=== PATIENT | female | born 1940 | race Caucasian/White ===

== ENCOUNTER 2016-04-25 10:58 | Emergency (ER) | payer MEDICARE, OTHER ==
[~2016-04-25] VITALS: Ht 157.5 cm; Wt 102.3 kg
[~2016-04-25 10:58] MED LIST: ARIP5TAB7 PO; CALC600T11 PO; CHOL20002 PO; DEXT1CAP PO; DULR PR; ESCI5TAB PO; FLEETPED PR; MAGN400O4 PO; OXYB5TAB7 PO; OXYC-279 PO; PANT40TA4 PO; POTA8TAB2 PO; ZOLP5TAB PO
[2016-04-25 11:04] VITALS: Ht 157.5 cm; Wt 102.3 kg
[2016-04-25] MEDS ORDERED: morphine 4 MG/ML VIAL IV STA (11:28)
[2016-04-25] MEDS ORDERED: ONDANSETRON 4 MG INJ IV STA (11:28)
[2016-04-25] MEDS ORDERED: SOD CHLORIDE 0.9% 1,000 ML IV STA (11:28)
[2016-04-25 11:58] LABS: CHLORIDE 101 mmol/L (97-110)
[2016-04-25 11:59] LABS: POTASSIUM 3.8 mmol/L (3.5-5.1); SODIUM 141 mmol/L (135-144)
[2016-04-25 12:01] LABS: CREATININE 0.85 mg/dl (0.44-1.00)
[2016-04-25 12:02] LABS: ALANINE AMINOTRANSFERASE 31 IU/L (13-69); ALBUMIN/GLOBULIN RATIO 1.03; ALKALINE PHOSPHATASE 52 IU/L (42-121); ANION GAP 12 (8-16); ASPARTATE AMINO TRANSFERASE 23 IU/L (15-46); BILIRUBIN,INDIRECT 0.4 mg/dl (0-1.1); BILIRUBIN,TOTAL 0.4 mg/dl (0.2-1.3); BLOOD UREA NITROGEN 10 mg/dl (7-20); CARBON DIOXIDE 32 mmol/L (21-31); GLUCOSE 118 mg/dl (70-220); TOTAL PROTEIN 5.9 g/dl (6.1-8.1)
[2016-04-25 12:03] LABS: CALCIUM 8.5 mg/dl (8.4-10.2)
[2016-04-25 12:07] LABS: BASOPHILS % 0.4 % (0.0-2.0); EOSINOPHILS # 0.3 10^3/ul (0.0-0.5); EOSINOPHILS % 3.7 % (0.0-7.0); HEMATOCRIT 30.6 % (37.0-47.0); HEMOGLOBIN 10.3 g/dl (12.0-16.0); LYMPHOCYTES # 1.9 10^3/ul (0.8-2.9); LYMPHOCYTES % 20.2 % (15.0-51.0); MEAN CORPUSCULAR HGB CONC 33.7 g/dl (32.0-37.0); MEAN CORPUSCULAR VOLUME 86.1 fl (82.0-101.0); MEAN PLATELET VOLUME 9.7 fl (7.4-10.4); MONOCYTES % 10.5 % (0.0-11.0); NEUTROPHIL # 6.1 10^3/ul (1.6-7.5); NEUTROPHILS % 65.2 % (39.0-77.0); PLATELET COUNT 203 10^3/UL (140-440); RED BLOOD COUNT 3.56 10^6/ul (4.20-5.40); RED CELL DISTRIBUTION WIDTH 15.3 % (11.5-14.5); UNCORRECTED WBC 9.4 10^3/ul (4.8-10.8); WHITE BLOOD COUNT 9.4 10^3/ul (4.8-10.8)
[2016-04-25 12:10] LABS: CONDITION 1; LH ANALYZER COMMENTS 1
[2016-04-25 12:15] LABS: TROPONIN-I < 0.012 ng/ml (0.00-0.12)
--- NOTE | 2016-04-25 14:20 | RADRPT ---
PROCEDURE: CT scan of the abdomen and pelvis without IV contrast. CLINICAL INDICATION: The right lower quadrant pain radiating to the left flank. TECHNIQUE: Thin section axial, coronal and sagittal images were performed through the abdomen and pelvis without contrast. Radiation Dose: CTDI: 23.6 and DLP: 1320.84. One or more of the following dose reduction techniques were used: - Automated exposure control. - Adjustment of the mA and/or kV according to patient size. Use of iterative reconstruction technique. COMPARISON: Chest x-ray 04/15/2016 06:18 a.m. FINDINGS: Soft tissues: Normal. Lungs and pleural spaces: There is a focal area of atelectasis the medial aspect of the right lower lobe. No pulmonary nodule or pleural effusion is noted. There is thickening of the bronchial suspi cious for bronchitis. Heart: Heart is mildly enlarged. There is no pericardial effusion. The liver, common bile duct and gallbladder: The liver is unremarkable. The gallbladder is normal w ith no gallbladder wall thickening or evidence of cholelithiasis. No intrahepatic biliary ductal di latation is identified. Gastrointestinal: The stomach is incompletely distended this is thought to account for gastric wall thickening. The small bowel loops are unremarkable. There is diastasis rectus. There is a 1.3 x 1 .9 cm umbilical hernia. The neck of the hernia measures 1.1 cm. The vermiform appendix is normal. There is no evidence of diverticulosis or diverticulitis. Pancreas: Normal. The extrahepatic common bile duct is normal. Kidneys, bladder and adrenal glands : The adrenal glands are normal. There is a 1.1 by 1 cm nonobst ructive nephrolith in the upper pole of the left kidney. There is no evidence of a mass or hydronep hrosis involving either kidney. Spleen: The spleen is normal in size. There is a 5 mm low attenuation in the ventral third of the s pine. This lesion is likely benign and could represent a small granuloma or cyst. Lymph nodes: Normal. Reproductive system and pelvis : The seminal vesicles and prostate gland are unremarkable. There ar e metal clips at the level of the lower prostate gland and pubic symphysis related to prior surgery. Bony elements: There are degenerative osteophytes in the thoracic and lumbar spine. No acute fractu re or bone metastasis is identified. There is endplate softening between several of the thoracic an d lumbar vertebra. There is a 5 mm benign bone island in the left ilium adjacent to the superior ac etabulum. There is a benign 1.5 cm bone cyst in the right body of L4. Vasculature: There are Alexus filter is deployed in the inferior vena cava and proximal portions of the right left common femoral veins. There are atherosclerotic vascular calcifications in the lo wer abdominal aorta. IMPRESSION: 1. Normal vermiform appendix. No evidence of diverticulosis or diverticulitis. 2. 1 x 1.1 cm nonobstructive nephrolith superior pole left kidney. No evidence of an obstructing u reterolith or hydronephrosis. 3. Diastasis rectus with 1.9 x 1.3 cm umbilical hernia. 4. Focal atelectasis the medial aspect of the right lower lobe. 5. Osteoarthritis of the thoracic and lumbosacral spine with bilateral degenerative facet arthropat hy is at L3-4, L4-5 and L5-S1. 6. 1 cm benign bone cyst in the right body of L4. 7. Mild cardiomegaly. 8. No acute acute process is identified. RPTAT:AAJJ Physician Jenny Date Time Electronically viewed and signed by Physician Jenny on 04/25/2016 14:19 /
[2016-04-25] MEDS ORDERED: ALBUTEROL 0.5% (NEB) 2.5 MG/0.5 ML AMP HHN STA (14:28)
[2016-04-25] MEDS ORDERED: BENZ100C70 PO (14:28)
[2016-04-25] MEDS ORDERED: AZIT250T94 PO (14:28)
[2016-04-25] MEDS ORDERED: HYDR-902 PO (14:28)
[2016-04-25] MEDS ORDERED: ONDA4TAB14 PO (14:28)
[2016-04-25] MEDS ORDERED: IPRATROPIUM (NEB) 0.5 MG/2.5 ML AMP HHN ONE (14:30)
[2016-04-25] MEDS ORDERED: AZITHROMYCIN 250 MG TAB PO ONE (14:30)
--- NOTE | 2016-04-25 14:30 | ERD ---
ER Documentation Chief Complaint Date/Time DATE: 04/25/16 TIME: 14:30 Chief Complaint PRIVATE AMBULANCE, C/O RLQ PAIN FROM [facility] HPI Patient is a 75-year-old female with hypertension and diabetes who presents with abdominal pain. The patient has had abdominal pain for the last few days. She says "I do not know where they are" in reference to the pain. She cannot localize it. She said the pain is been worsening and has been a right sided pain mostly. She was brought in by ambulance. She tried [place] which helped with her pain. She is currently on antibiotics for a UTI. Her primary doctor is Dr. Lopez. ROS All systems reviewed and are negative except as per history of present illness. Medications Home Meds Active Scripts Azithromycin* (Zithromax*) 250 Mg Tablet, 250 MG PO DAILY for 4 Days, TAB Prov:JUICE RILEY MD 04/25/16 Ondansetron (Ondansetron Odt) 4 Mg Tab.rapdis, 4 MG PO Q6H Y for NAUSEA AND/OR VOMITING, #30 TAB Prov:JUICE RILEY MD 04/25/16 Hydrocodone/Acetaminophen ([place] 10-325 Tablet) 1 Each Tablet, 1 TAB PO Q6H Y for PAIN, #7 TAB Prov:JUICE RILEY MD 04/25/16 Benzonatate* (Tessalon Perle*) 100 Mg Capsule, 100 MG PO Q8H Y for COUGH, #30 CAP Prov:JUICE RILEY MD 04/25/16 Reported Medications Zolpidem Tartrate* (Ambien*) 5 Mg Tablet, 5 MG PO QHS Y for INSOMNIA, #30 TAB 02/28/16 Calcium Carbonate* (Calcium Carbonate*) 600 MG Ca Tab, 600 MG PO BID, TAB 02/28/16 Bisacodyl* (Bisacodyl*) 10 Mg Supp, 10 MG TN DAILY, SUPP 02/28/16 Sod Phosphate/Sod Biphosphate* (Fleet* Enema Pediatric) 66.6 Ml Soln, 66.6 ML TN DAILY Y for CONSTIPATION, ENEMA 02/28/16 Escitalopram Oxalate* (Lexapro*) 5 Mg Tablet, 5 MG PO DAILY, #30 TAB 02/28/16 Magnesium Hydroxide* (Milk Of Magnesia*) 400 Mg/5 Ml Oral.susp, 30 ML PO QHS, ML 12/18/16 Dextromethorphan Hbr/Quinidine (NUEDEXTA 20-10 MG CAPSULE) 1 Each Capsule, 1 EACH PO Q12, CAP 02/28/16 Oxybutynin Chloride* (Ditropan*) 5 Mg Tab, 5 MG PO TID, TAB 02/28/16 Pantoprazole* (Pantoprazole*) 40 Mg Tablet.dr, 40 MG PO AC BREAKFAST, TAB 02/28/16 Oxycodone HCl/Acetaminophen (Percocet 5-325 mg Tablet) 1 Each Tablet, 1 EACH PO Q6 Y for PAIN -12/20, TAB AND TAKE FOR CHRONIC LOW BACK PAIN 02/28/16 Cholecalciferol (Vitamin D3) (Vitamin D-3) 2,000 Unit Tablet, 2000 UNIT PO DAILY , TAB 02/28/16 Aripiprazole* (Abilify*) 5 Mg Tab, 5 MG PO DAILY, #30 TAB 02/28/16 Potassium Chloride* (Klor-Con*) 8 Meq Tablet.sa, 8 MEQ PO BID 04/09/11 Allergies Allergies: Coded Allergies: Penicillins (Verified Allergy, Mild, ALLERGY, 02/28/16) adhesive tape (Verified Allergy, Unknown, 03/01/16) Uncoded Allergies: PAPER TAPE (Allergy, Mild, 04/24/07) PMhx/Soc History of Surgery: Yes (left forearm surgery) Anesthesia Reaction: No Hx Neurological Disorder: No Hx Respiratory Disorders: Yes (COPD) Hx Cardiac Disorders: Yes (CHF,AR,HTN) Hx Psychiatric Problems: Yes (SCHIZOAFFECTIVE DISORDER) Hx Miscellaneous Medical Probl: Yes (CHF, OA, Gout, Asthma, COPD, schizoaffective disorder, DM, AR) Hx Alcohol Use: No Hx Substance Use: No Hx Tobacco Use: Yes Smoking Status: Current some day smoker FmHx Family History: diabetes Physical Exam Vitals Vital Signs Date Time Temp Pulse Resp B/P Pulse Ox O2 Delivery O2 Flow Rate FiO2 04/25/16 12:39 75 18 97/50 100 Room Air 04/25/16 11:04 99.0 81 19 109/54 97 Physical Exam Const: No acute distress Head: Atraumatic Eyes: Normal Conjunctiva ENT: Normal External Ears, Nose and Mouth. Neck: Full range of motion..~ No meningismus. Resp: Cough Cardio: Regular rate and rhythm, no murmurs Abd: Soft, diffuse abdominal pain without rebound or guarding Skin: No petechiae or rashes Back: No midline or flank tenderness Ext: No cyanosis, or edema Neur: Awake and alert Psych: Normal Mood and Affect Result Diagram: 04/25/16 1130 04/25/16 1130 Results 24 hrs Laboratory Tests Test 04/25/16 11:30 Alanine Aminotransferase (ALT/SGPT) 31IU/L Albumin 3.0g/dl Albumin/Globulin Ratio 1.03 Alkaline Phosphatase 52IU/L Anion Gap 12 Aspartate Amino Transf (AST/SGOT) 23IU/L Basophils # 0.010^3/ul Basophils % 0.4% Blood Morphology Comment Blood Urea Nitrogen 10mg/dl Calcium Level 8.5mg/dl Carbon Dioxide Level 32mmol/L Chloride Level 101mmol/L Creatinine 0.85mg/dl Direct Bilirubin 0.00mg/dl Eosinophils # 0.310^3/ul Eosinophils % 3.7% Globulin 2.90g/dl Glucose Level 118mg/dl Hematocrit 30.6% Hemoglobin 10.3g/dl Indirect Bilirubin 0.4mg/dl Lipase 22U/L Lymphocytes # 1.910^3/ul Lymphocytes % 20.2% Mean Corpuscular Hemoglobin 29.0pg Mean Corpuscular Hemoglobin Concent 33.7g/dl Mean Corpuscular Volume 86.1fl Mean Platelet Volume 9.7fl Monocytes # 1.010^3/ul Monocytes % 10.5% Neutrophils # 6.110^3/ul Neutrophils % 65.2% Nucleated Red Blood Cells # 0.010^3/ul Nucleated Red Blood Cells % 0.0/100WBC Platelet Count 96397^3/UL Potassium Level 3.8mmol/L Red Blood Count 3.5610^6/ul Red Cell Distribution Width 15.3% Sodium Level 141mmol/L Total Bilirubin 0.4mg/dl Total Protein 5.9g/dl Troponin I < 0.012ng/ml White Blood Count 9.410^3/ul Current Medications Medications (Trade) Dose Ordered Sig/Genet Route PRN Reason Start Time Stop Time Status Last Admin Dose Admin Sodium Chloride (NS) 1,000 ml @ 1,000 mls/hr Q1H STAT IV 04/25/16 11:28 04/25/16 12:27 DC 04/25/16 11:38 Morphine Sulfate (morphine) 4 mg ONCE STAT IV 04/25/16 11:28 04/25/16 11:29 DC 04/25/16 11:37 Ondansetron HCl (Zofran Inj) 4 mg ONCE STAT IV 04/25/16 11:28 04/25/16 11:29 DC 04/25/16 11:38 Albuterol (Proventil 0.5% (Neb)) 5 mg ONCE STAT HHN 04/25/16 14:28 04/25/16 14:29 DC Ipratropium Garrison (Atrovent 0.02% (Neb)) 0.5 mg ONCE ONCE HHN 04/25/16 14:30 04/25/16 14:31 Azithromycin (Zithromax) 500 mg ONCE ONCE PO 04/25/16 14:30 04/25/16 14:31 Procedures/MDM EKG read by me: Rate/Rhythm: Regular rate and rhythm at a rate of 79 Intervals: Normal Impression: No evidence of ischemia or arrhythmia CT scan shows no acute surgical process per radiology. Patient is a 75-year-old female presents with abdominal pain and cough. Her laboratory studies are basically normal and CT scan shows no sign of surgical process within the abdomen and pelvis. The patient has a strong cough and was given albuterol and Atrovent as well as a first dose of Zithromax. I will give 4 more days of Zithromax as well. At this point I believe outpatient management is appropriate. The patient will be discharged back to the nursing facility. She can return for any worsening symptoms. At this point I doubt appendicitis, cholecystitis, pancreatitis, or bowel obstruction. Departure Diagnosis: Primary Impression: Bronchitis Additional Impressions: Abdominal pain Abdominal location: generalized Qualified Code: R10.84 - Generalized abdominal pain Anemia Anemia type: unspecified type Qualified Code: D64.9 - Anemia, unspecified type Condition: Fair Patient Instructions: Abdominal Pain, Bronchitis, Antiobiotic Treatment (Adult) Additional Instructions: FOLLOW UP WITH YOUR PRIMARY CARE PHYSICIAN TOMORROW.Return to this facility if you are not improving as expected. JUICE RILEY MD Apr 25, 2016 14:30
[2016-04-25 15:29] VITALS: BP 111/61; PULSE 93; RESP 20; TEMP 97.8
== END 2016-04-25 16:59 | disposition home or self-care (01) ==
LOC: E/R 10:58
DX: J20.9 Acute bronchitis, unspecified (principal); R10.84 Generalized abdominal pain; D64.9 Anemia, unspecified; I10 Essential (primary) hypertension; J44.9 Chronic obstructive pulmonary disease, unspecified; J45.909 Unspecified asthma, uncomplicated; I50.9 Heart failure, unspecified; E11.9 Type 2 diabetes mellitus without complications; F17.210 Nicotine dependence, cigarettes, uncomplicated
CPT/HCPCS: 36415; 74176; 80053; 83690; 84484; 85025; 93005; 94664; 96374; 96375; 99285; J2270; J2405; J7030

== ENCOUNTER 2016-12-06 18:42 | Inpatient (IN) | payer MEDICARE, OTHER ==
[~2016-12-06] VITALS: Ht 160 cm; Wt 94.8 kg
[~2016-12-06 18:42] MED LIST changes: +AZIT250T94 PO; +BENZ100C70 PO; +BISA10SU75 PR; -CALC600T11 PO; +CALC600T24 PO; -DULR PR; +HYDR-902 PO; +ONDA4TAB14 PO
[2016-12-06 19:53] VITALS: Ht 160 cm; Wt 94.8 kg
[2016-12-06 20:06] VITALS: BP 92/53; RESP 20
[2016-12-06 20:08] VITALS: BP 107/61; PULSE 74; RESP 18
[2016-12-06] MEDS ORDERED: NACL 0.9% 3 ML SYG IV SCH (20:30)
[2016-12-06] MEDS ORDERED: ONDANSETRON 4 MG INJ IV PRN (20:30)
[2016-12-06] MEDS ORDERED: MAGNESIUM HYDROXIDE 30ML CUP PO PRN (20:30)
[2016-12-06] MEDS ORDERED: morphine 2 MG INJ IV PRN (20:30)
[2016-12-06] MEDS ORDERED: DOCUSATE SODIUM 100 MG CAP PO PRN (20:30)
[2016-12-06] MEDS ORDERED: LORAZEPAM 0.5 MG TAB PO PRN (21:00)
[2016-12-06] MEDS ORDERED: INFLUENZA VIRUS VACCINE 0.5 ML (DISPENSING) IM* ONE (21:00)
[2016-12-06] MEDS ORDERED: GLUCAGON 1 MG INJ IM PRN (21:00)
[2016-12-06] MEDS: INSULIN ASPART [NOVOLOG] 3 ML PEN SC SCH (21:00)
[2016-12-06] MEDS ORDERED: GLUCOSE GEL 15 GRAM TUBE BUCCAL PRN (21:00)
[2016-12-06] MEDS ORDERED: GLUCOSE GEL 15 GRAM TUBE PO PRN ×2 (21:00)
[2016-12-06] MEDS ORDERED: DEXTROSE 50% 50 ML SYRINGE IV PRN ×2 (21:00)
[2016-12-06] MEDS: TAMSULOSIN (SR) 0.4 MG CAP PO SCH (21:11)
[2016-12-06] MEDS: OXYBUTYNIN 5 MG TAB PO SCH (21:11)
[2016-12-06] MEDS: CEFEPIME 1GM/50 ML (PMX) 50 ML IV SCH (21:11)
[2016-12-06] MEDS: SOD CHLORIDE 0.9% 1,000 ML IV SCH (21:11)
[2016-12-06] MEDS: ACCU-CHEK XX SCH (21:13)
[2016-12-06] MEDS: ACETAMINOPHEN 325 MG TAB PO PRN (21:13)
--- NOTE | 2016-12-06 22:04 | HP ---
DATE OF ADMISSION: 12/06/2016 REASON FOR ADMISSION: Left obstructive ureteral stone, UTI. 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 This was done at [facility] in the past month. Patient resides at the assisted living facility at [facility]. Patient has been complaining today of left- sided abdominal pain, and she was transferred to [facility]. In the ER, patient was evaluated extensively and underwent extensive workup. Chest x-ray shows cardiomegaly, with mild central pulmonary vascular congestion, right costophrenic angle opacity, which could be related to atelectasis. Recommend attention and followup imaging. She also had a CT scan of the abdomen and pelvis performed, which showed mild left hydroureteronephrosis, with extensive perinephric periurethral fatty stranding related to 1.1-cm obstructive stone in the mid left ureter. There is hepatomegaly with fatty infiltration, sigmoid diverticula, without evidence of acute diverticulitis. There is scattered aortoiliac atherosclerosis, mild hiatal hernia, osteopenia, multiple [id number] compression fractures in the lower thoracic and lumbar spine, not significantly changed. Patient also had a fever of 100.4. It was decided to transfer to [facility] for further care and also for a urological evaluation and consultation. Upon evaluation, patient still complained of vague pain in the left mid abdomen. Otherwise, denies any chest pain or shortness of breath. She was noted to have upon presentation a temperature of 100.4 upon presentation today in the hospital. Patient is admitted for further care. PAST MEDICAL HISTORY: Includes CHF, diabetes mellitus, schizoaffective disorder, asthma, COPD, gout, obesity, history of uterine cancer in the past, spinal fracture. ALLERGIES: PENICILLIN. FAMILY HISTORY: Mother from bone cancer. SOCIAL HISTORY: Patient used to smoke heavily in the past but stopped many years ago, more than 27 years ago. IV drug abuse and alcohol denies. SURGICAL HISTORY: Includes status post hysterectomy secondary to uterine cancer, bladder lift surgery and rectocele surgery, also pacemaker placement a month ago. REVIEW OF SYSTEMS: Per HPI. CURRENT MEDICATIONS: Include: 1. Tylenol 650 p.r.n. 2. Abilify 5 mg daily. 3. Aspirin 81 mg daily. 4. Bisacodyl suppository 10 as directed. 5. Calcium plus D 1 tab by mouth daily. 6. Coreg 12.5 b.i.d. 7. Lexapro 10 mg daily. 8. Ferrous sulfate 325 mg daily. 9. Gabapentin 400 mg q.8 hours. 10. Breathing treatment as directed. 11. Loperamide as directed. 12. Lorazepam p.r.n. 13. Milk of magnesia p.r.n. 14. Multivitamin 1 tab daily. 15. Nitrostat p.r.n. 16. Zofran p.r.n. 17. Protonix 40 mg daily. 18. KCl 10 mEq a day. 19. Promethazine p.r.n. PHYSICAL EXAMINATION: VITAL SIGNS: Blood pressure is 92/53, pulse 68, respirations 20, temperature 100.4, saturation 98 percent. GENERAL APPEARANCE: Patient is no acute distress. Patient is obese. Patient is pale. CARDIAC: S1, S2. Regular rate. LUNGS: Clear. Slightly decreased at the bases. Slight rhonchi at the bases as well. ABDOMEN: Soft, tender to palpation, left mid abdomen. EXTREMITIES: There is no clubbing, cyanosis, or edema. Patient is overweight. LABORATORY: No labs here in this hospital. At [facility], patient labs showed the following: White count slightly high at 12.8, hemoglobin 12.2, hematocrit 37, platelet count of 123, neutrophils 73 percent, lymphocytes 13 percent, monocytes 7 percent. ABG was done as well; pH was 7.39, pCO2 of 39, pO2 of 76, bicarb of 23, saturation 95 percent. Sodium 141, potassium 4.6, chloride 105, bicarb 30, BUN 16, creatinine 1.3 and glucose of 148. Calcium 8.8. AST 30, ALT was 26. UA did show negative ketones but blood large, nitrates negative, leukocyte esterase is small, with WBCs of [address] scan of the abdomen and pelvis as above. ASSESSMENT/PLAN: This is a 76-year-old, obese female, with history of congestive heart failure, chronic obstructive pulmonary disease, borderline diabetes mellitus, psychiatric disorder, presented with 1 day of left abdominal pain and was found to have obstructive left mid ureteral stone. 1. Respiratory. Stable. O2 support will be provided. Breathing treatment as needed, as patient has history of chronic obstructive pulmonary disease. Monitor for fluid overload state. 2. Cardiovascular. Patient is stable. Patient placed on Lovenox for deep venous thrombosis prophylaxis. Patient is status post recent pacemaker placement. Blood pressure was slightly on the low side. Patient will be hydrated gently. 3. Obstructive uropathy, with possible underlying urinary tract infection. Patient will be started on cefepime and will strain her urine. We will start the patient on Flomax, and we will consult Urology. This patient may need urological intervention such as stent placement. 4. Diabetes mellitus. Borderline Accu-Chek q.a.c. and at bedtime will be obtained. Follow up hemoglobin A1c level. 5. Psychiatric. Resume all psych meds, including antidepressants. 6. Patient will be placed on Protonix for gastrointestinal prophylaxis. 7. We will obtain blood cultures as well, if patient has a fever. 8. We will follow patient closely. Dictated By: Fidel Lopez MD /nga/david /Document#: [id number]
[2016-12-06 22:19] LABS: ADD UMIC YES; UR ASCORBIC ACID NEGATIVE (NEGATIVE); UR BACTERIA MODERATE /HPF (NONE SEEN); UR BILIRUBIN (Dip) NEGATIVE (NEGATIVE); UR BLOOD (Dip) 3+ mg/dL (NEGATIVE); UR CLARITY CLOUDY (CLEAR); UR COLOR YELLOW (YELLOW); UR GLUCOSE (Dip) NEGATIVE (NEGATIVE); UR KETONES (Dip) NEGATIVE (NEGATIVE); UR LEUKOCYTE ESTERASE (Dip) 3+ Leu/ul (NEGATIVE); UR MUCUS FEW /HPF (NONE SEEN); UR NITRITE (Dip) NEGATIVE (NEGATIVE); UR RBC 77 /HPF (0-5); UR SQUAMOUS EPITHELIAL CELL MODERATE /HPF (FEW); UR TOTAL PROTEIN (Dip) 2+ mg/dl (NEGATIVE); UR UROBILINOGEN (Dip) 1+ mg/dL (NEGATIVE)
[2016-12-07] MEDS ORDERED: ACCU-CHEK XX SCH (02:00)
[2016-12-07 02:39] VITALS: BP 109/72; RESP 18
[2016-12-07] MEDS: HYDROCODONE/APAP (5/325) TAB PO PRN ×2 (02:57→21:52)
[2016-12-07 05:37] LABS: ABNORMAL IP MESSAGE 1; BASOPHILS % 0.1 % (0.0-2.0); EOSINOPHILS # 0.3 10^3/ul (0.0-0.5); EOSINOPHILS % 1.8 % (0.0-7.0); HEMATOCRIT 28.7 % (37.0-47.0); HEMOGLOBIN 9.5 g/dl (12.0-16.0); LYMPHOCYTES # 2.1 10^3/ul (0.8-2.9); MEAN CORPUSCULAR HEMOGLOBIN 29.3 pg (29.0-33.0); MEAN CORPUSCULAR HGB CONC 33.1 g/dl (32.0-37.0); MEAN CORPUSCULAR VOLUME 88.6 fl (82.0-101.0); MEAN PLATELET VOLUME 12.5 fl (7.4-10.4); MONOCYTE # 1.4 10^3/ul (0.3-0.9); MONOCYTES % 9.7 % (0.0-11.0); NEUTROPHIL # 10.2 10^3/ul (1.6-7.5); NEUTROPHILS % 72.7 % (39.0-77.0); PLATELET COUNT 98 10^3/UL (140-415); RED BLOOD COUNT 3.24 10^6/ul (4.20-5.40); RED CELL DISTRIBUTION WIDTH 13.9 % (11.5-14.5); WHITE BLOOD COUNT 14.1 10^3/ul (4.8-10.8)
[2016-12-07 05:42] LABS: POSITIVE DIFF @See below
[2016-12-07] MEDS: PANTOPRAZOLE (EC) 40 MG TAB PO SCH (05:45)
[2016-12-07] MEDS: ACETAMINOPHEN 325 MG TAB PO PRN ×3 (05:45→20:17)
[2016-12-07 06:00] LABS: ALBUMIN 2.5 g/dl (3.3-4.9); ALBUMIN/GLOBULIN RATIO 0.83; BILIRUBIN,INDIRECT 0.9 mg/dl (0-1.1); BILIRUBIN,TOTAL 0.9 mg/dl (0.2-1.3); CALCIUM 8.3 mg/dl (8.4-10.2); CREATININE 1.54 mg/dl (0.44-1.00); TOTAL PROTEIN 5.5 g/dl (6.1-8.1)
[2016-12-07 06:27] LABS: THYROID STIMULATING HORMONE 1.69 MIU/L (0.465-4.680)
[2016-12-07] MEDS: INSULIN ASPART [NOVOLOG] 3 ML PEN SC SCH ×5 (07:55→20:17)
[2016-12-07 08:10] VITALS: BP 92/46; RESP 20
--- NOTE | 2016-12-07 08:55 | CONS ---
DATE OF ADMISSION: 12/06/2016 DATE OF CONSULTATION: 12/07/2016 Dear Fidel: Thank you for asking me to see this nice lady in urological consultation. She is a 76-year-old female, who had left flank pain with nausea and fever. She presented to the emergency room at [facility] and a CT scan of the abdomen and pelvis was done and that showed a 1.1 cm stone in the left ureter. The patient was transferred to [facility] for further care. The patient states that many years back she may have had a kidney stone that she may have passed out. She denies any lower urinary tract symptoms. No dysuria, no hematuria, but she does have a problem with incontinence sometimes. PAST MEDICAL HISTORY: The patient has multiple medical problems that include a history of congestive heart failure, history of osteoarthritis, gout, asthma, COPD, has schizoaffective disorder, and borderline diabetes. She did have a recent pacemaker placed because of the tachybradycardia syndrome. The patient also has a history of spinal problem, fracture, and she suffers from obesity. Also, there is a history of uterine cancer in the past. SOCIAL HISTORY: The patient does not drink any alcohol. She used to smoke but she quit more than 27 years ago, and no drug abuse. No history of alcohol abuse. PAST SURGICAL HISTORY: Hysterectomy secondary to uterine cancer, a bladder lift surgery and rectocele surgery and recent pacemaker insertion. MEDICATION: That she is on presently include: 1. She is on Lovenox. 2. Abilify. 3. Dulcolax suppository. 4. Lexapro. 5. Protonix. 6. Cefepime. 7. Ditropan 5 mg 3 times a day. 8. Tamsulosin 0.4 mg a day. 9. She is on insulin coverage. 10. Ativan p.r.n. 11. Zofran p.r.n. 12. Tylenol p.r.n. 13. [place] p.r.n. 14. Ambien. 15. Milk of Magnesium p.r.n. 16. Colace p.r.n. PHYSICAL EXAMINATION: Reveals an elderly female. She weighs about 95 kg. She is awake, alert, and very pleasant. HEAD AND NECK: Unremarkable. CHEST: Clear. The patient does have a scar from her recent pacemaker placement in the left upper anterior chest. ABDOMEN: Very obese. There is no abdominal mass palpable. She is tender in the left upper quadrant and left side of the abdomen. PELVIC: Exam revealed no mass. No discharge. GENITOURINARY: She does have an indwelling Johnston catheter draining clear urine. EXTREMITIES: The lower extremities are normal. She is obese, however. The patient usually is wheelchair-bound and she moves from her bed to the wheelchair. LABORATORY: Her CBC shows a white count of 14.1, hemoglobin 9.5, hematocrit 28.7, the platelet count 98,000. BUN is 20, creatinine 1.54, sodium 137, potassium 4.0, chloride 106, CO2 28. The urinalysis showed 3+ leukocyte esterase and 77 RBCs per high- power field. IMPRESSION: A 1.1 cm left mid to upper ureteral stone with obstruction. PLAN: Do a KUB, continue her on antibiotic and this patient will need to have a cystoscopy and insertion of a JJ stent to drain her kidney and at the later date go and remove the stone. I will follow her urological problem with you. I do thank you for allowing me to help in her care. Dictated By: Bhavin Segovia MD /nga/lexii /Document#: [id number]
[2016-12-07] MEDS ORDERED: ENOXAPARIN 40 MG/0.4 ML SYG SC SCH (09:00)
[2016-12-07] MEDS: BISACODYL 10 MG SUPP PR SCH (09:00)
[2016-12-07] MEDS: CEFEPIME 1GM/50 ML (PMX) 50 ML IV SCH (09:32)
[2016-12-07] MEDS: ESCITALOPRAM 10 MG TAB PO SCH (09:33)
[2016-12-07] MEDS: ARIPIPRAZOLE 5 MG TAB PO SCH (09:33)
[2016-12-07] MEDS: OXYBUTYNIN 5 MG TAB PO SCH ×3 (09:33→20:17)
--- NOTE | 2016-12-07 10:07 | RADRPT ---
PROCEDURE: XR Chest. CLINICAL INDICATION: Shortness of breath. TECHNIQUE: Single frontal view. COMPARISON: 03/02/2016. FINDINGS: There is a new permanent pacemaker with leads in the right atrium and right ventricle. There is mild pulmonary edema, improved. The lungs are otherwise clear. The heart is mildly enlarged. There is no pleural effusion. There is no pneumothorax. IMPRESSION: 1. Permanent pacemaker. 2. Mild cardiomegaly. 3. Improved appearance of the lungs. RPTAT: QQ .Lokesh Barragan MD, MD Date Time Electronically viewed and signed by .Lokesh Barragan MD, MD on 12/07/2016 10:07 .R/
--- NOTE | 2016-12-07 10:30 | RADRPT ---
PROCEDURE: XR Abdomen. CLINICAL INDICATION: Abdominal pain. Left ureteral calculus. TECHNIQUE: AP supine abdomen x-ray. COMPARISON: CT scan of the abdomen and pelvis dated 04/25/2016. FINDINGS: There is a permanent pacemaker. The calcification is noted overlying the left kidney. There are no o ther abnormal calcifications overlying the urinary tracts. The bowel gas pattern is normal with no evidence of obstruction. There are 2 inferior vena cava filters present as seen on prior CT scan. There are degenerative changes of the spine. IMPRESSION: 1. Permanent pacemaker. 2. Calcification overlying the left kidney. 3. IVC filters present. 4. Degenerative changes of the spine. RPTAT: QQ .Lokesh Barragan MD, Date Time Electronically viewed and signed by .Lokesh Barragan MD, on 12/07/2016 10:30 .R/
[2016-12-07 10:36] VITALS: BP 117/54; PULSE 65; RESP 16
[2016-12-07] MEDS: SOD CHLORIDE 0.9% 1,000 ML IV SCH (10:37)
[2016-12-07 12:31] LABS: INR 1.53; PROTIME 18.5 Sec (12.2-14.2); PT RATIO 1.4
[2016-12-07 12:32] LABS: PARTIAL THROMBOPLASTIN TIME 40.2 Sec (25.0-35.0)
--- NOTE | 2016-12-07 13:17 | PN ---
DATE: 12/07/2016 SUBJECTIVE DATA: I appreciate Dr. Segovia's input. The patient's urine culture is positive for gram-negative rods. White count is elevated to 14. Patient is on cefepime. The patient likely to undergo a left ureteral stent placement, as patient, unfortunately, has an obstructive ureteral stone on the left. The patient complaining of pain in the left abdomen. Additionally, she is complaining of general arthralgia. OBJECTIVE DATA: VITAL SIGNS: The T-max is a 100.4 on presentation. Current vital signs temperature 98.9, pulse 65, respirations 16, blood pressure 117/54, saturation 95 percent on 2 L. GENERAL: The patient is in no acute distress. Patient is pale, obese. CARDIOVASCULAR: S1, S2. Regular rate. LUNGS: Clear. ABDOMEN: Soft, slight tenderness to palpation in the left mid abdomen. EXTREMITIES: No clubbing, cyanosis, or edema. The patient is obese. She has osteoarthritis of bilateral knees. No warmth or fluid collection is noted. LABS: White count is 14.1, hemoglobin 9.5, hematocrit 29, platelet count is low at 98, neutrophils 73 percent, lymphocytes 15 percent. Chemistry: Sodium 127, potassium 4.2, chloride 106, bicarb 28, BUN is 20, creatinine is 1.54, elevated glucose of 131, last glucose level 178 and 153. UA was positive. Urine culture shows gram-negative rods. MEDICATIONS: Include: 1. Lovenox 4 mg subcu daily. 2. Abilify 5 mg daily. 3. Dulcolax 10 mg daily. 4. Lexapro 5 mg daily. 5. Protonix mg daily. 6. Accu-Chek before meals and at bedtime. 7. Cefepime 1 g q.12. 8. Ditropan 5 mg t.i.d. 9. Flomax 0.4 at bedtime. 10. Ativan 0.5 q.6 p.r.n. 11. Hypoglycemia protocol. 12. Zofran p.r.n. 13. Tylenol p.r.n. 14. [place] p.r.n. 15. Morphine p.r.n. 16. Colace p.r.n. 17. Milk of Magnesium p.r.n. 18. Ambien p.r.n. 19. Normal saline at 70 mL/hour. ASSESSMENT AND PLAN: This is a 76-year-old obese female, with history of congestive heart failure, chronic obstructive pulmonary disease, borderline diabetes mellitus, psychiatric disorder, who presented with 1 day of left abdominal pain, was found to have obstructive uropathy with left mid ureteral stone. 1. Respiratory: Oxygen support as needed. Breathing treatment as needed. The patient appears to be hemodynamically stable. Chest x-ray shows mild cardiomegaly and improved appearance of the lungs. 2. Cardiovascular: Patient is status post pacemaker. Blood pressure is stable. 3. ID: Patient with urinary tract infection. Patient on cefepime. Follow up urine culture results. 4. Worsening kidney function. Monitor. Continue gentle hydration. 5. Obstructive left ureteral stone. Patient will undergo stent placement with Dr. Segovia pending INR results. We will obtain cardiology eval. This patient has cardiac history in the setting of the above surgical procedure. 6. Psychiatric disorder. Continue Lexapro and Abilify. 7. Continue deep venous thrombosis prophylaxis and gastrointestinal prophylaxis. Monitor platelet count. 8. Diet as tolerated. Antiemetics as needed. 9. Pain control will be provided for both for abdominal pain and also osteoarthritis. We will follow. Dictated By: Fidel Lopez MD /nga/lexii /Document#: [id number]
[2016-12-07 14:00] VITALS: BP 105/58; RESP 18
--- NOTE | 2016-12-07 14:15 | RADRPT ---
Vent Rate: 68 bpm RR Interval: 0 msec DC Interval: 184 msec QRS Duration: 84 msec QT Interval: 428 msec QTC Interval: 455 msec P-R-T [place]: 74 - 11 - 51 degrees Normal sinus rhythm Normal ECG Electronically Signed By: Daniel Heredia [id number]
[2016-12-07] MEDS: morphine 2 MG INJ IV PRN (17:26)
[2016-12-07 19:38] VITALS: BP 92/52; RESP 19
[2016-12-07] MEDS: TAMSULOSIN (SR) 0.4 MG CAP PO SCH (20:17)
[2016-12-07] MEDS: MEROPENEM 1 GM/50ML(PMX) 50 ML IVPB SCH (20:47)
[2016-12-08] VITALS (16 sets, daily range): BP systolic 100–132; BP diastolic 50–76; PULSE 65–87; RESP 16–20
[2016-12-08] MEDS: DEXTROSE 5%-0.45% NACL 1,000 ML IV SCH ×2 (00:05→17:57)
[2016-12-08] MEDS: ACCU-CHEK XX SCH (02:00)
[2016-12-08] MEDS: morphine 2 MG INJ IV PRN ×2 (04:00→08:17)
[2016-12-08] MEDS: PANTOPRAZOLE (EC) 40 MG TAB PO SCH (04:16)
[2016-12-08] MEDS: INSULIN ASPART [NOVOLOG] 3 ML PEN SC SCH ×4 (08:00→20:06)
[2016-12-08] MEDS ORDERED: morphine 4 MG/ML VIAL ONE (08:11)
[2016-12-08] MEDS: MEROPENEM 1 GM/50ML(PMX) 50 ML IVPB SCH ×2 (08:16→20:07)
[2016-12-08] MEDS: BISACODYL 10 MG SUPP PR SCH (08:22)
[2016-12-08] MEDS ORDERED: CEFEPIME 1GM/50 ML (PMX) 50 ML IV SCH (09:00)
[2016-12-08] MEDS ORDERED: ENOXAPARIN 30 MG/0.3 ML SYG SC SCH (09:00)
[2016-12-08] MEDS: OXYBUTYNIN 5 MG TAB PO SCH ×3 (09:00→20:07)
[2016-12-08] MEDS: ARIPIPRAZOLE 5 MG TAB PO SCH (09:00)
[2016-12-08] MEDS: ESCITALOPRAM 10 MG TAB PO SCH (09:00)
--- NOTE | 2016-12-08 09:44 | CONS ---
DATE OF ADMISSION: 12/06/2016 DATE OF CONSULTATION: 12/07/2016 REASON FOR CONSULTATION: History of sick sinus syndrome, status post permanent pacemaker, cardiovascular preop evaluation, history of congestive heart failure. CHIEF COMPLAINT: Left abdominal pain, flank pain. HISTORY OF PRESENT ILLNESS: Dear Dr. Lopez: Thank you for this referral. This is a pleasant 76-year-old female with reported history of congestive heart failure, as well as COPD, asthma, who was admitted to our facility for workup of her abdominal pain. Patient apparently was seen at [facility]. Workup has shown left-sided kidney stone. She has been transferred to our facility for urological workup and procedures. She denies any chest pain or pressure to any . She does have cough and shortness of breath and wheezing, which have been stable for her. Her exercise tolerance is limited due to her arthritis, as well as her shortness of breath. She also has had recent fever up to 100.4 as well. PAST MEDICAL HISTORY: History of reported CHF with normal ejection fraction, diastolic dysfunction, history of diabetes, schizoaffective disorder, asthma, COPD, gout, obesity, history of uterine cancer in the past and spinal fracture. ALLERGIES: PENICILLIN. FAMILY HISTORY: Patient's mother from some sort of bone cancer reportedly. SOCIAL HISTORY: Patient quit smoking when she was 51. Smoked for a long time prior to that. Denies any alcohol or drug abuse. MEDICATION: As per medical reconciliation, personally reviewed. PAST SURGICAL HISTORY: Had a pacemaker placement recently, had a hysterectomy done for history of uterine cancer, had bladder surgery and rectocele surgery done. REVIEW OF SYSTEMS: As above mentioned. She denies all except for abovementioned to me. She has abdominal pain though. PHYSICAL EXAMINATION: VITAL SIGNS: Temperature 98.7, heart rate 63, blood pressure 110/63, respiratory rate 18, satting 98 percent HEENT: Normocephalic, atraumatic. No acute distress. Pupils are equal and round. CARDIAC: Regular rate and rhythm. No gallops or murmurs. CHEST: . Left-sided permanent pacemaker in place. LUNGS: Anteriorly with mild wheezes. ABDOMEN: Soft, nontender. No rebound. EXTREMITIES: With trace lower extremity edema. NEUROLOGIC: Awake and alert. Responds appropriately. PSYCHIATRIC: Very calm and very pleasant. LABORATORY: WBC of 14.1, hemoglobin 9.5, platelets of 98. Sodium 137, potassium 4, BUN of 20, creatinine of 1.54, glucose of 131. Albumin is 2.5. TSH 1.69. Chest x-ray shows status post pacemaker with mild hepatomegaly, improved appearance of the lungs. There is mild pulmonary edema. EKG shows normal sinus rhythm, normal ECG. IMPRESSION AND PLAN: 1. Cardiovascular preoperative evaluation. 2. History of congestive heart failure, suggestive of diastolic dysfunction, appears to be chronic and stable at this point. 3. History of sick sinus syndrome, status post permanent pacemaker, currently with no issues. 4. Urinary tract infection and renal stone, awaiting surgery for the obstructive left ureteral stone. 5. History of chronic obstructive pulmonary disease, asthma. 6. History of psych disorder, currently stable. 7. Thrombocytopenia. 8. Acute renal failure, most likely related to above. 9. Diabetes, on insulin. RECOMMENDATIONS: Patient appears to be optimized from the cardiac standpoint for the above procedure and it appears that the benefits outweigh the risks. I will order electrocardiogram to reevaluate the LV function. No evidence of malfunction of the pacemaker and currently patient does not appear to be using the pacemaker much anyway. We will try to get the information on the pacemaker and have it interrogated later on. I will hold the Lovenox given thrombocytopenia for now. We will follow up on the labs and adjust it. Diabetic control will be continued. Thank you for this referral. We will continue to follow along with you. Dictated By: Lc Murillo MD /nga/lexii /Document#: [id number] CC: Fidel Lopez MD;*[facility]*
[2016-12-08] MEDS ORDERED: LIDOCAINE 2% (SDV) 5 ML INJ ONE (12:21)
[2016-12-08] MEDS ORDERED: ROCURONIUM 50 MG INJ ONE (12:21)
[2016-12-08] MEDS ORDERED: PROPOFOL 20 ML ONE (12:21)
[2016-12-08] MEDS ORDERED: SUCCINYLCHOLINE CHLORIDE 100 MG/5 ML SYG IV ONE (12:21)
[2016-12-08] MEDS ORDERED: GLYCOPYRROLATE 0.4 MG INJ ONE ×3 (12:21→12:56)
[2016-12-08] MEDS ORDERED: NEOSTIGMINE 3 MG/3 ML SYRINGE ONE ×2 (12:21→12:56)
--- NOTE | 2016-12-08 12:23 | HPN ---
Date/Time of Note Date/Time of Note DATE: 12/08/16 TIME: 12:23 Interval H&P Admission Note Pt. seen H&P reviewed: No system changes PAIGE SOTOMAYOR MD Dec 08, 2016 12:23
[2016-12-08] MEDS ORDERED: METOCLOPRAMIDE 10 MG INJ IV PRN (12:30)
[2016-12-08] MEDS ORDERED: LABETALOL HCL 20MG INJ IV PRN (12:30)
[2016-12-08] MEDS ORDERED: ONDANSETRON 4 MG INJ IV PRN (12:30)
[2016-12-08] MEDS ORDERED: hydrALAzine 20 MG INJ IV PRN (12:30)
[2016-12-08] MEDS ORDERED: MIDAZOLAM 1 MG/ML 2 ML INJ IV PRN (12:30)
[2016-12-08] MEDS ORDERED: MEPERIDINE 25 MG INJ IV PRN (12:30)
[2016-12-08] MEDS ORDERED: FENTAnyl 50 MCG/ML VIAL IV PRN ×3 (12:30)
[2016-12-08] MEDS ORDERED: DIPHENHYDRAMINE 50 MG INJ IV PRN (12:30)
[2016-12-08] MEDS ORDERED: EPHEDrine SULFATE 50 MG/5 ML SYG IV PRN (12:30)
[2016-12-08] MEDS ORDERED: METOCLOPRAMIDE 10 MG INJ ONE (12:57)
[2016-12-08] MEDS ORDERED: ONDANSETRON 4 MG INJ ONE (12:57)
--- NOTE | 2016-12-08 14:00 | OPR ---
Date/Time of Note Date/Time of Note DATE: 12/08/16 TIME: 13:51 Operative Report Procedure Date: Dec 08, 2016 Preoperative Diagnosis Left ureteral stone was hydronephrosis and urinary tract infection , possible pyelonephritis Postoperative Diagnosis Left ureteral stone over the sacroiliac joint area with obstruction and pyelonephritis Operation Performed Cystoscopy and insertion of left ureteral JJ stent Surgeon Bhavin Segovia Anesthesia Type: general Anesthesiologist: HETAL KELLY MD Estimated Blood Loss: none Specimens Urine culture from the bladder and urine culture from the left kidney Complications: no Pt Condition Post Procedure: stable Disposition: PACU Indications Left ureteral stone was obstruction Operative\Procedure Findings Left ureteral stone over the sacroiliac joint area and left pyelonephritis Procedure Description The patient was brought to the operating room and given general anesthesia. The patient was positioned in the lithotomy position. The genital area was prepped and draped in the usual sterile manner. No antibiotic was given since the patient received her antibiotic 2 hours earlier. The 22 Ecuadorean cystoscope sheath was introduced into the bladder urine was collected for culture and sensitivity. Spot films was fluoroscopy were done and the stone was over the sacroiliac joint area. Bladder appeared to be infected and one could see many areas of erythema and infection. The left ureteral orifice was identified and then cannulated was a 5 Ecuadorean open ended. 0.035 zip wire was passed through the open ended into the left ureter and as it was advanced under fluoroscopy one could see it hit the stone however with some manipulation we were able to have it bypassed the stone and go up to the kidney. Then I advanced the open ended on it all the way up to the kidney then removed the zip wire and I aspirated about 10 mL of sanguinopurulent material from the kidney for culture. The zip wire was then reintroduced into the open ended. The open-ended was then removed leaving the zip wire in place. A 6 Ecuadorean by 22 cm long JJ stent was then advanced on the zip wire and had its proximal curl curling into the kidney and the distal end curling into the bladder. We left the stone alone as the patient is too infected to manipulate anything. We just want to drain the kidney and then later on when she gets better and the infection controlled one could go back and do ureteroscopy and laser lithotripsy and remove the stone. The patient tolerated the procedure well and was transferred to the recovery room in stable and satisfactory condition. BHAVIN SEGOVIA MD Dec 08, 2016 14:00
--- NOTE | 2016-12-08 16:32 | PN ---
DATE: 12/08/2016 SUBJECTIVE DATA: The patient is in the holding room. I saw her there as the patient is awaiting a stent placement in the left ureter. Patient has obstructive uropathy. Patient continues to have fevers yesterday. I switched antibiotics from cefepime to imipenem. PHYSICAL EXAMINATION: VITAL SIGNS: Temperature 99.7, pulse 67, respirations 16, blood pressure 100/50, saturation 98 percent on 2 L. GENERAL: Patient is in no acute distress. Patient is obese. Patient is pale. HEART: S1, S2. Regular rate. LUNGS: Clear. ABDOMEN: Soft, nontender. EXTREMITIES: No clubbing, cyanosis, or edema. The patient is definitely overweight, legs all large. She has been complaining slightly of leg pain. LABORATORY: White count 14.1, hemoglobin 9.5, this was yesterday. Glucose level 108 and 115, and no new labs today. Urine culture showed E coli, sensitive to cefotaxime, gentamicin, nitrofurantoin, and tobramycin. MEDICATIONS: Include fentanyl as directed prior to surgery, the patient is on D5 half-normal saline at 60 cc an hour, morphine p.r.n., Abilify 5 mg daily, Dulcolax p.r.n., Lexapro 0.5 mg daily, Protonix 40 mg daily, Accu-Chek before meals and nightly, [____] 0.5 t.i.d., Flomax 0.4 nightly, Ativan p.r.n., hypoglycemia protocol as directed, [place], Colace, milk of magnesia, Ambien p.r.n. ASSESSMENT AND PLAN: This is a 76-year-old, obese, female, with history congestive heart failure, chronic obstructive pulmonary disease, borderline diabetes mellitus, psychiatric disorder, who presented with 1 day of abdominal pain and was found to have a left ureteral obstructive stone. 1. Respiratory stable. O2 support as needed. Monitor for fluid overload state. 2. Cardiovascular. Patient is status post pacemaker. Appreciate cardiology input. Blood thinners placed on hold as patient is anticipating surgery. 3. Infectious disease will continue imipenem likely once the stent is placed. Once the obstruction is dealt with, fever will come down. If fever continues, will consult infectious disease again. Monitor WBC. 4. Obstructive left ureteral stone. Patient to undergo a JJ stent placement. 5. Psychiatric disorder. Continue Lexapro and Abilify. 6. SCDs for deep venous thrombosis prophylaxis for now. 7. Monitor postoperatively. 8. Monitor hemoglobin and hematocrit. 9. Will follow closely. Dictated By: Fidel Lopez MD /nga/jacky /Document#: [id number]
--- NOTE | 2016-12-08 17:11 | RADRPT ---
PROCEDURE: Intraoperative imaging of the abdomen and pelvis with fluoroscopy. CLINICAL INDICATION: Abdominal pain. Intraoperative. TECHNIQUE: 7 images of the abdomen and pelvis were obtained in the operating room with an image in tensifier. No radiologist was in attendance. 48 seconds of fluoroscopy time was used. COMPARISON: Abdomen radiograph dated 12/07/2016. FINDINGS: Images demonstrate dislocation of the left ureter with placement of a double pigtail left ureteral s tent. There are 2 inferior vena cava filter is noted. IMPRESSION: 1. Satisfactory intraoperative imaging of the abdomen and pelvis. RPTAT: QQ .Lokesh Barragan MD, Date Time Electronically viewed and signed by .Lokesh Barragan MD, on 12/08/2016 17:10 .R/
[2016-12-08] MEDS: ACETAMINOPHEN 325 MG TAB PO PRN (17:58)
[2016-12-08] MEDS: TAMSULOSIN (SR) 0.4 MG CAP PO SCH (20:07)
[2016-12-08 21:45] LABS: ABNORMAL IP MESSAGE 1; BASOPHILS % 0.2 % (0.0-2.0); EOSINOPHILS # 0.5 10^3/ul (0.0-0.5); EOSINOPHILS % 4.4 % (0.0-7.0); HEMATOCRIT 28.2 % (37.0-47.0); HEMOGLOBIN 9.2 g/dl (12.0-16.0); LYMPHOCYTES % 19.3 % (15.0-51.0); MEAN CORPUSCULAR HEMOGLOBIN 29.3 pg (29.0-33.0); MEAN CORPUSCULAR HGB CONC 32.6 g/dl (32.0-37.0); MEAN CORPUSCULAR VOLUME 89.8 fl (82.0-101.0); MEAN PLATELET VOLUME 12.5 fl (7.4-10.4); MONOCYTES % 9.8 % (0.0-11.0); NEUTROPHIL # 6.7 10^3/ul (1.6-7.5); PLATELET COUNT 88 10^3/UL (140-415); RED BLOOD COUNT 3.14 10^6/ul (4.20-5.40); RED CELL DISTRIBUTION WIDTH 14.2 % (11.5-14.5); WHITE BLOOD COUNT 10.2 10^3/ul (4.8-10.8)
[2016-12-08 21:48] LABS: POSITIVE DIFF @See below
[2016-12-08 21:57] LABS: INR 1.33; PROTIME 16.6 Sec (12.2-14.2); PT RATIO 1.3
[2016-12-08 21:58] LABS: PARTIAL THROMBOPLASTIN TIME 36.8 Sec (25.0-35.0)
[2016-12-08 22:05] LABS: ALBUMIN 2.3 g/dl (3.3-4.9); ALBUMIN/GLOBULIN RATIO 0.82; BILIRUBIN,INDIRECT 0.5 mg/dl (0-1.1); BILIRUBIN,TOTAL 0.5 mg/dl (0.2-1.3); CALCIUM 8.3 mg/dl (8.4-10.2); CREATININE 1.36 mg/dl (0.44-1.00); POTASSIUM 3.9 mmol/L (3.5-5.1); TOTAL PROTEIN 5.1 g/dl (6.1-8.1)
[2016-12-08 22:06] LABS: MAGNESIUM 1.7 mg/dl (1.7-2.5); PHOSPHORUS 2.8 mg/dl (2.5-4.9)
[2016-12-09] MEDS: ZOLPIDEM 5 MG TAB PO PRN (01:24)
[2016-12-09 02:00] VITALS: BP 126/61; RESP 20
[2016-12-09] MEDS: ACCU-CHEK XX SCH (02:00)
[2016-12-09] MEDS: PANTOPRAZOLE (EC) 40 MG TAB PO SCH (05:17)
[2016-12-09] MEDS: morphine 2 MG INJ IV PRN ×4 (05:20→20:42)
[2016-12-09 05:29] LABS: ABNORMAL IP MESSAGE 1; BASOPHILS % 0.2 % (0.0-2.0); EOSINOPHILS # 0.5 10^3/ul (0.0-0.5); EOSINOPHILS % 5.8 % (0.0-7.0); HEMATOCRIT 29.3 % (37.0-47.0); HEMOGLOBIN 9.5 g/dl (12.0-16.0); LYMPHOCYTES # 1.7 10^3/ul (0.8-2.9); LYMPHOCYTES % 19.6 % (15.0-51.0); MEAN CORPUSCULAR HEMOGLOBIN 29.3 pg (29.0-33.0); MEAN CORPUSCULAR HGB CONC 32.4 g/dl (32.0-37.0); MEAN CORPUSCULAR VOLUME 90.4 fl (82.0-101.0); MEAN PLATELET VOLUME 12.7 fl (7.4-10.4); MONOCYTE # 0.9 10^3/ul (0.3-0.9); MONOCYTES % 10.9 % (0.0-11.0); NEUTROPHIL # 5.5 10^3/ul (1.6-7.5); NEUTROPHILS % 63.2 % (39.0-77.0); PLATELET COUNT 87 10^3/UL (140-415); RED BLOOD COUNT 3.24 10^6/ul (4.20-5.40); RED CELL DISTRIBUTION WIDTH 14.1 % (11.5-14.5); WHITE BLOOD COUNT 8.6 10^3/ul (4.8-10.8)
[2016-12-09 05:38] LABS: POSITIVE DIFF @See below
[2016-12-09 05:55] LABS: MAGNESIUM 1.8 mg/dl (1.7-2.5)
[2016-12-09 05:59] LABS: CALCIUM 8.3 mg/dl (8.4-10.2); CREATININE 1.25 mg/dl (0.44-1.00); POTASSIUM 4.1 mmol/L (3.5-5.1)
[2016-12-09] MEDS: INSULIN ASPART [NOVOLOG] 3 ML PEN SC SCH ×4 (08:00→20:48)
--- NOTE | 2016-12-09 08:13 | CONS ---
Date/Time of Note Date/Time of Note DATE: 12/09/16 TIME: 08:09 Consult Date/Type/Reason Admit Date/Time Dec 06, 2016 at 18:42 Initial Consult Date Type of Consultation: card Subjective d/w staff pt with mild left flank pain but improved. she denies any PND ORTHOPNEA OR CP to me,. O: General: no acute distress HEENT: NC/AT. pupils are equal. round. NECK: NO JVD. no stridor. CV: RRR. systolic murmur; no gallop or rubs. PULM: no wheezing or rhonchi. GI: SOFT, minimal tenderness. ND, no rebound or guarding Extremity: trace B/L LE edema. no clubbing. neuro: awake and alert, Psych: calm and pleasant rectal: deferred Objective Vital Signs Date Time Temp Pulse Resp B/P Pulse Ox O2 Delivery O2 Flow Rate FiO2 12/09/16 05:28 99.2 12/09/16 02:00 62 20 126/61 100 12/08/16 20:10 Nasal Cannula 2.0 Intake and Output 12/08/16 12/08/16 12/09/16 15:00 23:00 07:00 Intake Total 250 ml 1170 ml 1230 ml Output Total 5 ml 575 ml 1700 ml Balance 245 ml 595 ml -470 ml Results/Medications Result Diagram: 12/09/16 0430 12/09/16 0430 Results 24 hrs Laboratory Tests Test 12/08/16 08:15 12/08/16 11:25 12/08/16 17:53 12/08/16 20:05 Bedside Glucose 115 108 84 141 Test 12/08/16 21:18 12/09/16 04:30 12/09/16 07:55 White Blood Count 10.2 # 8.6 Red Blood Count 3.14 L 3.24 L Hemoglobin 9.2 L 9.5 L Hematocrit 28.2 L 29.3 L Mean Corpuscular Volume 89.8 90.4 Mean Corpuscular Hemoglobin 29.3 29.3 Mean Corpuscular Hemoglobin Concent 32.6 32.4 Red Cell Distribution Width 14.2 14.1 Platelet Count 88 L 87 L Mean Platelet Volume 12.5 H 12.7 H Neutrophils % 66.0 63.2 Lymphocytes % 19.3 19.6 Monocytes % 9.8 10.9 Eosinophils % 4.4 5.8 Basophils % 0.2 0.2 Nucleated Red Blood Cells % 0.0 0.0 Neutrophils # 6.7 5.5 Lymphocytes # 2.0 1.7 Monocytes # 1.0 H 0.9 Eosinophils # 0.5 0.5 Basophils # 0.0 0.0 Nucleated Red Blood Cells # 0.0 0.0 Prothrombin Time 16.6 H Prothrombin Time Ratio 1.3 INR International Normalized Ratio 1.33 Activated Partial Thromboplast Time 36.8 H Sodium Level 136 139 Potassium Level 3.9 4.1 Chloride Level 106 107 Carbon Dioxide Level 27 29 Anion Gap 7 L 7 L Blood Urea Nitrogen 16 16 Creatinine 1.36 H 1.25 H Glucose Level 111 94 Calcium Level 8.3 L 8.3 L Phosphorus Level 2.8 3.0 Magnesium Level 1.7 1.8 Total Bilirubin 0.5 Direct Bilirubin 0.00 Indirect Bilirubin 0.5 Aspartate Amino Transf (AST/SGOT) 18 Alanine Aminotransferase (ALT/SGPT) 33 Alkaline Phosphatase 73 Total Protein 5.1 L Albumin 2.3 L Globulin 2.80 Albumin/Globulin Ratio 0.82 Bedside Glucose 103 Medications Current Medications Ondansetron HCl (Zofran Inj) 4 mg Q6H PRN IV NAUSEA AND/OR VOMITING Last administered on 12/07/16 14:41; Admin Dose 4 MG; Start 12/06/16 at 20:30 Acetaminophen (Tylenol Tab) 650 mg Q6H PRN PO PAIN LEVEL 1-3 OR FEVER Last administered on 12/08/16 17:58; Admin Dose 650 MG; Start 12/06/16 at 20:30 Acetaminophen/ Hydrocodone Bitart ([place] (5/325)) 1 tab Q6H PRN PO MODERATE PAIN LEVEL 4-6 Last administered on 12/07/16 21:52; Admin Dose 1 TAB; Start at 20:30 Docusate Sodium (Colace) 100 mg Q12H PRN PO CONSTIPATION; Start 12/06/16 at 20: 30 Magnesium Hydroxide (Milk Of Mag) 30 ml DAILY PRN PO CONSTIPATION; Start at 20:30 Zolpidem Tartrate (Ambien) 5 mg QHS PRN PO SLEEP Last administered on 01:24; Admin Dose 5 MG; Start 12/06/16 at 20:30 Pantoprazole (Protonix Tab) 40 mg DAILY@06 PO Last administered on 12/09/16 05 :17; Admin Dose 40 MG; Start 12/07/16 at 06:00 Aripiprazole (Abilify) 5 mg DAILY PO Last administered on 12/07/16 09:33; Admin Dose 5 MG; Start 12/07/16 at 09:00 Bisacodyl (Dulcolax Supp) 10 mg DAILY VT ; Start 12/07/16 at 09:00 Escitalopram Oxalate (Lexapro) 5 mg DAILY PO Last administered on 12/07/16 09: 33; Admin Dose 5 MG; Start 12/07/16 at 09:00 Oxybutynin Chloride (Ditropan) 5 mg TID PO Last administered on 12/08/16 20:07 ; Admin Dose 5 MG; Start 12/06/16 at 21:00 Tamsulosin HCl (Flomax) 0.4 mg HS PO Last administered on 12/08/16 20:07; Admin Dose 0.4 MG; Start 12/06/16 at 21:00 Diagnostic Test (Pha) (Accu-Chek) 1 ea 02 XX ; Start 12/07/16 at 02:00 Lorazepam (Ativan) 0.5 mg Q6H PRN PO ANXIETY; Start 12/06/16 at 21:00 Miscellaneous Information 1 ea NOTE XX ; Start 12/06/16 at 21:00 Glucose (Glutose) 15 gm Q15M PRN PO DECREASED GLUCOSE; Start 12/06/16 at 21:00 Glucose (Glutose) 22.5 gm Q15M PRN PO DECREASED GLUCOSE; Start 12/06/16 at 21: 00 Dextrose (D50w Syringe) 25 ml Q15M PRN IV DECREASED GLUCOSE; Start 12/06/16 at 21:00 Dextrose (D50w Syringe) 50 ml Q15M PRN IV DECREASED GLUCOSE; Start 12/06/16 at 21:00 Glucagon (Glucagen) 1 mg Q15M PRN IM DECREASED GLUCOSE; Start 12/06/16 at 21:00 Glucose (Glutose) 15 gm Q15M PRN BUCCAL DECREASED GLUCOSE; Start 12/06/16 at 21 :00 Morphine Sulfate 4 mg 4 mg Q4H PRN IV SEVERE PAIN LEVEL 7-10 Last administered on 12/09/16 05:20; Admin Dose 4 MG; Start 12/07/16 at 12:30 Dextrose/Sodium Chloride 1,000 ml @ 60 mls/hr [id number] IV Last administered on 12/08/16 17:57; Admin Dose 60 MLS/HR; Start 12/08/16 at 00:00 Meropenem/Sodium Chloride (Merrem 1 Gm/50 ml (Pmx)) 50 ml @ 100 mls/hr Q12 IVPB Last administered on 12/08/16 20:07; Admin Dose 100 MLS/HR; Start at 21:00 Assessment/Plan Chief Complaint/Hosp Course 1. Cardiovascular preoperative evaluation. 2. History of congestive heart failure, suggestive of diastolic dysfunction, appears to be chronic and stable at this point. 3. History of sick sinus syndrome, status post permanent pacemaker, currently with no issues. 4. Urinary tract infection and renal stone, s/p procedure but stone was not removed due to infection. 5. History of chronic obstructive pulmonary disease, asthma: currently stable. 6. History of psych disorder, currently stable. 7. Thrombocytopenia: lovenox was discontinued. 8. Acute renal failure, most likely related to above: improving. 9. Diabetes, on insulin. cont abx as per IM F/U rec resume lovenox once platelet recovers. cont current cardiac care. no further cardiac rec at this time. will f/u prn over the weekend. please donot hesitate to call for any other issues. thank you AMADOU GOMEZ MD [facility] Problems: AMADOU GOMEZ MD Dec 09, 2016 08:13
[2016-12-09 08:31] VITALS: BP 107/54; RESP 20
--- NOTE | 2016-12-09 08:57 | RADRPT ---
PROCEDURE: XR Abdomen. CLINICAL INDICATION: Abdomen pain. TECHNIQUE: AP supine abdomen x-ray. COMPARISON: 12/07/2016. FINDINGS: The bowel gas pattern is normal with no evidence of obstruction. There are 2 inferior vena cava filters as seen previously. There is a new left ureteral double pig[place] il stent in satisfactory position. A 1.3 x 0.8 cm calcification is noted adjacent to the stent at th e mid left ureter at the L4-5 level. A Johnston catheter is present in the bladder. There is a permanen t pacemaker. There are no abnormal calcifications overlying the urinary tracts. There are degenerative changes of the spine. IMPRESSION: 1. Two inferior vena cava filters as seen previously. 2. Left ureteral stent in satisfactory position. 3. Calcification adjacent to the stent in the mid-left ureter at the L4-5 level. 4. Johnston catheter in the bladder. RPTAT: QQ .Lokesh Barragan MD, MD Date Time Electronically viewed and signed by .Lokesh Barragan MD, MD on 12/09/2016 08:57 .R/
--- NOTE | 2016-12-09 09:01 | RADRPT ---
Echocardiogram Report Patient Name: NATHANAEL ESPAÑA Gender: Female Date: 1940 Study Date: 08-Dec-2016 Borough Coordinator: Cruzito Gonzalez [facility] Location: 2237 Ref. Physician: AMADOU MURILLO Quality: Good Procedures: Transthoracic echocardiogram with complete 2D, M-Mode, and doppler examination. Indications: Pre-op. hx of CHF. 2D/M Mode Doppler Measurement Value Normal Ranges Measurement Value Normal Ranges LVIDd 2D 5.3 3.5 - 5.6 cm AV Peak Jean 1.6 m/sec LVIDs 2D 2.2 2.1 - 4.1 cm AV Peak PG 10.7 mmHg LVPWd 2D 1.0 0.6 - 1.1 cm LVOT Peak Jean 1.3 m/sec IVSd 2D 0.9 0.6 - 1.1 cm LVOT Peak PG 6.3 mmHg AoR Diam 2D 2.5 2.0 - 3.7 cm MV E Peak Jean 0.9 m/sec EDV 2D 134.5 cm3 MV A Peak Jean 0.6 m/sec ESV 2D 10.3 cm3 MV E/A 1.5 LA Dimen 2D 3.9 2.3 - 4.0 cm MV Decel Time 267 msec MV Decel [place] 4 MV E/A 1.5 TR Peak Jean 3.1 m/sec TR Peak PG 39.3 mmHg RVSP 49.0 mmHg Findings Left Ventricle: Normal left ventricular systolic function. Normal left ventricular cavity size. Normal left ventricular wall thickness. Ejection fraction is visually estimated at 60 %. Tissue Doppler/Mitral Doppler indices are within normal limits. Right Ventricle: Normal right ventricular size. Normal right ventricular systolic function. Pacemaker right heart. Left Atrium: The left atrium is normal in size. Right Atrium: The right atrium is normal in size. Mitral Valve: Mitral valve leaflets appear mildly thickened. Mild mitral annular calcification. Trace mitral regurgitation. Aortic Valve: Normal appearance of the aortic valve. No significant aortic stenosis or insufficiency. Tricuspid Valve: Normal appearance of the tricuspid valve. Estimated peak PA systolic pressure 49 mmHg. There is mild tricuspid regurgitation. Pulmonic Valve: Normal pulmonic valve appearance. Pericardium: Normal pericardium with no significant pericardial effusion. Aorta: Normal aortic root. IVC: Normal size and normal respiratory collapse consistent with normal right atrial pressure. Conclusions 1.Normal left ventricular systolic function. Normal left ventricular cavity size. Normal left ventricular wall thickness. Ejection fraction is visually estimated at 60 %. Tissue Doppler/Mitral Doppler indices are within normal limits. 2.Normal appearance of the tricuspid valve. Estimated peak PA systolic pressure 49 mmHg. There is mild tricuspid regurgitation. 3.Normal appearance of the aortic valve. No significant aortic stenosis or insufficiency. 4.Mitral valve leaflets appear mildly thickened. Mild mitral annular calcification. Trace mitral regurgitation. Electronically Signed By: Amadou Murillo 09-Dec-2016 09:00:14 0700 Patient Name: NATHANAEL ESPAÑA Study Date: 08-Dec-2016 [id number]
[2016-12-09] MEDS: ARIPIPRAZOLE 5 MG TAB PO SCH (09:10)
[2016-12-09] MEDS: ESCITALOPRAM 10 MG TAB PO SCH (09:10)
[2016-12-09] MEDS: BISACODYL 10 MG SUPP PR SCH (09:10)
[2016-12-09] MEDS: OXYBUTYNIN 5 MG TAB PO SCH ×3 (09:10→20:42)
[2016-12-09] MEDS: MEROPENEM 1 GM/50ML(PMX) 50 ML IVPB SCH ×2 (09:10→20:42)
[2016-12-09] MEDS: DEXTROSE 5%-0.45% NACL 1,000 ML IV SCH (09:12)
[2016-12-09] MEDS: MUPIROCIN 2% 22 GM OINT TOP SCH ×2 (13:35→20:48)
[2016-12-09 15:00] VITALS: BP 117/53; RESP 20
[2016-12-09] MEDS ORDERED: ALBUTEROL/IPRATROPIUM (NEB) 3 ML AMP HHN PRN (15:00)
[2016-12-09] MEDS ORDERED: FUROSEMIDE 20 MG INJ IV ONE (15:30)
[2016-12-09] MEDS: ALBUTEROL/IPRATROPIUM (NEB) 3 ML AMP HHN SCH ×2 (17:00→21:07)
[2016-12-09 20:00] VITALS: BP 110/69; RESP 20
[2016-12-09] MEDS: TAMSULOSIN (SR) 0.4 MG CAP PO SCH (20:42)
--- NOTE | 2016-12-09 20:42 | PN ---
DATE: 12/09/2016 SUBJECTIVE: Patient still has some pain in the left lower quadrant and flank area, but she is much alert and more comfortable. OBJECTIVE: Her temperature is 99.5, pulse is 71, respirations 20, blood pressure 117/53. ABDOMEN: Soft. She is a little tender in the left lower quadrant. The Johnston catheter that she has is draining clear urine. LABORATORY DATA: Her CBC shows a white count of 8.6. On admission, her CBC showed a white count of 14.1. Her hemoglobin is 9.5, hematocrit 29.3, platelet count 87,000. Her BUN is 16, creatinine 1.25. The creatinine on admission was 1.54. The urine culture from the bladder showed E. coli, and the urine culture from the bladder yesterday shows no growth after 24 hours, but the urine culture from the kidney is still pending. IMPRESSION: Pyelonephritis and left ureteral stone over the sacroiliac joint area area. Patient status post insertion of a JJ stent and draining of the kidney. PLAN: Continue her IV antibiotics and later on she will need to undergo cystoscopy and removal of the stone. Dictated By: Bhavin Segovia MD /nga/john /Document#: [id number]
[2016-12-10] MEDS: ALBUTEROL/IPRATROPIUM (NEB) 3 ML AMP HHN SCH ×6 (00:44→20:47)
[2016-12-10] MEDS: ZOLPIDEM 5 MG TAB PO PRN (01:52)
[2016-12-10 02:00] VITALS: BP 106/52; RESP 20
[2016-12-10] MEDS: ACCU-CHEK XX SCH (02:00)
[2016-12-10] MEDS: PANTOPRAZOLE (EC) 40 MG TAB PO SCH (05:52)
[2016-12-10] MEDS: INSULIN ASPART [NOVOLOG] 3 ML PEN SC SCH ×4 (08:00→20:38)
[2016-12-10 08:03] VITALS: BP 126/60; RESP 16
[2016-12-10] MEDS: MEROPENEM 1 GM/50ML(PMX) 50 ML IVPB SCH ×2 (09:05→21:06)
[2016-12-10] MEDS: OXYBUTYNIN 5 MG TAB PO SCH ×3 (09:05→20:39)
[2016-12-10] MEDS: ESCITALOPRAM 10 MG TAB PO SCH (09:06)
[2016-12-10] MEDS: ARIPIPRAZOLE 5 MG TAB PO SCH (09:06)
[2016-12-10] MEDS: BISACODYL 10 MG SUPP PR SCH (09:06)
[2016-12-10] MEDS: MUPIROCIN 2% 22 GM OINT TOP SCH ×2 (09:07→20:41)
--- NOTE | 2016-12-10 09:48 | PN ---
DATE: 12/09/2016 SUBJECTIVE DATA: Patient is status post cystoscopy and insertion of left ureteral JJ stent. Patient tolerated procedure well. Unfortunately, now patient is complaining of ongoing cough, while she is coughing there is slight stridor. Otherwise, there is no fever this morning since the surgery. T-max 99.2. PHYSICAL EXAM: Temperature 99.2, pulse 63, respirations 20, blood pressure 107/54, saturation 97 percent on 2 L. GENERAL: No acute distress. Morbidly obese. Patient is . HEART: S1, S2. Faint wheezing bilaterally. ABDOMEN: Soft and nontender. EXTREMITIES: Trace edema, lower extremity. Again, patient is morbidly obese. LABS: White count is 8.6, hemoglobin 9.5, hematocrit 29, platelet count of 87,000, neutrophils 63 percent, lymphocytes 20 percent. Chemistry: Sodium 129, potassium 4.1, chloride 107, bicarb 29, BUN 16, creatinine 1.25 and glucose of 94. Kidney function has improved. Last glucose level 115 and 103. Urine was markedly positive. Urine culture shows E. coli, sensitive to cefotaxime, gentamicin, nitrofurantoin and tobramycin. MEDICATIONS: Reviewed and include Bactroban ointment b.i.d. to the nares as patient MRSA turned out to be positive. Other medications include D5 half-normal saline 60 cc an hour, Merrem IV every 12, dosed per Pharmacy; morphine p.r.n., Abilify 5 mg daily, Ducolax daily [place], Lexapro 5 mg daily, Protonix 40 mg daily, Accu-Chek before meals and at bedtime, Ditropan 5 mg t.i.d., Flomax 0.4 q.h.s., Ativan 0.5 every 6 hours p.r.n., hypoglycemia protocol as directed. Other p.r.n. medications include Zofran, Tylenol, Colace, and Milk of Magnesia, and Ambien IV. ASSESSMENT AND PLAN: This is a 76-year-old obese female with history of congestive heart failure, chronic obstructive pulmonary disease, borderline diabetes mellitus, psychiatric disorder, presented with one day of abdominal pain, was found to have left ureteral obstructing stone. 1. Respiratory. Patient with slight wheezing. Will give her a dose of 20 IV of Lasix, breathing treatment to continue as needed to be provided. Will provide her with cough suppressant. We will follow. 2. Cardiovascular. Patient is stable status post pacemaker placement recently. Observe. Hemodynamically stable. Appreciate Cardiology follow up. 3. Infectious disease. Patient with urinary tract infection with left ureteral stone. Continue imipenem as fever is dissipating. 4. Left obstructive ureteral stone status post JJ placement. Patient will likely need to undergo further management to break the stone. Neurology is following. 5. Psychiatric. Will continue patient's psychiatric medications. 6. Continue sequential compression devices for deep venous thrombosis prophylaxis. 7. Monitor closely, monitor labs, clinically improving. We will follow. Dictated By: Fidel Lopez MD /nga/john /Document#: [id number]
[2016-12-10 11:46] LABS: ABNORMAL IP MESSAGE 1; BASOPHILS % 0.3 % (0.0-2.0); EOSINOPHILS # 0.4 10^3/ul (0.0-0.5); EOSINOPHILS % 6.9 % (0.0-7.0); HEMATOCRIT 28.2 % (37.0-47.0); LYMPHOCYTES # 1.5 10^3/ul (0.8-2.9); LYMPHOCYTES % 25.8 % (15.0-51.0); MEAN CORPUSCULAR HEMOGLOBIN 28.1 pg (29.0-33.0); MEAN CORPUSCULAR HGB CONC 31.9 g/dl (32.0-37.0); MEAN CORPUSCULAR VOLUME 88.1 fl (82.0-101.0); MEAN PLATELET VOLUME 12.2 fl (7.4-10.4); MONOCYTE # 0.7 10^3/ul (0.3-0.9); MONOCYTES % 12.2 % (0.0-11.0); NEUTROPHIL # 3.3 10^3/ul (1.6-7.5); NEUTROPHILS % 54.6 % (39.0-77.0); PLATELET COUNT 95 10^3/UL (140-415); RED CELL DISTRIBUTION WIDTH 14.1 % (11.5-14.5)
[2016-12-10 11:48] LABS: POSITIVE DIFF @See below
[2016-12-10 11:51] LABS: CALCIUM 8.2 mg/dl (8.4-10.2); CREATININE 0.99 mg/dl (0.44-1.00); POTASSIUM 3.8 mmol/L (3.5-5.1)
[2016-12-10 11:53] LABS: MAGNESIUM 1.6 mg/dl (1.7-2.5); PHOSPHORUS 3.3 mg/dl (2.5-4.9)
[2016-12-10 14:21] VITALS: BP 111/63; RESP 18
--- NOTE | 2016-12-10 15:10 | PN ---
DATE: 12/10/2016 SUBJECTIVE DATA: The patient is seen. The cough has improved. Appreciate Urology input and recommendations. This patient is currently being treated for pyelonephritis, status post JJ stent for left ureteral obstructing stone. OBJECTIVE DATA: VITAL SIGNS: Temperature 99.8 this morning. Pulse 71, respirations 16, blood pressure 126/62, saturation 99 percent on 2 L. GENERAL: No acute distress. Patient is pale, otherwise looks better. CARDIOVASCULAR: S1, S2. LUNGS: Clear. ABDOMEN: Soft, nontender. EXTREMITIES: No clubbing, cyanosis, or edema. Johnston to gravity. LABS: CBC is pending today. The glucose level 96, 126 and 144. Urine culture dated 12/08/2016, negative. MEDICATIONS: Reviewed include: 1. Duonebs every 4 hours. 2. Phenergan with codeine q.4h p.r.n. 3. Duonebs every 2 hours p.r.n. 4. Bactroban ointment to the nares b.i.d. 5. Merrem 1 gram IV q.12. 6. Morphine p.r.n. 7. Abilify 5 mg daily. 8. Bisacodyl daily. 9. Lexapro 5 mg daily. 10. Protonix 40 mg daily. 11. Accu-Chek every morning and at bedtime. 12. Ditropan 2.5 mg b.i.d. 13. Flomax 0.4 at bedtime. 14. Insulin as per sliding scale. 15. Ativan p.r.n. 16. Hypoglycemia protocol as directed. 17. Zofran p.r.n. 18. Tylenol p.r.n. 19. [place] p.r.n. 20. Colace . 21. Ambien p.r.n. ASSESSMENT: The patient is a 76-year-old, obese female, with history of congestive heart failure, chronic obstructive pulmonary disease, borderline diabetes mellitus, psychiatric disorder, presented with abdominal pain, was found to have left ureteral obstructing stone. 1. Respiratory. Stable. Status post a dose of Lasix and breathing treatments. Much better. Continue cough suppressant as needed. 2. Cardiovascular, status post pacemaker placement. Hemodynamically stable. 3. Infectious disease. Patient with possible pyelonephritis because of urinary tract infection and obstructed left ureteral stone status post jejunostomy stent placement. Continue antibiotics with imipenem, clinically better. 4. Left ureteral stone status post jejunostomy stent placement. Outpatient cystoscopy and removal of stone to be scheduled. 5. Psychiatric disorder. Continue psychiatric medications. Once afebrile, patient can be discharged. We will discuss with Urology the plan of care. 6. We will ask physical therapy to ambulate with the patient. The patient is clinically better. We will follow up with labs. Dictated By: Fidel Lopez MD /nga/alma /Document#: [id number]
[2016-12-10] MEDS: PROMETHAZINE/CODEINE 5ML CUP PO PRN (16:29)
[2016-12-10] MEDS: HYDROCODONE/APAP (5/325) TAB PO PRN (17:27)
[2016-12-10] MEDS: morphine 2 MG INJ IV PRN (20:38)
[2016-12-10] MEDS: TAMSULOSIN (SR) 0.4 MG CAP PO SCH (20:39)
[2016-12-10 20:46] VITALS: BP 101/51; RESP 18
[2016-12-11] MEDS: ZOLPIDEM 5 MG TAB PO PRN ×2 (00:17→22:27)
[2016-12-11] MEDS: ALBUTEROL/IPRATROPIUM (NEB) 3 ML AMP HHN SCH ×6 (01:03→20:43)
[2016-12-11] MEDS: ACCU-CHEK XX SCH (02:00)
[2016-12-11 02:46] VITALS: BP_SYST 122; BP_SYST 98; BP_DIAS 48; BP_DIAS 58; RESP 18
[2016-12-11] MEDS: PANTOPRAZOLE (EC) 40 MG TAB PO SCH ×2 (06:04→17:09)
[2016-12-11] MEDS: INSULIN ASPART [NOVOLOG] 3 ML PEN SC SCH ×4 (07:55→20:18)
[2016-12-11 08:17] VITALS: BP 99/49; RESP 18
[2016-12-11] MEDS: MEROPENEM 1 GM/50ML(PMX) 50 ML IVPB SCH (08:39)
[2016-12-11] MEDS: ESCITALOPRAM 10 MG TAB PO SCH (08:39)
[2016-12-11] MEDS: ARIPIPRAZOLE 5 MG TAB PO SCH (08:40)
[2016-12-11] MEDS: OXYBUTYNIN 5 MG TAB PO SCH ×3 (08:40→20:14)
[2016-12-11] MEDS: BISACODYL 10 MG SUPP PR SCH (08:40)
[2016-12-11] MEDS: MUPIROCIN 2% 22 GM OINT TOP SCH ×2 (08:46→20:14)
[2016-12-11 09:05] LABS: BASOPHILS % 0.5 % (0.0-2.0); EOSINOPHILS # 0.5 10^3/ul (0.0-0.5); HEMATOCRIT 27.1 % (37.0-47.0); HEMOGLOBIN 8.8 g/dl (12.0-16.0); LYMPHOCYTES # 2.1 10^3/ul (0.8-2.9); LYMPHOCYTES % 33.7 % (15.0-51.0); MEAN CORPUSCULAR HEMOGLOBIN 28.6 pg (29.0-33.0); MEAN CORPUSCULAR HGB CONC 32.5 g/dl (32.0-37.0); MEAN PLATELET VOLUME 12.2 fl (7.4-10.4); MONOCYTE # 0.7 10^3/ul (0.3-0.9); MONOCYTES % 11.8 % (0.0-11.0); NEUTROPHIL # 2.8 10^3/ul (1.6-7.5); NEUTROPHILS % 45.5 % (39.0-77.0); PLATELET COUNT 113 10^3/UL (140-415); RED BLOOD COUNT 3.08 10^6/ul (4.20-5.40); RED CELL DISTRIBUTION WIDTH 13.6 % (11.5-14.5); WHITE BLOOD COUNT 6.1 10^3/ul (4.8-10.8)
[2016-12-11 09:24] LABS: MAGNESIUM 1.6 mg/dl (1.7-2.5); PHOSPHORUS 3.5 mg/dl (2.5-4.9)
[2016-12-11 09:27] LABS: CALCIUM 8.5 mg/dl (8.4-10.2); CREATININE 0.84 mg/dl (0.44-1.00)
[2016-12-11 09:45] LABS: POTASSIUM 3.5 mmol/L (3.5-5.1)
[2016-12-11] MEDS: PROMETHAZINE/CODEINE 5ML CUP PO PRN (11:51)
[2016-12-11] MEDS ORDERED: MAGNESIUM SULFATE 2 GM/50 ML 50 ML IVPB ONE (12:00)
[2016-12-11 14:00] VITALS: BP 115/56; RESP 18
--- NOTE | 2016-12-11 14:08 | PN ---
DATE: 12/11/2016 SUBJECTIVE DATA: Patient seen.. Noted T-max is 99.6, temperature 97.6, pulse 71, respirations 20. Saturation is 97 percent on 2 L. In general, no acute distress. Patient is obese, pale. OBJECTIVE DATA: CARDIAC: Cardiovascular S1, S2. Regular rate. LUNGS: Clear. ABDOMEN: Soft, nontender. EXTREMITIES: No clubbing, cyanosis, or edema. Johnston to gravity. LABS: White count 6.1, hemoglobin 8.8, hematocrit 27, platelet count of 1302, platelet count above 100. Chemistry, sodium 138, potassium 3.5, chloride 103, bicarb 33, BUN is 11, creatinine 0.84, glucose 102, magnesium low at 1.6 by last glucose level is 122. MEDICATIONS: 1. Duoneb every 4 hours. 2. Phenergan with codeine p.r.n. 3. Duonebs every 2 p.r.n. 4. Bactroban ointment b.i.d. 5. IV dose per pharmacy. 6. Morphine p.r.n. 7. Abilify 5 mg daily. Dulcolax daily. 8. Lexapro 5 mg daily. 9. Protonix mg daily. 10. Accu-Chek q.a.c. and q.h.s. 11. 12. Flomax 0.4 q.h.s.. 13. Ativan p.r.n. 14. Hypoglycemia protocol as directed. 15. Zofran p.r.n. 16. Tylenol p.r.n. 17. [place] p.r.n. 18. Colace p.r.n. 19. Ambien p.r.n. Repeat urine culture on 12/08 is negative. ASSESSMENT AND PLAN: A 76-year-old, female, obese with history of congestive heart failure, chronic obstructive pulmonary disease, diabetes mellitus, borderline, psychiatric disorder, who presented with abdominal pain and was found to have left obstructive ureteral stone. 1. Respiratory. Stable. The patient is on breathing treatment as needed and cough suppressant. Improved. 2. Cardiovascular. The patient is status post pacemaker, hemodynamically stable. 3. Infectious disease. Still with low-grade fever. We will ask ID to decide on the type and duration of antibiotics management status post JJ stent placement. 4. Left obstructive ureteral stone. Status post stent placement. Outpatient cystoscopy and stone removal. Follow up with the final urology input. 5. Psychiatric disorder. Continue all psych meds. 6. Out of bed. Activity as tolerated. 7. Disposition soon. 8. Anemia, monitor H and H. currently no need for transfusion. We will follow. Dictated By: Fidel Lopez MD /nga/ /Document#: [id number]
[2016-12-11] MEDS: morphine 2 MG INJ IV PRN (14:18)
--- NOTE | 2016-12-11 15:36 | CONS ---
DATE OF ADMISSION: 12/06/2016 DATE OF CONSULTATION: 12/11/2016 INFECTIOUS DISEASE CONSULTATION: REASON FOR CONSULTATION: Antibiotic management. Renetta Dhillon is a 76-year-old female who was admitted on 12/06/2016 with left obstructive ureteral stone and is being seen for antibiotic management. PAST PROBLEMS: 1. Coronary artery disease with congestive heart failure. 2. COPD. 3. Schizoaffective disorder. 4. Borderline diabetes mellitus. 5. Osteoarthritis. 6. Gout. 7. Asthma. 8. History of [place]. 9. 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 The patient was complaining of left-sided abdominal pain and was transferred to [place] [facility], was evaluated and underwent extensive workup. Chest x-ray showed cardiomegaly, mild central pulmonary venous congestion. Right costophrenic angle opacity. She had a CT scan of the abdomen and pelvis, which showed mild left hydroureter, ureteral nephrosis, with extensive perinephric, periurethral and fatty stranding related to 1.1 cm destructive stone in the mid left ureter. There is hepatomegaly with fatty infiltration, sigmoid diverticula without evidence of acute diverticulitis. There is scattered aortic atherosclerosis, mild hiatal hernia, osteopenia, [id number] compression fracture in lower thoracic and spinal lumbar spine not significantly changed. Her temperature on admission was 100.4. ALLERGIES: SHE IS ALLERGIC TO PENICILLIN. LABORATORY DATA: On admission, her white count in [place] showed white count of 12.8, H and H of 12.2 and 37, platelet count 123,000 with 73 polys, 13 lymphs, 7 monos. Blood gas showed a PO2 of 76. BUN and creatinine 16/1.3. Glucose 148. Urinalysis did show negative ketones but blood was large, nitrites were negative, leukocyte esterase is small. A CT scan of the abdomen and pelvis was as outlined. HOSPITAL COURSE: The patient had E coli in her urine sensitive to cefotaxime and she was begun on meropenem, actually on 12/07. A chest x-ray on 12/07 showed permanent pacemaker, mild cardiomegaly, improved appearance of the lungs. Abdominal x-ray, permanent pacemaker, calcification overlying the left kidney, IVC filter present, degenerative changes of the spine. A cystogram satisfactory intraoperative images of the abdomen and pelvis. Abdominal x-ray, two inferior vena cava filters as seen previously, large ureteral stent in satisfactory position, calcifications adjacent to the stent in the mid left ureter at the L4-L5 level, a Johnston catheter in bladder. She was seen by Dr. Segovia. He did a cystoscopy, left ureteroscopy, insertion of left ureteral JJ stent. PAST MEDICAL HISTORY: Operations as outlined. FAMILY HISTORY: Noncontributory. SOCIAL HISTORY: She smoked heavily in the past. Stopped smoking many years ago, more than 27 years ago. Denies IV drug abuse or alcohol use. ALLERGIES: TO PENICILLIN. MEDICATION: Medications per chart. REVIEW OF SYSTEMS: Noncontributory. PHYSICAL EXAMINATION: GENERAL: Patient is a well-developed, well-nourished female, who is alert, responsive, in no acute distress. VITAL SIGNS: Stable. She is afebrile. SKIN: Without generalized rash. HEENT: Within normal limits. NECK: Supple. Lymph nodes nonpalpable. CHEST: Decreased breath sounds at the bases. HEART: Without murmur or gallop. ABDOMEN: Soft. Nontender, without organosplenomegaly or masses. EXTREMITIES: Without cyanosis, clubbing, or edema. RECTAL/PELVIC: Exam is deferred. NEUROLOGICAL: No focal neurological abnormality. IMPRESSION AND PLAN: The patient is currently on meropenem, although Gram stain is consistent with treatment was cefotaxime. I am going to switch her over to ceftriaxone. I will dictate my findings to Dr. Lopez. Dictated By: Yonathan Joya MD JD/nga/sandra /Document#: [id number]
[2016-12-11] MEDS: ERTAPENEM SODIUM 1 GM in SOD CHLORIDE 0.9% 100 ML IVPB SCH (17:08)
[2016-12-11] MEDS: TAMSULOSIN (SR) 0.4 MG CAP PO SCH (20:14)
[2016-12-11 20:44] VITALS: BP 123/55; RESP 18
[2016-12-12] MEDS: ALBUTEROL/IPRATROPIUM (NEB) 3 ML AMP HHN SCH ×5 (01:00→17:00)
[2016-12-12] MEDS: ACCU-CHEK XX SCH (02:00)
[2016-12-12 02:44] VITALS: BP 117/51; RESP 18
[2016-12-12] MEDS: PROMETHAZINE/CODEINE 5ML CUP PO PRN ×2 (05:13→08:37)
[2016-12-12] MEDS: PANTOPRAZOLE (EC) 40 MG TAB PO SCH ×2 (05:14→17:39)
[2016-12-12 06:23] LABS: BASOPHILS % 0.5 % (0.0-2.0); EOSINOPHILS # 0.6 10^3/ul (0.0-0.5); EOSINOPHILS % 9.2 % (0.0-7.0); HEMATOCRIT 28.8 % (37.0-47.0); HEMOGLOBIN 9.4 g/dl (12.0-16.0); LYMPHOCYTES # 2.6 10^3/ul (0.8-2.9); LYMPHOCYTES % 40.1 % (15.0-51.0); MEAN CORPUSCULAR HEMOGLOBIN 28.6 pg (29.0-33.0); MEAN CORPUSCULAR HGB CONC 32.6 g/dl (32.0-37.0); MEAN CORPUSCULAR VOLUME 87.5 fl (82.0-101.0); MONOCYTE # 0.7 10^3/ul (0.3-0.9); MONOCYTES % 11.4 % (0.0-11.0); NEUTROPHIL # 2.5 10^3/ul (1.6-7.5); NEUTROPHILS % 38.6 % (39.0-77.0); PLATELET COUNT 140 10^3/UL (140-415); RED BLOOD COUNT 3.29 10^6/ul (4.20-5.40); RED CELL DISTRIBUTION WIDTH 13.5 % (11.5-14.5); WHITE BLOOD COUNT 6.4 10^3/ul (4.8-10.8)
[2016-12-12 07:21] LABS: CALCIUM 8.4 mg/dl (8.4-10.2); CREATININE 0.83 mg/dl (0.44-1.00); POTASSIUM 3.7 mmol/L (3.5-5.1)
[2016-12-12 07:31] VITALS: BP 135/63; RESP 20
[2016-12-12 07:34] LABS: MAGNESIUM 1.9 mg/dl (1.7-2.5); PHOSPHORUS 3.8 mg/dl (2.5-4.9)
[2016-12-12] MEDS: INSULIN ASPART [NOVOLOG] 3 ML PEN SC SCH ×3 (08:00→18:05)
[2016-12-12] MEDS: HYDROCODONE/APAP (5/325) TAB PO PRN (08:35)
[2016-12-12] MEDS: ARIPIPRAZOLE 5 MG TAB PO SCH (08:35)
[2016-12-12] MEDS: ESCITALOPRAM 10 MG TAB PO SCH (08:36)
[2016-12-12] MEDS: OXYBUTYNIN 5 MG TAB PO SCH ×2 (08:36→12:49)
[2016-12-12] MEDS: MUPIROCIN 2% 22 GM OINT TOP SCH (08:39)
[2016-12-12] MEDS: BISACODYL 10 MG SUPP PR SCH (08:43)
[2016-12-12] MEDS: morphine 2 MG INJ IV PRN (12:02)
--- NOTE | 2016-12-12 12:22 | PDOCDIS ---
Discharge Instructions CONDITION Patient Condition: Stable HOME CARE INSTRUCTIONS: Special Diet: vegan, mechanical soft FOLLOW UP/APPOINTMENTS Follow-up Plan dc to [facility], follow up with Dr. Segovia within 1-2 weeks, see reconciliation JULIAN DOMÍNGUEZ MD Dec 12, 2016 12:22
[2016-12-12 14:45] VITALS: BP 130/60; RESP 20
--- NOTE | 2016-12-12 15:14 | CONS ---
Date/Time of Note Date/Time of Note DATE: 12/12/16 TIME: 15:13 Consult Date/Type/Reason Admit Date/Time Dec 06, 2016 at 18:42 Type of Consultation: card Subjective d/w staff pt with no abdominal pain now. she denies any PND ORTHOPNEA OR CP to me,. O: General: no acute distress HEENT: NC/AT. pupils are equal. round. NECK: NO JVD. no stridor. CV: RRR. systolic murmur; no gallop or rubs. PULM: no wheezing or rhonchi. GI: SOFT, no tenderness. ND, no rebound or guarding Extremity: trace B/L LE edema. no clubbing. neuro: awake and alert, Psych: calm and pleasant rectal: deferred Objective Vital Signs Date Time Temp Pulse Resp B/P Pulse Ox O2 Delivery O2 Flow Rate FiO2 12/12/16 14:45 99.6 70 20 130/60 98 12/12/16 13:37 Nasal Cannula 2.0 Intake and Output 12/11/16 12/11/16 12/12/16 15:00 23:00 07:00 Intake Total 100 ml 610 ml 450 ml Output Total 1000 ml 1000 ml Balance 100 ml -390 ml -550 ml Results/Medications Result Diagram: 12/12/1652012/12/16 05 Results 24 hrs Laboratory Tests Test 12/11/16 17:08 12/11/16 20:15 12/12/16 05:21 12/12/16 07:47 Bedside Glucose 116 153 102 White Blood Count 6.4 Red Blood Count 3.29 L Hemoglobin 9.4 L Hematocrit 28.8 L Mean Corpuscular Volume 87.5 Mean Corpuscular Hemoglobin 28.6 L Mean Corpuscular Hemoglobin Concent 32.6 Red Cell Distribution Width 13.5 Platelet Count 140 # Mean Platelet Volume 12.0 H Neutrophils % 38.6 L Lymphocytes % 40.1 Monocytes % 11.4 H Eosinophils % 9.2 H Basophils % 0.5 Nucleated Red Blood Cells % 0.0 Neutrophils # 2.5 Lymphocytes # 2.6 Monocytes # 0.7 Eosinophils # 0.6 H Basophils # 0.0 Nucleated Red Blood Cells # 0.0 Sodium Level 141 Potassium Level 3.7 Chloride Level 103 Carbon Dioxide Level 32 H Anion Gap 10 Blood Urea Nitrogen 9 Creatinine 0.83 Glucose Level 94 Calcium Level 8.4 Phosphorus Level 3.8 Magnesium Level 1.9 Test 12/12/16 11:27 Bedside Glucose 101 Medications Current Medications Ondansetron HCl (Zofran Inj) 4 mg Q6H PRN IV NAUSEA AND/OR VOMITING Last administered on 12/07/16 14:41; Admin Dose 4 MG; Start 12/06/16 at 20:30 Acetaminophen (Tylenol Tab) 650 mg Q6H PRN PO PAIN LEVEL 1-3 OR FEVER Last administered on 12/08/16 17:58; Admin Dose 650 MG; Start 12/06/16 at 20:30 Acetaminophen/ Hydrocodone Bitart ([place] (5/325)) 1 tab Q6H PRN PO MODERATE PAIN LEVEL 4-6 Last administered on 12/12/16 08:35; Admin Dose 1 TAB; Start at 20:30 Docusate Sodium (Colace) 100 mg Q12H PRN PO CONSTIPATION; Start 12/06/16 at 20: 30 Magnesium Hydroxide (Milk Of Mag) 30 ml DAILY PRN PO CONSTIPATION; Start at 20:30 Zolpidem Tartrate (Ambien) 5 mg QHS PRN PO SLEEP Last administered on 22:27; Admin Dose 5 MG; Start 12/06/16 at 20:30 Aripiprazole (Abilify) 5 mg DAILY PO Last administered on 12/12/16 08:35; Admin Dose 5 MG; Start 12/07/16 at 09:00 Bisacodyl (Dulcolax Supp) 10 mg DAILY GA Last administered on 12/10/16 09:06; Admin Dose 10 MG; Start 12/07/16 at 09:00 Escitalopram Oxalate (Lexapro) 5 mg DAILY PO Last administered on 12/12/16 08: 36; Admin Dose 5 MG; Start 12/07/16 at 09:00 Oxybutynin Chloride (Ditropan) 5 mg TID PO Last administered on 12/12/16 12:49 ; Admin Dose 5 MG; Start 12/06/16 at 21:00 Tamsulosin HCl (Flomax) 0.4 mg HS PO Last administered on 12/11/16 20:14; Admin Dose 0.4 MG; Start 12/06/16 at 21:00 Diagnostic Test (Pha) (Accu-Chek) 1 ea 02 XX ; Start 12/07/16 at 02:00 Lorazepam (Ativan) 0.5 mg Q6H PRN PO ANXIETY; Start 12/06/16 at 21:00 Miscellaneous Information 1 ea NOTE XX ; Start 12/06/16 at 21:00 Glucose (Glutose) 15 gm Q15M PRN PO DECREASED GLUCOSE; Start 12/06/16 at 21:00 Glucose (Glutose) 22.5 gm Q15M PRN PO DECREASED GLUCOSE; Start 12/06/16 at 21: 00 Dextrose (D50w Syringe) 25 ml Q15M PRN IV DECREASED GLUCOSE; Start 12/06/16 at 21:00 Dextrose (D50w Syringe) 50 ml Q15M PRN IV DECREASED GLUCOSE; Start 12/06/16 at 21:00 Glucagon (Glucagen) 1 mg Q15M PRN IM DECREASED GLUCOSE; Start 12/06/16 at 21:00 Glucose (Glutose) 15 gm Q15M PRN BUCCAL DECREASED GLUCOSE; Start 12/06/16 at 21 :00 Morphine Sulfate (morphine) 4 mg Q4H PRN IV SEVERE PAIN LEVEL 7-10 Last administered on 12/12/16 12:02; Admin Dose 4 MG; Start 12/07/16 at 12:30 Mupirocin (Bactroban) 1 applic BID TOP Last administered on 12/12/16 08:39; Admin Dose 1 APPLIC; Start 12/09/16 at 13:00 Promethazine HCl/ Codeine (Phenergan/ Codeine) 5 ml Q4H PRN PO COUGH Last administered on 12/12/16 08:37; Admin Dose 5 ML; Start 12/09/16 at 15:00 Pantoprazole 40 mg 40 mg 06,18 PO Last administered on 12/12/16 05:14; Admin Dose 40 MG; Start 12/11/16 at 18:00 Ertapenem/Sodium Chloride (Invanz/NS) 100 ml @ 200 mls/hr Q24H IVPB Last administered on 12/11/16 17:08; Admin Dose 200 MLS/HR; Start 12/11/16 at 15:00 Assessment/Plan Chief Complaint/Hosp Course 1. Cardiovascular preoperative evaluation. 2. History of congestive heart failure, suggestive of diastolic dysfunction, appears to be chronic and stable at this point. 3. History of sick sinus syndrome, status post permanent pacemaker, currently with no issues. 4. Urinary tract infection and renal stone, s/p procedure but stone was not removed due to infection. 5. History of chronic obstructive pulmonary disease, asthma: currently stable. 6. History of psych disorder, currently stable. 7. Thrombocytopenia: lovenox was discontinued. 8. Acute renal failure, most likely related to above: improving. 9. Diabetes, on insulin. cont abx as per IM F/U rec cont current cardiac care. will need outpt pacemaker check q 6 months thank you AMADOU GOMEZ MD [facility] Problems: AMADOU GOMEZ MD Dec 12, 2016 15:14
[2016-12-12] MEDS: ERTAPENEM SODIUM 1 GM in SOD CHLORIDE 0.9% 100 ML IVPB SCH (16:57)
--- NOTE | 2016-12-12 17:02 | PN ---
DATE: 12/12/2016 SUBJECTIVE DATA: The patient does have a left ureteral stent. She is status post-cystoscopy and insertion of left ureteral JJ stent. The patient did have a pus coming out of her kidney. OBJECTIVE DATA: GENERAL: She is afebrile. She is feeling better. She denies having any pain. VITAL SIGNS: Her temperature is 98.3, pulse is 68, respirations 20, blood pressure 135/63. ABDOMEN: Soft, and there is no tenderness. Her urine is clear. The Johnston catheter is in place. We shall discontinue the Johnston catheter. LABORATORY DATA: CBC shows a white count of 6.4, hemoglobin 9.4, hematocrit 28.8. BUN is 9, creatinine 0.83, sodium 141, potassium 3.7, chloride 103, CO2 32. Urine culture from her kidney did grow E. coli. The E. 80 coli is sensitive to ceftriaxone and Cefotaxime, and resistance to Cipro and Levaquin. Sensitive to nitrofurantoin and resistant to Bactrim. PLAN: To continue her on IV antibiotics and she is already on ertapenem, and had maybe in about 2 weeks we shall bring her back in and do the cystoscopy, left ureteroscopy, and laser lithotripsy, and remove the stone. Also removed the stent and put another temporary stent. I did explain that to the patient and she understood and I gave her my card with my name and my phone number so she could contact me. She is going to go to the shelter today, [facility]. Dictated By: Bhavin Segovia MD /nga/jason /Document#: [id number]
--- NOTE | 2016-12-13 06:26 | PN ---
DATE: 12/12/2016 SUBJECTIVE DATA: No acute events overnight. Patient is alert, feels better, looks comfortable. Denies pain, discomfort. No fevers. LABORATORY AND DIAGNOSTIC DATA: WBC 6.4, platelets 140; neutrophils 38.6. BUN 9, creatinine 0.83. Urine culture growing E coli. ALLERGIES: PENICILLIN. ANTIMICROBIALS: Patient is on Invanz. OBJECTIVE DATA: GENERAL: This is an obese, well-developed, elderly woman, who is alert, in no distress. HEENT: Head atraumatic, normocephalic. Sclerae anicteric. Buccal mucosa pink. NECK: Supple. CHEST: Rise symmetrical. Breath sounds clear. HEART: S1, S2. ABDOMEN: Soft, bowel sounds present. EXTREMITIES: Without cyanosis. ASSESSMENT: 1. Status post pyelonephritis with urine culture growing Escherichia coli. 2. Obstructive uropathy status post left ureteral JJ stent placement on December 08. 3. Methicillin-resistant Staphylococcus aureus nares colonization. 4. Anemia. 5. Psychiatric disorder. PLAN: Patient remains stable. Continue present care. Complete antibiotics for 7 more days pending discharge planning. Discussed with Dr. Lopez. Dictated By: Kana Baumann NP /nga/jayden /Document#: [id number]
--- NOTE | 2016-12-13 06:50 | DS ---
DATE OF ADMISSION: 12/06/2016 DATE OF DISCHARGE: 12/12/2016 REASON FOR ADMISSION: Obstructive left ureteral stone, UTI and possible pyelonephritis. HISTORY OF PRESENT ILLNESS: Patient is an unfortunate 76-year- old, obese female with a history of congestive heart failure, osteoarthritis, doubt asthma, COPD, schizoaffective disorder, borderline diabetes mellitus, history of [place], who recently had a pacemaker placed secondary to tachybrady syndrome at [facility]. The patient currently resides at [facility]. She was complaining of left- sided abdominal pain. She was transferred by paramedics to [facility] where CAT scan showed mild left hydronephrosis with extensive perinephric periurethral fatty stranding related to 1.1 cm obstructive stone in the mid left ureteral stone. There was also hepatomegaly with fatty infiltration. Dr. Segovia was consulted. The patient was transferred to [facility] for further care. The patient was started on antibiotics. This patient had UTI and fevers. I also consulted Dr. Joya, who switched antibiotics to meropenem. The patient underwent cystoscopy and insertion of left ureteral JJ stent. Post procedure, patient's temperature subsided and patient is doing well. Patient was discharged to halfway facility for IV antibiotics and then follow up with Dr. Segovia for another cystoscopy and removal of stone. DISCHARGE CONDITION: The patient was discharged with the following medications: 1. Tylenol 650 q.6h p.r.n. 2. Duonebs every 4 hours. We will make it every 8 hours x2 days, routine and acute to p.r.n. 3. Abilify 5 mg daily. 4. Dulcolax p.r.n. 10 mg as directed. 5. Colace 100 q.12h as needed. 6. 1 g IV q.day. We will do that for her eight days. 7. Lexapro 5 mg daily. Will increase it to 10 mg. 8. [place] 525, q.6h p.r.n. 9. Insulin as per sliding scale. 10. Ativan 0.5 q.6h p.r.n. for anxiety. 11. Milk of Magnesia 30 cc daily. Treatment of hypoglycemia. 12. Bactroban ointment as directed. 13. Zofran 4 mg p.o. q.4h p.r.n. nausea and vomiting. 14. Ditropan 5 mg t.i.d. 15. Protonix 40 mg daily. 16. Phenergan with codeine p.r.n. for cough. 17. Flomax 0.4 q.h.s. 18. Ambien 5 mg q.h.s. p.r.n. for insomnia. 19. Vitamin D3 2000 units daily. FINAL DIAGNOSES: 1. Abdominal pain. 2. Left obstructive ureteral stone. 3. Pyelonephritis. 4. Anemia. We put her also on ferrous sulfate 325 mg p.o. q.day. 5. Status post cystoscopy and JJ stent in the left. 6. Psychiatric disorder. 7. Hypertension. 8. Chronic obstructive pulmonary disease with cough requiring cough syrup and breathing treatments. 9. Overactive bladder. The patient discharged in fair condition [facility]. The patient to follow up with Dr. Segovia, urologist within 1-2 weeks. DIET: Two gram sodium, low fat, low carb diet. ACTIVITY: As tolerated with physical therapy. Johnston will be removed prior to discharge. Dictated By: Fidel Lopez MD /nga/ /Document#: [id number]
== END 2016-12-12 20:11 | DRG 694 ==
LOC: PP2 18:42
PROVIDERS: ADMIT Internal Medicine; ATTEND Internal Medicine
PROC: 0T778DZ Dilation of Left Ureter with Intraluminal Device, Via Natural or Artificial Opening Endoscopic (ICD-10-PCS; principal; 2016-12-08 12:30)
DX: N20.1 Calculus of ureter (principal); N17.9 Acute kidney failure, unspecified; I50.9 Heart failure, unspecified; D69.6 Thrombocytopenia, unspecified; E66.01 Morbid (severe) obesity due to excess calories; J44.9 Chronic obstructive pulmonary disease, unspecified; E11.9 Type 2 diabetes mellitus without complications; Z95.0 Presence of cardiac pacemaker; F25.9 Schizoaffective disorder, unspecified; I25.2 Old myocardial infarction; Z85.42 Personal history of malignant neoplasm of other parts of uterus; I51.7 Cardiomegaly; Z68.37 Body mass index [BMI] 37.0-37.9, adult; Z79.4 Long term (current) use of insulin; D64.9 Anemia, unspecified; Z95.828 Presence of other vascular implants and grafts; Z22.322 Carrier or suspected carrier of Methicillin resistant Staphylococcus aureus; B96.20 Unspecified Escherichia coli [E. coli] as the cause of diseases classified elsewhere; N13.6 Pyonephrosis; N32.81 Overactive bladder
CPT/HCPCS: 71010; 74000; 74430; 80048; 80053; 81001; 82962; 83735; 84100; 84443; 85025; 85610; 85730; 87040; 87081; 87086; 90686; 93005; 93306; 94640; 94664; J1940; C2617; J0692; J1335; J1650; J1815; J2185; J2270; J2405; J2710; J2765; J3475; J7030; J7042; J7999

== ENCOUNTER 2016-12-23 10:10 | Inpatient (IN) | payer MEDICARE, OTHER ==
--- NOTE | 2016-12-22 06:31 | PREOPHP ---
DATE OF ADMISSION: 12/23/2016 REASON FOR ADMISSION: Elective cystoscopy with left ureteroscopy, laser lithotripsy and removal and replacement of left ureteral JJ stent. 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 She was admitted to [facility] on 12/06/2016 with left obstructive ureteral stone. During her stay, she was found to have urinary tract infection and she was seen by Dr. Segovia, the urolog ist, where a JJ stent was placed. The patient was then transferred to the prison facility at [facility] for further medical management and IV antibiotics for her UTI. The patient was now seen today for preoperative evaluation. Upon questioning, the patient denies any chest pain or shor tness of breath, denies any fever or chills. The patient overall with no specific complaints. She has slight arthralgia of the shoulders bilaterally. The patient will undergo the above procedure on 12/23/[address] Segovia. PAST MEDICAL HISTORY: Includes CHF, diabetes mellitus, schizoaffective disorder, asthma, COPD, gout , obesity, history of uterine cancer in the past, spinal fracture. ALLERGIES: PENICILLIN. FAMILY HISTORY: Mother from bone cancer. SOCIAL HISTORY: The patient used to smoke heavily in the past, but stopped many years ago, more erick n 27 years ago. IV drug abuse: None. Alcohol: None. PAST SURGICAL HISTORY: Includes status post hysterectomy secondary to uterine cancer, bladder lift surgery and rectocele surgery, also pacemaker placement and left JJ stent placement recently. REVIEW OF SYSTEMS: Per HPI. CURRENT MEDICATIONS: Include the followin. Protonix 40 mg daily. 2. Tylenol p.r.n. 3. DuoNebs as directed. 4. Promethazine with codeine p.r.n. 5. Zolpidem 5 mg at bedtime p.r.n. insomnia. 6. Oxybutynin 5 mg t.i.d. 7. Colace 100 b.i.d. 8. Vitamin D 2000 units daily. 9. Magnesium hydroxide 400 mg daily. 10. Lexapro 10 mg daily. 11. Ativan p.r.n. 12. Abilify 5 mg daily. 13. daily. 14. Zofran p.r.n. 15. NovoLog insulin sliding scale. 16. Flomax 0.4 daily. 17. [place] 10/325 p.r.n. for pain. 18. Other meds include bisacodyl suppository daily p.r.n. REVIEW OF SYSTEMS: Per HPI. PHYSICAL EXAMINATION: VITAL SIGNS: Temperature is 98, pulse is 88, blood pressure 127/66, saturation is 96%. The patient weight is 205 pounds. Again, blood pressure 127/66. GENERAL: The patient is in no acute distress, obese. The patient is pale. HEENT: No JVD. CARDIOVASCULAR: S1 and S2 irregular. LUNGS: Clear. ABDOMEN: Soft, nontender. EXTREMITIES: There is no clubbing, cyanosis or edema. The patient moving all extremities. LABORATORY DATA: White count is 7.7, hemoglobin 10.4, hematocrit 32, platelet count 232 with normal differential. The patient's sodium is 142, potassium 4.2, chloride 102, bicarb 32, BUN 14, creatin ine 0.92, glucose of 132. LFTs are all within normal limits. INR is 1.26, slightly high, PT 14.2. IMAGING TESTS: Chest x-ray shows AICD pacemaker device is present with lead in T projection in sati sfactory position otherwise, also bilateral perihilar fullness, nonspecific and cardiomegaly. EKG: Shows actually it says atrial flutter but patient does have a pacemaker, left axis deviation, nonspecific intraventricular block, possible lateral infarct, age undetermined. ASSESSMENT AND PLAN: This is a 76-year-old female with a history of CHF, COPD, borderline diabetes mellitus, psychiatric disorder, who was recently found to have a left obstructive ureteral stone. 1. Respiratory. The patient appears to be stable, support as needed. The patient is not whe ezing. Denies any shortness of breath. 2. Cardiovascular. Status post implantable cardioverter-defibrillator placement. Vitals were all stable. Hold blood thinners secondary to the above procedure. 3. Left obstructive renal stone, status post JJ stent, now to undergo the above procedure status po st treatment for urinary tract infection with antibiotics. Followup UA was done. 4. Psychiatric disorder. Continue Lexapro and Abilify and all psychiatric medications. We will fo llow with you if the patient is admitted 5. No further cardiac workup is needed as patient recently had a pacemaker placed and she was seen by the utility lineman extensively. The patient had an echocardiogram done on 12/09/2016 which showed preserved ejection fraction of 60%. Overall, the patient is medically optimized for the above proce dure. We will follow with you. Dictated By: JULIAN SANCHEZ/CYNTHIA Conf#: [id number] DID#: [id number]
[2016-12-22 12:39] VITALS: BMI 25.6
[~2016-12-23] VITALS: Ht 160 cm; Wt 87.8 kg
[2016-12-23] VITALS (17 sets, daily range): BP systolic 98–144; BP diastolic 46–98; PULSE 75–106; RESP 14–40; Ht 160 cm; Wt 87.8 kg
--- NOTE | 2016-12-23 07:54 | HPN ---
Date/Time of Note Date/Time of Note DATE: 12/23/16 TIME: 07:54 Interval H&P Admission Note Pt. seen H&P reviewed: No system changes PAIGE SOTOMAYOR MD Dec 23, 2016 07:54
[~2016-12-23 10:10] MED LIST changes: +CIPRO 400 MG/200 ML D5W IVPB ONE; +ETOMIDATE 20 MG INJ ONE; +LIDOCAINE 2% (SDV) 5 ML INJ ONE; +PROPOFOL 200 MG INJ ONE; +ROCURONIUM 50 MG INJ ONE
[2016-12-23] MEDS ORDERED: ACET-2047 PO (10:58)
[2016-12-23] MEDS ORDERED: DOCU-159 PO (10:58)
[2016-12-23] MEDS ORDERED: IPRA3AMP INHALATION (11:00)
[2016-12-23] MEDS ORDERED: ESCI10TA48 PO (11:00)
[2016-12-23] MEDS ORDERED: IMO2 PO (11:01)
[2016-12-23] MEDS ORDERED: FER325 PO (11:01)
[2016-12-23] MEDS ORDERED: LORA0.5T PO (11:02)
[2016-12-23] MEDS ORDERED: NOVO3I SC (11:03)
[2016-12-23] MEDS ORDERED: ONDA4TAB95 PO (11:04)
[2016-12-23] MEDS ORDERED: OXYB5TAB7 PO (11:05)
[2016-12-23] MEDS ORDERED: PROM5SYR2 PO (11:06)
[2016-12-23] MEDS ORDERED: TAMS0.4C2 PO (11:06)
[2016-12-23] MEDS ORDERED: FENTAnyl 50 MCG/ML VIAL ONE (12:36)
[2016-12-23] MEDS ORDERED: SUGAMMADEX SODIUM 200 MG/2 ML VIAL IV ONE (15:36)
[2016-12-23] MEDS ORDERED: ALBUTEROL 0.5% (NEB) 2.5 MG/0.5 ML AMP ONE (15:55)
--- NOTE | 2016-12-23 15:55 | OPR ---
Date/Time of Note Date/Time of Note DATE: 12/23/16 TIME: 15:45 Operative Report Procedure Date: Dec 23, 2016 Preoperative Diagnosis Left mid ureteral stone Postoperative Diagnosis Left upper ureteral stone, the stone has moved from the area of the sacroiliac joint to the upper ureter after she had the stent placed 3 weeks ago Operation/Procedure Performed Left ureteroscopy laser lithotripsy removal and replacement of left ureteral JJ stent Surgeon see signature line Hvac Mechanical Engineer None Anesthesia Type: general Anesthesiologist: VIKA GAMBOA Estimated Blood Loss: minimal Transfusion none Specimen Stone fragments Grafts/Implants none Complications none Pt Condition Post Procedure: stable Disposition: PACU Indications Left ureteral stone was obstruction Procedure Description The patient was brought to the operating room general endotracheal anesthesia was induced. The patient was positioned in the lithotomy position. Patient was given 400 mg of Cipro IV at the start of the procedure. The genital area was then prepped and draped in the usual sterile manner. 21 Danish cystoscope sheath was introduced into the bladder. Urine was collected for culture and sensitivity. The distal end of the JJ stent was identified and then grasped was the grasper and pulled out to the urethral meatus. 0.035 zip wire was introduced into the lumen of the JJ stent and advanced all the way up to the kidney. The old JJ stent was then removed. A dual lumen catheter was advanced on the zip wire up to the level of the stone. The stone was noted to be in the upper ureter while when we did do the cystoscopy and put the JJ stent 3 weeks ago the stone was over the sacroiliac joint area. Once the dual-lumen reached the level of the stone is 0.035 sensor wire was passed in the second lumen all the way up to the kidney then the dual-lumen was removed the sensor wire was used as a safety wire and the zip wire was used to advance the access sheath on it. 11 x 13 mm diameter and 28 cm long access sheath was advanced on the zip wire to the level of the stone. The digital flexible ureteroscope was then introduced through the access sheath ,the stone was visualized and the stone was broken was a holmium laser. Every time we had a stone fragment that could be basketed was basketed and removed so we could expose the remaining of the stone then additional laser was done to break the stone further and we kept doing that for about 3 hours until we got all the stone fragments out of the ureter and the ureter free of stones. The ureteroscope was then advanced all the way up to the kidney and the ureter was all free of stone or stone fragments. The ureteroscope was then removed and the access sheath was also removed then the cystoscope was reintroduced on the safety wire into the bladder and a 6Fr x 24 cm long JJ stent was advanced and had its proximal and curling into the left kidney and the distal end curling into the bladder. The distal end has a string that was brought out the urethra and taped to the patient's right groin at the end of the procedure a 16 Danish Johnston catheter was inserted and connected to a drainage bag. The patient tolerated the procedure well and was transferred to recovery room in stable and satisfactory condition PAIGE SOTOMAYOR MD Dec 23, 2016 15:55
[2016-12-23] MEDS ORDERED: OXYCODONE/ACETAMINOPHEN (5/325) TAB PO PRN ×2 (16:00)
[2016-12-23] MEDS ORDERED: ONDANSETRON 4 MG INJ IV PRN ×2 (16:00)
[2016-12-23] MEDS ORDERED: FENTAnyl 50 MCG/ML VIAL IV PRN ×3 (16:00)
[2016-12-23] MEDS ORDERED: ALBUTEROL 0.083% (NEB) 2.5 MG/3 ML AMP HHN PRN (16:00)
[2016-12-23] MEDS ORDERED: METOCLOPRAMIDE 10 MG INJ IV PRN (16:00)
[2016-12-23] MEDS ORDERED: HYDROCODONE/APAP (5/325) TAB PO PRN ×2 (16:00)
[2016-12-23] MEDS ORDERED: MEPERIDINE 25 MG INJ IV PRN (16:00)
[2016-12-23] MEDS: ERTAPENEM SODIUM 1 GM in SOD CHLORIDE 0.9% 100 ML IVPB SCH (17:30)
[2016-12-23] MEDS ORDERED: ONDANSETRON 4 MG TAB PO PRN (19:00)
[2016-12-23] MEDS ORDERED: LOPERAMIDE 2 MG CAP PO PRN (19:00)
[2016-12-23] MEDS ORDERED: LORAZEPAM 0.5 MG TAB PO PRN (19:00)
[2016-12-23] MEDS ORDERED: ALBUTEROL/IPRATROPIUM (NEB) 3 ML AMP HHN PRN (19:00)
[2016-12-23] MEDS: MAGNESIUM HYDROXIDE 30ML CUP PO SCH ×2 (21:00→21:41)
[2016-12-23] MEDS: ACETAMINOPHEN 325 MG TAB PO PRN (21:40)
[2016-12-23] MEDS: DOCUSATE SODIUM 100 MG CAP PO SCH (21:40)
[2016-12-23] MEDS: OXYBUTYNIN 5 MG TAB PO SCH (22:57)
[2016-12-24 05:38] LABS: BASOPHILS % 0.5 % (0.0-2.0); EOSINOPHILS # 0.3 10^3/ul (0.0-0.5); EOSINOPHILS % 3.5 % (0.0-7.0); HEMOGLOBIN 9.2 g/dl (12.0-16.0); LYMPHOCYTES # 2.5 10^3/ul (0.8-2.9); LYMPHOCYTES % 31.5 % (15.0-51.0); MEAN CORPUSCULAR HEMOGLOBIN 28.3 pg (29.0-33.0); MEAN CORPUSCULAR HGB CONC 31.7 g/dl (32.0-37.0); MEAN CORPUSCULAR VOLUME 89.2 fl (82.0-101.0); MEAN PLATELET VOLUME 12.4 fl (7.4-10.4); MONOCYTE # 0.7 10^3/ul (0.3-0.9); MONOCYTES % 9.1 % (0.0-11.0); NEUTROPHIL # 4.4 10^3/ul (1.6-7.5); PLATELET COUNT 165 10^3/UL (140-415); RED BLOOD COUNT 3.25 10^6/ul (4.20-5.40); RED CELL DISTRIBUTION WIDTH 13.7 % (11.5-14.5)
[2016-12-24] MEDS: PANTOPRAZOLE (EC) 40 MG TAB PO SCH (05:40)
[2016-12-24] MEDS: ACETAMINOPHEN 325 MG TAB PO PRN (05:40)
[2016-12-24 05:58] LABS: CALCIUM 8.3 mg/dl (8.4-10.2); CREATININE 0.97 mg/dl (0.44-1.00)
--- NOTE | 2016-12-24 07:31 | PN ---
DATE: 12/23/2016 SUBJECTIVE: Patient seen status post left ureteroscopy, laser lithotripsy, removal and replacement of left ureteral JJ stent. The patient overall tolerated the procedure well. Case discussed with Sunny Segovia. The patient was admitted for further care for monitoring. The patient is complaining o f slight discomfort near the left flank area but otherwise feeling okay. PHYSICAL EXAMINATION: VITAL SIGNS: Temperature 97.7, pulse 78, respirations 18, blood pressure 120/62, saturation 96% on 2 liters. GENERAL: The patient is in no acute distress. The patient is pale. The patient is obese. CARDIOVASCULAR: S1 and S2, regular rate. LUNGS: Clear. ABDOMEN: Soft, nontender. EXTREMITIES: No clubbing, cyanosis, or edema. GENITOURINARY: Johnston to gravity. MUSCULOSKELETAL: SCDs are in place. LABORATORY DATA: Glucose level checked early this morning was 115. No other labs. CURRENT MEDICATIONS: Reviewed including 1. Ertapenem IV daily. 2. [place] p.r.n. 3. Zofran p.r.n. 4. Fentanyl p.r.n., but that was in surgery. 5. Percocet p.r.n. 6. Zofran p.r.n. 7. Reglan p.r.n. ASSESSMENT AND PLAN: This is a 76-year-old female, obese, with history of CHF, COPD, diab etes mellitus, borderline psychiatric disorder, presented for elective left ureteral stone removal. 1. Status post left stone lithotripsy and JJ stent placement. Empirically, on antibiotics with imi penem. Pain control will be provided as needed. Remove Johnston catheter hopefully tomorrow. 2. Cardiovascular. The patient is status post pacemaker placement. Vitals remained stable, observ e. 3. Respiratory. Patient with history of chronic obstructive pulmonary disease, compensated DuoNeb p.r.n. for shortness of breath. 4. Psychiatric disorder. Continue Lexapro. 5. Out of bed activity with assistance with physical therapy. 6. Disposition either back to [facility] or to assisted living facility with home health. 7. The patient will be placed on Protonix for GI prophylaxis and SCDs for deep venous thrombosis pr ophylaxis. We will monitor closely with you. We will follow. Dictated By: JULIAN SANCHEZ/CYNTHIA Conf#: [id number] [facility]#: [id number]
[2016-12-24 07:33] VITALS: BP 104/51; RESP 20
[2016-12-24] MEDS: ESCITALOPRAM 10 MG TAB PO SCH (09:28)
[2016-12-24] MEDS: ARIPIPRAZOLE 5 MG TAB PO SCH (09:28)
[2016-12-24] MEDS: DOCUSATE SODIUM 100 MG CAP PO SCH ×2 (09:28→20:15)
[2016-12-24] MEDS: FERROUS SULFATE (EC) 325 MG TAB PO SCH (09:28)
[2016-12-24] MEDS: OXYBUTYNIN 5 MG TAB PO SCH ×3 (10:26→20:15)
[2016-12-24 11:08] LABS: ADD UMIC YES; UR ASCORBIC ACID NEGATIVE (NEGATIVE); UR BACTERIA FEW /HPF (NONE SEEN); UR BILIRUBIN (Dip) NEGATIVE (NEGATIVE); UR BLOOD (Dip) 3+ mg/dL (NEGATIVE); UR CLARITY CLOUDY (CLEAR); UR COLOR YELLOW (YELLOW); UR GLUCOSE (Dip) NEGATIVE (NEGATIVE); UR KETONES (Dip) NEGATIVE (NEGATIVE); UR LEUKOCYTE ESTERASE (Dip) 3+ Leu/ul (NEGATIVE); UR MUCUS FEW /HPF (NONE SEEN); UR NITRITE (Dip) NEGATIVE (NEGATIVE); UR RBC > 182 /HPF (0-5); UR SPECIFIC GRAVITY (Dip) 1.012 (1.003-1.030); UR SQUAMOUS EPITHELIAL CELL FEW /HPF (FEW); UR TOTAL PROTEIN (Dip) 2+ mg/dl (NEGATIVE); UR UROBILINOGEN (Dip) NEGATIVE (NEGATIVE)
[2016-12-24] MEDS ORDERED: INFLUENZA VIRUS VACCINE 0.5 ML SYG IM* ONE (12:30)
[2016-12-24 14:00] VITALS: BP 99/48; RESP 18
[2016-12-24] MEDS: morphine 2 MG INJ IV PRN ×2 (14:47→20:13)
--- NOTE | 2016-12-24 17:51 | RADRPT ---
PROCEDURE: XR Abdomen. CLINICAL INDICATION: Flank pain. Left ureteral stone. TECHNIQUE: AP abdomen x-ray. COMPARISON: Intraoperative fluoroscopy December 23, 2016, December 09, 2016 FINDINGS: The bowel gas pattern is normal. There is a left double-J ureteral stent in good positioning. No stones are seen along the course of the stent. There is a stable IVC filter. The osseous structures are unremarkable. IMPRESSION: Left double-J ureteral stent in good positioning. No stones seen along the course of the stent. Stab le IVC filter. RPTAT: QQ .Ashwini Love MD, Date Time Electronically viewed and signed by .Ashwini Love MD, on 12/24/2016 17:50 .F/
[2016-12-24] MEDS: ERTAPENEM SODIUM 1 GM in SOD CHLORIDE 0.9% 100 ML IVPB SCH (18:04)
--- NOTE | 2016-12-24 19:22 | PN ---
Date/Time of Note Date/Time of Note DATE: 12/24/16 TIME: 19:12 Assessment/Plan VTE Prophylaxis VTE Prophylaxis Intervention: other (Patient has IVC filters) Lines/Catheters IV Catheter Type (from [facility]): Peripheral IV Urinary Cath still in place: Yes Reason Cath still needed: other (indicate) (urological surgery) Assessment/Plan Chief Complaint/Hosp Course status post left ureteroscopy and laser lithotripsy and insertion of JJ stent.She is doing well,she had a low temperature. Urine culture is pending,She had ESBL UTI before.She is on Ertapenem. Continue the same.keep delgado in today, July [place] it in AM Problems: Assessment/Plan status post left ureteroscopy and laser lithotripsy and insertion of JJ stent.She is doing well,she had a low temperature. Urine culture is pending,She had ESBL UTI before.She is on Ertapenem. Continue the same.keep delgado in today, July [place] it in AM Subjective 24 Hr Interval Summary Constitutional: no complaints Eyes: no complaints ENT: no complaints Respiratory: no complaints Cardiovascular: no complaints Gastrointestinal: no complaints Genitourinary: other (delgado catheter), No bleeding, No hematuria Musculoskeletal: other (left shoulder pain) Skin: bruising Neurologic: no complaints Endocrine: no complaints Lymphatic: no complaints Psychological: no complaints Exam/Review of Systems Vital Signs Vitals Vital Signs Date Time Temp Pulse Resp B/P Pulse Ox O2 Delivery O2 Flow Rate FiO2 12/24/16 14:00 99.8 71 18 99/48 96 12/23/16 16:56 Nasal Cannula 2.0 Intake and Output 12/23/16 12/23/16 12/24/16 15:00 23:00 07:00 Intake Total 1000 ml 600 ml Output Total 125 ml 650 ml Balance 875 ml -50 ml Exam Constitutional: alert Psych: no complaints Head: normocephalic Eyes: nl conjunctiva ENMT: nl external ears & nose Neck: supple Respiratory: normal air movement Cardiovascular: No edema Gastrointestinal: soft Genitourinary - Female: other (delgado draining well,urine is clear), No CVA tenderness Extremities: No calf tenderness, No edema Skin: nl turgor Results Result Diagram: 12/24/16 0448 12/24/16 0448 Results 24 hrs Laboratory Tests Test 12/24/16 04:48 12/24/16 10:20 White Blood Count 8.0 # Red Blood Count 3.25 L Hemoglobin 9.2 L Hematocrit 29.0 L Mean Corpuscular Volume 89.2 Mean Corpuscular Hemoglobin 28.3 L Mean Corpuscular Hemoglobin Concent 31.7 L Red Cell Distribution Width 13.7 Platelet Count 165 Mean Platelet Volume 12.4 H Neutrophils % 55.0 Lymphocytes % 31.5 Monocytes % 9.1 Eosinophils % 3.5 Basophils % 0.5 Nucleated Red Blood Cells % 0.0 Neutrophils # 4.4 Lymphocytes # 2.5 Monocytes # 0.7 Eosinophils # 0.3 Basophils # 0.0 Nucleated Red Blood Cells # 0.0 Sodium Level 143 Potassium Level 4.0 Chloride Level 107 Carbon Dioxide Level 31 Anion Gap 9 Blood Urea Nitrogen 13 Creatinine 0.97 Glucose Level 92 Calcium Level 8.3 L Urine Color YELLOW Urine Clarity CLOUDY A Urine pH 6.0 Urine Specific [place] 1.012 Urine Ketones NEGATIVE Urine Nitrite NEGATIVE Urine Bilirubin NEGATIVE Urine Urobilinogen NEGATIVE Urine Leukocyte Esterase 3+ H Urine Microscopic RBC > 182 H Urine Microscopic WBC > 182 H Urine Squamous Epithelial Cells FEW Urine Calcium Oxalate Crystals FEW A Urine Bacteria FEW A Urine Mucus FEW A Urine Hemoglobin 3+ H Urine Glucose NEGATIVE Urine Total Protein 2+ H Imaging Free Text/Dictation KUB: JJ stent in good position.no stones Medications Medications Current Medications Ertapenem/Sodium Chloride (Invanz/NS) 100 ml @ 200 mls/hr Q24H IVPB Last administered on 12/24/16 18:04; Admin Dose 200 MLS/HR; Start 12/23/16 at 17: 30 Acetaminophen (Tylenol Tab) 650 mg Q6H PRN PO PAIN AND OR ELEVATED TEMP Last administered on 12/24/16 05:40; Admin Dose 650 MG; Start 12/23/16 at 19:00 Aripiprazole (Abilify) 5 mg DAILY PO Last administered on 12/24/16 09:28; Admin Dose 5 MG; Start 12/24/16 at 09:00 Docusate Sodium (Colace) 100 mg BID PO Last administered on 12/24/16 09:28; Admin Dose 100 MG; Start 12/23/16 at 21:00 Escitalopram Oxalate (Lexapro) 10 mg DAILY PO Last administered on 12/24/16 09:28; Admin Dose 10 MG; Start 12/24/16 at 09:00 Ferrous Sulfate (Ferrous Sulfate (Ec)) 325 mg DAILY PO Last administered on 09:28; Admin Dose 325 MG; Start 12/24/16 at 09:00 Albuterol/ Ipratropium (Duoneb) 3 ml Q2HWA PRN HHN WHEEZING AND SOB; Start at 19:00 Loperamide HCl (Imodium Cap) 2 mg Q4 PRN PO DIARRHEA; Start 12/23/16 at 19:00 Lorazepam (Ativan) 0.5 mg Q6 PRN PO ANXIETY; Start 12/23/16 at 19:00 Magnesium Hydroxide (Milk Of Mag) 30 ml QHS PO ; Start 12/23/16 at 21:00 Ondansetron HCl (Zofran Tab) 4 mg Q4H PRN PO NAUSEA AND/OR VOMITING; Start at 19:00 Oxybutynin Chloride (Ditropan) 5 mg TID PO Last administered on 12/24/16 14: 47; Admin Dose 5 MG; Start 12/23/16 at 21:00 Pantoprazole (Protonix Tab) 40 mg DAILY@06 PO Last administered on 12/24/16 05:40; Admin Dose 40 MG; Start 12/24/16 at 06:00 Zolpidem Tartrate (Ambien) 5 mg QHS PRN PO INSOMNIA; Start 12/23/16 at 19:00 Morphine Sulfate (morphine) 2 mg Q4H PRN IV moderate pain Last administered on 12/24/16 14:47; Admin Dose 2 MG; Start 12/24/16 at 14:00 PAIGE SOTOMAYOR MD Dec 24, 2016 19:22
[2016-12-24 20:10] VITALS: BP 105/48; RESP 20
[2016-12-24] MEDS: MAGNESIUM HYDROXIDE 30ML CUP PO SCH (20:15)
[2016-12-25 02:17] VITALS: BP 106/49; RESP 16
[2016-12-25] MEDS: PANTOPRAZOLE (EC) 40 MG TAB PO SCH (05:38)
[2016-12-25] MEDS: morphine 2 MG INJ IV PRN ×3 (05:38→09:50)
--- NOTE | 2016-12-25 06:01 | PN ---
DATE: 12/24/2016 SUBJECTIVE: The patient complains that she does have left shoulder pain and left flank pain. She i s status post a left ureteroscopy, laser lithotripsy, removal and replacement of the left ureteral J J stent. In addition to that, she may well have a urinary tract infection. OBJECTIVE FINDINGS VITAL SIGNS: Her temperature is 100.3, and she had 100. 2 earlier. Pulse is 78, respirations 20, b lood pressure 104/51. ABDOMEN: Obese, and there is no abdominal mass palpable, but she is tender in the left side and she has pain over . LABORATORY DATA: The patient's CBC today shows a white count of 8.0, hemoglobin 9.2, hematocrit 29. 0. BUN is 13, creatinine 0.97. Electrolytes are normal. The urine culture that was sent yesterday during the cystoscopy showed no growth after 24 hours. IMPRESSION: Status post left ureteroscopy and laser lithotripsy, removal and replacement of the JJ stent. The patient's urine culture so far no growth, but she does have a fever of 100.3. The patie nt is on ertapenem because previously she did have ESBL in the urine. PLAN: So, the plan is to continue her ertapenem while waiting for the final report of the urine cul ture and control her pain medication and keep the Johnston catheter in, and the string from the left ur eteral JJ stent is taped to her right groin and make sure that nobody pulling on it. Dictated By: PAIGE WRIGHT/CYNTHIA Conf#: [id number] DID#: [id number]
[2016-12-25 06:04] LABS: BASOPHILS % 0.5 % (0.0-2.0); EOSINOPHILS # 0.4 10^3/ul (0.0-0.5); EOSINOPHILS % 6.2 % (0.0-7.0); HEMATOCRIT 29.5 % (37.0-47.0); HEMOGLOBIN 9.2 g/dl (12.0-16.0); LYMPHOCYTES # 2.4 10^3/ul (0.8-2.9); LYMPHOCYTES % 40.8 % (15.0-51.0); MEAN CORPUSCULAR HEMOGLOBIN 28.3 pg (29.0-33.0); MEAN CORPUSCULAR HGB CONC 31.2 g/dl (32.0-37.0); MEAN CORPUSCULAR VOLUME 90.8 fl (82.0-101.0); MEAN PLATELET VOLUME 12.5 fl (7.4-10.4); MONOCYTE # 0.6 10^3/ul (0.3-0.9); MONOCYTES % 9.9 % (0.0-11.0); NEUTROPHIL # 2.5 10^3/ul (1.6-7.5); NEUTROPHILS % 42.3 % (39.0-77.0); PLATELET COUNT 135 10^3/UL (140-415); RED BLOOD COUNT 3.25 10^6/ul (4.20-5.40); RED CELL DISTRIBUTION WIDTH 13.6 % (11.5-14.5)
[2016-12-25 06:43] LABS: ALBUMIN 2.9 g/dl (3.3-4.9); BILIRUBIN,INDIRECT 0.3 mg/dl (0-1.1); BILIRUBIN,TOTAL 0.3 mg/dl (0.2-1.3); CALCIUM 8.2 mg/dl (8.4-10.2); CREATININE 0.82 mg/dl (0.44-1.00); POTASSIUM 3.9 mmol/L (3.5-5.1); TOTAL PROTEIN 5.8 g/dl (6.1-8.1)
[2016-12-25 06:59] LABS: MAGNESIUM 1.5 mg/dl (1.7-2.5)
--- NOTE | 2016-12-25 07:39 | PN ---
DATE: 12/24/2016 SUBJECTIVE: The patient is seen. Unfortunately, the patient is complaining of abdominal pain, also in the left flank area, as the patient had yesterday surgery where she underwent a laser lithotrips y and removal and replacement of left ureteral JJ stent. The patient also is having low-grade tempe rature up to 100.3. The patient is on antibiotics, as urinalysis was positive for WBC greater than 182. PHYSICAL EXAMINATION VITAL SIGNS: Temperature is 100.3, pulse 78, respirations 20, blood pressure 104/51, saturation 98% on 2 liters. GENERAL: The patient is in no acute distress, frail, pale. CARDIOVASCULAR: S1 and S2. Regular rate. LUNGS: Clear. ABDOMEN: Soft. Tender to palpation in the left mid abdomen and discomfort throughout. EXTREMITIES: There is no clubbing, cyanosis, or edema. LABORATORY DATA: White count is 8, hemoglobin 9.2, hematocrit 29, platelet counts of 165 with silva l differential. Chemistry: Sodium is 143, potassium 4.0, chloride 107, bicarbonate 31, BUN is 13, creatinine 0.97, and glucose of 92. Urinalysis shows +2 leukocyte esterase, WBCs greater than 182. MEDICATIONS 1. Abilify 5 mg daily. 2. Lexapro 10 mg daily. 3. Ferrous sulfate 325 daily. 4. Protonix 40 mg daily. 5. Colace 100 b.i.d. 6. Milk of Magnesia at bedtime. 7. Ditropan 5 t.i.d. 8. Tylenol p.r.n. 9. DuoNebs p.r.n. 10. Imodium p.r.n. 11. Ativan p.r.n. 12. Zofran. 13. Ambien p.r.n. 14. 1 gram q. 24 hours. ASSESSMENT AND PLAN: This is a 76-year-old, female with history of congestive heart failu re (CHF), chronic obstructive pulmonary disease (COPD), diabetes mellitus, and psychiatric disorder who presented for elective left ureteral stone removal. 1. Status post left stone lithotripsy and JJ stent replacement. There is evidence of a urinary tra ct infection. Continue ertapenem. Follow up urine culture results. Pain control will be provided. Urology to follow. 2. Cardiovascular: Stable. The patient is status post pacemaker placement. 3. Respiratory: O2 support and breathing treatment to be provided as needed, as her abdominal pain is causing her slight shortness of breath. 4. Psychiatric disorder: Continue Lexapro. 5. Out of bed activity as tolerated. 6. Monitor further, as the patient has fever and the worsening pain. Again, pain medications will be provided. Continue antibiotics and monitor closely. 7. Anemia. Currently no need for transfusion. monitor closely. We will follow. Dictated By: JULIAN SANCHEZ/CYNTHIA Conf#: [id number] DID#: [id number]
[2016-12-25 07:42] VITALS: BP 97/49; RESP 20
[2016-12-25] MEDS: DOCUSATE SODIUM 100 MG CAP PO SCH ×3 (09:44→20:51)
[2016-12-25] MEDS: OXYBUTYNIN 5 MG TAB PO SCH ×3 (09:44→21:38)
[2016-12-25] MEDS: ARIPIPRAZOLE 5 MG TAB PO SCH (09:44)
[2016-12-25] MEDS: FERROUS SULFATE (EC) 325 MG TAB PO SCH (09:44)
[2016-12-25] MEDS: ESCITALOPRAM 10 MG TAB PO SCH (09:44)
[2016-12-25 10:30] VITALS: BP 102/52; PULSE 66
[2016-12-25 13:35] VITALS: BP 106/55; RESP 20
[2016-12-25] MEDS: ERTAPENEM SODIUM 1 GM in SOD CHLORIDE 0.9% 100 ML IVPB SCH ×2 (17:30→21:32)
[2016-12-25] MEDS: morphine LIQ (10 MG/5 ML) CUP PO PRN ×2 (18:14→20:49)
[2016-12-25 19:58] VITALS: BP 108/68; RESP 20
[2016-12-25] MEDS: MAGNESIUM HYDROXIDE 30ML CUP PO SCH ×2 (20:49→20:52)
[2016-12-25] MEDS: ACETAMINOPHEN 325 MG TAB PO PRN (21:38)
[2016-12-25] MEDS: ZOLPIDEM 5 MG TAB PO PRN (22:12)
--- NOTE | 2016-12-26 01:37 | PN ---
DATE: 12/25/2016 SUBJECTIVE: The patient continues to have low-grade fever, T-max 99.5. Yesterday at 2:05 it was 99 .8. In general, the patient is overall feeling better. The patient remains on IV antibiotics. Mag nesium today is low at 1.5. PHYSICAL EXAMINATION: VITAL SIGNS: Temperature is 98.4, pulse 70, respirations 20, blood pressure 106/55, saturation 98% on 2 liters. GENERAL: The patient is in no acute distress. HEENT: Normocephalic, atraumatic. . The patient is obese. CARDIOVASCULAR: S1, S2, regular rate. LUNGS: Clear. ABDOMEN: Soft, nontender. EXTREMITIES: No clubbing, cyanosis or edema. LABORATORY DATA: White count is 6, hemoglobin 9.2, hematocrit 30, platelet count is 135, neutrophil s 42%, lymphocytes 41%. Chemistry: Sodium 142, potassium 3.9, chloride 108, bicarbonate 28, BUN is 10, creatinine 0.82, glucose of 113. Magnesium is 1.5 albumin 2.9. Urinalysis was positive. Urine culture so far negative. The patient's KUB done yesterday shows left double-J ureteral sten t in good position, no stones seen along the course of the stent. Stable IVC filter. MEDICATIONS: 1. Morphine 2 mg IV q.4 p.r.n. 2. Abilify 5 mg daily. 3. Lexapro 10 mg daily. 4. Ferrous sulfate 325 daily. 5. Protonix 40 mg daily. 6. Colace 100 b.i.d. 7. Milk of magnesia as directed at bedtime. 8. Ditropan 5 mg t.i.d. 9. Tylenol p.r.n. 10. DuoNeb p.r.n. 11. Imodium p.r.n. 12. Ativan p.r.n. 13. Zofran p.r.n. 14. Ambien p.r.n. 15. Ertapenem 1 gram IV q.24 hours. ASSESSMENT AND PLAN: This is a 76-year-old female with history of chronic heart failure, chronic obstructive pulmonary disease, diabetes mellitus, psychiatric disorder, who presented for el ective left ureteral stone removal. 1. Status post left stone lithotripsy and JJ stent replacement with evidence of urinary tract infec tion. Continue ertapenem. Continue to monitor fever curve. Johnston to gravity, to be removed per ne urology. 2. Cardiovascular. Stable, status post pacemaker. 3. Respiratory. No evidence of fluid overload state. Continue O2 support. 4. Psychiatric disorder. Continue Lexapro. 5. Activity as tolerated. 6. Disposition soon. Patient wants to go to an assisted living facility. 7. Anemia. Hemoglobin and hematocrit stable. No need for transfusion. Upon discharge, we will di scharge her with iron supplement. 8. Disposition. Hopefully tomorrow if afebrile. Dictated By: JULIAN SANCHEZ/CYNTHIA Conf#: [id number] DID#: [id number]
[2016-12-26 02:00] VITALS: BP 105/47; RESP 20
[2016-12-26] MEDS: PANTOPRAZOLE (EC) 40 MG TAB PO SCH (05:42)
[2016-12-26 05:59] LABS: BASOPHILS % 0.3 % (0.0-2.0); EOSINOPHILS # 0.4 10^3/ul (0.0-0.5); EOSINOPHILS % 7.4 % (0.0-7.0); HEMATOCRIT 29.2 % (37.0-47.0); HEMOGLOBIN 9.2 g/dl (12.0-16.0); LYMPHOCYTES # 2.8 10^3/ul (0.8-2.9); LYMPHOCYTES % 47.2 % (15.0-51.0); MEAN CORPUSCULAR HGB CONC 31.5 g/dl (32.0-37.0); MEAN CORPUSCULAR VOLUME 88.8 fl (82.0-101.0); MEAN PLATELET VOLUME 12.2 fl (7.4-10.4); MONOCYTE # 0.6 10^3/ul (0.3-0.9); MONOCYTES % 9.3 % (0.0-11.0); NEUTROPHIL # 2.1 10^3/ul (1.6-7.5); NEUTROPHILS % 35.6 % (39.0-77.0); PLATELET COUNT 141 10^3/UL (140-415); RED BLOOD COUNT 3.29 10^6/ul (4.20-5.40); RED CELL DISTRIBUTION WIDTH 13.5 % (11.5-14.5); WHITE BLOOD COUNT 5.9 10^3/ul (4.8-10.8)
[2016-12-26 06:32] LABS: CALCIUM 8.8 mg/dl (8.4-10.2); CREATININE 0.87 mg/dl (0.44-1.00); POTASSIUM 4.2 mmol/L (3.5-5.1)
[2016-12-26 06:34] LABS: MAGNESIUM 1.6 mg/dl (1.7-2.5); PHOSPHORUS 4.6 mg/dl (2.5-4.9)
[2016-12-26 07:39] VITALS: BP 101/53; RESP 20
[2016-12-26] MEDS: FERROUS SULFATE (EC) 325 MG TAB PO SCH (08:59)
[2016-12-26] MEDS: ESCITALOPRAM 10 MG TAB PO SCH (09:00)
[2016-12-26] MEDS: ARIPIPRAZOLE 5 MG TAB PO SCH (09:00)
[2016-12-26] MEDS: OXYBUTYNIN 5 MG TAB PO SCH ×3 (09:00→20:44)
[2016-12-26] MEDS: DOCUSATE SODIUM 100 MG CAP PO SCH ×2 (09:05→20:45)
--- NOTE | 2016-12-26 11:10 | RADRPT ---
PROCEDURE: Intraoperative fluoroscopy CLINICAL INDICATION: pain TECHNIQUE: Fluoroscopic spot images from an intraoperative procedure submitted. Fluoro time: 100.8 sec Number of images/fluoroscopic sequences: 7 COMPARISON: none FINDINGS: Fluoroscopic images of the abdomen and pelvis demonstrates a double J stent within the left collecti ng system. RPTAT: AA IMPRESSION: Fluoroscopic images demonstrate a double J stent in the left collecting system. Please refer to the operative note for more information. .Enrico Coburn MD, Date Time Electronically viewed and signed by .Enrico Coburn MD, on 12/26/2016 11:10 .S/
[2016-12-26] MEDS ORDERED: PENDING SANTYL ORDER FOR WOUND CARE XX PRN (11:30)
[2016-12-26] MEDS ORDERED: FLUCONAZOLE 100 MG TAB PO SCH (13:30)
[2016-12-26] MEDS ORDERED: MAGNESIUM SULFATE 2 GM/50 ML 50 ML IVPB ONE (14:00)
[2016-12-26] MEDS: FLUCONAZOLE 100 MG TAB PO SCH (14:20)
[2016-12-26 14:24] VITALS: BP 114/84; RESP 20
--- NOTE | 2016-12-26 14:47 | PN ---
DATE: 12/26/2016 SUBJECTIVE: The patient stated that she is feeling comfortable and she denies having any severe miguel n. OBJECTIVE FINDINGS: VITAL SIGNS: Her temperature is 97.9, pulse is 60, respirations 20, blood pressure 101/53. ABDOMEN: Soft. There is no abdominal tenderness. GENITOURINARY: The Johnston catheter is draining clear yellow urine. LABORATORY DATA: Urine culture did show yeast in the urine. That is from 12/24/2016. However, the urine culture from the date of the surgery did not show any infection. Her CBC shows a white count of 5.9, hemoglobin 10.2, hematocrit 29.2, platelet count is 141,000. BUN is 9, creatinine 0.87. E lectrolytes are normal. IMPRESSION: Status post left ureteroscopy, laser lithotripsy and removal of left ureteral JJ stent and removal of left ureteral stone fragments and insertion of a new left ureteral JJ stent. PLAN: I went ahead and removed the Johnston catheter now and tomorrow we will remove the JJ stent and if she is stable, she could be discharged tomorrow afternoon. We also will start her on Diflucan to cover the yeast in her urine. Dictated By: PAIGE WRIGHT/CYNTHIA Conf#: [id number] DID#: [id number]
--- NOTE | 2016-12-26 15:03 | PN ---
DATE: 12/26/2016 SUBJECTIVE: Patient seen, complaining of a hacking cough that she has intermittently because of her COPD. Otherwise, tolerating diet well. Case discussed with Dr. Segovia. Her Johnston will be remove d today. Her urine culture shows ____, I started the patient on Diflucan. The patient is afebrile, overall feeling better. PHYSICAL EXAMINATION: VITAL SIGNS: Blood pressure is 101/53, pulse 60, respirations 20, temperature 97.9, saturation 99%. GENERAL: The patient is in no acute distress. HEENT: Normocephalic, atraumatic, obese, pale. CARDIOVASCULAR: S1, S2, regular rate. LUNGS: Clear. ABDOMEN: Soft, nontender. EXTREMITIES: No clubbing, cyanosis, or edema. GENITOURINARY: Johnston to gravity. LABORATORY DATA: White count is 5.9, hemoglobin 9.2, hematocrit 29, platelet count 141, ____ 36%, l ymphocytes 47%. Chemistry: Sodium 144, potassium 4.2, chloride 106, bicarbonate 32, BUN is 9, crea tinine 0.87, magnesium is low at 1.6. UA was positive and urine culture does show ____, that is the second one. MEDICATIONS: I started today: 1. Diflucan 100 mg daily. 2. Morphine p.r.n. 3. Abilify 5 mg daily. 4. Lexapro 10 mg daily. 5. Ferrous sulfate 325 daily. 6. Protonix 40 mg daily. 7. Colace 100 b.i.d. 8. Milk of magnesia as directed. 9. Ditropan 5 mg t.i.d. 10. DuoNeb as directed. 11. Imodium p.r.n. 12. Ativan p.r.n. 13. Zofran p.r.n. 14. Ambien p.r.n. 15. ____ 1 g q.24h. ASSESSMENT AND PLAN: This is a 76-year-old female with history of congestive heart failur e, chronic obstructive pulmonary disease, diabetes mellitus, psychiatric disorder who presented for elective left ureteral stone removal. 2. Status post left stone lithotripsy and JJ stent replacement with evidence of urinary tract infec tion. Plan to discontinue Johnston catheter discontinued JJ stent tomorrow. Add Diflucan to her treat ment for urinary tract infection. 3. Cardiovascular. Remains stable, status post pacemaker. 4. Chronic patient with a cough. O2 support, breathing treatments as needed, cough suppressant ольга l be provided. 5. Psychiatric disorder. Continue Lexapro. 6. Activity as tolerated. 7. Disposition. The patient wants to go to the assisted living facility. 8. Anemia. Hemoglobin and hematocrit stable. Continue iron supplement. 9. Stool softeners as needed will be given as well. 10. We will follow. Dictated By: JULIAN SANCHEZ/CYNTHIA Conf#: [id number] DID#: [id number]
[2016-12-26] MEDS: GUAIFENESIN/CODEINE 5ML CUP PO PRN (15:59)
[2016-12-26 20:00] VITALS: BP_SYST 105; BP_SYST 120; BP_DIAS 50; BP_DIAS 57; RESP 20
[2016-12-26] MEDS: ZOLPIDEM 5 MG TAB PO PRN (20:44)
[2016-12-26] MEDS: MAGNESIUM HYDROXIDE 30ML CUP PO SCH (20:45)
[2016-12-27 02:00] VITALS: BP 110/53; RESP 20
[2016-12-27] MEDS: PANTOPRAZOLE (EC) 40 MG TAB PO SCH (06:13)
[2016-12-27 07:47] VITALS: BP 128/60; RESP 20
[2016-12-27] MEDS: ARIPIPRAZOLE 5 MG TAB PO SCH (08:22)
[2016-12-27] MEDS: FERROUS SULFATE (EC) 325 MG TAB PO SCH (08:22)
[2016-12-27] MEDS: OXYBUTYNIN 5 MG TAB PO SCH ×2 (08:22→12:56)
[2016-12-27] MEDS: ESCITALOPRAM 10 MG TAB PO SCH (08:22)
[2016-12-27] MEDS: FLUCONAZOLE 100 MG TAB PO SCH (08:22)
[2016-12-27] MEDS: DOCUSATE SODIUM 100 MG CAP PO SCH (08:24)
--- NOTE | 2016-12-27 09:33 | PN ---
DATE: 12/27/2016 The patient is feeling comfortable and denies having any pain and no problem since the Johnston cathete r was removed. OBJECTIVE: VITAL SIGNS: Her temperature is 99.7, pulse 71, respirations 20, blood pressure 128/60. She has no abdominal pain and she is voiding and the urine is clear. ABDOMEN: Soft. There is no abdominal mass palpable or tenderness. LABORATORY DATA: Her CBC shows a white count of 5.9, hemoglobin 9.2, hematocrit 29.2. BUN is 9, cr eatinine 0.87, sodium 144, potassium 4.2, chloride 106, CO2 32. The urine culture did show yeast on it. The patient has been placed on fluconazole. ASSESSMENT: The patient is status post cystoscopy, left ureteroscopy, laser lithotripsy, removal of the stone from the left ureter and insertion of left ureteral JJ stent. PLAN: I did go ahead and remove the JJ stent and the patient if she is comfortable and no problem s he may be discharged this afternoon and would continue the Diflucan for about a week and if there is any problem I will be happy to see her again. Dictated By: PAIGE WRIGHT/CYNTHIA Conf#: [id number] DID#: [id number]
[2016-12-27] MEDS: morphine 2 MG INJ IV PRN (10:19)
[2016-12-27 14:04] VITALS: BP 100/71; RESP 20
--- NOTE | 2016-12-27 14:07 | PDOCDIS ---
Discharge Instructions CONDITION Patient Condition: Stable HOME CARE INSTRUCTIONS: Special Diet: Regular Diet ACTIVITY: Activity Restrictions: Slowly Increase Activity FOLLOW UP/APPOINTMENTS Follow-up Plan dc to [facility] (patients request) follow up with Dr. Segovia - urologist, see reconciliation JULIAN DOMÍNGUEZ MD Dec 27, 2016 14:07
[2016-12-27] MEDS ORDERED: CASPOFUNGIN 50 MG in SOD CHLORIDE 0.9% 250 ML IVPB SCH (16:00)
[2016-12-27] MEDS: GUAIFENESIN/CODEINE 5ML CUP PO PRN (16:29)
[2016-12-27] MEDS: ERTAPENEM SODIUM 1 GM in SOD CHLORIDE 0.9% 100 ML IVPB SCH (17:53)
--- NOTE | 2016-12-28 04:26 | DS ---
DATE OF ADMISSION: 12/25/2016 DATE OF DISCHARGE: 12/27/2016 REASON FOR ADMISSION: Elective cystoscopy with left ureteroscopy, laser lithotripsy and removal and replacement of left ureteral JJ stent. 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 The patient was adm itted under my care to [facility] on 12/06/2016 with left obstructive ureteral sto ne. She underwent JJ stent placement, and also was treated for UTI, then discharged. Now, presents again for followup procedure to breakdown the stone. The patient was admitted. The patient underw ent left ureteroscopy, laser lithotripsy, removal and replacement of left ureteral JJ stent. The pa tient tolerated the procedure well. Postop, she had fevers and urinalysis ultimately was positive a nd showed [place] glabrata. We will start the patient on voriconazole, as I started her on Diflucan yesterday as we just got yeast in the urine. The patient is doing better. Patient had a Johnston rem nara yesterday and today, the JJ stent was removed. Temperature was 99.7, pulse 71, respirations 20 , blood pressure 120/60, saturation 98% on 2 liters. The patient overall is feeling well. She will be discharged to [facility] to continue antibiotic management and antifungal therapy. DISCHARGE MEDICATIONS: The patient will be discharged with: 1. Tylenol 650 q.6 p.r.n. 2. Abilify 5 mg daily. 3. Colace 100 b.i.d. 4. Lexapro 10 mg daily. 5. Ferrous sulfate 325 daily. 6. Robitussin AC with codeine q.4 p.r.n. 7. Imodium p.r.n. 8. Ativan 0.5 q.6 p.r.n. 9. Magnesium hydroxide 30 mL at bedtime. 10. Santyl as directed. 11. Zofran p.r.n. 12. Oxybutynin 5 mg t.i.d. 13. Protonix 40 mg daily. 14. Zolpidem 5 mg at bedtime p.r.n. insomnia. 15. Vitamin D3 2000 daily. 16. Voriconazole 200 b.i.d. for 10 days. LABORATORY DATA: CBC and CMP on 12/30/2016. FINAL DIAGNOSES: 1. Left mid ureteral stone. 2. Status post removal by laser lithotripsy and replacement of JJ stent. Since then, the stent was removed. 3. Chronic obstructive pulmonary disease. 4. Urinary tract infection. 5. Psychiatric disorder. 6. Anemia. Iron supplements will be provided with ferrous sulfate. 7. Overactive bladder. 8. Tendency for congestive heart failure. 9. History of diabetes mellitus, controlled off medications. 10. Status post recent pacemaker placement. DISPOSITION: The patient to be discharged to [facility] in fair condition. Dictated By: JULIAN SANCHEZ/CYNTHIA Conf#: [id number] DID#: [id number] CC: PAIGE SOTOMAYOR MD;*EndCC*
== END 2016-12-27 18:30 | DRG 669 ==
LOC: SDS 10:10 → INTOOBSV 16:15 → REC 16:15 → OBSVTOIN 16:15 → MS2 17:15 → SDS 23:22 → MS2 12-24 01:25 → OBSVTOIN 12-25 16:01
PROVIDERS: ADMIT Urology; ATTEND Urology
PROC: 0TP98DZ Removal of Intraluminal Device from Ureter, Via Natural or Artificial Opening Endoscopic (ICD-10-PCS; 2016-12-23)
PROC: 0T778DZ Dilation of Left Ureter with Intraluminal Device, Via Natural or Artificial Opening Endoscopic (ICD-10-PCS; 2016-12-23)
PROC: 0TC78ZZ Extirpation of Matter from Left Ureter, Via Natural or Artificial Opening Endoscopic (ICD-10-PCS; principal; 2016-12-23 12:30)
PROC: 3E0234Z Introduction of Serum, Toxoid and Vaccine into Muscle, Percutaneous Approach (ICD-10-PCS; 2016-12-24)
DX: N20.1 Calculus of ureter (principal); B37.49 Other urogenital candidiasis; I50.9 Heart failure, unspecified; J44.9 Chronic obstructive pulmonary disease, unspecified; E11.9 Type 2 diabetes mellitus without complications; N32.81 Overactive bladder; D64.9 Anemia, unspecified; M10.9 Gout, unspecified; I25.2 Old myocardial infarction; E66.9 Obesity, unspecified; F25.9 Schizoaffective disorder, unspecified; M19.90 Unspecified osteoarthritis, unspecified site; Z23 Encounter for immunization; Z68.34 Body mass index [BMI] 34.0-34.9, adult; Z85.42 Personal history of malignant neoplasm of other parts of uterus; Z95.0 Presence of cardiac pacemaker; Z88.0 Allergy status to penicillin; Z87.891 Personal history of nicotine dependence; Z90.710 Acquired absence of both cervix and uterus
CPT/HCPCS: 74000; 74430; 80048; 80053; 81001; 82962; 83735; 84100; 85025; 87086; 88300; 90686; 94664; 99217; C2617; G0378; J0744; J1335; J2175; J2270; J2405; J3010; J3475; J7050

== ENCOUNTER 2017-02-04 17:20 | Emergency (ER) | payer MEDICARE, OTHER ==
[~2017-02-04] VITALS: Ht 160 cm; Wt 88.0 kg
[~2017-02-04 17:20] MED LIST changes: +ACET-2047 PO; -AZIT250T94 PO; -BENZ100C70 PO; -BISA10SU75 PR; -CALC600T24 PO; -CIPRO 400 MG/200 ML D5W IVPB ONE; -DEXT1CAP PO; +DOCU-159 PO; +ESCI10TA48 PO; -ESCI5TAB PO; -ETOMIDATE 20 MG INJ ONE; +FER325 PO; -FLEETPED PR; -HYDR-902 PO; +IMO2 PO; -LIDOCAINE 2% (SDV) 5 ML INJ ONE; +LORA0.5T PO; -ONDA4TAB14 PO; +ONDA4TAB95 PO; -OXYC-279 PO; -POTA8TAB2 PO; +PROM5SYR2 PO; -PROPOFOL 200 MG INJ ONE; -ROCURONIUM 50 MG INJ ONE
[2017-02-04 17:27] VITALS: Ht 160 cm; Wt 88.0 kg
[2017-02-04] MEDS ORDERED: KETOROLAC 15 MG INJ IV STA (17:47)
[2017-02-04 18:09] VITALS: TEMP 97.6
[2017-02-04 18:49] LABS: BASOPHILS % 0.4 % (0.0-2.0); EOSINOPHILS # 0.4 10^3/ul (0.0-0.5); EOSINOPHILS % 4.7 % (0.0-7.0); HEMATOCRIT 33.6 % (37.0-47.0); LYMPHOCYTES # 3.8 10^3/ul (0.8-2.9); LYMPHOCYTES % 46.2 % (15.0-51.0); MEAN CORPUSCULAR HEMOGLOBIN 29.3 pg (29.0-33.0); MEAN CORPUSCULAR HGB CONC 32.7 g/dl (32.0-37.0); MEAN CORPUSCULAR VOLUME 89.4 fl (82.0-101.0); MEAN PLATELET VOLUME 11.8 fl (7.4-10.4); MONOCYTE # 0.7 10^3/ul (0.3-0.9); MONOCYTES % 8.6 % (0.0-11.0); NEUTROPHIL # 3.3 10^3/ul (1.6-7.5); PLATELET COUNT 200 10^3/UL (140-415); RED BLOOD COUNT 3.76 10^6/ul (4.20-5.40); RED CELL DISTRIBUTION WIDTH 14.5 % (11.5-14.5); WHITE BLOOD COUNT 8.3 10^3/ul (4.8-10.8)
[2017-02-04 19:17] LABS: CALCIUM 8.9 mg/dl (8.4-10.2); CREATININE 1.04 mg/dl (0.44-1.00); POTASSIUM 3.8 mmol/L (3.5-5.1)
[2017-02-04 20:09] LABS: URINE BLOOD (Dip) POC 1+ (NEGATIVE)
--- NOTE | 2017-02-04 20:11 | RADRPT ---
PROCEDURE: XR Lumbar Spine. CLINICAL INDICATION: increased arthrits pain, no new trauma TECHNIQUE: AP, lateral and cone-down lateral view of the lumbar spine were obtained. COMPARISON: No prior studies are available for comparison. FINDINGS: There is normal vertebral mineralization and alignment. No acute fracture or subluxation is seen. There are mild to moderate chronic endplate compression fr actures in each of the table bodies. The disc spaces are normal in appearance. The posterior elements are unremarkable. The soft tissues appear normal. Noted are IVC filters in the right common iliac vein and the inferior vena cava. IMPRESSION: No acute abnormality. Chronic compression fractures of each of the vertebral bodies. .Vinny Cochran MD, MD Date Time Electronically viewed and signed by .Vinny Cochran MD, on 02/04/2017 20:11 .A/
[2017-02-04] MEDS ORDERED: morphine 4 MG/ML VIAL IV STA (20:29)
[2017-02-04 21:00] VITALS: BP 102/53; PULSE 69; RESP 16
[2017-02-04 21:30] LABS: ADD UMIC YES; UR ASCORBIC ACID NEGATIVE (NEGATIVE); UR BACTERIA MODERATE /HPF (NONE SEEN); UR BILIRUBIN (Dip) NEGATIVE (NEGATIVE); UR BLOOD (Dip) 1+ mg/dL (NEGATIVE); UR CLARITY CLOUDY (CLEAR); UR COLOR YELLOW (YELLOW); UR GLUCOSE (Dip) NEGATIVE (NEGATIVE); UR KETONES (Dip) NEGATIVE (NEGATIVE); UR LEUKOCYTE ESTERASE (Dip) 3+ Leu/ul (NEGATIVE); UR NITRITE (Dip) POSITIVE (NEGATIVE); UR RBC 2 /HPF (0-5); UR TOTAL PROTEIN (Dip) NEGATIVE (NEGATIVE); UR UROBILINOGEN (Dip) NEGATIVE (NEGATIVE)
[2017-02-04] MEDS ORDERED: OXYC-279 PO (21:46)
[2017-02-04] MEDS ORDERED: NITR-58 PO (21:46)
[2017-02-04] MEDS ORDERED: NAPR-685 PO (21:46)
[2017-02-04] MEDS ORDERED: CEPH-443 PO (21:46)
--- NOTE | 2017-02-04 22:24 | ERD ---
ER Documentation Chief Complaint Chief Complaint [facility]IB [facility] body ache x 2 weeks HPI This 76-year-old female comes in by ambulance for body aches all over her whole body for 2 weeks. Lizeth states that she has had chronic pain. All of her joints hurt. She is to have [facility] for pain but she ran out and did not think it was working as well anyway. She has good primary care follow-up states that her pain is in the same areas as usual. She has no cough fever shortness of breath chest pain or neurological deficits. She lives in assisted living wishes that she did not have to be in pain so much. She knows that she has arthritis all of her body because she has been told by other doctors. She also has a history of compression fractures. ROS All systems reviewed and are negative except as per history of present illness. Medications Home Meds Active Scripts Cephalexin* (Keflex*) 500 Mg Capsule, 500 MG PO TID for 7 Days, CAP Prov:BIA MEADOWS DO 02/04/17 Nitrofurantoin Monohyd Macrocr* (Macrobid*) 100 Mg Capsr, 100 MG PO HS for 7 Days, CAP Prov:BIA MEADOWS DO 02/04/17 Naproxen* (Naproxen*) 375 Mg Tablet, 375 MG PO BID, #20 TAB Prov:BIA MEADOWS DO 02/04/17 Oxycodone HCl/Acetaminophen (Percocet 5-325 mg Tablet) 1 Each Tablet, 1 EACH PO Q6, #20 TAB Prov:BIA MEADOWS DO 02/04/17 Reported Medications Promethazine HCl/Codeine (Prometh-Codein 6.25-10 mg/5 ml) 5 Ml Syrup, 5 ML PO Q4 Y for COUGH 12/23/16 Oxybutynin Chloride* (Ditropan*) 5 Mg Tab, 5 MG PO TID, TAB 12/23/16 Ondansetron Hcl* (Ondansetron Hcl*) 4 Mg Tablet, 4 MG PO Q4H Y for NAUSEA AND OR VOMITING, TAB 12/23/16 Lorazepam* (Lorazepam*) 0.5 Mg Tablet, 0.5 MG PO Q6 Y for ANXIETY, TAB 12/23/16 Loperamide Hcl* (Loperamide Hcl*) 2 Mg Cap, 2 MG PO Q4 Y for DIARRHEA, CAP 12/23/16 Ferrous Sulfate* (Ferrous Sulfate*) 325 Mg Tabec, 325 MG PO DAILY, TAB 12/23/16 Escitalopram Oxalate* (Escitalopram Oxalate*) 10 Mg Tablet, 10 MG PO DAILY, #30 TAB 12/23/16 Docusate Sodium* (Docusate Sodium*) 100 Mg Capsule, 100 MG PO BID, #60 CAP 12/23/16 Acetaminophen* (Acetaminophen*) 650 Mg Tablet, 650 MG PO Q6H Y for PAIN AND OR ELEVATED TEMP, #30 TAB 12/23/16 Zolpidem Tartrate* (Ambien*) 5 Mg Tablet, 5 MG PO QHS Y for INSOMNIA, #30 TAB 02/28/16 Magnesium Hydroxide* (Milk Of Magnesia*) 400 Mg/5 Ml Oral.susp, 30 ML PO QHS, ML 02/28/16 Pantoprazole* (Pantoprazole*) 40 Mg Tablet.dr, 40 MG PO AC BREAKFAST, TAB 02/28/16 Cholecalciferol (Vitamin D3) (Vitamin D-3) 2,000 Unit Tablet, 2000 UNIT PO DAILY , TAB 02/28/16 Aripiprazole* (Abilify*) 5 Mg Tab, 5 MG PO DAILY, #30 TAB 02/28/16 Allergies Allergies: Coded Allergies: Penicillins (Verified Allergy, Mild, ALLERGY, 12/22/16) adhesive tape (Verified Allergy, Unknown, 12/22/16) Uncoded Allergies: PAPER TAPE (Allergy, Mild, 04/24/07) PMhx/Soc History of Surgery: Yes (PACEMAKER PLACEMENT, HYSTERECTOMY, ) Anesthesia Reaction: No Hx Neurological Disorder: No Hx Respiratory Disorders: Yes (COPD) Hx Cardiac Disorders: Yes (HEART FAILURE, ATHEROSCLEROTIC HEART DISEASE) Hx Psychiatric Problems: Yes (DEPRESSION,SCHIZOAFFECTIVE DISORDER,ANXIETY) Hx Miscellaneous Medical Probl: No Hx Alcohol Use: No Hx Substance Use: No Hx Tobacco Use: Yes (20 YEARS AGO) Smoking Status: Former smoker Physical Exam Vitals Vital Signs Date Time Temp Pulse Resp B/P Pulse Ox O2 Delivery O2 Flow Rate FiO2 02/04/17 21:00 69 16 102/53 99 Nasal Cannula 2.0 02/04/17 20:00 67 14 134/62 99 Nasal Cannula 2.0 02/04/17 19:00 66 12 94/75 99 Nasal Cannula 2.0 02/04/17 18:09 97.6 73 16 129/54 99 Room Air 02/04/17 17:27 99.7 70 18 137/68 97 Physical Exam Const: [] No obvious distress, pleasant Head: Atraumatic Eyes: Normal Conjunctiva ENT: Normal External Ears, Nose and Mouth. Neck: Full range of motion.. No deformities. Resp: Clear to auscultation bilaterally Cardio: Regular rate and rhythm, no murmurs Abd: Soft, non tender, non distended. Normal bowel sounds Skin: No petechiae or rashes Back: No midline or flank tenderness, no deformities or discoloration Ext: No cyanosis, or edema Neur: Awake and alert and oriented 3, cranial 2 through 12 intact, no cerebellar deficits. 5 out of 5 strength bilateral lower extremities. Distal pulses intact all 4 extremities. Psych: Normal Mood and Affect Result Diagram: 02/04/17181902/04/171819 Results 24 hrs Laboratory Tests Test 02/04/17 18:20 02/04/17 20:00 02/04/17 20:07 White Blood Count 8.310^3/ul Red Blood Count 3.7610^6/ul Hemoglobin 11.0g/dl Hematocrit 33.6% Mean Corpuscular Volume 89.4fl Mean Corpuscular Hemoglobin 29.3pg Mean Corpuscular Hemoglobin Concent 32.7g/dl Red Cell Distribution Width 14.5% Platelet Count 41516^3/UL Mean Platelet Volume 11.8fl Neutrophils % 40.0% Lymphocytes % 46.2% Monocytes % 8.6% Eosinophils % 4.7% Basophils % 0.4% Nucleated Red Blood Cells % 0.0/100WBC Neutrophils # 3.310^3/ul Lymphocytes # 3.810^3/ul Monocytes # 0.710^3/ul Eosinophils # 0.410^3/ul Basophils # 0.010^3/ul Nucleated Red Blood Cells # 0.010^3/ul Sodium Level 143mmol/L Potassium Level 3.8mmol/L Chloride Level 110mmol/L Carbon Dioxide Level 21mmol/L Anion Gap 16 Blood Urea Nitrogen 12mg/dl Creatinine 1.04mg/dl Glucose Level 107mg/dl Calcium Level 8.9mg/dl Urine Color YELLOW Urine Clarity CLOUDY Urine pH 5.0 Urine Specific [place] 1.010 Urine Ketones NEGATIVEmg/dL Urine Nitrite POSITIVEmg/dL Urine Bilirubin NEGATIVEmg/dL Urine Urobilinogen NEGATIVEmg/dL Urine Leukocyte Esterase 3+Camacho/ul Urine Microscopic RBC 2/HPF Urine Microscopic WBC 98/HPF Urine Bacteria MODERATE/HPF Urine Hemoglobin 1+mg/dL Urine Glucose NEGATIVEmg/dL Urine Total Protein NEGATIVEmg/dl Bedside Urine pH (LAB) 5.5 Bedside Urine Protein (LAB) Trace Bedside Urine Glucose (UA) Negative Bedside Urine Ketones (LAB) Negative Bedside Urine Blood 1+ Bedside Urine Nitrite (LAB) Positive Bedside Urine Leukocyte Esterase (L 1+ Current Medications Medications (Trade) Dose Ordered Sig/Genet Route PRN Reason Start Time Stop Time Status Last Admin Dose Admin Ketorolac Tromethamine (Toradol) 15 mg ONCE STAT IV 02/04/17 17:47 02/04/17 17:50 DC 02/04/17 17:47 Morphine Sulfate (morphine) 4 mg ONCE STAT IV 02/04/17 20:29 02/04/17 20:31 DC 02/04/17 20:34 Procedures/MDM Chronic pain 76-year-old female requesting better pain medication. Full workup was performed to look for any other systemic causes of increasing pain. She did have a urinary tract infection which is complicated secondary to her age the fact that it may have increased her pain. She was given Toradol and morphine emergency room which helped her pain greatly. She is also given a Tylenol. She has no significant acute laboratory abnormalities chronic lumbar compression fractures. Going to discharge her with 5 mg Percocets for control of her acute pain as well as Macrobid and ciprofloxacin for complicated UTI. Also discharging with naproxen and primary care follow-up with Dr. Lopez in the next few days. Signs are stable. X-ray lumbar spine interpretation: Old compression fractures no new fracture, no subluxation or dislocation. Soft tissue appears within normal limits. Departure Diagnosis: Primary Impression: Bladder infection Additional Impressions: Chronic pain Normocytic anemia Condition: Stable Patient Instructions: Osteoarthritis: Managing Pain, Bladder Infection, Female (Adult) Additional Instructions: Call your primary care doctor TOMORROW for an appointment during the next 2-3 days.See the doctor sooner or return here if your condition worsens before your appointment time. BIA MEADOWS DO Feb 04, 2017 22:24
[2017-02-04] MEDS ORDERED: ACETAMINOPHEN 325 MG TAB PO ONE (22:30)
== END 2017-02-04 22:32 | disposition home or self-care (01) ==
LOC: E/R 17:20
DX: N30.90 Cystitis, unspecified without hematuria (principal); D64.9 Anemia, unspecified; J44.9 Chronic obstructive pulmonary disease, unspecified; I50.9 Heart failure, unspecified; I51.9 Heart disease, unspecified; Z95.0 Presence of cardiac pacemaker; Z87.891 Personal history of nicotine dependence
CPT/HCPCS: 36415; 72100; 80048; 81001; 81003; 85025; 96374; 96375; 99284; J1885; J2270; A4310

== ENCOUNTER 2017-06-15 20:01 | Inpatient (IN) | END 2017-06-19 22:30 | DRG 690 ==

== ENCOUNTER 2018-03-03 17:57 | Inpatient (IN) | payer MEDICARE, OTHER ==
[~2018-03-03] VITALS: Ht 160 cm; Wt 86.9 kg
[~2018-03-03 17:57] MED LIST changes: +ARIP5TAB14 PO; -ARIP5TAB7 PO; -CHOL20002 PO; +CHOL200056 PO; +GUAI473L22 PO; -IMO2 PO; +IPRA3AMP29 INHALATION; +LEVO500T48 PO; +LIDO5CRE6 TP; +LOPE-123 PO; +MAGN400O19 PO; -MAGN400O4 PO; +MULTI PO; +NAPR-685 PO; +NITR-58 PO; +NITR0.4T39 SL; +OXYC-209 PO; -PROM5SYR2 PO; +ZOLP10TA5 PO; -ZOLP5TAB PO
[2018-03-03] MEDS ORDERED: ACET325T45 PO (18:12)
[2018-03-03] MEDS ORDERED: ARIP5TAB14 PO (18:12)
[2018-03-03] MEDS ORDERED: DULO60CA59 PO (18:13)
[2018-03-03] MEDS ORDERED: DOCU-144 PO (18:13)
[2018-03-03] MEDS ORDERED: CLOT30CR24 TOP (18:13)
[2018-03-03] MEDS ORDERED: FLUT16SP17 NASAL (18:14)
[2018-03-03] MEDS ORDERED: FER325 PO (18:14)
[2018-03-03] MEDS ORDERED: HYDR-3980 PO (18:15)
[2018-03-03] MEDS ORDERED: CHOL200056 PO (18:15)
[2018-03-03] MEDS ORDERED: IPRA3AMP29 INHALATION (18:15)
[2018-03-03] MEDS ORDERED: LOPE-123 PO (18:16)
[2018-03-03] MEDS ORDERED: LORA10TA3 PO (18:16)
[2018-03-03] MEDS ORDERED: MULTI PO (18:17)
[2018-03-03] MEDS ORDERED: LORA0.5T PO (18:17)
[2018-03-03] MEDS ORDERED: NYST15CR36 TOP (18:18)
[2018-03-03] MEDS ORDERED: NITR0.4T32 SL (18:18)
[2018-03-03] MEDS ORDERED: ONDA4TAB13 PO (18:19)
[2018-03-03] MEDS ORDERED: PANT40TA4 PO (18:19)
[2018-03-03] MEDS ORDERED: TAMS0.4C2 PO (18:20)
[2018-03-03] MEDS ORDERED: FESO8TAB PO (18:20)
[2018-03-03] MEDS ORDERED: BALS60OI TOP (18:21)
[2018-03-03] MEDS ORDERED: ALBU18HF INHALATION (18:21)
[2018-03-03] MEDS ORDERED: ZOLP10TA5 PO (18:22)
[2018-03-03] MEDS ORDERED: ONDANSETRON 4 MG INJ IV STA (18:35)
[2018-03-03] MEDS ORDERED: ALBUTEROL 0.5% (NEB) 2.5 MG/0.5 ML AMP INH STA (18:35)
[2018-03-03] MEDS ORDERED: SOD CHLORIDE 0.9% 500 ML IV STA (18:35)
[2018-03-03] MEDS ORDERED: KETOROLAC 15 MG INJ IV STA (19:17)
--- NOTE | 2018-03-03 20:37 | ERD ---
ER Documentation Chief Complaint Chief Complaint n/v cough up blood today HPI 77-year-old woman brought in by EMS from [facility] facility for "coughing up blood" although patient states she had hematemesis and denies hemoptysis. She does have a history of COPD and has been coughing recently. She denies fevers or chills, no blood per rectum or melena, no complaints of chest pain. Patient transported here by EMS without further complications ROS All systems reviewed and are negative except as per history of present illness. Medications Home Meds Reported Medications Zolpidem Tartrate* (Zolpidem Tartrate*) 10 Mg Tablet, 10 MG PO QHS PRN for INSOMNIA, #30 TAB 03/03/18 Albuterol Sulfate* (Ventolin HFA*) 18 Gm Hfa.aer.ad, 2 PUFF INHALATION Q4H, #1 INHALER 03/03/18 [employer] Oil (Venelex Ointment) 60 Gm Oint..gm., 1 APPLIC TOP NEEDED, #1 TUB 03/03/18 Fesoterodine Fumarate (Toviaz) 8 Mg Tab.sr.24h, 8 MG PO DAILY, TAB 03/03/18 Tamsulosin Hcl* (Tamsulosin Hcl*) 0.4 Mg Cap.er.24h, 0.4 MG PO QAM, CAP 03/03/18 Pantoprazole* (Pantoprazole*) 40 Mg Tablet.dr, 40 MG PO AC BREAKFAST, TAB 03/03/18 Ondansetron Hcl* (Zofran*) 4 Mg Tab, 4 MG PO Q12H PRN for NAUSEA AND OR VOMITING, TAB 03/03/18 Nystatin-Triamcinolone* (Nystatin-Triamcinolone* Cream) 15 Gm Cream.gm., 1 APPLIC TOP BID, #1 TUB 03/03/18 Nitroglycerin* (Nitroglycerin* SL) 0.4 Mg Tab.subl, 0.4 MG SL Q5MIN PRN for CHEST PAIN, BOTTLE 03/03/18 Multivitamins* (Theragran*) 1 Tab Tab, 1 TAB PO DAILY, TAB 03/03/18 Lorazepam* (Lorazepam*) 0.5 Mg Tablet, 0.5 MG PO Q8 PRN for ANXIETY, TAB 03/03/18 Loratadine* (Loratadine*) 10 Mg Tablet, 10 MG PO DAILY, #30 TAB 03/03/18 Loperamide Hcl* (Loperamide Hcl*) 2 Mg Cap, 2 MG PO Q4H PRN for NEEDED, CAP 03/03/18 Ipratropium-Albuterol (Ipratropium-Albuterol) 0.5-3 Mg/3 Ml Ampul.neb, 3 ML INHALATION Q2H, #30 VIAL 03/03/18 Hydrocodone/Acetaminophen ([place] 10-325 Tablet) 1 Each Tablet, 1 EACH PO TID, TAB 03/03/18 Cholecalciferol (Vitamin D3) (Vitamin D-3) 2,000 Unit Tablet, 2000 UNIT PO DAILY, TAB 03/03/18 Fluticasone Propionate* (Fluticasone Propionate* Nasal) 50 Mcg/[place] - 16 Gm [place].susp, 1 SPRAY NASAL DAILY, #1 BOTTLE TO EACH NOSTRIL 03/03/18 Ferrous Sulfate* (Ferrous Sulfate*) 325 Mg Tabec, 325 MG PO DAILY, TAB 03/03/18 Duloxetine Hcl* (Duloxetine Hcl*) 60 Mg Capsule.dr, 60 MG PO DAILY, #30 CAP 03/03/18 Docusate Sodium* (Colace*) 100 Mg Capsule, 100 MG PO BID, #60 CAP 03/03/18 Clotrimazole* (Clotrimazole* AF) 1% - 30 Gm Cream.gm., 1 APPLIC TOP BID, TUB 03/03/18 Aripiprazole* (Abilify*) 5 Mg Tab, 5 MG PO DAILY, #30 TAB 03/03/18 Acetaminophen* (Acetaminophen*) 325 Mg Tablet, 650 MG PO Q6H PRN for MILD PAIN LEVEL 1-3, #30 TAB 03/03/18 Discontinued Reported Medications Zolpidem Tartrate* (Zolpidem Tartrate*) 10 Mg Tablet, 10 MG PO QHS PRN for INSOMNIA, #30 TAB 06/15/17 Oxycodone HCl/Acetaminophen (Percocet 10-325 mg Tablet) 1 Each Tablet, 1 EACH PO BID PRN for SEVERE PAIN LEVEL 7-10, TAB 06/15/17 Nitrofurantoin Monohyd Macrocr* (Macrobid*) 100 Mg Capsr, 100 MG PO BID, CAP 06/15/17 Nitroglycerin* (Nitrostat*) 0.4 Mg Tab.subl, 0.4 MG SL Q5MIN PRN for CHEST PAIN, BOTTLE 06/15/17 Naproxen* (Naproxen*) 375 Mg Tablet, 375 MG PO BID PRN for PAIN AND/OR INFLAMMATION, TAB 06/15/17 Multivitamins* (Theragran*) 1 Tab Tab, 1 TAB PO DAILY, TAB 06/15/17 Lidocaine (ANECREAM) 5 Gm Cream..g., 5 GM TP BID WITH MEALS 06/15/17 Levofloxacin* (Levaquin*) 500 Mg Tablet, 500 MG PO DAILY for 10 Days, TAB 06/15/17 Ipratropium-Albuterol (Ipratropium-Albuterol) 0.5-3 Mg/3 Ml Ampul.neb, 3 ML INHALATION Q2HWA, #30 VIAL 06/15/17 Guaifenesin-Codeine Phosphate* (Guaifenesin* AC Cough Syrup) 473 Ml Liquid, 5 ML PO Q8 PRN for COUGH, ML 06/15/17 Oxybutynin Chloride* (Ditropan*) 5 Mg Tab, 5 MG PO TID, TAB 12/23/16 Ondansetron Hcl* (Ondansetron Hcl*) 4 Mg Tablet, 4 MG PO Q4H PRN for NAUSEA AND OR VOMITING, TAB 12/23/16 Lorazepam* (Lorazepam*) 0.5 Mg Tablet, 0.5 MG PO Q6 PRN for ANXIETY, TAB 12/23/16 Loperamide Hcl* (Loperamide Hcl*) 2 Mg Cap, 2 MG PO Q4 PRN for DIARRHEA, CAP 12/23/16 Ferrous Sulfate* (Ferrous Sulfate*) 325 Mg Tabec, 325 MG PO DAILY, TAB 12/23/16 Escitalopram Oxalate* (Escitalopram Oxalate*) 10 Mg Tablet, 10 MG PO DAILY, #30 TAB 12/23/16 Docusate Sodium* (Docusate Sodium*) 100 Mg Capsule, 100 MG PO BID, #60 CAP 12/23/16 Acetaminophen* (Acetaminophen*) 650 Mg Tablet, 650 MG PO Q6H PRN for PAIN AND OR ELEVATED TEMP, #30 TAB 12/23/16 Magnesium Hydroxide* (Milk Of Magnesia*) 400 Mg/5 Ml Oral.susp, 30 ML PO QHS PRN for CONSTIPATION, ML 02/28/16 Pantoprazole* (Pantoprazole*) 40 Mg Tablet.dr, 40 MG PO AC BREAKFAST, TAB 02/28/16 Cholecalciferol (Vitamin D3) (Vitamin D-3) 2,000 Unit Tablet, 2000 UNIT PO KALIA LY, TAB 02/28/16 Aripiprazole* (Abilify*) 5 Mg Tab, 5 MG PO DAILY, #30 TAB 02/28/16 Allergies Allergies: Coded Allergies: Penicillins (Verified Allergy, Mild, ALLERGY, 03/03/18) adhesive tape (Verified Allergy, Unknown, 03/03/18) Uncoded Allergies: PAPER TAPE (Allergy, Mild, 04/24/07) PMhx/Soc COPD, congestive heart failure, psychiatric illness, anxiety, pacemaker, hysterectomy, anemia, chronic pain syndrome, opioid dependence, arthritis History of Surgery: Yes (PACEMAKER PLACEMENT, HYSTERECTOMY) Anesthesia Reaction: No Hx Neurological Disorder: No Hx Respiratory Disorders: Yes (COPD) Hx Cardiac Disorders: Yes (HEART FAILURE, ATHEROSCLEROTIC HEART DISEASE) Hx Psychiatric Problems: Yes (DEPRESSION, SCHIZOAFFECTIVE DISORDER, ANXIETY) Hx Miscellaneous Medical Probl: Yes (HTN, CHF, COPD, ARTHRITIS, GENERALIZED BODY PAIN , CHRONIC PAIN SYNDROME , ) Hx Alcohol Use: No Hx Substance Use: No Hx Tobacco Use: Yes (STOPPED 20YRS AGO) Smoking Status: Former smoker Physical Exam Vitals Vital Signs Date Temp Pulse Resp B/P (MAP) Pulse Ox O2 O2 Flow FiO2 Time Delivery Rate 03/03/18 98.2 86 19 132/76 98 Room Air 20:30 (94) 03/03/18 84 22 100 21 19:39 03/03/18 98.1 87 22 137/67 99 Room Air 18:30 (90) 03/03/18 98.1 84 18 128/60 99 18:01 (82) Physical Exam Const: No acute distress, afebrile Head: Atraumatic Eyes: Normal Conjunctiva ENT: Normal External Ears, Nose and Mouth. Neck: Full range of motion. No meningismus. Resp: Poor breath sounds bilaterally, scattered wheezes Cardio: Regular rate and rhythm, no murmurs Abd: Soft, non tender, non distended. Skin: No petechiae or rashes Back: No midline or flank tenderness Ext: No cyanosis, or edema Neur: Awake and alert Psych: Normal Mood and Affect Result Diagram: 03/03/18201003/03/182010 Results 24 hrs Laboratory Tests Test 03/03/18 20:11 White Blood Count 8.0 10^3/ul Red Blood Count 3.37 10^6/ul Hemoglobin 10.0 g/dl Hematocrit 30.5 % Mean Corpuscular Volume 90.5 fl Mean Corpuscular Hemoglobin 29.7 pg Mean Corpuscular Hemoglobin Concent 32.8 g/dl Red Cell Distribution Width 13.2 % Platelet Count 138 10^3/UL Mean Platelet Volume 11.7 fl Immature Granulocytes % 0.300 % Neutrophils % 45.1 % Lymphocytes % 42.1 % Monocytes % 9.2 % Eosinophils % 2.9 % Basophils % 0.4 % Nucleated Red Blood Cells % 0.0 /100WBC Immature Granulocytes # 0.020 10^3/ul Neutrophils # 3.6 10^3/ul Lymphocytes # 3.4 10^3/ul Monocytes # 0.7 10^3/ul Eosinophils # 0.2 10^3/ul Basophils # 0.0 10^3/ul Nucleated Red Blood Cells # 0.0 10^3/ul Prothrombin Time 13.6 Sec Prothrombin Time Ratio 1.1 INR International Normalized Ratio 1.03 Activated Partial Thromboplast Time 29.6 Sec Sodium Level 144 mmol/L Potassium Level 3.6 mmol/L Chloride Level 103 mmol/L Carbon Dioxide Level 32 mmol/L Anion Gap 9 Blood Urea Nitrogen 19 mg/dl Creatinine 1.13 mg/dl Est Glomerular Filtrat Rate mL/min mL/min Glucose Level 101 mg/dl Calcium Level 8.8 mg/dl Total Bilirubin 0.1 mg/dl Direct Bilirubin 0.00 mg/dl Indirect Bilirubin 0.1 mg/dl Aspartate Amino Transf (AST/SGOT) 19 IU/L Alanine Aminotransferase (ALT/SGPT) 25 IU/L Alkaline Phosphatase 68 IU/L Troponin I < 0.012 ng/ml Total Protein 5.8 g/dl Albumin 3.4 g/dl Globulin 2.40 g/dl Albumin/Globulin Ratio 1.41 Lipase 14 U/L Current Medications Medications Dose Sig/Genet Start Time Status Last (Trade) Ordered Route PRN Stop Time Admin Dose Reason Admin Sodium 500 ml @ Q1H STAT 03/03/18 DC 03/03/18 Chloride 500 mls/hr IV 18:35 20:28 03/03/18 19:34 Ondansetron 4 mg ONCE STAT 03/03/18 DC 03/03/18 HCl (Zofran IV 18:35 20:28 Inj) 03/03/18 18:55 Albuterol 10 mg ONCE STAT 03/03/18 DC 03/03/18 (Proventil INH 18:35 19:38 0.5% (Neb)) 03/03/18 18:55 Ketorolac 15 mg ONCE STAT 03/03/18 DC 03/03/18 Tromethamine IV 19:17 19:44 (Toradol) 03/03/18 19:18 125 mg ONCE ONCE 03/03/18 DC 03/03/18 Methylprednis IV 21:00 21:12 olone Sodium 03/03/18 Succinate 21:01 (Solu-Medrol) Procedures/MDM IV line was established patient was placed on electronic device monitor rhythm strip revealed a sinus rhythm at about 80 bpm with upright P and T waves. Patient was afebrile EKG performed, read by me revealed a normal sinus rhythm 87 bpm, left axis dev iation, first-degree AV block, poor R wave progression, narrow QRS complex, no concerning ST elevations or depressions noted 1 view chest x-ray performed, read by me revealed Pacemaker, no acute infiltrates atelectatic changes bilaterally, no pneumothorax CT scan of the abdomen and pelvis was performed,IMPRESSION: 1. Left renal atrophy and upper pole scarring has evolved since 12/06/2016, with mild left hydroureteronephrosis to the level of the iliac crossing without identifiable ureterolithiasis, possibly reflecting recent stone passage or ureteral obstruction due to scarring or urothelial mass lesion. Clinical correlation recommended with consideration for further evaluation with urologic imaging. 2. Punctate nonobstructive left nephrolithiasis. 3. Minimal left colonic diverticulosis without evidence of acute diverticulitis. The bowel is unobstructed without evidence of perforation or abscess. 4. Moderate stool burden in the right colon and dense stool in the left colon may reflect constipation. 5. Small sliding hiatal hernia with suggestion of mild wall thickening in the distal thoracic esophagus which may reflect esophagitis or neoplasm. 6. New borderline extrahepatic biliary ductal dilatation, with stable hydropic distension of the gallbladder, possibly reflecting choledocholithiasis or biliary stenosis. Clinical correlation recommended with consideration for further evaluation with nuclear medicine HIDA scan or MRCP/ERCP. 7. Stable mild hepatomegaly. 8. Stable borderline portacaval lymphadenopathy, most likely reactive. 9. Stable bilateral common iliac/IVC filters. 10. Mild cardiomegaly appears slightly improved since 12/06/2016. I administered albuterol 10 mg via nebulizer and methylprednisolone 125 mg IV x1, Toradol 15 mg IV, Zofran 4 mg IV CBC and electrolytes were normal, liver function tests normal, troponin negative Patient will be admitted to [facility] for continued medical management and reevaluation Departure Diagnosis: Primary Impression: Hemoptysis Additional Impressions: Hematemesis Nausea presence: with nausea Qualified Codes: K92.0 - Hematemesis COPD (chronic obstructive pulmonary disease) COPD type: COPD with acute exacerbation Qualified Codes: J44.1 - Chronic obstructive pulmonary disease with (acute) exacerbation Condition: DURAN Mena MD Mar 03, 2018 20:36
[2018-03-03] MEDS ORDERED: METHYLPREDNISOLONE 125 MG INJ IV ONE (21:00)
[2018-03-03 22:55] VITALS: BP 129/61; PULSE 82; RESP 18
--- NOTE | 2018-03-03 23:56 | NUR ---
patient was admitted from ER, alert and oriented, initial assessment done, patient oriented to room, Dr. Romero notified of admission, got admitting orders, DVT prophylaxis requested from MD; will continue to monitor patient
[2018-03-04] VITALS (12 sets, daily range): BP systolic 98–120; BP diastolic 53–60; PULSE 67–106; RESP 18; Ht 160 cm; Wt 86.9 kg
[2018-03-04] MEDS ORDERED: LEVOFLOXACIN 500MG/D5W (PMX) 100 ML IVPB SCH
[2018-03-04] MEDS ORDERED: ONDANSETRON 4 MG TAB PO PRN
[2018-03-04] MEDS ORDERED: ALBUTEROL/IPRATROPIUM (NEB) 3 ML AMP INH PRN
[2018-03-04] MEDS ORDERED: NITROGLYCERIN (SL) 0.4 MG TAB SL PRN
[2018-03-04] MEDS ORDERED: LORAZEPAM 0.5 MG TAB PO PRN
[2018-03-04] MEDS ORDERED: LOPERAMIDE 2 MG CAP PO PRN
[2018-03-04] MEDS ORDERED: ACETAMINOPHEN 325 MG TAB PO PRN
[2018-03-04] MEDS: ALBUTEROL HFA 8 GM INHALER INH SCH ×6 (00:36→20:33)
[2018-03-04] MEDS: HYDROCODONE/APAP (10/325) TAB PO SCH ×4 (00:42→20:37)
[2018-03-04] MEDS: ZOLPIDEM 5 MG TAB PO PRN ×2 (00:43→20:37)
[2018-03-04] MEDS: PANTOPRAZOLE (EC) 40 MG TAB PO SCH (06:16)
--- NOTE | 2018-03-04 06:21 | NUR ---
end of shift: patient is alert and oriented, V paced on monitor, nonambulatory but can reposition self, incontinent of bowel and urine, straight catheterization done for urinalysis; frequent chux pad change done due to urinary incontinence; needs attended, will endorse to dayshift nurse
[2018-03-04] MEDS: DOCUSATE SODIUM 100 MG CAP PO SCH ×3 (09:00→20:46)
[2018-03-04] MEDS ORDERED: FESOTERODINE FUMARATE 8 MG PO SCH (09:00)
[2018-03-04] MEDS ORDERED: NON-FORMULARY/PATIENT OWN MED (Cholecalciferol (Vitamin D3) (Vitamin D-3) 2,000 UNIT) PO SCH (09:00)
[2018-03-04] MEDS: BALSAM PERU/CASTOR OIL 60 GM TUBE TOP SCH (09:34)
[2018-03-04] MEDS: FLUTICASONE 0.05% 16 GM NAS SPRAY NASAL SCH (09:34)
[2018-03-04] MEDS: NYSTATIN/TRIAMCINOLONE 15 GM CR TOP SCH ×2 (09:34→20:39)
[2018-03-04] MEDS: DULOXETINE 30 MG CAP DR PO SCH (09:34)
[2018-03-04] MEDS: CLOTRIMAZOLE 1% 30 GM CR TOP SCH ×2 (09:34→20:38)
[2018-03-04] MEDS: LORATADINE 10 MG TAB PO SCH (09:35)
[2018-03-04] MEDS: MULTIVITAMINS THERAPEUTIC TAB PO SCH (09:35)
[2018-03-04] MEDS: ARIPIPRAZOLE 5 MG TAB PO SCH (09:35)
[2018-03-04] MEDS: FERROUS SULFATE (EC) 325 MG TAB PO SCH (09:35)
[2018-03-04] MEDS: CHOLECALCIFEROL 2,000 UNIT CAP PO SCH (09:35)
--- NOTE | 2018-03-04 13:43 | NUR ---
SS NOTE: INITIAL AND [facility] REFERRAL FOR AHCD. PT IS A 77 YO FEMALE WHO IS A&OX3, CALM AND COOPERATIVE. PT RESIDES AT [facility] [id number] [facility]. PT 6 YEARS AGO WITHOUT CHILDREN. DISCUSSED AHCD AND PROVIDED FORM. PT STATED SHE WOULD WANT HER BEST FRIEND, ORI CHRISTIANSEN [phone], HER SURROGATE DECISION MAKER. SPOKE WITH JENN AT [facility] [phone] WHO STATED PT CAN RETURN THERE WHEN DISCHARGED. Addendum: 03/04/18 at 1347 by PADMINI GONZALES Amended: Links added.
--- NOTE | 2018-03-04 14:40 | CONS ---
Date/Time of Note Date/Time of Note DATE: 03/04/18 TIME: 14:29 Assessment/Plan Assessment/Plan Chief Complaint/Hosp Course 77-year-old female admitted because of hematemesis and possible hemoptysis. She underwent a CT scan of the abdomen and pelvis and that showed mild left hydronephrosis without obstructing ureteral stone. Therefore a urological consultation was requested the patient is known to me from before and back about 10-year ago she had a 1.1 cm stone in the left ureter which was removed and she had a JJ stent inserted and then later on removed. Patient presently states that she has pain in the epigastric area and also in the left side of the abdomen. She denies any associated nausea or vomiting however she was brought because of the hematemesis. She denies any lower urinary tract symptoms. No dysuria and no gross hematuria. CT scan of the abdomen and pelvis: 1. Left renal atrophy and upper pole scarring has evolved since 12/06/2016, with mild left hydroureteronephrosis to the level of the iliac crossing without identifiable ureterolithiasis, possibly reflecting recent stone passage or ureteral obstruction due to scarring or urothelial mass lesion. Clinical correlation recommended with consideration for further evaluation with urologic imaging. 2. Punctate nonobstructive left nephrolithiasis. 3. Minimal left colonic diverticulosis without evidence of acute diverticulitis. The bowel is unobstructed without evidence of perforation or abscess. 4. Moderate stool burden in the right colon and dense stool in the left colon may reflect constipation. 5. Small sliding hiatal hernia with suggestion of mild wall thickening in the distal thoracic esophagus which may reflect esophagitis or neoplasm. 6. New borderline extrahepatic biliary ductal dilatation, with stable hydropic distension of the gallbladder, possibly reflecting choledocholithiasis or biliary stenosis. Clinical correlation recommended with consideration for further evaluation with nuclear medicine HIDA scan or MRCP/ERCP. 7. Stable mild hepatomegaly. 8. Stable borderline portacaval lymphadenopathy, most likely reactive. 9. Stable bilateral common iliac/IVC filters. 10. Mild cardiomegaly appears slightly improved since 12/06/2016 On the examination she has pain in the epigastric area and over the left chest area posteriorly. Her left hydronephrosis is probably chronic since she did have a large stone obstructing her left ureter. She may also have some scarring in the area where the stone was before. Urologically for now we shall observe her and await the GI workup. Consultation Date/Type/Reason Admit Date/Time Mar 03, 2018 at 21:07 Date of Consultation: Mar 04, 2018 Type of Consult Urology Reason for Consultation Left hydronephrosis Requesting Provider: JULIAN DOMÍNGUEZ MD Hx of Present Illness 77-year-old female admitted because of hematemesis and possible hemoptysis. She underwent a CT scan of the abdomen and pelvis and that showed mild left hydronephrosis without obstructing ureteral stone. Therefore a urological consultation was requested the patient is known to me from before and back about 10-year ago she had a 1.1 cm stone in the left ureter which was removed and she had a JJ stent inserted and then later on removed. Patient presently states that she has pain in the epigastric area and also in the left side of the abdomen. She denies any associated nausea or vomiting however she was brought because of the hematemesis. She denies any lower urinary tract symptoms. No dysuria and no gross hematuria. Constitutional: no complaints Eyes: no complaints ENT: no complaints Respiratory: No shortness of breath Cardiovascular: No chest pain Gastrointestinal: pain (Epigastric area) Genitourinary: No dysuria, No hematuria Musculoskeletal: back pain (Left upper chest) Skin: no complaints Neurologic: no complaints Endocrine: no complaints Psychological: other (Schizoaffective disorder) Immunologic: no complaints Past Medical History The patient has multiple medical problems that include a history of congestive heart failure, history of osteoarthritis, gout, asthma, COPD, has schizoaffective disorder, and borderline diabetes. 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 The patient also has a history of spinal problem, fracture, and she suffers from obesity. Also, there is a history of uterine cancer in the past. Medical History: cancer (Uterine), congestive heart failure, diabetes, hypertension, other (Osteoarthritis) Medications Current Medications Acetaminophen (Tylenol Tab) 650 mg Q6H PRN PO MILD PAIN LEVEL 1-3; Start 03/04/18 at 00:00 Albuterol (Ventolin Hfa) 2 puff Q4H RESP THERAPY INH Last administered on 03/04/18at 13:41; Admin Dose 2 PUFF; Start 03/04/18 at 01:00 Aripiprazole (Abilify) 5 mg DAILY PO Last administered on 03/04/18at 09:35; Admin Dose 5 MG; Start 03/04/18 at 09:00 Clotrimazole (Lotrimin Cr) 1 applic BID TOP Last administered on 03/04/18 09:34; Admin Dose 1 APPLIC; Start 03/04/18 at 09:00 Docusate Sodium (Colace) 100 mg BID PO ; Start 03/04/18 at 09:00 Duloxetine HCl (Cymbalta) 60 mg DAILY PO Last administered on 03/04/18 09:34; Admin Dose 60 MG; Start 03/04/18 at 09:00 Ferrous Sulfate (Ferrous Sulfate (Ec)) 325 mg DAILY PO Last administered on 03/04/18 09:35; Admin Dose 325 MG; Start 03/04/18 at 09:00 Fluticasone Propionate (Flonase 0.05% Nasal) 1 spray DAILY NASAL Last admini stered on 03/04/18 09:34; Admin Dose 1 SPRAY; Start 03/04/18 at 09:00 Acetaminophen/ Hydrocodone Bitart (Velva (10325)) 1 tab TID PO Last administered on 03/04/18 13:41; Admin Dose 1 TAB; Start 03/04/18 at 00:00 Albuterol/ Ipratropium (Duoneb) 3 ml Q2H RESP THERAPY PRN INH WHEEZING AND SOB; Start 03/04/18 at 00:00 Loperamide HCl (Imodium Cap) 2 mg Q4H PRN PO DIARRHEA; Start 03/04/18 at 00:00 Loratadine (Claritin) 10 mg DAILY PO Last administered on 03/04/18 09:35; Admin Dose 10 MG; Start 03/04/18 at 09:00 Lorazepam (Ativan) 0.5 mg Q8 PRN PO ANXIETY; Start 03/04/18 at 00:00 Multivitamins Therapeutic (Theragran) 1 tab DAILY PO Last administered on 03/04/18 09:35; Admin Dose 1 TAB; Start 03/04/18 at 09:00 Nitroglycerin (Nitroglycerin (Sl Tab) 0.4 Mg) 1 tab [id number] PRN SL CHEST PAIN; Start 03/04/18 at 00:00 Nystatin/ Triamcinolone Acetonide (Mycolog Cr) 1 applic BID TOP Last administered on 12/23/18at 09:34; Admin Dose 1 APPLIC; Start 03/04/18 at 09:00 Ondansetron HCl (Zofran Tab) 4 mg Q12H PRN PO NAUSEA AND/OR VOMITING; Start 03/04/18 at 00:00 Pantoprazole (Protonix Tab) 40 mg AC BREAKFAST PO Last administered on 03/04/18at 06:16; Admin Dose 40 MG; Start 03/04/18 at 07:00 Tamsulosin HCl (Flomax) 0.4 mg QPM PO ; Start 03/04/18 at 21:00 Zolpidem Tartrate (Ambien) 10 mg QHS PRN PO INSOMNIA Last administered on 03/04/18at 00:43; Admin Dose 10 MG; Start 03/04/18 at 00:00 Miscellaneous Information 8 mg DAILY PO ; Start 03/04/18 at 09:00; Status UNV Cholecalciferol (Vitamin D) 2,000 unit DAILY PO Last administered on 03/04/18at 09:35; Admin Dose 2,000 UNIT; Start 03/04/18 at 09:00 Cefepime HCl 50 ml @ 100 mls/hr Q12 IVPB ; Start 03/04/18 at 14:00; Status UNV Methylprednisolone Sodium Succinate (Solu-Medrol) 60 mg Q8 IV ; Start 03/04/18 at 14:00; Status UNV Hydromorphone HCl (Dilaudid) 0.5 mg Q4H PRN IV SEVERE PAIN LEVEL 7-10; Start 03/04/18 at 14:30; Status UNV Allergies: Coded Allergies: Penicillins (Verified Allergy, Mild, ALLERGY, 03/03/18) adhesive tape (Verified Allergy, Unknown, 03/03/18) Uncoded Allergies: PAPER TAPE (Allergy, Mild, 04/24/07) Past Surgical History Past Surgical Hx: other (Left ureteroscopy and laser lithotripsy, hysterectomy, pacemaker) Social History Alcohol Use: rarely Smoking Status: Former smoker Exam/Review of Systems Vital Signs Vitals Vital Signs Date Temp Pulse Resp B/P (MAP) Pulse Ox O2 O2 Flow FiO2 Time Delivery Rate 03/04/18 98.0 67 18 113/60 98 12:21 (77) 03/04/18 Nasal 2.0 10:06 Cannula 03/03/18 21 19:39 Intake and Output 03/03/18 03/03/18 03/04/18 1414:59 22:59 06:59 IntakeIntake Total 500 ml BalanceBalance 500 ml Exam Constitutional: alert Psych: no complaints Head: normocephalic Eyes: nl conjunctiva ENMT: nl external ears & nose Neck: supple Respiratory: normal air movement Cardiovascular: No jugular venous distention (JVD) Gastrointestinal: soft, other (Epigastric area pain and left upper chest pain on percussion. No pain over her kidneys) Genitourinary - Female: No CVA tenderness Musculoskeletal: nl extremities to inspection Extremities: No calf tenderness Neurological: nl mental status Skin: nl PAIGE Sumner MD Mar 04, 2018 14:40
--- NOTE | 2018-03-04 14:49 | CONS ---
Date/Time of Note Date/Time of Note DATE: 03/04/18 TIME: 14:30 Assessment/Plan Assessment/Plan Chief Complaint/Hosp Course 1. Sick sinus syndrome with permanent pacemaker 2. History of reported congestive heart failure: Appears to be at this point no evidence of congestive heart failure and patient mostly has COPD 3. COPD 4. Possible GI bleed versus hemoptysis 5. Hypertension: Good control 6. History of psych disorder and bipolar disorder Recommendation: Patient has been follow with me in the office and pacemaker has been regularly checked has been normal function. At this point does not appear to be fluid overloaded Continue with the PPI We will monitor on telemetry GI workup as per internal medicine Respiratory care as per internal medicine as well. Thank you for his referral. We will continue to follow along with you AMADOU GOMEZ MD [facility] Consultation Date/Type/Reason Admit Date/Time Mar 03, 2018 at 21:07 Date of Consultation: Mar 04, 2018 Type of Consult CV Reason for Consultation SICK SINUS syndrome. S/P PPM Requesting Provider: JULIAN DOMÍNGUEZ MD Hx of Present Illness Interventional cardiology consultation Chief complaint: POSSIBLE coughing up blood vs vomiting blood Reason for consult: History of sick sinus syndrome with a permanent pacemaker, , history of " congestive heart failure' History of present illness: Thank you for his referral. History was obtained from the patient but mostly from review of the old chart and discussion with the staff and physicians. This is a pleasant 77-year-old female with multiple complicated medical history who was admitted because of reportedly vomiting or coughing of blood. Patient is a poor historian and is unable to provide any history to me reliably. She she states that she has stuff coming out of her throat. She could not especially when she was vomiting while she was coughing them up. Per her jail staff it was consistent with blood and patient was brought in. Patient denies any chest pain or pressure to me. She has chronic cough and congestion He denies any recent syncope presyncope to me no palpitation now. Allergies to penicillin and adhesive tapes reportedly. Medication was reviewed as per medical reconciliation reviewed personally reviewed. Past medical history: History of reported congestive heart failure with diastolic heart failure, diabetes, schizoaffective disorder, COPD asthma, gout, obesity, history of uterine cancer status post surgery, history of spinal fracture, history of sick sinus syndrome s/p permanent pacemaker Family history patient mother of some sort of bone cancer reportedly. Social history patient quit smoking when she was 51. He smoked for a long time prior to that. No reported alcohol drug abuse. Currently is in a jail. Primary care physician Dr. Domínguez. Surgical history: History of permanent pacemaker. Patient had a hysterectomy done as well as bladder surgery and rectocele surgery. Review of system: As above only she denies all others. Past Medical History Medications Current Medications Acetaminophen (Tylenol Tab) 650 mg Q6H PRN PO MILD PAIN LEVEL 1-3; Start 03/04/18 at 00:00 Albuterol (Ventolin Hfa) 2 puff Q4H RESP THERAPY INH Last administered on 03/04/18 13:41; Admin Dose 2 PUFF; Start 03/04/18 at 01:00 Aripiprazole (Abilify) 5 mg DAILY PO Last administered on 03/04/18 09:35; Admin Dose 5 MG; Start 03/04/18 at 09:00 Clotrimazole (Lotrimin Cr) 1 applic BID TOP Last administered on 03/04/18 09:34; Admin Dose 1 APPLIC; Start 03/04/18 at 09:00 Docusate Sodium (Colace) 100 mg BID PO ; Start 03/04/18 at 09:00 Duloxetine HCl (Cymbalta) 60 mg DAILY PO Last administered on 03/04/18 09:34; Admin Dose 60 MG; Start 03/04/18 at 09:00 Ferrous Sulfate (Ferrous Sulfate (Ec)) 325 mg DAILY PO Last administered on 03/04/18 09:35; Admin Dose 325 MG; Start 03/04/18 at 09:00 Fluticasone Propionate (Flonase 0.05% Nasal) 1 spray DAILY NASAL Last a dministered on 03/04/18 09:34; Admin Dose 1 SPRAY; Start 03/04/18 at 09:00 Acetaminophen/ Hydrocodone Bitart ([place] (10325)) 1 tab TID PO Last administered on 03/04/18 13:41; Admin Dose 1 TAB; Start 03/04/18 at 00:00 Albuterol/ Ipratropium (Duoneb) 3 ml Q2H RESP THERAPY PRN INH WHEEZING AND SOB; Start 03/04/18 at 00:00 Loperamide HCl (Imodium Cap) 2 mg Q4H PRN PO DIARRHEA; Start 03/04/18 at 00:00 Loratadine (Claritin) 10 mg DAILY PO Last administered on 03/04/18at 09:35; Admin Dose 10 MG; Start 03/04/18 at 09:00 Lorazepam (Ativan) 0.5 mg Q8 PRN PO ANXIETY; Start 03/04/18 at 00:00 Multivitamins Therapeutic (Theragran) 1 tab DAILY PO Last administered on 03/04/18at 09:35; Admin Dose 1 TAB; Start 03/04/18 at 09:00 Nitroglycerin (Nitroglycerin (Sl Tab) 0.4 Mg) 1 tab [id number] PRN SL CHEST PAIN; Start 03/04/18 at 00:00 Nystatin/ Triamcinolone Acetonide (Mycolog Cr) 1 applic BID TOP Last administered on 03/04/18 09:34; Admin Dose 1 APPLIC; Start 03/04/18 at 09:00 Ondansetron HCl (Zofran Tab) 4 mg Q12H PRN PO NAUSEA AND/OR VOMITING; Start 03/04/18 at 00:00 Pantoprazole (Protonix Tab) 40 mg AC BREAKFAST PO Last administered on 03/04/18at 06:16; Admin Dose 40 MG; Start 03/04/18 at 07:00 Tamsulosin HCl (Flomax) 0.4 mg QPM PO ; Start 03/04/18 at 21:00 Zolpidem Tartrate (Ambien) 10 mg QHS PRN PO INSOMNIA Last administered on 03/04/18at 00:43; Admin Dose 10 MG; Start 03/04/18 at 00:00 Miscellaneous Information 8 mg DAILY PO ; Start 03/04/18 at 09:00; Status UNV Cholecalciferol (Vitamin D) 2,000 unit DAILY PO Last administered on 03/04/18 09:35; Admin Dose 2,000 UNIT; Start 03/04/18 at 09:00 Cefepime HCl 50 ml @ 100 mls/hr Q12 IVPB ; Start 03/04/18 at 14:00; Status UNV Methylprednisolone Sodium Succinate (Solu-Medrol) 60 mg Q8 IV ; Start 03/04/18 at 14:00; Status UNV Hydromorphone HCl (Dilaudid) 0.5 mg Q4H PRN IV SEVERE PAIN LEVEL 7-10; Start 03/04/18 at 14:30; Status UNV Allergies: Coded Allergies: Penicillins (Verified Allergy, Mild, ALLERGY, 03/03/18) adhesive tape (Verified Allergy, Unknown, 03/03/18) Uncoded Allergies: PAPER TAPE (Allergy, Mild, 04/24/07) Social History Smoking Status: Former smoker Exam/Review of Systems Vital Signs Vitals Vital Signs Date Temp Pulse Resp B/P (MAP) Pulse Ox O2 O2 Flow FiO2 Time Delivery Rate 03/04/18 98.0 67 18 113/60 98 12:21 (77) 03/04/18 Nasal 2.0 10:06 Cannula 03/03/18 19:39 Intake and Output 03/03/18 03/03/18 03/04/18 1515:00 23:00 07:00 IntakeIntake Total 500 ml BalanceBalance 500 ml Exam General: Elderly female in no acute distress HEENT: NC/AT. pupils are equal. round. NECK: NO JVD. no stridor. CV: RRR. systolic murmur; no gallop or rubs. PULM: With diffuse wheezing/rhonchi. GI: SOFT, NT, ND, no rebound or guarding Extremity: trace B/L LE edema. no clubbing. neuro: awake and alert, responds appropriately Psych: calm now rectal: deferred EKG was personally showed normal sinus rhythm with demand ventricular paced Chest x-ray shows: 1. Atherosclerosis of the thoracic aorta. 2. Stable pacemaker. Otherwise radiographically unremarkable senescent chest. AMADOU GOMEZ MD Mar 04, 2018 14:40
[2018-03-04] MEDS: FESOTERODINE FUMARATE 8 MG XX SCH ×2 (15:00→23:00)
[2018-03-04] MEDS: [UNRECOGNIZED DRUG - OTHER] XX SCH ×2 (15:00→23:00)
--- NOTE | 2018-03-04 15:06 | HP ---
DATE OF ADMISSION: 03/03/2018 REASON FOR ADMISSION: COPD exacerbation, questionable coffee-ground emesis, left flank pain. HISTORY OF PRESENT ILLNESS: The patient is a 77-year-old female with history of congestive heart failure, osteoarthritis, COPD, schizoaffective disorder, borderline diabetes mellitus, history of OR, status post history of left obstructive ureteral stone, status post lithotripsy and stent abby cement in 2017, overactive bladder, who presented from assisted living facility at [facility] of ongoing cough with some stridor and dark blood coming out from her mouth. In addition, she has been complaining of left flank pain and back pain ongoing and not getting better. Because o f the above symptomatology, it was decided to send her to the hospitalist at [facility] for evaluation. Upon presentation, the patient underwent diagnostic imaging which included a est x-ray which showed atherosclerotic of the thoracic aorta, stable pacemaker, otherwise radiographi kenneth unremarkable senescent change. CT scan of the abdomen and pelvis was done which showed left re nal atrophy and upper pole scarring has evolved since 12/06/2017 with mild left hydroureteronephrosis at the level of the iliac crest without identifiable urolithiasis, possibly reflecting recent stone passage, no urethral obstruction due to the scarring or ureteral mass lesion. Clinical correlation w as recommended with consideration for further evaluation with urologic imaging. There is also a punc bass nonobstructing left nephrolithiasis. There is minimal left colonic diverticulosis without evide nce of acute diverticulitis. The bowel is unobstructed without evidence of perforation or abscess. There is moderate stool burden in the right colon and dense stool in the left colon, may reflect cons tipation. Small sliding hiatal hernia with suggestion of mild wall thickening in the distal thoracic esophagus which may reflect esophagitis or neoplasm. Low borderline extrahepatic biliary ductal dil atation with stable hydropic distention of the gallbladder, possibly reflecting choledocholithiasis o r biliary stenosis. Clinical correlation is recommended with consideration for further evaluation wi th nuclear medicine HIDA scan or MRCP, ERCP, stable mild hepatomegaly, stable borderline portacaval l ymphadenopathy, most likely reactive, stable bilateral common iliac IVC filters. Mild cardiomegaly a ppears slightly improved since 12/06/2016. Ultimately, the patient was admitted. She was placed on antibiotics. Breathing treatment dose of steroids was given in the ER. She received fluid and Tor[place] ol as well. The patient was admitted to the telemetry unit for further medical management. Upon que stioning, the patient does report ongoing cough with some stridor, back pain, left flank pain and cou ghing likely coffee-ground emesis. The patient is admitted for further care. PAST MEDICAL HISTORY: Includes CHF, diabetes mellitus, schizoaffective disorder, asthma, COPD, gout, obesity, history of uterine cancer in the past, spinal fracture, history of left nephrolithiasis, o bstructive uropathy on the left. ALLERGIES: PENICILLIN. FAMILY HISTORY: Mother from bone cancer. SOCIAL HISTORY: The patient used to smoke heavily in the past, but stopped many years ago, more than 28 years ago. IV drug abuse and alcohol: Denies. PAST SURGICAL HISTORY: Includes status post hysterectomy secondary to uterine cancer, bladder lift s urgery and rectocele surgery, pacemaker placement, also lithotripsy and stent placement in 2017. REVIEW OF SYSTEMS: Per HPI. HOME MEDICATIONS: Reviewed. They include: 1. Loratadine 10 mg daily. 2. Albuterol as directed. 3. Bupropion as directed. 4. Flomax 0.4 daily. 5. Ferrous sulfate 325 daily. 6. Nitroglycerin as directed p.r.n. 7. Tylenol p.r.n. 8. Abilify 5 mg daily. 9. Cymbalta 60 mg daily. 10. [place] 10/325 t.i.d. 11. Lorazepam 0.5 q.8 p.r.n. 12. Zolpidem 10 mg at bedtime p.r.n. 13. Fluticasone as directed. 14. Colace 100 b.i.d. 15. Loperamide 2 mg q.4 p.r.n. 16. Zofran p.r.n. 17. Protonix 40 mg daily. 18. ____. 19. Clotrimazole as directed. 20. ____. 21. Toviaz 8 mg daily. 22. Vitamin D3 as directed. 23. Multivitamin 1 tablet daily. PHYSICAL EXAMINATION: VITAL SIGNS: Temperature 98, pulse 67, respirations 18, blood pressure 113/60, saturation is 98% on 2 liter nasal cannula. HEENT: The patient is pale. Temporal wasting. CARDIOVASCULAR: S1 and S2. LUNGS: Faint wheezing when she coughs. There is some stridor. ABDOMEN: Soft, nontender, left flank pain. EXTREMITIES: No clubbing, clubbing or edema. NEUROLOGIC: The patient is overweight/obese. LABORATORY DATA: White count is 4.9, hemoglobin 10.3, hematocrit 32, platelet count of 144, neutroph ils 83%, lymphocytes 15%. Chemistry: Sodium 143, potassium 4.1, chloride 106, bicarbonate 26, BUN i s 17, creatinine 1.1, glucose of 233. Urine analysis shows +2 leukocyte esterase which is suggestive of UTI, WBC 30, bacteria few. INR is 1.03. IMAGING TESTS: As above. ELECTROCARDIOGRAM: Shows sinus rhythm with first degree AV block with occasional secondary PVCs and fusion complexes, nonspecific ST and T-wave abnormality. ASSESSMENT AND PLAN: This is an unfortunate 77-year-old female with history of chronic obs tructive pulmonary disease, recurrent urinary tract infection, history of nephrolithiasis, depression , psychiatric disorder, who presents with chronic obstructive pulmonary disease exacerbation, cough w ith stridor, also stated that she has some possible coffee-ground emesis and left flank pain. 1. Respiratory: The patient will be treated for chronic obstructive pulmonary disease exacerbation with steroids, antibiotics, breathing treatment and O2 support. 2. Cardiovascular: The patient with history of pacemaker and arrhythmia. Cardiology will be consul brandie for further recommendation. Possibly, we need to interrogate the pacemaker. 3. Left flank pain with findings of possible left kidney scar, possible obstruction. We will obtain a dedicated ultrasound of the kidneys and consult urology as patient had difficulty in stent placeme nt more than a year ago. 4. Urinary tract infection, recurrent. We would place the patient on antibiotics. We will follow u p with urine culture results. 5. Coffee-ground emesis with the findings on the CAT scan showing thickening of the distal esophagus . The patient likely will need in the EGD. GI will be consulted. Also, questionable findings in th e biliary duct, may consider MRCP. The patient cannot have an MRI due to pacemaker. The patient may need a HIDA scan or ERCP. 6. The patient will be placed on deep vein thrombosis prophylaxis and gastrointestinal prophylaxis. Hold blood thinners due to coffee-ground emesis. 7. Psychiatric disorder. Resume all psych meds. 8. Continue supportive care. The patient will be placed on Protonix for gastrointestinal prophylaxi s. 9. Anemia. Check iron panel, B12, folic acid, reticulocyte count. Transfuse p.r.n. We will follow patient closely. Dictated By: JULIAN SANCHEZ/CYNTHIA Conf#: [id number] DID#: [id number] CC: PAIGE SOTOMAYOR MD;*EndCC*
[2018-03-04] MEDS: METHYLPREDNISOLONE 125 MG INJ IV SCH ×2 (16:53→21:56)
[2018-03-04] MEDS: CEFEPIME 1GM/50 ML (PMX) 50 ML IVPB SCH (16:53)
--- NOTE | 2018-03-04 17:38 | CONS ---
DATE OF ADMISSION: 03/03/2018 DATE OF CONSULTATION: From Krista Samayoa MD, to Fidel Domínguez MD. Dear Dr. Parra: Thank you for allowing me to participate in taking care of your patient, who is a pleasant 77-year-ol d female with a history of COPD, status post pacemaker insertion, diabetes mellitus, lithotripsy and stent placement, who comes to the hospital complaining of coffee-ground colored emesis and severe hea rtburn and sore throat. The patient was evaluated in the ER for epigastric discomfort. She had a CA T scan done which showed dilated biliary system. Her liver function test has been normal. She lost some weight. She does not have any habit of looking at the color of the stools, so she cannot commen t on that. No chest pain, no shortness of breath, no or GREETER problem. PAST MEDICAL HISTORY: CHF, diabetes mellitus, schizoaffective disorder, COPD, gout, obesity, uterine cancer, spinal fracture, nephrolithiasis. ALLERGIES: PENICILLIN. FAMILY HISTORY: Mother from bone cancer. SOCIAL HISTORY: Used to smoke heavily. PAST SURGICAL HISTORY: Hysterectomy, pacemaker placement, stent placement and lithotripsy. MEDICATIONS: All reviewed. PHYSICAL EXAMINATION: GENERAL: Looks good for her age, not in any distress. VITAL SIGNS: Stable. HEENT: Unremarkable. NECK: Supple. No thyromegaly, no lymphadenopathy. CARDIOVASCULAR: No murmur, gallop or click. LUNGS: Clear. ABDOMEN: Benign. EXTREMITIES: No edema. CENTRAL NERVOUS SYSTEM: Grossly within normal limits. IMPRESSION: 1. Coffee-ground colored emesis with severe heartburn and CAT scan showing thickening of the distal part of the esophagus. 2. Dilated biliary system with normal liver function test. Bile duct stone or biliary stenosis jayson ot be ruled out. 3. Urinary tract infection. 4. Chronic obstructive pulmonary disease. 5. Diabetes mellitus. 6. Status post pacemaker placement. PLAN: At this point is to continue with PPI. We will proceed with EGD on Monday. Dictated By: KRISTA LR/NTS Conf#: [id number] DID#: [id number] CC: FIDEL DOMÍNGUEZ MD; PAIGE SOTOMAYOR MD;*EndCC*
--- NOTE | 2018-03-04 20:21 | NUR ---
notified lab of the request for urine culture using same specimen, specimen still available
[2018-03-04] MEDS: TAMSULOSIN (SR) 0.4 MG CAP PO SCH (20:34)
[2018-03-05] VITALS (20 sets, daily range): BP systolic 108–148; BP diastolic 50–85; PULSE 68–84; RESP 17–19
[2018-03-05] MEDS: ALBUTEROL HFA 8 GM INHALER INH SCH ×6 (01:00→22:13)
[2018-03-05] MEDS: FESOTERODINE FUMARATE 8 MG XX SCH ×3 (04:42→23:00)
[2018-03-05] MEDS: PANTOPRAZOLE (EC) 40 MG TAB PO SCH (04:42)
[2018-03-05] MEDS: [UNRECOGNIZED DRUG - OTHER] XX SCH ×3 (04:42→23:00)
--- NOTE | 2018-03-05 05:17 | NUR ---
end of shift: patient is alert and oriented, V paced on monitor, given [place] for the low back pain and right leg pain; NPO for EGD, consent signed; needs attended; will endorse to dayshift nurse
[2018-03-05] MEDS: METHYLPREDNISOLONE 125 MG INJ IV SCH ×3 (05:50→22:03)
[2018-03-05] MEDS: BALSAM PERU/CASTOR OIL 60 GM TUBE TOP SCH (09:00)
[2018-03-05] MEDS: CLOTRIMAZOLE 1% 30 GM CR TOP SCH ×2 (09:00→22:06)
[2018-03-05] MEDS: HYDROCODONE/APAP (10/325) TAB PO SCH ×3 (09:00→22:06)
[2018-03-05] MEDS: LORATADINE 10 MG TAB PO SCH (09:00)
[2018-03-05] MEDS: NYSTATIN/TRIAMCINOLONE 15 GM CR TOP SCH ×2 (09:00→22:06)
[2018-03-05] MEDS: ARIPIPRAZOLE 5 MG TAB PO SCH (09:00)
[2018-03-05] MEDS: DOCUSATE SODIUM 100 MG CAP PO SCH ×3 (09:00→22:14)
[2018-03-05] MEDS: MULTIVITAMINS THERAPEUTIC TAB PO SCH (09:00)
[2018-03-05] MEDS: DULOXETINE 30 MG CAP DR PO SCH (09:00)
[2018-03-05] MEDS: CHOLECALCIFEROL 2,000 UNIT CAP PO SCH (09:00)
[2018-03-05] MEDS: FERROUS SULFATE (EC) 325 MG TAB PO SCH (09:00)
[2018-03-05] MEDS: FLUTICASONE 0.05% 16 GM NAS SPRAY NASAL SCH (09:00)
--- NOTE | 2018-03-05 10:33 | CONS ---
Date/Time of Note Date/Time of Note DATE: 03/05/18 TIME: 10:27 Consult Date/Type/Reason Admit Date/Time Mar 03, 2018 at 21:07 Initial Consult Date 03/04/18 Type of Consultation: Urology Reason for Consultation Left hydronephrosis Requesting Provider: JULIAN DOMÍNGUEZ MD Subjective Patient complains of left flank pain. And states when she urinates it takes a long time to finish urinating and she has to push to urinate. Objective Vital Signs Date Temp Pulse Resp B/P (MAP) Pulse Ox O2 O2 Flow FiO2 Time Delivery Rate 03/05/18 Nasal 2.0 09:05 Cannula 03/05/18 68 08:24 03/05/18 98.0 18 119/57 98 07:28 (77) 03/03/18 21 19:39 Intake and Output 03/04/18 03/04/18 03/05/18 1515:00 23:00 07:00 IntakeIntake Total 50 ml 350 ml BalanceBalance 50 ml 350 ml Exam Abdomen is soft and patient was undergoing a renal ultrasound and with the pressure of the ultrasound probe she was not complaining of pain. Urine culture still pending Results/Medications Result Diagram: 03/04/18 0522 03/04/18 0522 Results 24 hrs Laboratory Tests Test 03/05/18 04:44 Iron Level 58 Total Iron Binding Capacity 250 Percent Iron Saturation 23 Vitamin B12 Level 446 Medications Current Medications Acetaminophen (Tylenol Tab) 650 mg Q6H PRN PO MILD PAIN LEVEL 1-3; Start 03/04/18 at 00:00 Albuterol (Ventolin Hfa) 2 puff Q4H RESP THERAPY INH Last administered on 03/04/18at 20:33; Admin Dose 2 PUFF; Start 03/04/18 at 01:00 Aripiprazole (Abilify) 5 mg DAILY PO Last administered on 03/04/18at 09:35; Admin Dose 5 MG; Start 03/04/18 at 09:00 Clotrimazole (Lotrimin Cr) 1 applic BID TOP Last administered on 03/04/18at 20:38; Admin Dose 1 APPLIC; Start 03/04/18 at 09:00 Docusate Sodium (Colace) 100 mg BID PO ; Start 03/04/18 at 09:00 Duloxetine HCl (Cymbalta) 60 mg DAILY PO Last administered on 03/04/18 09:34; Admin Dose 60 MG; Start 03/04/18 at 09:00 Ferrous Sulfate (Ferrous Sulfate (Ec)) 325 mg DAILY PO Last administered on 03/04/18 09:35; Admin Dose 325 MG; Start 03/04/18 at 09:00 Fluticasone Propionate (Flonase 0.05% Nasal) 1 spray DAILY NASAL Last administered on 03/04/18 09:34; Admin Dose 1 SPRAY; Start 03/04/18 at 09:00 Acetaminophen/ Hydrocodone Bitart ([place] ()) 1 tab TID PO Last administered on 03/04/18 20:37; Admin Dose 1 TAB; Start 03/04/18 at 00:00 Albuterol/ Ipratropium (Duoneb) 3 ml Q2H RESP THERAPY PRN INH WHEEZING AND SOB; Start 03/04/18 at 00:00 Loperamide HCl (Imodium Cap) 2 mg Q4H PRN PO DIARRHEA; Start 03/04/18 at 00:00 Loratadine (Claritin) 10 mg DAILY PO Last administered on 03/04/18 09:35; Admin Dose 10 MG; Start 03/04/18 at 09:00 Lorazepam (Ativan) 0.5 mg Q8 PRN PO ANXIETY; Start 03/04/18 at 00:00 Multivitamins Therapeutic (Theragran) 1 tab DAILY PO Last administered on 03/04/18 09:35; Admin Dose 1 TAB; Start 03/04/18 at 09:00 Nitroglycerin (Nitroglycerin (Sl Tab) 0.4 Mg) 1 tab [id number] PRN SL CHEST PAIN; Start 03/04/18 at 00:00 Nystatin/ Triamcinolone Acetonide (Mycolog Cr) 1 applic BID TOP Last administered on 03/04/18 09:34; Admin Dose 1 APPLIC; Start 03/04/18 at 09:00 Ondansetron HCl (Zofran Tab) 4 mg Q12H PRN PO NAUSEA AND/OR VOMITING; Start 03/04/18 at 00:00 Pantoprazole (Protonix Tab) 40 mg AC BREAKFAST PO Last administered on 03/04/18 06:16; Admin Dose 40 MG; Start 03/04/18 at 07:00 Tamsulosin HCl (Flomax) 0.4 mg QPM PO Last administered on 03/04/18at 20:34; Admin Dose 0.4 MG; Start 03/04/18 at 21:00 Zolpidem Tartrate (Ambien) 10 mg QHS PRN PO INSOMNIA Last administered on 03/04/18at 20:37; Admin Dose 10 MG; Start 03/04/18 at 00:00 Miscellaneous Information 8 mg DAILY PO ; Start 03/04/18 at 09:00; Status UNV Cholecalciferol (Vitamin D) 2,000 unit DAILY PO Last administered on 03/04/18 09:35; Admin Dose 2,000 UNIT; Start 03/04/18 at 09:00 Cefepime HCl 50 ml @ 100 mls/hr Q24H IVPB Last administered on 03/04/18at 16:53; Admin Dose 100 MLS/HR; Start 03/04/18 at 15:00 Methylprednisolone Sodium Succinate (Solu-Medrol) 60 mg Q8 IV Last administered on 03/05/18at 05:50; Admin Dose 60 MG; Start 03/04/18 at 14:00 Hydromorphone HCl (Dilaudid) 0.5 mg Q4H PRN IV SEVERE PAIN LEVEL 7-10; Start 03/04/18 at 14:30 Miscellaneous Information (*Order Clarification Bulletin) Fesoterodine Fumarate (Toviaz) 8 ... Q8H XX ; Start 03/04/18 at 15:00 Assessment/Plan Chief Complaint/Hosp Course 77-year-old female admitted because of hematemesis and possible hemoptysis. She underwent a CT scan of the abdomen and pelvis and that showed mild left hydronephrosis without obstructing ureteral stone. Therefore a urological consu ltation was requested the patient is known to me from before and back about 10- year ago she had a 1.1 cm stone in the left ureter which was removed and she had a JJ stent inserted and then later on removed. Patient presently states that she has pain in the epigastric area and also in the left side of the abdomen. She denies any associated nausea or vomiting however she was brought because of the hematemesis. She denies any lower urinary tract symptoms. No dysuria and no gross hematuria. CT scan of the abdomen and pelvis: 1. Left renal atrophy and upper pole scarring has evolved since 12/06/2016, with mild left hydroureteronephrosis to the level of the iliac crossing without ramiro ntifiable ureterolithiasis, possibly reflecting recent stone passage or ureteral obstruction due to scarring or urothelial mass lesion. Clinical correlation recommended with consideration for further evaluation with urologic imaging. 2. Punctate nonobstructive left nephrolithiasis. 3. Minimal left colonic diverticulosis without evidence of acute diverticulitis. The bowel is unobstructed without evidence of perforation or abscess. 4. Moderate stool burden in the right colon and dense stool in the left colon may reflect constipation. 5. Small sliding hiatal hernia with suggestion of mild wall thickening in the distal thoracic esophagus which may reflect esophagitis or neoplasm. 6. New borderline extrahepatic biliary ductal dilatation, with stable hydropic distension of the gallbladder, possibly reflecting choledocholithiasis or biliary stenosis. Clinical correlation recommended with consideration for further evaluation with nuclear medicine HIDA scan or MRCP/ERCP. 7. Stable mild hepatomegaly. 8. Stable borderline portacaval lymphadenopathy, most likely reactive. 9. Stable bilateral common iliac/IVC filters. 10. Mild cardiomegaly appears slightly improved since 12/06/2016 Patient does have mild hydronephrosis on the left side. Patient is going to have EGD today as per 's note. Urologically we will observe. If any intervention I would have to do cystoscopy and retrograde pyelogram and insertion of a JJ stent. But for now I am not planning on that. PAIGE SOTOMAYOR MD Mar 05, 2018 10:33
[2018-03-05] MEDS: HYDROmorphONE 0.5 MG/0.5 ML SYG IV PRN ×3 (11:34→22:04)
[2018-03-05] MEDS ORDERED: PROPOFOL 20 ML ONE (15:45)
--- NOTE | 2018-03-05 16:44 | CONS ---
Date/Time of Note Date/Time of Note DATE: 03/05/18 TIME: 16:41 Consult Date/Type/Reason Admit Date/Time Mar 03, 2018 at 21:07 Initial Consult Date 03/04/18 Type of Consultation: cv Requesting Provider: JULIAN DOMÍNGUEZ MD Subjective Cardiology follow-up progress note Objective: Discussed with the staff and rhythm was reviewed. Patient with normal sinus rhythm. no chest pain or pressure; no more bleeding Objective: General: Elderly female in no acute distress HEENT: NC/AT. pupils are equal. round. NECK: NO JVD. no stridor. CV: RRR. systolic murmur; no gallop or rubs. PULM: With diffuse wheezing/rhonchi. GI: SOFT, NT, ND, no rebound or guarding Extremity: trace B/L LE edema. no clubbing. neuro: awake and alert, responds appropriately Psych: calm now rectal: deferred EKG was personally showed normal sinus rhythm with demand ventricular paced Chest x-ray shows: 1. Atherosclerosis of the thoracic aorta. 2. Stable pacemaker. Otherwise radiographically unremarkable senescent chest. Objective Vital Signs Date Temp Pulse Resp B/P (MAP) Pulse Ox O2 O2 Flow FiO2 Time Delivery Rate 03/05/18 98.2 84 17 108/50 99 Room Air 15:52 (69) 03/05/18 2.0 11:19 03/03/18 21 19:39 Intake and Output 03/04/18 03/04/18 03/05/18 1515:00 23:00 07:00 IntakeIntake Total 50 ml 350 ml BalanceBalance 50 ml 350 ml Results/Medications Result Diagram: 03/04/1852103/04/18 0522 Results 24 hrs Laboratory Tests Test 03/05/18 04:44 Iron Level 58 Total Iron Binding Capacity 250 Percent Iron Saturation 23 Vitamin B12 Level 446 Medications Current Medications Acetaminophen (Tylenol Tab) 650 mg Q6H PRN PO MILD PAIN LEVEL 1-3; Start 03/04/18 at 00:00 Albuterol (Ventolin Hfa) 2 puff Q4H RESP THERAPY INH Last administered on 03/05/18at 13:15; Admin Dose 2 PUFF; Start 03/04/18 at 01:00 Aripiprazole (Abilify) 5 mg DAILY PO Last administered on 03/04/18at 09:35; Admin Dose 5 MG; Start 03/04/18 at 09:00 Clotrimazole (Lotrimin Cr) 1 applic BID TOP Last administered on 03/04/18 20:38; Admin Dose 1 APPLIC; Start 03/04/18 at 09:00 Docusate Sodium (Colace) 100 mg BID PO ; Start 03/04/18 at 09:00 Duloxetine HCl (Cymbalta) 60 mg DAILY PO Last administered on 03/04/18 09:34; Admin Dose 60 MG; Start 03/04/18 at 09:00 Ferrous Sulfate (Ferrous Sulfate (Ec)) 325 mg DAILY PO Last administered on 03/04/18 09:35; Admin Dose 325 MG; Start 03/04/18 at 09:00 Fluticasone Propionate (Flonase 0.05% Nasal) 1 spray DAILY NASAL Last administered on 03/05/18 09:00; Admin Dose 1 SPRAY; Start 03/04/18 at 09:00 Acetaminophen/ Hydrocodone Bitart ([place] (10325)) 1 tab TID PO Last administered on 03/04/18 20:37; Admin Dose 1 TAB; Start 03/04/18 at 00:00 Albuterol/ Ipratropium (Duoneb) 3 ml Q2H RESP THERAPY PRN INH WHEEZING AND SOB; Start 03/04/18 at 00:00 Loperamide HCl (Imodium Cap) 2 mg Q4H PRN PO DIARRHEA; Start 03/04/18 at 00:00 Loratadine (Claritin) 10 mg DAILY PO Last administered on 03/04/18 09:35; Admin Dose 10 MG; Start 03/04/18 at 09:00 Lorazepam (Ativan) 0.5 mg Q8 PRN PO ANXIETY; Start 03/04/18 at 00:00 Multivitamins Therapeutic (Theragran) 1 tab DAILY PO Last administered on 03/04/18 09:35; Admin Dose 1 TAB; Start 03/04/18 at 09:00 Nitroglycerin (Nitroglycerin (Sl Tab) 0.4 Mg) 1 tab [id number] PRN SL CHEST PAIN; Start 03/04/18 at 00:00 Nystatin/ Triamcinolone Acetonide (Mycolog Cr) 1 applic BID TOP Last administered on 03/04/18 09:34; Admin Dose 1 APPLIC; Start 03/04/18 at 09:00 Ondansetron HCl (Zofran Tab) 4 mg Q12H PRN PO NAUSEA AND/OR VOMITING; Start 03/04/18 at 00:00 Pantoprazole (Protonix Tab) 40 mg AC BREAKFAST PO Last administered on 03/04/18 06:16; Admin Dose 40 MG; Start 03/04/18 at 07:00 Tamsulosin HCl (Flomax) 0.4 mg QPM PO Last administered on 03/04/18 20:34; Admin Dose 0.4 MG; Start 03/04/18 at 21:00 Zolpidem Tartrate (Ambien) 10 mg QHS PRN PO INSOMNIA Last administered on 03/04/18 20:37; Admin Dose 10 MG; Start 03/04/18 at 00:00 Miscellaneous Information 8 mg DAILY PO ; Start 03/04/18 at 09:00; Status UNV Cholecalciferol (Vitamin D) 2,000 unit DAILY PO Last administered on 03/04/18 09:35; Admin Dose 2,000 UNIT; Start 03/04/18 at 09:00 Cefepime HCl 50 ml @ 100 mls/hr Q24H IVPB Last administered on 03/04/18 16:53; Admin Dose 100 MLS/HR; Start 03/04/18 at 15:00 Methylprednisolone Sodium Succinate (Solu-Medrol) 60 mg Q8 IV Last administered on 03/05/18 14:47; Admin Dose 60 MG; Start 03/04/18 at 14:00 Hydromorphone HCl (Dilaudid) 0.5 mg Q4H PRN IV SEVERE PAIN LEVEL 7-10 Last administered on 03/05/18at 11:34; Admin Dose 0.5 MG; Start 03/04/18 at 14:30 Miscellaneous Information (*Order Clarification Bulletin) Fesoterodine Fumarate (Toviaz) 8 ... Q8H XX ; Start 03/04/18 at 15:00 Assessment/Plan Chief Complaint/Hosp Course 1. Sick sinus syndrome with permanent pacemaker 2. History of reported congestive heart failure: Appears to be at this point no evidence of congestive heart failure and patient mostly has COPD 3. COPD 4. Possible GI bleed versus hemoptysis 5. Hypertension: Good control 6. History of psych disorder and bipolar disorder Recommendation: Patient has been follow with me in the office and pacemaker has been regularly checked has been normal function. At this point does not appear to be fluid overloaded Continue with the PPI We will monitor on telemetry GI workup as per internal medicine/ GI analytical consultant Respiratory care as per internal medicine as well. Thank you for his referral. We will continue to follow along with you AMADOU GOMEZ MD LOCATED WITHIN [facility] AMADOU GOMEZ MD Mar 05, 2018 16:44
--- NOTE | 2018-03-05 16:52 | NUR ---
PACU AWAKE ALERT. FROM GI LAB SP EGD WITH BX. DENIES PAIN OR DISCOMFORT. COND STABLE. Addendum: 03/05/18 at 1653 by INGA MENON RN Amended: Links added.
--- NOTE | 2018-03-05 17:07 | NUR ---
PACU TRANSFERRED TO [facility] IN STABLE COND. YONASIES PAIN . REPORT GIVEN TO MITCH REEDER Addendum: 03/05/18 at 1840 by INGA MENON RN Amended: Links added.
[2018-03-05] MEDS: CEFEPIME 1GM/50 ML (PMX) 50 ML IVPB SCH (17:15)
[2018-03-05] MEDS ORDERED: VANCOMYCIN IV PER PHARMACY XX SCH (17:30)
--- NOTE | 2018-03-05 18:34 | NUR ---
EOSS: Pt VSS, AOOx3-4 with periods of anxiety and pain, pt was NPO for majority of shift for EGD. Pt tolerated procedure well. Pain addressed and pt ate dinner well. All other needs met and questions answered.
--- NOTE | 2018-03-05 18:45 | PN ---
DATE: 03/05/2018 SUBJECTIVE: The patient is status post EGD. Preliminary report shows esophagitis and gastritis. We will follow up the report. As noted, I appreciate Dr. Segovia's urology input. The patient does rodriguez ve left-sided hydronephrosis and scarring of the left kidney, likely patient with decreased renal fun ction of the left kidney. Ultrasound did show left kidney smaller than the right. Moderate left hyd ronephrosis is seen in the CT scan. No obstructive lesion is visualized. There is otherwise unremar kable renal ultrasound. PHYSICAL EXAMINATION: VITAL SIGNS: Temperature is 98.2, pulse 78, respirations 17, blood pressure 119/70, saturation 95% o n room air. GENERAL: The patient is in no acute distress. HEENT: Normocephalic, atraumatic, pale, decreased dentition. CARDIOVASCULAR: S1, S2, regular rate. LUNGS: Clear. ABDOMEN: Soft, nontender. EXTREMITIES: Trace pedal edema. The patient is complaining of cramps shooting from the feet up to h er legs. LABORATORY DATA: White count 4.9, hemoglobin 10.3, hematocrit 32; this is from yesterday. Chemistry shows a glucose level of 233. Iron levels are normal. B12 is 446. CA 19-9 is 10.7. Lipase is low at 14. MRSA screening turned out to be positive. Urine culture is pending. MEDICATIONS: Include: 1. Flomax 0.4 q.p.m. 2. Cefepime 1 g q.24 hours. 3. Dilaudid p.r.n. 4. Solu-Medrol 60 IV q.8. 5. Abilify 5 mg daily. 6. Lotrimin cream as directed. 7. Colace. 8. Cymbalta. 9. Ferrous sulfate. 10. Flonase. 11. Claritin. 12. Multivitamin. 13. ____. 14. Vitamin D. 15. Protonix. 16. Ventolin. 17. Tylenol. 18. [facility]. 19. DuoNeb. 20. Imodium. 21. Ativan. 22. Nitroglycerin. 23. Zofran. 24. Ambien. ASSESSMENT AND PLAN: This is a 77-year-old female with history of chronic obstructive pulm onary disease, recurrent urinary tract infection, history of nephrolithiasis, depression, psychiatric disorder, who presented with chronic obstructive pulmonary disease exacerbation, cough with stridor, also stated that she had some coffee-ground emesis. 1. Respiratory. Stable. Continue steroids, taper it down slowly. The patient does have methicilli n-resistant Staphylococcus aureus. May consider adding vancomycin. 2. Cardiovascular. The patient has been seen by cardiology. Pacemaker apparently is working well. 3. Left flank pain with left kidney scar and moderate hydronephrosis. Nephrology to follow, otherwi se, possible just close monitoring. 4. Urinary tract infection. Continue above antibiotics. 5. Cough. 6. Continue PPI for gastrointestinal prophylaxis. Head elevation when eating. 7. Deep vein thrombosis prophylaxis and gastrointestinal prophylaxis. SCDs. 8. Psychiatric disorder. Resume all psych meds. 9. Continue supportive care. DISPOSITION: Soon. We will follow. Dictated By: JULIAN SANCHEZ/CYNTHIA Conf#: [id number] DID#: [id number]
--- NOTE | 2018-03-05 20:04 | NUR ---
VANCO PER RX PROTOCOL: DAY #1 S/O: 77 YO FEMALE W/ UTI, COPD, (L) HYDRONEPHROSIS. TEMP = 98.9 SCR/BUN = 03/29 (03/04) WBC = 4.9 (03/04) A/P: VANCO 1.5GM LD X 1 DOSE TONIGHT, FOLLOWED BY 1GM Q 24HR. VANCO TR LEVEL WHEN APPROPRIATE TO CHECK VANCO CLEARANCE. WILL CONTINUE TO FOLLOW.
[2018-03-05] MEDS ORDERED: VANCOMYCIN 1.5 GM in SOD CHLORIDE 0.9% 250 ML IVPB SCH (22:00)
[2018-03-05] MEDS: TAMSULOSIN (SR) 0.4 MG CAP PO SCH (22:04)
[2018-03-05] MEDS: ZOLPIDEM 5 MG TAB PO PRN (22:05)
[2018-03-05] MEDS: MUPIROCIN 2% 22 GM OINT TOP SCH (22:06)
[2018-03-06] VITALS (13 sets, daily range): BP systolic 118–154; BP diastolic 55–68; PULSE 65–82; RESP 17–19
[2018-03-06] MEDS: ALBUTEROL HFA 8 GM INHALER INH SCH ×6 (00:23→20:34)
[2018-03-06] MEDS: METHYLPREDNISOLONE 125 MG INJ IV SCH (06:13)
[2018-03-06] MEDS: [UNRECOGNIZED DRUG - OTHER] XX SCH ×3 (06:14→22:39)
[2018-03-06] MEDS: FESOTERODINE FUMARATE 8 MG XX SCH ×3 (06:14→22:39)
[2018-03-06] MEDS: PANTOPRAZOLE (EC) 40 MG TAB PO SCH (06:14)
[2018-03-06] MEDS: HYDROmorphONE 0.5 MG/0.5 ML SYG IV PRN ×3 (06:20→21:40)
--- NOTE | 2018-03-06 06:25 | PN ---
Date/Time of Note Date/Time of Note DATE: 03/06/18 TIME: 06:25 Assessment/Plan VTE Prophylaxis Risk score (from Ns)>0 risk: 7 SCD applied (from Ns): Yes Pharmacological prophylaxis: NA/contraindicated Pharm contraindication: bleeding Lines/Catheters [facility] Assessment/Plan Hospital Course 77 yo female presented with coffee ground colored emesis and heartburn 1. Esophagitis 2. Gastritis 3. Dilated biliary system with normal LFT -r/o bile duct stone or biliary stenosis 4. COPD 5. DM 6. S/P pacemaker 7. 1 cm hiatal hernia Plan: PPI BID Aspiration precautions pending histopathology Advance diet Pt examined and plan of care discussed with Dr. Samayoa Result Diagram: 03/04/1852103/04/18 05 Results 24hrs Laboratory Tests Test 03/06/18 05:26 White Blood Count Pending Red Blood Count Pending Hemoglobin Pending Hematocrit Pending Mean Corpuscular Volume Pending Mean Corpuscular Hemoglobin Pending Mean Corpuscular Hemoglobin Concent Pending Red Cell Distribution Width Pending Platelet Count Pending Mean Platelet Volume Pending Sodium Level 143 Potassium Level 3.8 Chloride Level 108 Carbon Dioxide Level 26 Anion Gap 9 Blood Urea Nitrogen 23 H Creatinine 0.85 Est Glomerular Filtrat Rate mL/min Glucose Level 235 H Calcium Level 8.4 Phosphorus Level 2.4 L Magnesium Level 2.0 Subjective 24 Hr Interval Summary Free Text/Dictation Generalized pain, not specifically abdominal pain, RLE pain which she states is due to nerve damage. Mild nausea. No evidence of GI bleeding per RN Exam/Review of Systems Vital Signs Vitals Vital Signs Date Temp Pulse Resp B/P (MAP) Pulse Ox O2 O2 Flow FiO2 Time Delivery Rate 03/06/18 67 04:00 03/06/18 98.3 17 128/61 96 03:52 (83) 03/06/18 2.0 02:32 03/05/18 Nasal 20:33 Cannula 03/03/18 21 19:39 Intake and Output 03/05/18 03/05/18 03/06/18 1515:00 23:00 07:00 IntakeIntake Total 200 ml 420 ml BalanceBalance 200 ml 420 ml Exam Constitutional: alert, oriented Head: normocephalic Eyes: PERRL Respiratory: clear to auscultation Cardiovascular: regular rate and rhythm Gastrointestinal: soft, tender Neurological: nl mental status Medications Medications Current Medications Acetaminophen (Tylenol Tab) 650 mg Q6H PRN PO MILD PAIN LEVEL 1-3; Start 03/04/18 at 00:00 Albuterol (Ventolin Hfa) 2 puff Q4H RESP THERAPY INH Last administered on 06:12; Admin Dose 2 PUFF; Start 03/04/18 at 01:00 Aripiprazole (Abilify) 5 mg DAILY PO Last administered on 03/04/18 09:35; Admin Dose 5 MG; Start 03/04/18 at 09:00 Clotrimazole (Lotrimin Cr) 1 applic BID TOP Last administered on 03/05/18 22:06; Admin Dose 1 APPLIC; Start 03/04/18 at 09:00 Docusate Sodium (Colace) 100 mg BID PO ; Start 03/04/18 at 09:00 Duloxetine HCl (Cymbalta) 60 mg DAILY PO Last administered on 03/04/18 09:34; Admin Dose 60 MG; Start 03/04/18 at 09:00 Ferrous Sulfate (Ferrous Sulfate (Ec)) 325 mg DAILY PO Last administered on 03/04/18 09:35; Admin Dose 325 MG; Start 03/04/18 at 09:00 Fluticasone Propionate (Flonase 0.05% Nasal) 1 spray DAILY NASAL Last administered on 03/05/18 09:00; Admin Dose 1 SPRAY; Start 03/04/18 at 09:00 Acetaminophen/ Hydrocodone Bitart ([place] (10/325)) 1 tab TID PO Last administered on 03/04/18at 20:37; Admin Dose 1 TAB; Start 03/04/18 at 00:00 Albuterol/ Ipratropium (Duoneb) 3 ml Q2H RESP THERAPY PRN INH WHEEZING AND SOB; Start 03/04/18 at 00:00 Loperamide HCl (Imodium Cap) 2 mg Q4H PRN PO DIARRHEA; Start 03/04/18 at 00:00 Loratadine (Claritin) 10 mg DAILY PO Last administered on 03/04/18 09:35; Ad min Dose 10 MG; Start 03/04/18 at 09:00 Lorazepam (Ativan) 0.5 mg Q8 PRN PO ANXIETY; Start 03/04/18 at 00:00 Multivitamins Therapeutic (Theragran) 1 tab DAILY PO Last administered on 03/04/18 09:35; Admin Dose 1 TAB; Start 03/04/18 at 09:00 Nitroglycerin (Nitroglycerin (Sl Tab) 0.4 Mg) 1 tab [id number] PRN SL CHEST PAIN; Start 03/04/18 at 00:00 Nystatin/ Triamcinolone Acetonide (Mycolog Cr) 1 applic BID TOP Last administered on 03/05/18 22:06; Admin Dose 1 APPLIC; Start 03/04/18 at 09:00 Ondansetron HCl (Zofran Tab) 4 mg Q12H PRN PO NAUSEA AND/OR VOMITING; Start 03/04/18 at 00:00 Pantoprazole (Protonix Tab) 40 mg AC BREAKFAST PO Last administered on 03/06/18 06:14; Admin Dose 40 MG; Start 03/04/18 at 07:00 Tamsulosin HCl (Flomax) 0.4 mg QPM PO Last administered on 03/05/18 22:04; Admin Dose 0.4 MG; Start 03/04/18 at 21:00 Zolpidem Tartrate (Ambien) 10 mg QHS PRN PO INSOMNIA Last administered on 03/05/18 22:05; Admin Dose 10 MG; Start 03/04/18 at 00:00 Miscellaneous Information 8 mg DAILY PO ; Start 03/04/18 at 09:00; Status UNV Cholecalciferol (Vitamin D) 2,000 unit DAILY PO Last administered on 03/04/18 09:35; Admin Dose 2,000 UNIT; Start 03/04/18 at 09:00 Cefepime HCl 50 ml @ 100 mls/hr Q24H IVPB Last administered on 03/05/18 17:15; Admin Dose 100 MLS/HR; Start 03/04/18 at 15:00 Methylprednisolone Sodium Succinate (Solu-Medrol) 60 mg Q8 IV Last administered on 03/06/18 06:13; Admin Dose 60 MG; Start 03/04/18 at 14:00 Hydromorphone HCl (Dilaudid) 0.5 mg Q4H PRN IV SEVERE PAIN LEVEL 7-10 Last administered on 12/25/18at 06:20; Admin Dose 0.5 MG; Start 03/04/18 at 14:30 Miscellaneous Information (*Order Clarification Bulletin) Fesoterodine Fumarate (Toviaz) 8 ... Q8H XX ; Start 03/04/18 at 15:00 Mupirocin (Bactroban) 1 applic BID TOP Last administered on 03/05/18at 22:06; Admin Dose 1 APPLIC; Start 03/05/18 at 21:00 Vancomycin HCl (Vanco Iv Per Pharmacy) VANCOMYCIN PER PHARMACY PER PROTOCOL XX ; Start 03/05/18 at 17:30 Vancomycin HCl 250 ml @ 125 mls/hr Q24H IVPB ; Start 03/06/18 at 22:00 JOSE LUIS CALVO Mar 06, 2018 06:25
--- NOTE | 2018-03-06 07:32 | NUR ---
EOSS:No acute event overnight. Remains on Vpaced. Remains incontinent of bowel and bladder. Kept clean and dry. Medicated for pain twice with good results. Endorsed.
[2018-03-06] MEDS: BALSAM PERU/CASTOR OIL 60 GM TUBE TOP SCH (09:00)
[2018-03-06] MEDS: MUPIROCIN 2% 22 GM OINT TOP SCH ×2 (09:00→20:25)
[2018-03-06] MEDS: CLOTRIMAZOLE 1% 30 GM CR TOP SCH ×2 (09:00→20:41)
[2018-03-06] MEDS: NYSTATIN/TRIAMCINOLONE 15 GM CR TOP SCH ×2 (09:00→20:41)
[2018-03-06] MEDS: DOCUSATE SODIUM 100 MG CAP PO SCH ×2 (09:00→20:24)
[2018-03-06] MEDS: ARIPIPRAZOLE 5 MG TAB PO SCH (09:26)
[2018-03-06] MEDS: HYDROCODONE/APAP (10/325) TAB PO SCH ×3 (09:26→20:31)
[2018-03-06] MEDS: MULTIVITAMINS THERAPEUTIC TAB PO SCH (09:26)
[2018-03-06] MEDS: FERROUS SULFATE (EC) 325 MG TAB PO SCH (09:26)
[2018-03-06] MEDS: DULOXETINE 30 MG CAP DR PO SCH (09:26)
[2018-03-06] MEDS: CHOLECALCIFEROL 2,000 UNIT CAP PO SCH (09:26)
[2018-03-06] MEDS: LORATADINE 10 MG TAB PO SCH (09:26)
[2018-03-06] MEDS: FLUTICASONE 0.05% 16 GM NAS SPRAY NASAL SCH (09:29)
--- NOTE | 2018-03-06 10:43 | CONS ---
Date/Time of Note Date/Time of Note DATE: 03/06/18 TIME: 10:42 Consult Date/Type/Reason Admit Date/Time Mar 03, 2018 at 21:07 Initial Consult Date 03/04/18 Type of Consultation: cv Requesting Provider: JULIAN LOPEZ MD Subjective Cardiology follow-up progress note Objective: Discussed with the staff and rhythm was reviewed. Patient with normal sinus rhythm. no chest pain or pressure; no more bleeding s/p endoscopy 03/05 Objective: General: Elderly female in no acute distress HEENT: NC/AT. pupils are equal. round. NECK: NO JVD. no stridor. CV: RRR. systolic murmur; no gallop or rubs. PULM: With diffuse wheezing/rhonchi. GI: SOFT, NT, ND, no rebound or guarding Extremity: trace B/L LE edema. no clubbing. neuro: awake and alert, responds appropriately Psych: calm now rectal: deferred EKG was personally showed normal sinus rhythm with demand ventricular paced Chest x-ray shows: 1. Atherosclerosis of the thoracic aorta. 2. Stable pacemaker. Otherwise radiographically unremarkable senescent chest. Objective Vital Signs Date Temp Pulse Resp B/P (MAP) Pulse Ox O2 O2 Flow FiO2 Time Delivery Rate 03/06/18 67 08:01 03/06/18 98.8 18 146/67 99 07:40 (93) 03/06/18 2.0 02:32 03/05/18 Nasal 20:33 Cannula 03/03/18 21 19:39 Intake and Output 03/05/18 03/05/18 03/06/18 1515:00 23:00 07:00 IntakeIntake Total 200 ml 420 ml BalanceBalance 200 ml 420 ml Results/Medications Result Diagram: 03/06/18 0503/06/18 05 Results 24 hrs Laboratory Tests Test 03/06/18 05:26 White Blood Count 8.5 # Red Blood Count 3.49 L Hemoglobin 10.3 L Hematocrit 31.7 L Mean Corpuscular Volume 90.8 Mean Corpuscular Hemoglobin 29.5 Mean Corpuscular Hemoglobin Concent 32.5 Red Cell Distribution Width 13.6 Platelet Count 148 Mean Platelet Volume 12.8 H Immature Granulocytes % 0.900 H Neutrophils % 86.1 H Lymphocytes % 9.9 L Monocytes % 3.0 Eosinophils % 0.0 Basophils % 0.1 Nucleated Red Blood Cells % 0.0 Immature Granulocytes # 0.080 H Neutrophils # 7.3 Lymphocytes # 0.8 Monocytes # 0.3 Eosinophils # 0.0 Basophils # 0.0 Nucleated Red Blood Cells # 0.0 Sodium Level 143 Potassium Level 3.8 Chloride Level 108 Carbon Dioxide Level 26 Anion Gap 9 Blood Urea Nitrogen 23 H Creatinine 0.85 Est Glomerular Filtrat Rate mL/min Glucose Level 235 H Calcium Level 8.4 Phosphorus Level 2.4 L Magnesium Level 2.0 Medications Current Medications Acetaminophen (Tylenol Tab) 650 mg Q6H PRN PO MILD PAIN LEVEL 1-3; Start 03/04/18 at 00:00 Albuterol (Ventolin Hfa) 2 puff Q4H RESP THERAPY INH Last administered on 03/06/18 09:00; Admin Dose 2 PUFF; Start 03/04/18 at 01:00 Aripiprazole (Abilify) 5 mg DAILY PO Last administered on 03/06/18 09:26; Admin Dose 5 MG; Start 03/04/18 at 09:00 Clotrimazole (Lotrimin Cr) 1 applic BID TOP Last administered on 03/05/18 22:06; Admin Dose 1 APPLIC; Start 03/04/18 at 09:00 Docusate Sodium (Colace) 100 mg BID PO ; Start 03/04/18 at 09:00 Duloxetine HCl (Cymbalta) 60 mg DAILY PO Last administered on 03/06/18 09:26; Admin Dose 60 MG; Start 03/04/18 at 09:00 Ferrous Sulfate (Ferrous Sulfate (Ec)) 325 mg DAILY PO Last administered on 03/06/18 09:26; Admin Dose 325 MG; Start 03/04/18 at 09:00 Fluticasone Propionate (Flonase 0.05% Nasal) 1 spray DAILY NASAL Last administered on 03/06/18 09:29; Admin Dose 1 SPRAY; Start 03/04/18 at 09:00 Acetaminophen/ Hydrocodone Bitart ([place] (10325)) 1 tab TID PO Last adminis tered on 03/06/18 09:26; Admin Dose 1 TAB; Start 03/04/18 at 00:00 Albuterol/ Ipratropium (Duoneb) 3 ml Q2H RESP THERAPY PRN INH WHEEZING AND SOB; Start 03/04/18 at 00:00 Loperamide HCl (Imodium Cap) 2 mg Q4H PRN PO DIARRHEA; Start 03/04/18 at 00:00 Loratadine (Claritin) 10 mg DAILY PO Last administered on 03/06/18 09:26; Admin Dose 10 MG; Start 03/04/18 at 09:00 Lorazepam (Ativan) 0.5 mg Q8 PRN PO ANXIETY; Start 03/04/18 at 00:00 Multivitamins Therapeutic (Theragran) 1 tab DAILY PO Last administered on 03/06/18 09:26; Admin Dose 1 TAB; Start 03/04/18 at 09:00 Nitroglycerin (Nitroglycerin (Sl Tab) 0.4 Mg) 1 tab [id number] PRN SL CHEST PAIN; Start 03/04/18 at 00:00 Nystatin/ Triamcinolone Acetonide (Mycolog Cr) 1 applic BID TOP Last administered on 03/05/18 22:06; Admin Dose 1 APPLIC; Start 03/04/18 at 09:00 Ondansetron HCl (Zofran Tab) 4 mg Q12H PRN PO NAUSEA AND/OR VOMITING; Start 03/04/18 at 00:00 Pantoprazole (Protonix Tab) 40 mg AC BREAKFAST PO Last administered on 03/06/18 06:14; Admin Dose 40 MG; Start 03/04/18 at 07:00 Tamsulosin HCl (Flomax) 0.4 mg QPM PO Last administered on 03/05/18 22:04; Admin Dose 0.4 MG; Start 03/04/18 at 21:00 Zolpidem Tartrate (Ambien) 10 mg QHS PRN PO INSOMNIA Last administered on 03/05/18 22:05; Admin Dose 10 MG; Start 03/04/18 at 00:00 Miscellaneous Information 8 mg DAILY PO ; Start 03/04/18 at 09:00; Status UNV Cholecalciferol (Vitamin D) 2,000 unit DAILY PO Last administered on 03/06/18 09:26; Admin Dose 2,000 UNIT; Start 03/04/18 at 09:00 Cefepime HCl 50 ml @ 100 mls/hr Q24H IVPB Last administered on 03/05/18 17:15; Admin Dose 100 MLS/HR; Start 03/04/18 at 15:00 Methylprednisolone Sodium Succinate (Solu-Medrol) 60 mg Q8 IV Last administered on 03/06/18at 06:13; Admin Dose 60 MG; Start 03/04/18 at 14:00 Hydromorphone HCl (Dilaudid) 0.5 mg Q4H PRN IV SEVERE PAIN LEVEL 7-10 Last admi nistered on 03/06/18at 06:20; Admin Dose 0.5 MG; Start 03/04/18 at 14:30 Miscellaneous Information (*Order Clarification Bulletin) Fesoterodine Fumarate (Toviaz) 8 ... Q8H XX ; Start 03/04/18 at 15:00 Mupirocin (Bactroban) 1 applic BID TOP Last administered on 03/06/18at 09:00; Admin Dose 1 APPLIC; Start 03/05/18 at 21:00 Vancomycin HCl (Vanco Iv Per Pharmacy) VANCOMYCIN PER PHARMACY PER PROTOCOL XX ; Start 03/05/18 at 17:30 Vancomycin HCl 250 ml @ 125 mls/hr Q24H IVPB ; Start 03/06/18 at 22:00 Assessment/Plan Chief Complaint/Hosp Course 1. Sick sinus syndrome with permanent pacemaker 2. History of reported congestive heart failure: Appears to be at this point no evidence of congestive heart failure and patient mostly has COPD 3. COPD 4. Possible GI bleed versus hemoptysis 5. Hypertension: Good control 6. History of psych disorder and bipolar disorder Recommendation: Patient has been follow with me in the office and pacemaker has been regularly checked has been normal function. At this point does not appear to be fluid overloaded Continue with the PPI. Follow-up with GI recommendations We will monitor on telemetry GI workup as per internal medicine/ GI testing consultant Respiratory care as per internal medicine as well. DM management as per Dr. Lopez Thank you for his referral. We will continue to follow along with you AMADOU GOMEZ MD [facility] AMADOU GOMEZ MD Mar 06, 2018 10:43
--- NOTE | 2018-03-06 13:40 | NUR ---
Pt has new transfer orders for med/surg. Pt still a significant fall risk that is impulsive and non-compliant with using the call light even when educated. pt calm and cooperative most the time and pain/anxiety controlled with minimal meds to reduce fall risk and mentation. Pt transferred to [facility] via bed. Report given to Janene. Pt declined transfer photos but no wounds noted. Pt VSS, BG stable, AOOx3-4 at time of transfer. Family at bedside and aware and agreeable to transfer. All other needs met and questions answered. Belongings accounted for. Novalog pen sent with pt as well. Addendum: 03/06/18 at 1845 by RAYSHAWN OWENS RN Wrong pt. Please disregard!
--- NOTE | 2018-03-06 14:31 | PN ---
DATE: 03/06/2018 SUBJECTIVE: The patient was seen, feeling overall better. Urine culture did come back as Staphyloco ccus aureus and also patient does have MRSA of the nares. I did start the patient yesterday on IV va ncomycin. PHYSICAL EXAMINATION: VITAL SIGNS: Temperature 98.1, pulse 72, respirations 19, blood pressure 154/62, saturation 97% on 2 liters. GENERAL: The patient is in no acute distress. HEENT: The patient is pale. Temporal wasting. CARDIOVASCULAR: S1, S2. Regular rate. LUNGS: Clear. ABDOMEN: Soft, nontender. EXTREMITIES: No clubbing, cyanosis or edema. LABORATORY DATA: White count 8.5, hemoglobin 10.3, hematocrit 32, platelet count 148, neutrophils 86 %, lymphocytes 10%. Chemistry: Sodium 143, potassium 3.8, chloride 108, bicarbonate 26, BUN is 23, creatinine 0.87, glucose of 235. Phosphorus is slightly low at 2.4. The patient's urine was positiv e for +2 leukocyte esterase and urine culture does show Staphylococcus aureus, 20,000 to 30,000. MEDICATIONS: Include: 1. Vancomycin dose per pharmacy. 2. Bactroban ointment to the nares as directed b.i.d. 3. Flomax 0.4 q.p.m. 4. Cefepime 1 g q.24 hours. 5. Dilaudid p.r.n. 6. Solu-Medrol 60 IV q.8. 7. Abilify 5 mg daily. 8. Lotrimin cream b.i.d. 9. Colace 100 b.i.d. 10. Cymbalta 60 daily. 11. daily. 12. Flonase daily. 13. Claritin 10 mg daily. 14. Multivitamin daily. 15. Nystatin cream b.i.d. 16. Vitamin D 2000 daily. 17. Protonix 40 mg daily. 18. Tylenol p.r.n. 19. [place] p.r.n. 20. DuoNeb p.r.n. 21. Imodium p.r.n. 22. Ativan. 23. Nitroglycerin. 24. Zofran. 25. Zolpidem p.r.n. ASSESSMENT AND PLAN: This is a 77-year-old female with history of chronic obstructive pulm onary disease, recurrent urinary tract infection, history of nephrolithiasis, depression, psychiatric disorder, presented with chronic obstructive pulmonary disease exacerbation, cough with stridor, als o was found to have coffee-ground emesis. 1. Respiratory. Continue above treatment plan. The patient does have methicillin-resistant Staphyl ococcus aureus of the nares and methicillin-resistant Staphylococcus aureus in the urine. Continue v ancomycin and cefepime. Titrate down steroids. Continue breathing treatments. 2. Cardiovascular. I appreciate cardiology input. Pacemaker apparently is working well. 3. Left flank pain. Urology is following. 4. Urinary tract infection. Continue above antibiotics. Follow up urine culture results. Possible discharge planning with Bactrim. 5. Continue PPI for gastrointestinal prophylaxis. 6. Status post EGD which shows gastritis. 7. Psychiatric disorder. Resume all psych meds. 8. Out of bed activity as tolerated. 9. Disposition, hopefully soon. Dictated By: JULIAN SANCHEZ/CYNTHIA Conf#: [id number] DID#: [id number] CC: PAIGE SOTOMAYOR MD;*End*
[2018-03-06] MEDS: CEFEPIME 1GM/50 ML (PMX) 50 ML IVPB SCH (15:35)
--- NOTE | 2018-03-06 18:45 | NUR ---
Previous note on wrong pt. PLEASE DISREGARD!!!
[2018-03-06] MEDS: METHYLPREDNISOLONE 40 MG INJ IV SCH (20:23)
[2018-03-06] MEDS: TAMSULOSIN (SR) 0.4 MG CAP PO SCH (20:24)
[2018-03-06] MEDS: ZOLPIDEM 5 MG TAB PO PRN (21:39)
[2018-03-06] MEDS: VANCOMYCIN 1 GM 250 ML IVPB SCH (21:45)
[2018-03-07] VITALS (10 sets, daily range): BP systolic 140–171; BP diastolic 65–76; PULSE 60–70; RESP 18–20
[2018-03-07] MEDS: ALBUTEROL HFA 8 GM INHALER INH SCH ×6 (01:00→20:27)
[2018-03-07] MEDS: PANTOPRAZOLE (EC) 40 MG TAB PO SCH (06:05)
[2018-03-07] MEDS: [UNRECOGNIZED DRUG - OTHER] XX SCH (06:06)
[2018-03-07] MEDS: FESOTERODINE FUMARATE 8 MG XX SCH (06:06)
--- NOTE | 2018-03-07 06:36 | NUR ---
END OF THE SHIFT:PT. IS AA,O X 4 ;AV PACE/SINUS RHYTHM ON THE MONITOR.DILAUDID IV AND SCHEDULED NORCO PO ARE FOR CHRONIC PAIN MANAGEMENT.VS-WNL. CONTINUE ORDERED ANTIBIOTICS.
--- NOTE | 2018-03-07 06:52 | PN ---
Date/Time of Note Date/Time of Note DATE: 03/07/18 TIME: 06:46 Assessment/Plan VTE Prophylaxis Risk score (from Ns)>0 risk: 7 SCD applied (from Ns): Yes Pharmacological prophylaxis: NA/contraindicated Pharm contraindication: low risk/ambulating Lines/Catheters IV Catheter Type (from [facility]): Mid Line Assessment/Plan Hospital Course 77 yo female presented with coffee ground colored emesis and heartburn 1. Esophagitis 2. Gastritis 3. Dilated biliary system -ALT and AST have gone up -r/o bile duct stone or biliary stenosis 4. COPD 5. DM 6. S/P pacemaker 7. 1 cm hiatal hernia 8. Staph Aureus in urine 9. MRSA in nares Plan: PPI BID Aspiration precautions Pending histopathology Pt examined and plan of care discussed with Dr. Samayoa Result Diagram: 03/07/18 0507 03/07/18 0507 Results 24hrs Laboratory Tests Test 03/07/18 05:07 White Blood Count 8.2 Red Blood Count 3.59 L Hemoglobin 10.6 L Hematocrit 31.9 L Mean Corpuscular Volume 88.9 Mean Corpuscular Hemoglobin 29.5 Mean Corpuscular Hemoglobin Concent 33.2 Red Cell Distribution Width 13.3 Platelet Count 152 Mean Platelet Volume 12.5 H Immature Granulocytes % 2.700 H Neutrophils % 78.4 H Lymphocytes % 12.8 L Monocytes % 5.9 Eosinophils % 0.0 Basophils % 0.2 Nucleated Red Blood Cells % 0.0 Immature Granulocytes # 0.220 H Neutrophils # 6.4 Lymphocytes # 1.1 Monocytes # 0.5 Eosinophils # 0.0 Basophils # 0.0 Nucleated Red Blood Cells # 0.0 Sodium Level 144 Potassium Level 3.9 Chloride Level 109 Carbon Dioxide Level 28 Anion Gap 7 Blood Urea Nitrogen 22 H Creatinine 0.84 Est Glomerular Filtrat Rate mL/min Glucose Level 225 H Calcium Level 8.2 L Phosphorus Level 2.5 Magnesium Level 2.0 Total Bilirubin 0.1 L Direct Bilirubin 0.00 Indirect Bilirubin 0.1 Aspartate Amino Transf (AST/SGOT) 59 H Alanine Aminotransferase (ALT/SGPT) 97 H Alkaline Phosphatase 73 Total Protein 5.9 L Albumin 3.1 L Subjective 24 Hr Interval Summary Free Text/Dictation Pt does not c/o abdominal pain or nausea. Main complaint is of pain in RLE which she describes as nerve pain. Exam/Review of Systems Vital Signs Vitals Vital Signs Date Temp Pulse Resp B/P (MAP) Pulse Ox O2 O2 Flow FiO2 Time Delivery Rate 03/07/18 98.3 70 18 143/65 99 04:04 (91) 03/06/18 Nasal 2.0 19:30 Cannula 03/03/18 21 19:39 Intake and Output 03/06/18 03/06/18 03/07/18 1515:00 23:00 07:00 IntakeIntake Total 600 ml 800 ml BalanceBalance 600 ml 800 ml Exam Constitutional: alert, oriented Psych: no complaints Head: normocephalic Eyes: PERRL ENMT: mucosa pink and moist Respiratory: clear to auscultation Cardiovascular: regular rate and rhythm Gastrointestinal: soft, non-tender Musculoskeletal: nl extremities to inspection Extremities: normal pulses Neurological: nl mental status Medications Medications Current Medications Acetaminophen (Tylenol Tab) 650 mg Q6H PRN PO MILD PAIN LEVEL 1-3; Start 03/04/18 at 00:00 Albuterol (Ventolin Hfa) 2 puff Q4H RESP THERAPY INH Last administered on 03/06/18 09:00; Admin Dose 2 PUFF; Start 03/04/18 at 01:00 Aripiprazole (Abilify) 5 mg DAILY PO Last administered on 03/06/18 09:26; Admin Dose 5 MG; Start 03/04/18 at 09:00 Clotrimazole (Lotrimin Cr) 1 applic BID TOP Last administered on 03/06/18 20:41; Admin Dose 1 APPLIC; Start 03/04/18 at 09:00 Docusate Sodium (Colace) 100 mg BID PO Last administered on 03/06/18 20:24; Admin Dose 100 MG; Start 03/04/18 at 09:00 Duloxetine HCl (Cymbalta) 60 mg DAILY PO Last administered on 03/06/18 09:26; Admin Dose 60 MG; Start 03/04/18 at 09:00 Ferrous Sulfate (Ferrous Sulfate (Ec)) 325 mg DAILY PO Last administered on 03/06/18 09:26; Admin Dose 325 MG; Start 03/04/18 at 09:00 Fluticasone Propionate (Flonase 0.05% Nasal) 1 spray DAILY NASAL Last administered on 03/06/18 09:29; Admin Dose 1 SPRAY; Start 03/04/18 at 09:00 Acetaminophen/ Hydrocodone Bitart ([place] (10/325)) 1 tab TID PO Last administered on 03/06/18 20:31; Admin Dose 1 TAB; Start 03/04/18 at 00:00 Albuterol/ Ipratropium (Duoneb) 3 ml Q2H RESP THERAPY PRN INH WHEEZING AND SOB; Start 03/04/18 at 00:00 Loperamide HCl (Imodium Cap) 2 mg Q4H PRN PO DIARRHEA; Start 03/04/18 at 00:00 Loratadine (Claritin) 10 mg DAILY PO Last administered on 03/06/18 09:26; Admin Dose 10 MG; Start 03/04/18 at 09:00 Lorazepam (Ativan) 0.5 mg Q8 PRN PO ANXIETY; Start 03/04/18 at 00:00 Multivitamins Therapeutic (Theragran) 1 tab DAILY PO Last administered on 03/06/18 09:26; Admin Dose 1 TAB; Start 03/04/18 at 09:00 Nitroglycerin (Nitroglycerin (Sl Tab) 0.4 Mg) 1 tab [id number] PRN SL CHEST PAIN; Start 03/04/18 at 00:00 Nystatin/ Triamcinolone Acetonide (Mycolog Cr) 1 applic BID TOP Last administered on 03/06/18 20:41; Admin Dose 1 APPLIC; Start 03/04/18 at 09:00 Ondansetron HCl (Zofran Tab) 4 mg Q12H PRN PO NAUSEA AND/OR VOMITING; Start 03/04/18 at 00:00 Pantoprazole (Protonix Tab) 40 mg AC BREAKFAST PO Last administered on 03/07/18 06:05; Admin Dose 40 MG; Start 03/04/18 at 07:00 Tamsulosin HCl (Flomax) 0.4 mg QPM PO Last administered on 03/06/18 20:24; Admin Dose 0.4 MG; Start 03/04/18 at 21:00 Zolpidem Tartrate (Ambien) 10 mg QHS PRN PO INSOMNIA Last administered on 03/06/18 21:39; Admin Dose 10 MG; Start 03/04/18 at 00:00 Miscellaneous Information 8 mg DAILY PO ; Start 03/04/18 at 09:00; Status UNV Cholecalciferol (Vitamin D) 2,000 unit DAILY PO Last administered on 03/06/18 09:26; Admin Dose 2,000 UNIT; Start 03/04/18 at 09:00 Cefepime HCl 50 ml @ 100 mls/hr Q24H IVPB Last administered on 03/06/18 15:35; Admin Dose 100 MLS/HR; Start 03/04/18 at 15:00 Hydromorphone HCl (Dilaudid) 0.5 mg Q4H PRN IV SEVERE PAIN LEVEL 7-10 Last administered on 03/06/18 21:40; Admin Dose 0.5 MG; Start 03/04/18 at 14:30 Miscellaneous Information (*Order Clarification Bulletin) Fesoterodine Fumarate (Toviaz) 8 ... Q8H XX ; Start 03/04/18 at 15:00 Mupirocin (Bactroban) 1 applic BID TOP Last administered on 03/06/18 20:25; Admin Dose 1 APPLIC; Start 03/05/18 at 21:00 Vancomycin HCl (Vanco Iv Per Pharmacy) VANCOMYCIN PER PHARMACY PER PROTOCOL XX ; Start 03/05/18 at 17:30 Vancomycin HCl 250 ml @ 125 mls/hr Q24H IVPB Last administered on 03/06/18 21:45; Admin Dose 125 MLS/HR; Start 03/06/18 at 22:00 Methylprednisolone Sodium Succinate (Solu-Medrol) 40 mg Q12 IV Last administered on 03/06/18 20:23; Admin Dose 40 MG; Start 03/06/18 at 21:00 JOSE LUIS CALVO Mar 07, 2018 06:52
--- NOTE | 2018-03-07 08:02 | CONS ---
Date/Time of Note Date/Time of Note DATE: 03/07/18 TIME: 08:02 Consult Date/Type/Reason Admit Date/Time Mar 03, 2018 at 21:07 Initial Consult Date 03/04/18 Type of Consultation: cv Requesting Provider: JULIAN LOPEZ MD Subjective Cardiology follow-up progress note Objective: Discussed with the staff and rhythm was reviewed. Patient with normal sinus rhythm. no chest pain or pressure; no more bleeding s/p endoscopy 03/05 Patient complains of right foot pain Objective: General: Elderly female in no acute distress HEENT: NC/AT. pupils are equal. round. NECK: NO JVD. no stridor. CV: RRR. systolic murmur; no gallop or rubs. PULM: With diffuse wheezing/rhonchi. GI: SOFT, NT, ND, no rebound or guarding Extremity: trace B/L LE edema. no clubbing. neuro: awake and alert, responds appropriately Psych: calm now rectal: deferred EKG was personally showed normal sinus rhythm with demand ventricular paced Chest x-ray shows: 1. Atherosclerosis of the thoracic aorta. 2. Stable pacemaker. Otherwise radiographically unremarkable senescent chest. Objective Vital Signs Date Temp Pulse Resp B/P (MAP) Pulse Ox O2 O2 Flow FiO2 Time Delivery Rate 03/07/18 97.5 66 20 141/66 98 Nasal 07:48 (91) Cannula 03/06/18 2.0 19:30 03/03/18 21 19:39 Intake and Output 03/06/18 03/06/18 03/07/18 1414:59 22:59 06:59 IntakeIntake Total 600 ml 800 ml BalanceBalance 600 ml 800 ml Results/Medications Result Diagram: 03/07/18 0507 03/07/18 0507 Results 24 hrs Laboratory Tests Test 03/07/18 05:07 White Blood Count 8.2 Red Blood Count 3.59 L Hemoglobin 10.6 L Hematocrit 31.9 L Mean Corpuscular Volume 88.9 Mean Corpuscular Hemoglobin 29.5 Mean Corpuscular Hemoglobin Concent 33.2 Red Cell Distribution Width 13.3 Platelet Count 152 Mean Platelet Volume 12.5 H Immature Granulocytes % 2.700 H Neutrophils % 78.4 H Lymphocytes % 12.8 L Monocytes % 5.9 Eosinophils % 0.0 Basophils % 0.2 Nucleated Red Blood Cells % 0.0 Immature Granulocytes # 0.220 H Neutrophils # 6.4 Lymphocytes # 1.1 Monocytes # 0.5 Eosinophils # 0.0 Basophils # 0.0 Nucleated Red Blood Cells # 0.0 Sodium Level 144 Potassium Level 3.9 Chloride Level 109 Carbon Dioxide Level 28 Anion Gap 7 Blood Urea Nitrogen 22 H Creatinine 0.84 Est Glomerular Filtrat Rate mL/min Glucose Level 225 H Calcium Level 8.2 L Phosphorus Level 2.5 Magnesium Level 2.0 Total Bilirubin 0.1 L Direct Bilirubin 0.00 Indirect Bilirubin 0.1 Aspartate Amino Transf (AST/SGOT) 59 H Alanine Aminotransferase (ALT/SGPT) 97 H Alkaline Phosphatase 73 Total Protein 5.9 L Albumin 3.1 L Medications Current Medications Acetaminophen (Tylenol Tab) 650 mg Q6H PRN PO MILD PAIN LEVEL 1-3; Start 03/04/18 at 00:00 Albuterol (Ventolin Hfa) 2 puff Q4H RESP THERAPY INH Last administered on 03/06/18 09:00; Admin Dose 2 PUFF; Start 03/04/18 at 01:00 Aripiprazole (Abilify) 5 mg DAILY PO Last administered on 03/06/18 09:26; Admin Dose 5 MG; Start 03/04/18 at 09:00 Clotrimazole (Lotrimin Cr) 1 applic BID TOP Last administered on 03/06/18 20:41; Admin Dose 1 APPLIC; Start 03/04/18 at 09:00 Docusate Sodium (Colace) 100 mg BID PO Last administered on 03/06/18 20:24; Admin Dose 100 MG; Start 03/04/18 at 09:00 Duloxetine HCl (Cymbalta) 60 mg DAILY PO Last administered on 03/06/18 09:26; Admin Dose 60 MG; Start 03/04/18 at 09:00 Ferrous Sulfate (Ferrous Sulfate (Ec)) 325 mg DAILY PO Last administered on 03/06/18 09:26; Admin Dose 325 MG; Start 03/04/18 at 09:00 Fluticasone Propionate (Flonase 0.05% Nasal) 1 spray DAILY NASAL Last administered on 03/06/18 09:29; Admin Dose 1 SPRAY; Start 03/04/18 at 09:00 Acetaminophen/ Hydrocodone Bitart ([place] (10/325)) 1 tab TID PO Last administered on 03/06/18 20:31; Admin Dose 1 TAB; Start 03/04/18 at 00:00 Albuterol/ Ipratropium (Duoneb) 3 ml Q2H RESP THERAPY PRN INH WHEEZING AND SOB; Start 03/04/18 at 00:00 Loperamide HCl (Imodium Cap) 2 mg Q4H PRN PO DIARRHEA; Start 03/04/18 at 00:00 Loratadine (Claritin) 10 mg DAILY PO Last administered on 03/06/18 09:26; Admin Dose 10 MG; Start 03/04/18 at 09:00 Lorazepam (Ativan) 0.5 mg Q8 PRN PO ANXIETY; Start 03/04/18 at 00:00 Multivitamins Therapeutic (Theragran) 1 tab DAILY PO Last administered on 03/06/18 09:26; Admin Dose 1 TAB; Start 03/04/18 at 09:00 Nitroglycerin (Nitroglycerin (Sl Tab) 0.4 Mg) 1 tab [id number] PRN SL CHEST PAIN; Start 03/04/18 at 00:00 Nystatin/ Triamcinolone Acetonide (Mycolog Cr) 1 applic BID TOP Last administered on 03/06/18 20:41; Admin Dose 1 APPLIC; Start 03/04/18 at 09:00 Ondansetron HCl (Zofran Tab) 4 mg Q12H PRN PO NAUSEA AND/OR VOMITING; Start 03/04/18 at 00:00 Pantoprazole (Protonix Tab) 40 mg AC BREAKFAST PO Last administered on 03/07/18 06:05; Admin Dose 40 MG; Start 03/04/18 at 07:00 Tamsulosin HCl (Flomax) 0.4 mg QPM PO Last administered on 03/06/18 20:24; Admin Dose 0.4 MG; Start 03/04/18 at 21:00 Zolpidem Tartrate (Ambien) 10 mg QHS PRN PO INSOMNIA Last administered on 03/06/18 21:39; Admin Dose 10 MG; Start 03/04/18 at 00:00 Miscellaneous Information 8 mg DAILY PO ; Start 03/04/18 at 09:00; Status UNV Cholecalciferol (Vitamin D) 2,000 unit DAILY PO Last administered on 03/06/18 09:26; Admin Dose 2,000 UNIT; Start 03/04/18 at 09:00 Cefepime HCl 50 ml @ 100 mls/hr Q24H IVPB Last administered on 03/06/18 15 :35; Admin Dose 100 MLS/HR; Start 03/04/18 at 15:00 Hydromorphone HCl (Dilaudid) 0.5 mg Q4H PRN IV SEVERE PAIN LEVEL 7-10 Last administered on 03/06/18 21:40; Admin Dose 0.5 MG; Start 03/04/18 at 14:30 Miscellaneous Information (*Order Clarification Bulletin) Fesoterodine Fumarate (Toviaz) 8 ... Q8H XX ; Start 03/04/18 at 15:00 Mupirocin (Bactroban) 1 applic BID TOP Last administered on 03/06/18 20:25; Admin Dose 1 APPLIC; Start 03/05/18 at 21:00 Vancomycin HCl (Vanco Iv Per Pharmacy) VANCOMYCIN PER PHARMACY PER PROTOCOL XX ; Start 03/05/18 at 17:30 Vancomycin HCl 250 ml @ 125 mls/hr Q24H IVPB Last administered on 03/06/18 21:45; Admin Dose 125 MLS/HR; Start 03/06/18 at 22:00 Methylprednisolone Sodium Succinate (Solu-Medrol) 40 mg Q12 IV Last administered on 03/06/18 20:23; Admin Dose 40 MG; Start 03/06/18 at 21:00 Assessment/Plan Chief Complaint/Hosp Course 1. Sick sinus syndrome with permanent pacemaker 2. History of reported congestive heart failure: Appears to be at this point no evidence of congestive heart failure and patient mostly has COPD 3. COPD 4. Possible GI bleed versus hemoptysis 5. Hypertension: Good control 6. History of psych disorder and bipolar disorder Recommendation: Patient has been follow with me in the office and pacemaker has been regularly checked has been normal function. At this point does not appear to be fluid overloaded Continue with the PPI. Follow-up with GI recommendations We will monitor on telemetry GI workup as per internal medicine/ GI financial reporting consultant Respiratory care as per internal medicine as well. DM management as per Dr. Lopez Pain management as per internal medicine Thank you for his referral. We will continue to follow along with you AMADOU GOMEZ MD [facility] AMADOU GOMEZ MD Mar 07, 2018 08:02
[2018-03-07] MEDS: NYSTATIN/TRIAMCINOLONE 15 GM CR TOP SCH ×2 (08:29→20:25)
[2018-03-07] MEDS: FLUTICASONE 0.05% 16 GM NAS SPRAY NASAL SCH (08:30)
[2018-03-07] MEDS: BALSAM PERU/CASTOR OIL 60 GM TUBE TOP SCH (08:30)
[2018-03-07] MEDS: CLOTRIMAZOLE 1% 30 GM CR TOP SCH ×2 (08:30→20:25)
[2018-03-07] MEDS: METHYLPREDNISOLONE 40 MG INJ IV SCH ×2 (08:31→20:23)
[2018-03-07] MEDS: LORATADINE 10 MG TAB PO SCH (08:31)
[2018-03-07] MEDS: DULOXETINE 30 MG CAP DR PO SCH (08:31)
[2018-03-07] MEDS: CHOLECALCIFEROL 2,000 UNIT CAP PO SCH (08:31)
[2018-03-07] MEDS: ARIPIPRAZOLE 5 MG TAB PO SCH (08:31)
[2018-03-07] MEDS: MULTIVITAMINS THERAPEUTIC TAB PO SCH (08:31)
[2018-03-07] MEDS: DOCUSATE SODIUM 100 MG CAP PO SCH ×3 (08:31→20:29)
[2018-03-07] MEDS: FERROUS SULFATE (EC) 325 MG TAB PO SCH (08:32)
[2018-03-07] MEDS: MUPIROCIN 2% 22 GM OINT TOP SCH ×2 (08:32→20:26)
[2018-03-07] MEDS: HYDROCODONE/APAP (10/325) TAB PO SCH ×3 (08:34→20:28)
--- NOTE | 2018-03-07 12:52 | CONS ---
Date/Time of Note Date/Time of Note DATE: 03/07/18 TIME: 12:46 Consult Date/Type/Reason Admit Date/Time Mar 03, 2018 at 21:07 Initial Consult Date 03/04/18 Type of Consultation: Urology Reason for Consultation Left hydronephrosis and urinary tract infection Requesting Provider: JULIAN DOMÍNGUEZ MD Subjective Patient states that her back pain is less but she does have pain in the right lower extremity mostly around the right ankle. Objective Vital Signs Date Temp Pulse Resp B/P (MAP) Pulse Ox O2 O2 Flow FiO2 Time Delivery Rate 03/07/18 60 12:11 03/07/18 98.3 20 140/68 97 Nasal 11:34 (92) Cannula 03/07/18 2.0 08:00 03/03/18 21 19:39 Intake and Output 03/06/18 03/06/18 03/07/18 1515:00 23:00 07:00 IntakeIntake Total 600 ml 800 ml BalanceBalance 600 ml 800 ml Exam Abdomen is soft, there is no flank tenderness. Results/Medications Result Diagram: 03/07/18 0507 03/07/18 0507 Results 24 hrs Laboratory Tests Test 03/07/18 05:07 White Blood Count 8.2 Red Blood Count 3.59 L Hemoglobin 10.6 L Hematocrit 31.9 L Mean Corpuscular Volume 88.9 Mean Corpuscular Hemoglobin 29.5 Mean Corpuscular Hemoglobin Concent 33.2 Red Cell Distribution Width 13.3 Platelet Count 152 Mean Platelet Volume 12.5 H Immature Granulocytes % 2.700 H Neutrophils % 78.4 H Lymphocytes % 12.8 L Monocytes % 5.9 Eosinophils % 0.0 Basophils % 0.2 Nucleated Red Blood Cells % 0.0 Immature Granulocytes # 0.220 H Neutrophils # 6.4 Lymphocytes # 1.1 Monocytes # 0.5 Eosinophils # 0.0 Basophils # 0.0 Nucleated Red Blood Cells # 0.0 Sodium Level 144 Potassium Level 3.9 Chloride Level 109 Carbon Dioxide Level 28 Anion Gap 7 Blood Urea Nitrogen 22 H Creatinine 0.84 Est Glomerular Filtrat Rate mL/min Glucose Level 225 H Calcium Level 8.2 L Phosphorus Level 2.5 Magnesium Level 2.0 Total Bilirubin 0.1 L Direct Bilirubin 0.00 Indirect Bilirubin 0.1 Aspartate Amino Transf (AST/SGOT) 59 H Alanine Aminotransferase (ALT/SGPT) 97 H Alkaline Phosphatase 73 Total Protein 5.9 L Albumin 3.1 L Medications Current Medications Acetaminophen (Tylenol Tab) 650 mg Q6H PRN PO MILD PAIN LEVEL 1-3; Start 03/04/18 at 00:00 Albuterol (Ventolin Hfa) 2 puff Q4H RESP THERAPY INH Last administered on 03/07/18 08:31; Admin Dose 2 PUFF; Start 03/04/18 at 01:00 Aripiprazole (Abilify) 5 mg DAILY PO Last administered on 03/07/18 08:31; Admin Dose 5 MG; Start 03/04/18 at 09:00 Clotrimazole (Lotrimin Cr) 1 applic BID TOP Last administered on 03/07/18 08:30; Admin Dose 1 APPLIC; Start 03/04/18 at 09:00 Docusate Sodium (Colace) 100 mg BID PO Last administered on 03/07/18 08:31; Admin Dose 100 MG; Start 03/04/18 at 09:00 Duloxetine HCl (Cymbalta) 60 mg DAILY PO Last administered on 03/07/18 08:31; Admin Dose 60 MG; Start 03/04/18 at 09:00 Ferrous Sulfate (Ferrous Sulfate (Ec)) 325 mg DAILY PO Last administered on 03/07/18 08:32; Admin Dose 325 MG; Start 03/04/18 at 09:00 Fluticasone Propionate (Flonase 0.05% Nasal) 1 spray DAILY NASAL Last administered on 03/07/18 08:30; Admin Dose 1 SPRAY; Start 03/04/18 at 09:00 Acetaminophen/ Hydrocodone Bitart ([place] (10/325)) 1 tab TID PO Last administered on 03/07/18 08:34; Admin Dose 1 TAB; Start 03/04/18 at 00:00 Albuterol/ Ipratropium (Duoneb) 3 ml Q2H RESP THERAPY PRN INH WHEEZING AND SOB; Start 03/04/18 at 00:00 Loperamide HCl (Imodium Cap) 2 mg Q4H PRN PO DIARRHEA; Start 03/04/18 at 00:00 Loratadine (Claritin) 10 mg DAILY PO Last administered on 03/07/18 08:31; Admin Dose 10 MG; Start 03/04/18 at 09:00 Lorazepam (Ativan) 0.5 mg Q8 PRN PO ANXIETY; Start 03/04/18 at 00:00 Multivitamins Therapeutic (Theragran) 1 tab DAILY PO Last administered on 03/07/18 08:31; Admin Dose 1 TAB; Start 03/04/18 at 09:00 Nitroglycerin (Nitroglycerin (Sl Tab) 0.4 Mg) 1 tab [id number] PRN SL CHEST PAIN; Start 03/04/18 at 00:00 Nystatin/ Triamcinolone Acetonide (Mycolog Cr) 1 applic BID TOP Last administered on 03/07/18 08:29; Admin Dose 1 APPLIC; Start 03/04/18 at 09:00 Ondansetron HCl (Zofran Tab) 4 mg Q12H PRN PO NAUSEA AND/OR VOMITING; Start 03/04/18 at 00:00 Pantoprazole (Protonix Tab) 40 mg AC BREAKFAST PO Last administered on 03/07/18 06:05; Admin Dose 40 MG; Start 03/04/18 at 07:00 Tamsulosin HCl (Flomax) 0.4 mg QPM PO Last administered on 03/06/18 20:24; Admin Dose 0.4 MG; Start 03/04/18 at 21:00 Zolpidem Tartrate (Ambien) 10 mg QHS PRN PO INSOMNIA Last administered on 03/06/18 21:39; Admin Dose 10 MG; Start 03/04/18 at 00:00 Miscellaneous Information 8 mg DAILY PO ; Start 03/04/18 at 09:00; Status UNV Cholecalciferol (Vitamin D) 2,000 unit DAILY PO Last administered on 03/07/18 08:31; Admin Dose 2,000 UNIT; Start 03/04/18 at 09:00 Cefepime HCl 50 ml @ 100 mls/hr Q24H IVPB Last administered on 03/06/18 15:35; Admin Dose 100 MLS/HR; Start 03/04/18 at 15:00 Hydromorphone HCl (Dilaudid) 0.5 mg Q4H PRN IV SEVERE PAIN LEVEL 7-10 Last administered on 03/06/18 21:40; Admin Dose 0.5 MG; Start 03/04/18 at 14:30 Miscellaneous Information (*Order Clarification Bulletin) Fesoterodine Fumarate (Toviaz) 8 ... Q8H XX ; Start 03/04/18 at 15:00 Mupirocin (Bactroban) 1 applic BID TOP Last administered on 03/07/18at 08:32; Admin Dose 1 APPLIC; Start 03/05/18 at 21:00 Vancomycin HCl (Vanco Iv Per Pharmacy) VANCOMYCIN PER PHARMACY PER PROTOCOL XX ; Start 03/05/18 at 17:30 Vancomycin HCl 250 ml @ 125 mls/hr Q24H IVPB Last administered on 03/06/18at 21:45; Admin Dose 125 MLS/HR; Start 03/06/18 at 22:00 Methylprednisolone Sodium Succinate (Solu-Medrol) 40 mg Q12 IV Last administered on 03/07/18at 08:31; Admin Dose 40 MG; Start 03/06/18 at 21:00 Gabapentin (Neurontin) 100 mg TID PO ; Start 03/07/18 at 13:00 Assessment/Plan Chief Complaint/Hosp Course 77-year-old female admitted because of hematemesis and possible hemoptysis. She underwent a CT scan of the abdomen and pelvis and that showed mild left hydronephrosis without obstructing ureteral stone. Therefore a urological consultation was requested the patient is known to me from before and back about 10-year ago she had a 1.1 cm stone in the left ureter which was removed and she had a JJ stent inserted and then later on removed. Patient presently states that she has pain in the epigastric area and also in the left side of the abdomen. She denies any associated nausea or vomiting however she was brought b ecause of the hematemesis. She denies any lower urinary tract symptoms. No dysuria and no gross hematuria. CT scan of the abdomen and pelvis: 1. Left renal atrophy and upper pole scarring has evolved since 12/06/2016, with mild left hydroureteronephrosis to the level of the iliac crossing without identifiable ureterolithiasis, possibly reflecting recent stone passage or ureteral obstruction due to scarring or urothelial mass lesion. Clinical correlation recommended with consideration for further evaluation with urologic imaging. 2. Punctate nonobstructive left nephrolithiasis. 3. Minimal left colonic diverticulosis without evidence of acute diverticulitis. The bowel is unobstructed without evidence of perforation or abscess. 4. Moderate stool burden in the right colon and dense stool in the left colon may reflect constipation. 5. Small sliding hiatal hernia with suggestion of mild wall thickening in the distal thoracic esophagus which may reflect esophagitis or neoplasm. 6. New borderline extrahepatic biliary ductal dilatation, with stable hydropic distension of the gallbladder, possibly reflecting choledocholithiasis or biliary stenosis. Clinical correlation recommended with consideration for further evaluation with nuclear medicine HIDA scan or MRCP/ERCP. 7. Stable mild hepatomegaly. 8. Stable borderline portacaval lymphadenopathy, most likely reactive. 9. Stable bilateral common iliac/IVC filters. 10. Mild cardiomegaly appears slightly improved since 12/06/2016 Patient does have mild hydronephrosis on the left side. Patient states today that her flank pain is less and she is mostly complaining of right lower extremity pain around the ankle. The urine culture did show MRSA. The patient is already on vancomycin and cefepime. Urologically will just treat the infection. PAIGE SOTOMAYOR MD Mar 07, 2018 12:52
--- NOTE | 2018-03-07 13:15 | PN ---
DATE: 03/07/2018 SUBJECTIVE: The patient was seen, complaining of heel pain; otherwise, feeling slightly better . MRSA of the urine cultures was noted. The patient is on antibiotics with vancomycin. MRSA of the nares is positive as well. PHYSICAL EXAMINATION: VITAL SIGNS: Temperature 97.5, pulse 61, respirations 20, blood pressure 141/66, saturation 98%. GENERAL: The patient is in no acute distress. HEENT: The patient is pale. Temporal wasting. CARDIOVASCULAR: S1 and S2. Regular rate. LUNGS: Clear. ABDOMEN: Soft, nontender. EXTREMITIES: No clubbing, cyanosis or edema. Full range of motion of the legs. LABORATORY DATA: White count is 8.2, hemoglobin 10.6, hematocrit 32, platelet count 152, neutrophils 78%, lymphocytes 13%. Chemistry: Sodium 144, potassium 3.9, chloride 109, bicarbonate 28, BUN is 2 2, creatinine 0.84, glucose elevated at 225. Leukocyte esterase +3 in the urine. The patient's B12 was 446. Glucose is higher due to the patient being on steroids. MEDICATIONS: 1. Neurontin I started her on 100 mg t.i.d. 2. Solu-Medrol 40 IV q.12. 3. Bactroban b.i.d. 4. Vancomycin dose per pharmacy. 5. Flomax 0.4 q.p.m. 6. Cefepime 1 g q.24 hours. 7. Dilaudid p.r.n. 8. Abilify 5 mg daily. 9. Lotrimin cream b.i.d. 10. Colace 100 b.i.d. 11. Cymbalta 60 daily. 12. Ferrous sulfate 325 daily. 13. Flonase daily. 14. Claritin 10 mg daily. 15. Multivitamin 1 tab daily. 16. Nystatin as directed. 17. Vitamin D 2000 daily. 18. Protonix 40 mg daily. 19. Albuterol as directed. 20. Tylenol as directed. 21. Winifred as directed. 22. DuoNeb as directed. 23. Imodium as directed. 24. Ativan. 25. Nitroglycerin. 26. Zofran. 27. Ambien. ASSESSMENT AND PLAN: This is a 77-year-old female with history of chronic obstructive pulm onary disease, recurrent urinary tract infections, history of nephrolithiasis, depression, psychiatri c disorder, who presented with chronic obstructive pulmonary disease exacerbation and coffee-ground e mesis. 1. Respiratory. Continue treatment for chronic obstructive pulmonary disease with antibiotics and t aper down steroids. 2. Cardiovascular, stable. Cardiology is following. Pacemaker is working appropriately. 3. Left flank pain with hydronephrosis noted on both CT and ultrasound. Urology is following. 4. Recurrent urinary tract infection possibly maybe due to her kidney stones. The patient has posit desire methicillin-resistant Staphylococcus aureus. Continue vancomycin. Transition to oral Bactrim. 5. Left heel pain. We will obtain an x-ray of the left heel. Check uric acid levels. 6. Psychiatric disorder. Resume all psych meds. 7. Physical therapy as tolerated. 8. Disposition soon. The patient can be downgraded to med/surg floor. Dictated By: JULIAN SANCHEZ/CYNTHIA Conf#: [id number] DID#: [id number] CC: PAIGE SOTOMAYOR MD;*End*
--- NOTE | 2018-03-07 13:15 | NUR ---
PT evaluation Therapy day number 1 Evaluation Start Time 13:15 Evaluation End Time 14:10 Evaluation Total Time 55 min Subjective Current complaint of pain Pain Scale FACES Pain Intensity 8 (0-10) Patient Stated Goal for Pain Relief 0 (0-10) Pain Level Comment R foot based on position Pre Treatment Vital Signs Stable Yes Supine to Sit Modified Independent Transfer Sit to Stand Ability Supervised Bed Mobility Sit to Supine Modified Independent Bed Transfer Ability Supervised Chair Transfer Ability Supervised Additional Mobility Comments requires UE support for standing Additional Gait Comments pt unable to ambulate due to pain with upright posture Static Sitting Balance Fair Dynamic Sitting Balance Fair Standing Static Balance Fair Dynamic Standing Balance Fair Safety Judgement Good Activity Tolerance Fair Equipment Present IV pump Additional Equipment Present on O2 2L Post Treatment Pain Intensity 8 0-10 Additional Post Treatment Comment See note Total Minutes 55 Total Units 4 PT Technical Record Comment 77 yo female presents with cough, dark blood coming from mouth and L flank pain. R Foot Xray (-), L/S xray from 02/04/17 indicates Chronic compression fractures of each of the vertebral bodies. PMH: chronic obstructive pulmonary disease, recurrent urinary tract infections, history of nephrolithiasis, depression, psychiatric disorder, who presented with chronic obstructive pulmonary disease exacerbation and coffee-ground emesis. Precaution: fall risk, Contact isolation PLOF: patient lives in assisted living receiving HHPT 2x/week Patient reports primarily wc bound but ambulates occasionally with FWW mod I S: Patient in bed, agreeable to PT evaluation with max encouragement. O: PT evaluation completed, pt returned back to bed following therapy intervention. patient educated on importance of physical therapy reasoning for progression of mobility. Spoke to RN regarding pt response to activity and PT plan of care. Pain with upright posture, but improved with figure 4 posture of RLE. No dizziness or shortness of breath throughout. A: Patient presents with good strength throughout however significantly limited by pain. Patient required max encouragement and education regarding symptomology and potential for radiating symptoms coming from back. Patient reports radiating RLE pain with palpation of L5. Patient anxious throughout and emotional with discussion of recovery. Pt hesitant to participate in physical therapy because "i've had 20 years of it already", but appreciative of this PT insight and understanding of PT POC. Focus of treatment to improving trunk strength, understanding of spinal precautions, and independence of HEP P: provide HEP and review spinal precautions Recommendation: home with assist and HHPT when medically cleared by . No DME required at this time
[2018-03-07] MEDS: GABAPENTIN 100 MG CAP PO SCH ×2 (13:56→20:26)
[2018-03-07] MEDS: CEFEPIME 1GM/50 ML (PMX) 50 ML IVPB SCH (15:22)
[2018-03-07] MEDS: TOLTERODINE (SR) 4 MG CAP PO SCH (19:05)
[2018-03-07] MEDS: HYDROmorphONE 0.5 MG/0.5 ML SYG IV PRN (19:06)
[2018-03-07] MEDS: TAMSULOSIN (SR) 0.4 MG CAP PO SCH (20:26)
[2018-03-07] MEDS: ZOLPIDEM 5 MG TAB PO PRN (20:26)
[2018-03-07] MEDS: VANCOMYCIN 1 GM 250 ML IVPB SCH (21:30)
[2018-03-08] MEDS: ALBUTEROL HFA 8 GM INHALER INH SCH ×2 (01:00→05:00)
[2018-03-08] MEDS: HYDROmorphONE 0.5 MG/0.5 ML SYG IV PRN (03:54)
[2018-03-08 04:00] VITALS: BP 158/71; PULSE 66; RESP 20
--- NOTE | 2018-03-08 04:09 | NUR ---
RECEIVED REPORT FROM LILLI HOWARD [facility] FOR CONTINUITY OF CARE .
--- NOTE | 2018-03-08 04:36 | NUR ---
REPORT GIVEN TO 2 [facility] RN GABO,PT. TRANSFERRED TO [facility](ROOM 2237) VIA BED ACCOMPANIED BY TRANSPORTER.
--- NOTE | 2018-03-08 04:45 | NUR ---
PATIENT ARRIVED ON UNIT VIA BED ACCOMPANIED BY TRANSPORT PERSONNEL . PATIENT ALERT AND ORIENTED X4 . V/S STABLE . .KEEP PATIENT CLEAN ,DRY AND COMFORTABLE .DENIES ANY PAIN /DISCOMFORT AT THIS TIME .ORIENTED PATIENT TO THE ENVIRONMENT . ASSUMED CARE . ASSESSMENT DONE .BED IN LOW POSITION . CALL PIZARRO PLACED WITHIN REACH . INSTRUCTED PATIENT TO USE CALL LIGHTS FOR ASSISTANCE . PATIENT VERBALIZED UNDERSTANDING .ALL NEEDS ANTICIPATED AND ATTENDED PROMPTLY.PATIENT PLACED ON ISOLATION FOR MRSA NARES AND URINE . WILL CONTINUE TO MONITOR .
[2018-03-08 04:57] VITALS: BP 128/72; PULSE 63; RESP 18
--- NOTE | 2018-03-08 08:10 | PN ---
Date/Time of Note Date/Time of Note DATE: 03/08/18 TIME: 08:07 Assessment/Plan VTE [place] [facility] [place]: 8 [place]CD applied [place] [facility] [place] Pharmacological prophylaxis: NA/contraindicated Pharm contraindication: bleeding Lines/Catheters IV [facility]ter [facility]from [facility] Mid Line Assessment/Plan Hospital Course 77 yo female presented with coffee ground colored emesis and heartburn 1. Esophagitis 2. Gastritis 3. Dilated biliary system -ALT/AST trending down -r/o bile duct stone or biliary stenosis 4. COPD 5. DM 6. S/P pacemaker 7. 1 cm hiatal hernia 8. Staph Aureus in urine 9. MRSA in nares 10. Mild transaminitis- trending down Plan: Pending liver otolaryngology nurse LFTs PPI BID Aspiration precautions Histopathology unremarkable Pt examined and plan of care discussed with Dr. Samayoa Result Diagram: 03/08/18 0531 03/08/18 0531 Results 24hrs Laboratory Tests Test 03/08/18 05:31 White Blood Count 7.0 Red Blood Count 3.73 L Hemoglobin 11.1 L Hematocrit 32.7 L Mean Corpuscular Volume 87.7 Mean Corpuscular Hemoglobin 29.8 Mean Corpuscular Hemoglobin Concent 33.9 Red Cell Distribution Width 13.2 Platelet Count 137 L Mean Platelet Volume 12.6 H Immature Granulocytes % 4.300 H Neutrophils % 75.1 Lymphocytes % 14.9 L Monocytes % 5.3 Eosinophils % 0.0 Basophils % 0.4 Nucleated Red Blood Cells % 0.3 H Immature Granulocytes # 0.300 H Neutrophils # 5.3 Lymphocytes # 1.1 Monocytes # 0.4 Eosinophils # 0.0 Basophils # 0.0 Nucleated Red Blood Cells # 0.0 Sodium Level 142 Potassium Level 3.8 Chloride Level 105 Carbon Dioxide Level 28 Anion Gap 9 Blood Urea Nitrogen 20 Creatinine 0.80 Est Glomerular Filtrat Rate mL/min Glucose Level 218 Uric Acid 3.4 Calcium Level 8.3 L Subjective 24 Hr Interval Summary Free Text/Dictation Denies abd pain, N/V. Tolerating diet. Exam/Review of Systems Vital Signs Vitals Vital Signs Date Temp Pulse Resp B/P (MAP) Pulse Ox O2 O2 Flow FiO2 Time Delivery Rate 03/08/18 98.4 63 18 128/72 99 04:57 (90) 03/08/18 Nasal 3.0 04:00 Cannula Intake and Output 03/07/18 03/07/18 03/08/18 1515:00 23:00 07:00 IntakeIntake Total 360 ml 440 ml 120 ml BalanceBalance 360 ml 440 ml 120 ml Exam Constitutional: alert, oriented Psych: no complaints Head: normocephalic Respiratory: clear to auscultation Cardiovascular: regular rate and rhythm Gastrointestinal: soft, non-tender Neurological: nl mental status Medications Medications Current Medications Acetaminophen (Tylenol Tab) 650 mg Q6H PRN PO MILD PAIN LEVEL 1-3; Start 03/04/18 at 00:00 Albuterol (Ventolin Hfa) 2 puff Q4H RESP THERAPY INH Last administered on 03/07/18 08:31; Admin Dose 2 PUFF; Start 03/04/18 at 01:00 Aripiprazole (Abilify) 5 mg DAILY PO Last administered on 03/07/18 08:31; Admin Dose 5 MG; Start 03/04/18 at 09:00 Clotrimazole (Lotrimin Cr) 1 applic BID TOP Last administered on 03/07/18 20:25; Admin Dose 1 APPLIC; Start 03/04/18 at 09:00 Docusate Sodium (Colace) 100 mg BID PO Last administered on 03/07/18 08:31; Admin Dose 100 MG; Start 03/04/18 at 09:00 Duloxetine HCl (Cymbalta) 60 mg DAILY PO Last administered on 03/07/18 08:31; Admin Dose 60 MG; Start 03/04/18 at 09:00 Ferrous Sulfate (Ferrous Sulfate (Ec)) 325 mg DAILY PO Last administered on 03/07/18 08:32; Admin Dose 325 MG; Start 03/04/18 at 09:00 Fluticasone Propionate (Flonase 0.05% Nasal) 1 spray DAILY NASAL Last administered on 03/07/18 08:30; Admin Dose 1 SPRAY; Start 03/04/18 at 09:00 Acetaminophen/ Hydrocodone Bitart ([place] (10/325)) 1 tab TID PO Last administered on 03/07/18 13:56; Admin Dose 1 TAB; Start 03/04/18 at 00:00 Albuterol/ Ipratropium (Duoneb) 3 ml Q2H RESP THERAPY PRN INH WHEEZING AND SOB; Start 03/04/18 at 00:00 Loperamide HCl (Imodium Cap) 2 mg Q4H PRN PO DIARRHEA; Start 03/04/18 at 00:00 Loratadine (Claritin) 10 mg DAILY PO Last administered on 03/07/18 08:31; Admin Dose 10 MG; Start 03/04/18 at 09:00 Lorazepam (Ativan) 0.5 mg Q8 PRN PO ANXIETY; Start 03/04/18 at 00:00 Multivitamins Therapeutic (Theragran) 1 tab DAILY PO Last administered on 02/11 08:31; Admin Dose 1 TAB; Start 03/04/18 at 09:00 Nitroglycerin (Nitroglycerin (Sl Tab) 0.4 Mg) 1 tab [id number] PRN SL CHEST PAIN; Start 03/04/18 at 00:00 Nystatin/ Triamcinolone Acetonide (Mycolog Cr) 1 applic BID TOP Last administered on 03/07/18 20:25; Admin Dose 1 APPLIC; Start 03/04/18 at 09:00 Ondansetron HCl (Zofran Tab) 4 mg Q12H PRN PO NAUSEA AND/OR VOMITING; Start 03/04/18 at 00:00 Pantoprazole (Protonix Tab) 40 mg AC BREAKFAST PO Last administered on 03/07/18 06:05; Admin Dose 40 MG; Start 03/04/18 at 07:00 Tamsulosin HCl (Flomax) 0.4 mg QPM PO Last administered on 03/07/18 20:26; Admin Dose 0.4 MG; Start 03/04/18 at 21:00 Zolpidem Tartrate (Ambien) 10 mg QHS PRN PO INSOMNIA Last administered on 03/07/18 20:26; Admin Dose 10 MG; Start 03/04/18 at 00:00 Cholecalciferol (Vitamin D) 2,000 unit DAILY PO Last administered on 03/07/18 08:31; Admin Dose 2,000 UNIT; Start 03/04/18 at 09:00 Cefepime HCl 50 ml @ 100 mls/hr Q24H IVPB Last administered on 03/07/18 15:22; Admin Dose 100 MLS/HR; Start 03/04/18 at 15:00 Hydromorphone HCl (Dilaudid) 0.5 mg Q4H PRN IV SEVERE PAIN LEVEL 7-10 Last administered on 03/08/18 03:54; Admin Dose 0.5 MG; Start 03/04/18 at 14:30 Mupirocin (Bactroban) 1 applic BID TOP Last administered on 03/07/18 20:26; Admin Dose 1 APPLIC; Start 03/05/18 at 21:00 Vancomycin HCl (Vanco Iv Per Pharmacy) VANCOMYCIN PER PHARMACY PER PROTOCOL XX ; Start 03/05/18 at 17:30 Vancomycin HCl 250 ml @ 125 mls/hr Q24H IVPB Last administered on 03/07/18 21:30; Admin Dose 125 MLS/HR; Start 03/06/18 at 22:00 Methylprednisolone Sodium Succinate (Solu-Medrol) 40 mg Q12 IV Last administered on 03/07/18 20:23; Admin Dose 40 MG; Start 03/06/18 at 21:00 Gabapentin (Neurontin) 100 mg TID PO Last administered on 03/07/18 20:26; Admin Dose 100 MG; Start 03/07/18 at 13:00 Tolterodine Tartrate (Detrol La) 4 mg DAILY PO Last administered on 03/07/18 19:05; Admin Dose 4 MG; Start 03/07/18 at 15:30 JOSE LUIS CALVO Mar 08, 2018 08:10
--- NOTE | 2018-03-08 08:17 | PDOCDIS ---
Discharge Instructions CONDITION [id number] Patient Condition: [id number] Stable HOME CARE INSTRUCTIONS: [id number] Special Diet: [id number] regular FOLLOW UP/APPOINTMENTS Follow-up Plan follow up with [facility] with prior home health for physical therapy (facility uses there own home health preference) JULIAN DOMÍNGUEZ MD Mar 08, 2018 08:17
[2018-03-08] MEDS ORDERED: GABA100C14 PO (08:21)
[2018-03-08] MEDS ORDERED: SULF1TAB31 PO (08:21)
[2018-03-08] MEDS ORDERED: MED4DP PO (08:27)
[2018-03-08 08:44] VITALS: BP 148/75; PULSE 59; RESP 18
--- NOTE | 2018-03-08 08:48 | CONS ---
Date/Time of Note Date/Time of Note DATE: 03/08/18 TIME: 08:47 Consult Date/Type/Reason Admit Date/Time Mar 03, 2018 at 21:07 Initial Consult Date 03/04/18 Type of Consultation: cv Requesting Provider: JULIAN LOPEZ MD Subjective Cardiology follow-up progress note Objective: Discussed with the staff and rhythm was reviewed. Patient is off tele now . no chest pain or pressure; no more bleeding s/p endoscopy 03/05 Patient with less right foot pain Objective: General: Elderly female in no acute distress HEENT: NC/AT. pupils are equal. round. NECK: NO JVD. no stridor. CV: RRR. systolic murmur; no gallop or rubs. PULM: With diffuse wheezing/rhonchi. GI: SOFT, NT, ND, no rebound or guarding Extremity: trace B/L LE edema. no clubbing. neuro: awake and alert, responds appropriately Psych: calm now rectal: deferred EKG was personally showed normal sinus rhythm with demand ventricular paced Chest x-ray shows: 1. Atherosclerosis of the thoracic aorta. 2. Stable pacemaker. Otherwise radiographically unremarkable senescent chest. Objective Vital Signs Date Temp Pulse Resp B/P (MAP) Pulse Ox O2 O2 Flow FiO2 Time Delivery Rate 03/08/18 97.8 59 18 148/75 98 Room Air 08:44 (99) 03/08/18 3.0 04:00 Intake and Output 03/07/18 03/07/18 03/08/18 1515:00 23:00 07:00 IntakeIntake Total 360 ml 440 ml 120 ml BalanceBalance 360 ml 440 ml 120 ml Results/Medications Result Diagram: 03/08/18 0531 03/08/18 0531 Results 24 hrs Laboratory Tests Test 03/08/18 05:31 White Blood Count 7.0 Red Blood Count 3.73 L Hemoglobin 11.1 L Hematocrit 32.7 L Mean Corpuscular Volume 87.7 Mean Corpuscular Hemoglobin 29.8 Mean Corpuscular Hemoglobin Concent 33.9 Red Cell Distribution Width 13.2 Platelet Count 137 L Mean Platelet Volume 12.6 H Immature Granulocytes % 4.300 H Neutrophils % 75.1 Lymphocytes % 14.9 L Monocytes % 5.3 Eosinophils % 0.0 Basophils % 0.4 Nucleated Red Blood Cells % 0.3 H Immature Granulocytes # 0.300 H Neutrophils # 5.3 Lymphocytes # 1.1 Monocytes # 0.4 Eosinophils # 0.0 Basophils # 0.0 Nucleated Red Blood Cells # 0.0 Sodium Level 142 Potassium Level 3.8 Chloride Level 105 Carbon Dioxide Level 28 Anion Gap 9 Blood Urea Nitrogen 20 Creatinine 0.80 Est Glomerular Filtrat Rate mL/min Glucose Level 218 Uric Acid 3.4 Calcium Level 8.3 L Medications Current Medications Acetaminophen (Tylenol Tab) 650 mg Q6H PRN PO MILD PAIN LEVEL 1-3; Start 03/04/18 at 00:00 Albuterol (Ventolin Hfa) 2 puff Q4H RESP THERAPY INH Last administered on 03/07/18 08:31; Admin Dose 2 PUFF; Start 03/04/18 at 01:00 Aripiprazole (Abilify) 5 mg DAILY PO Last administered on 03/07/18 08:31; Admin Dose 5 MG; Start 03/04/18 at 09:00 Clotrimazole (Lotrimin Cr) 1 applic BID TOP Last administered on 03/07/18 20:25; Admin Dose 1 APPLIC; Start 03/04/18 at 09:00 Docusate Sodium (Colace) 100 mg BID PO Last administered on 03/07/18 08:31; Admin Dose 100 MG; Start 03/04/18 at 09:00 Duloxetine HCl (Cymbalta) 60 mg DAILY PO Last administered on 03/07/18 08:31; Admin Dose 60 MG; Start 03/04/18 at 09:00 Ferrous Sulfate (Ferrous Sulfate (Ec)) 325 mg DAILY PO Last administered on 03/07/18 08:32; Admin Dose 325 MG; Start 03/04/18 at 09:00 Fluticasone Propionate (Flonase 0.05% Nasal) 1 spray DAILY NASAL Last administered on 03/07/18 08:30; Admin Dose 1 SPRAY; Start 03/04/18 at 09:00 Acetaminophen/ Hydrocodone Bitart ([place] (10/325)) 1 tab TID PO Last administered on 03/07/18 13:56; Admin Dose 1 TAB; Start 03/04/18 at 00:00 Albuterol/ Ipratropium (Duoneb) 3 ml Q2H RESP THERAPY PRN INH WHEEZING AND SOB; Start 03/04/18 at 00:00 Loperamide HCl (Imodium Cap) 2 mg Q4H PRN PO DIARRHEA; Start 03/04/18 at 00:00 Loratadine (Claritin) 10 mg DAILY PO Last administered on 03/07/18 08:31; Admin Dose 10 MG; Start 03/04/18 at 09:00 Lorazepam (Ativan) 0.5 mg Q8 PRN PO ANXIETY; Start 03/04/18 at 00:00 Multivitamins Therapeutic (Theragran) 1 tab DAILY PO Last administered on 03/07/18 08:31; Admin Dose 1 TAB; Start 03/04/18 at 09:00 Nitroglycerin (Nitroglycerin (Sl Tab) 0.4 Mg) 1 tab [id number] PRN SL CHEST PAIN; Start 03/04/18 at 00:00 Nystatin/ Triamcinolone Acetonide (Mycolog Cr) 1 applic BID TOP Last administered on 03/07/18 20:25; Admin Dose 1 APPLIC; Start 03/04/18 at 09:00 Ondansetron HCl (Zofran Tab) 4 mg Q12H PRN PO NAUSEA AND/OR VOMITING; Start 1 05/05/17 at 00:00 Pantoprazole (Protonix Tab) 40 mg AC BREAKFAST PO Last administered on 03/07/18 06:05; Admin Dose 40 MG; Start 03/04/18 at 07:00 Tamsulosin HCl (Flomax) 0.4 mg QPM PO Last administered on 03/07/18 20:26; Admin Dose 0.4 MG; Start 03/04/18 at 21:00 Zolpidem Tartrate (Ambien) 10 mg QHS PRN PO INSOMNIA Last administered on 03/07/18 20:26; Admin Dose 10 MG; Start 03/04/18 at 00:00 Cholecalciferol (Vitamin D) 2,000 unit DAILY PO Last administered on 03/07/18 08:31; Admin Dose 2,000 UNIT; Start 03/04/18 at 09:00 Cefepime HCl 50 ml @ 100 mls/hr Q24H IVPB Last administered on 03/07/18 15:22; Admin Dose 100 MLS/HR; Start 03/04/18 at 15:00 Hydromorphone HCl (Dilaudid) 0.5 mg Q4H PRN IV SEVERE PAIN LEVEL 7-10 Last administered on 03/08/18 03:54; Admin Dose 0.5 MG; Start 03/04/18 at 14:30 Mupirocin (Bactroban) 1 applic BID TOP Last administered on 03/07/18 20:26; Admin Dose 1 APPLIC; Start 03/05/18 at 21:00 Vancomycin HCl (Vanco Iv Per Pharmacy) VANCOMYCIN PER PHARMACY PER PROTOCOL XX ; Start 03/05/18 at 17:30 Vancomycin HCl 250 ml @ 125 mls/hr Q24H IVPB Last administered on 03/07/18 21:30; Admin Dose 125 MLS/HR; Start 03/06/18 at 22:00 Methylprednisolone Sodium Succinate (Solu-Medrol) 40 mg Q12 IV Last administered on 03/07/18 20:23; Admin Dose 40 MG; Start 03/06/18 at 21:00 Gabapentin (Neurontin) 100 mg TID PO Last administered on 03/07/18 20:26; Admin Dose 100 MG; Start 03/07/18 at 13:00 Tolterodine Tartrate (Detrol La) 4 mg DAILY PO Last administered on 03/07/18at 19:05; Admin Dose 4 MG; Start 03/07/18 at 15:30 Assessment/Plan Chief Complaint/Hosp Course 1. Sick sinus syndrome with permanent pacemaker 2. History of reported congestive heart failure: Appears to be at this point no evidence of congestive heart failure and patient mostly has COPD 3. COPD 4. Possible GI bleed versus hemoptysis 5. Hypertension: Good control 6. History of psych disorder and bipolar disorder Recommendation: Patient has been follow with me in the office and pacemaker has been regularly checked has been normal function. At this point does not appear to be fluid overloaded Continue with the PPI. Follow-up with GI recommendations We will monitor on telemetry GI workup as per internal medicine/ GI home care consultant Respiratory care as per internal medicine as well. DM management as per Dr. Lopez Pain management as per internal medicine off tele now Thank you for his referral. We will continue to follow along with you AMADOU GOMEZ MD [facility] AMADOU GOMEZ MD Mar 08, 2018 08:47
[2018-03-08] MEDS: FERROUS SULFATE (EC) 325 MG TAB PO SCH (09:10)
[2018-03-08] MEDS: LORATADINE 10 MG TAB PO SCH (09:10)
[2018-03-08] MEDS: PANTOPRAZOLE (EC) 40 MG TAB PO SCH (09:10)
[2018-03-08] MEDS: DOCUSATE SODIUM 100 MG CAP PO SCH (09:10)
[2018-03-08] MEDS: GABAPENTIN 100 MG CAP PO SCH (09:10)
[2018-03-08] MEDS: CHOLECALCIFEROL 2,000 UNIT CAP PO SCH (09:10)
[2018-03-08] MEDS: DULOXETINE 30 MG CAP DR PO SCH (09:11)
[2018-03-08] MEDS: METHYLPREDNISOLONE 40 MG INJ IV SCH (09:11)
[2018-03-08] MEDS: HYDROCODONE/APAP (10/325) TAB PO SCH (09:11)
[2018-03-08] MEDS: MULTIVITAMINS THERAPEUTIC TAB PO SCH (09:12)
[2018-03-08] MEDS: CLOTRIMAZOLE 1% 30 GM CR TOP SCH (09:22)
[2018-03-08] MEDS: MUPIROCIN 2% 22 GM OINT TOP SCH (09:22)
[2018-03-08] MEDS: NYSTATIN/TRIAMCINOLONE 15 GM CR TOP SCH (09:23)
[2018-03-08] MEDS: ARIPIPRAZOLE 5 MG TAB PO SCH (10:59)
[2018-03-08] MEDS: TOLTERODINE (SR) 4 MG CAP PO SCH (11:00)
--- NOTE | 2018-03-08 12:31 | DS ---
DATE OF ADMISSION: 03/03/2018 DATE OF DISCHARGE: 03/08/2018 REASON FOR ADMISSION: COPD exacerbation, questionable coffee-ground emesis, left flank pain. HOSPITAL COURSE: The patient is a 77-year-old female with history of CHF, osteoarthritis, COPD, schizoaffective disorder, borderline diabetes mellitus, history of [place], history of left obstruct desire ureteral stone, status post lithotripsy and stent placement back in 2017, also overactive bladder , who resides at [facility] and she is complaining on ongoing cough with some stridor, at some instances, blood came off of her mouth. She presented to [facility]. She also com plained of left flank pain. She underwent a CAT scan of the abdomen and pelvis which showed left juanito al atrophy and upper pole scarring with mild left hydroureteronephrosis, minimal left colonic diverti culosis, moderate stool burden the right colon, low borderline extrahepatic biliary ductal dilatation with stable hydropic distention of the gallbladder possibly reflecting choledocholithiasis or biliar y stenosis. Ultimately, I consulted the GI specialist and patient underwent an EGD. EGD showed norm al ampulla, 1 cm hiatal hernia, erosive esophagitis. Pathology report came back as normal body mucos a. There is no evidence of gastritis or malignancy. The patient was placed on Protonix. Other labs revealed slight elevation of LFTs including AST and ALT, but alkaline phosphatase and T-bili were no rmal. I consulted Dr. Segovia, the urologist, as well who recommended just treat the UTI. No interv entions were recommended at this point. Ultimately urine culture showed MRSA sensitive to Bactrim. The patient also had MRSA of the nares. The patient was treated with IV vancomycin and cefepime, but we can switch her to oral Bactrim for 10 more days to cover both upper respiratory infection and UTI . The patient is feeling better as the flank pain has resolved, but she did complain of right heel p ain and x-ray of the right foot was done which just showed mild degenerative changes. The patient is to be discharged with home health for ongoing physical therapy due to foot pain and overall osteoart hritis. DISCHARGE MEDICATIONS: She will be discharged with the following medications: 1. Gabapentin 100 mg t.i.d. 2. Medrol Dosepak 6 days. 3. Bactrim-DS 1 tab p.o. b.i.d. for 10 days. 4. Tylenol p.r.n. 5. Albuterol as directed. 6. Abilify 5 mg daily. 7. ____ as directed. 8. Vitamin D3 2000 daily. 9. Clotrimazole as directed. 10. Colace 100 b.i.d. 11. Duloxetine 60 daily. 12. Ferrous sulfate 325 daily. 13. Toviaz 8 mg daily. 14. Fluticasone as directed. 15. [place] 10/325 q.6 p.r.n. and I gave her 30 tablets. 16. Ipratropium as directed. 17. Loperamide as directed. 18. Claritin 10 mg daily. 19. Lorazepam p.r.n. 20. Multivitamin 1 tablet daily. 21. Nitroglycerin p.r.n. 22. Nystatin cream p.r.n. 23. Zofran p.r.n. 24. Protonix 40 mg daily. 25. Flomax 0.4 q.a.m. 26. Zolpidem 10 mg at bedtime p.r.n. insomnia. FOLLOWUP: The patient is to follow up with her PCP. FINAL DIAGNOSES: 1. Chronic obstructive pulmonary disease exacerbation. 2. Rule out gastrointestinal bleed. 3. Esophagitis. 4. Anemia. 5. Urinary tract infection. 6. Methicillin-resistant Staphylococcus aureus of the nares. 7. Osteoarthritis. 8. Anemia. 9. Left hydronephrosis. 10. Nephrolithiasis. 11. Psychiatric disorder. 12. Diabetes mellitus, off medication. 13. Congestive heart failure, compensated. 14. History of uterine cancer in the past. 15. History of spinal fracture. DISPOSITION: The patient is to be discharged home to assisted living facility with home health. DIET: Two-gram sodium. ACTIVITY: As tolerated. DISCHARGE INSTRUCTIONS: Any change in condition to call 911 or go to nearest emergency department. Dictated By: JULIAN SANCHEZ/CYNTHIA Conf#: [id number] DID#: [id number] CC: PAIGE SEGOVIA MD;*EndCC*
--- NOTE | 2018-03-08 12:35 | NUR ---
Spoke to Dr. Lopez per MD discontinue the midline before discharging patient.
--- NOTE | 2018-03-08 14:00 | NUR ---
Discharge pt. to [facility] assisted living via ambulance. Transfer pt safely in the [facility]. Pt is alert, awake and verbally responsive. Respiration are even and non labored. No acute distress or discomfort noted. Discharge patient with all of her belonging. Called [facility] for report. Addendum: 03/08/18 at 1435 by SEBASTIAN COVARRUBIAS RN Discontinue midline in left upper arm. Tolerated well. Covered with dry dressing. No bleeding noted.
== END 2018-03-08 14:30 | disposition home or self-care (01) | DRG 378 ==
LOC: E/R 17:57 → 6WM 21:07 → PP2 03-08 04:40
PROVIDERS: ADMIT Internal Medicine; ATTEND Internal Medicine
PROC: 0DJ08ZZ Inspection of Upper Intestinal Tract, Via Natural or Artificial Opening Endoscopic (ICD-10-PCS; principal; 2018-03-05 14:30)
DX: K92.0 Hematemesis (principal); R04.2 Hemoptysis; J44.1 Chronic obstructive pulmonary disease with (acute) exacerbation; N13.6 Pyonephrosis; K22.10 Ulcer of esophagus without bleeding; K29.70 Gastritis, unspecified, without bleeding; K20.9 Esophagitis, unspecified; Z87.891 Personal history of nicotine dependence; K44.9 Diaphragmatic hernia without obstruction or gangrene; Z95.0 Presence of cardiac pacemaker; R12 Heartburn; M79.604 Pain in right leg; Z22.322 Carrier or suspected carrier of Methicillin resistant Staphylococcus aureus; B95.61 Methicillin susceptible Staphylococcus aureus infection as the cause of diseases classified elsewhere; M79.672 Pain in left foot
CPT/HCPCS: 36415; 71045; 73620; 74176; 76775; 80048; 80053; 80076; 81001; 82607; 83540; 83690; 83735; 84100; 84484; 84560; 85025; 85610; 85730; 86301; 87081; 87086; 88305; 88312; 93005; 94644; 96374; 96375; 97162; J0692; J1170; J1885; J1956; J2405; J2920; J2930; J3370; J7040; J7050

== ENCOUNTER 2018-03-31 17:46 | Emergency (ER) | payer MEDICARE, OTHER ==
[~2018-03-31] VITALS: Ht 160 cm; Wt 70.0 kg
[~2018-03-31 17:46] MED LIST changes: -ACET-2047 PO; +ACET325T45 PO; +ALBU18HF INHALATION; +BALS60OI TOP; +CLOT30CR24 TOP; +DOCU-144 PO; -DOCU-159 PO; +DULO60CA59 PO; -ESCI10TA48 PO; +FESO8TAB PO; +FLUT16SP17 NASAL; +GABA100C14 PO; -GUAI473L22 PO; +HYDR-3980 PO; -LEVO500T48 PO; -LIDO5CRE6 TP; +LORA10TA3 PO; -MAGN400O19 PO; +MED4DP PO; -NAPR-685 PO; -NITR-58 PO; +NITR0.4T32 SL; -NITR0.4T39 SL; +NYST15CR36 TOP; +ONDA4TAB13 PO; -ONDA4TAB95 PO; -OXYB5TAB7 PO; -OXYC-209 PO; +SULF1TAB31 PO; +TAMS0.4C2 PO
[2018-03-31 17:50] VITALS: Ht 160 cm; Wt 70.0 kg
[2018-03-31] MEDS ORDERED: ONDANSETRON 4 MG INJ IV STA (18:28)
[2018-03-31] MEDS ORDERED: morphine 2 MG INJ IV STA (18:28)
[2018-03-31] MEDS ORDERED: FUROSEMIDE 40 MG INJ IV ONE (18:30)
[2018-03-31] MEDS ORDERED: IPRATROPIUM (NEB) 0.5 MG/2.5 ML AMP NEB STA (18:31)
[2018-03-31] MEDS ORDERED: ALBUTEROL 0.083% (NEB) 2.5 MG/3 ML AMP NEB STA (18:31)
[2018-03-31] MEDS ORDERED: METHYLPREDNISOLONE 125 MG INJ IV STA (20:39)
[2018-03-31] MEDS ORDERED: IPRATROPIUM (NEB) 0.5 MG/2.5 ML AMP INH STA (20:39)
[2018-03-31] MEDS ORDERED: ALBUTEROL 0.5% (NEB) 2.5 MG/0.5 ML AMP INH STA (20:39)
--- NOTE | 2018-03-31 20:48 | ERD ---
ER Documentation Chief Complaint Chief Complaint bilaterial leg swelling x 1 week worse today sent by Dr. Jessica CUEVAS This is a 77-year-old female with a history of COPD on home oxygen, schizoaffective disorder, chronic lower back pain osteoarthritis coronary artery disease congestive heart failure depression diabetes mellitus type 2. The patient's primary care physician is Dr. Hubbard. The patient was brought into the emergency department by EMS from her assisted living facility complaining of difficulty breathing and bilateral lower extremity pain and swelling. According to EMS they were given report that the lower extremity swelling has been worse on the right than the left over the past several days. There is been no signs of trauma. The patient has prolonged immobilization as she states she is only able to ambulate via wheelchair. Patient also states for the past several days she has been having severe difficulty breathing. She denies any shortness of breath and states that her dyspnea is similar to previous COPD exacerbations. She had a nonproductive cough. She had no fevers or shaking or chills. She d enies any suicidal homicidal thoughts or ideations. He has been compliant with her medications. Nursing notes indicate that the patient is on 3 L of oxygen continuously and when her symptoms worsen she will go to 5 L when her pulse ox is less than 90%. ROS All systems reviewed and are negative except as per history of present illness. Medications Home Meds Active Scripts Methylprednisolone* (Medrol* DOSE PACK) 4 Mg/Dose-Pack Tab.ds.pk, 4 MG PO . DIRECTED for 6 Days, PACKET Prov:JULIAN DOMÍNGUEZ MD 03/08/18 Sulfamethoxazole/Trimethoprim* (Bactrim Ds* Tablet) 1 Each Tablet, 1 TAB PO BID for 10 Days, TAB Prov:JULIAN DOMÍNGUEZ MD 03/08/18 Gabapentin* (Gabapentin*) 100 Mg Capsule, 100 MG PO TID for 30 Days, CAP Prov:JULIAN DOMÍNGUEZ MD 03/08/18 Reported Medications Zolpidem Tartrate* (Zolpidem Tartrate*) 10 Mg Tablet, 10 MG PO QHS PRN for INSOMNIA, #30 TAB 03/03/18 Albuterol Sulfate* (Ventolin HFA*) 18 Gm Hfa.aer.ad, 2 PUFF INHALATION Q4H, #1 INHALER 03/03/18 Balsam Rousseau/[place]ia Oil (Venelex Ointment) 60 Gm Oint..gm., 1 APPLIC TOP NEEDED, #1 TUB 03/03/18 Fesoterodine Fumarate (Toviaz) 8 Mg Tab.sr.24h, 8 MG PO DAILY, TAB 03/03/18 Tamsulosin Hcl* (Tamsulosin Hcl*) 0.4 Mg Cap.er.24h, 0.4 MG PO QAM, CAP 03/03/18 Pantoprazole* (Pantoprazole*) 40 Mg Tablet.dr, 40 MG PO AC BREAKFAST, TAB 03/03/18 Ondansetron Hcl* (Zofran*) 4 Mg Tab, 4 MG PO Q12H PRN for NAUSEA AND OR VOMITING, TAB 03/03/18 Nystatin-Triamcinolone* (Nystatin-Triamcinolone* Cream) 15 Gm Cream.gm., 1 APPLIC TOP BID, #1 TUB 03/03/18 Nitroglycerin* (Nitroglycerin* SL) 0.4 Mg Tab.subl, 0.4 MG SL Q5MIN PRN for CHEST PAIN, BOTTLE 03/03/18 Multivitamins* (Theragran*) 1 Tab Tab, 1 TAB PO DAILY, TAB 03/03/18 Lorazepam* (Lorazepam*) 0.5 Mg Tablet, 0.5 MG PO Q8 PRN for ANXIETY, TAB 03/03/18 Loratadine* (Loratadine*) 10 Mg Tablet, 10 MG PO DAILY, #30 TAB 03/03/18 Loperamide Hcl* (Loperamide Hcl*) 2 Mg Cap, 2 MG PO Q4H PRN for NEEDED, CAP 03/03/18 Ipratropium-Albuterol (Ipratropium-Albuterol) 0.5-3 Mg/3 Ml Ampul.neb, 3 ML INHALATION Q2H, #30 VIAL 03/03/18 Hydrocodone/Acetaminophen ([place] 10-325 Tablet) 1 Each Tablet, 1 EACH PO TID, TAB 03/03/18 Cholecalciferol (Vitamin D3) (Vitamin D-3) 2,000 Unit Tablet, 2000 UNIT PO DAILY, TAB 03/03/18 Fluticasone Propionate* (Fluticasone Propionate* Nasal) 50 Mcg/[place] - 16 Gm [place].susp, 1 SPRAY NASAL DAILY, #1 BOTTLE TO EACH NOSTRIL 03/03/18 Ferrous Sulfate* (Ferrous Sulfate*) 325 Mg Tabec, 325 MG PO DAILY, TAB 03/03/18 Duloxetine Hcl* (Duloxetine Hcl*) 60 Mg Capsule.dr, 60 MG PO DAILY, #30 CAP 03/03/18 Docusate Sodium* (Colace*) 100 Mg Capsule, 100 MG PO BID, #60 CAP 03/03/18 Clotrimazole* (Clotrimazole* AF) 1% - 30 Gm Cream.gm., 1 APPLIC TOP BID, TUB 03/03/18 Aripiprazole* (Abilify*) 5 Mg Tab, 5 MG PO DAILY, #30 TAB 03/03/18 Acetaminophen* (Acetaminophen*) 325 Mg Tablet, 650 MG PO Q6H PRN for MILD PAIN LEVEL 1-3, #30 TAB 03/03/18 Allergies Allergies: Coded Allergies: Penicillins (Verified Allergy, Mild, ALLERGY, 03/08/18) adhesive tape (Verified Allergy, Unknown, 03/08/18) Uncoded Allergies: PAPER TAPE (Allergy, Mild, 04/24/07) PMhx/Soc History of Surgery: Yes (hysterectomy, cataract surgery, nose surgery) Anesthesia Reaction: No Hx Neurological Disorder: Yes ([place]netia) Hx Respiratory Disorders: Yes (COPD) Hx Cardiac Disorders: Yes (CHF, HTN atherosclerotoc heart disease) Hx Psychiatric Problems: Yes (depression, schizoaffective disorder, anxiety) Hx Miscellaneous Medical Probl: Yes (See note) Hx Alcohol Use: Yes Hx Substance Use: No Hx Tobacco Use: Yes Smoking Status: Never smoker Physical Exam Vitals Vital Signs Date Temp Pulse Resp B/P (MAP) Pulse Ox O2 O2 Flow FiO2 Time Delivery Rate 03/31/18 80 20 98 21:19 03/31/18 97.8 86 16 156/132 99 Room Air 19:49 (140) 03/31/18 98 2.0 19:23 03/31/18 82 20 98 19:23 03/31/18 Nasal 2 18:35 Cannula 03/31/18 99.1 84 18 132/68 99 17:50 (89) Physical Exam Constitutional:Well-developed. Well-nourished. Patient severe respiratory distress HEENT:Normocephalic. Atraumatic.Pupils were equal round reactive to light. Moist mucous membranes.No tonsillar exudates. Neck: No nuchal rigidity. No lymphadenopathy. No posterior cervical spine tenderness or step-offs. Respiratory: Not using accessory muscles of respiration.Lungs were clear to auscultation bilaterally. No rhonchi. No rales. Wheezing on end auscultation bilaterally. Patient able to speak more than 2 words in the emergency department before becoming short of breath Cardiovascular: Regular rate regular rhythm.No murmurs. No rubs were appreciated.S1, S2 normal. Distal pulses are palpable 2+ bilaterally. GI: Abdomen was soft. Nontender. Non Distended. No pulsatile abdominal masses or bruits. No rebound. No guarding. Bowel sounds were present and normal. Muscle skeletal: Full range of motion of both the upper and lower extremities bilaterally.Normal muscle tone.2 plus pitting edema the bilateral lower extremities. Bilateral calf tenderness more prominent on the right than the left. Skin: No petechia, no purpura. No lesions on the palms or the soles of the feet. No maculopapular rash. NEURO: Patient was alert, awake, orientated x3.No facial droop. Not observed as patient is unable to ambulate.Speech had regular rate and rhythm. No focal neurological deficits. Result Diagram: 03/31/18192803/31/181928 Results 24 hrs Laboratory Tests Test 03/31/18 19:29 White Blood Count 7.3 10^3/ul Red Blood Count 3.42 10^6/ul Hemoglobin 10.2 g/dl Hematocrit 31.8 % Mean Corpuscular Volume 93.0 fl Mean Corpuscular Hemoglobin 29.8 pg Mean Corpuscular Hemoglobin Concent 32.1 g/dl Red Cell Distribution Width 13.8 % Platelet Count 195 10^3/UL Mean Platelet Volume 10.2 fl Immature Granulocytes % 0.100 % Neutrophils % 34.4 % Lymphocytes % 53.1 % Monocytes % 8.0 % Eosinophils % 4.1 % Basophils % 0.3 % Nucleated Red Blood Cells % 0.0 /100WBC Immature Granulocytes # 0.010 10^3/ul Neutrophils # 2.5 10^3/ul Lymphocytes # 3.9 10^3/ul Monocytes # 0.6 10^3/ul Eosinophils # 0.3 10^3/ul Basophils # 0.0 10^3/ul Nucleated Red Blood Cells # 0.0 10^3/ul Prothrombin Time 12.8 Sec Prothrombin Time Ratio 1.0 INR International Normalized Ratio 0.95 Activated Partial Thromboplast Time 30.5 Sec Sodium Level 139 mmol/L Potassium Level 3.6 mmol/L Chloride Level 104 mmol/L Carbon Dioxide Level 29 mmol/L Anion Gap 6 Blood Urea Nitrogen 16 mg/dl Creatinine 1.15 mg/dl Est Glomerular Filtrat Rate mL/min mL/min Glucose Level 108 mg/dl Calcium Level 8.9 mg/dl Total Bilirubin 0.0 mg/dl Direct Bilirubin 0.00 mg/dl Indirect Bilirubin 0.0 mg/dl Aspartate Amino Transf (AST/SGOT) 23 IU/L Alanine Aminotransferase (ALT/SGPT) 17 IU/L Alkaline Phosphatase 73 IU/L Creatine Kinase 87 IU/L Creatine Kinase Index 0.3 Creatinine Kinase MB (Mass) 0.27 ng/ml Troponin I < 0.012 ng/ml B-Type Natriuretic Peptide 599 PG/ML Total Protein 6.1 g/dl Albumin 3.4 g/dl Globulin 2.70 g/dl Albumin/Globulin Ratio 1.25 Current Medications Medications Dose Sig/Genet Start Time Status Last (Trade) Ordered Route PRN Stop Time Admin Dose Reason Admin Morphine 2 mg ONCE STAT 03/31/18 DC 03/31/18 Sulfate IV 18:28 20:17 (morphine) 03/31/18 18:31 Ondansetron 4 mg ONCE STAT 03/31/18 DC 03/31/18 HCl (Zofran IV 18:28 20:23 Inj) 03/31/18 18:31 Furosemide 40 mg ONCE ONCE 03/31/18 DC 03/31/18 (Lasix) IV 18:30 20:23 03/31/18 18:31 Albuterol 5 mg ONCE STAT 03/31/18 DC 03/31/18 (Proventil NEB 18:31 19:20 0.083% (Neb)) 03/31/18 18:32 Ipratropium 0.5 mg ONCE STAT 03/31/18 DC 03/31/18 [place] NEB 18:31 19:20 (Atrovent 03/31/18 18:32 0.02% (Neb)) Albuterol 5 mg ONCE STAT 03/31/18 DC 03/31/18 (Proventil INH 20:39 21:18 0.5% (Neb)) 03/31/18 20:41 Ipratropium 1 mg ONCE STAT 03/31/18 DC 03/31/18 [place] INH 20:39 21:19 (Atrovent 03/31/18 20:41 0.02% (Neb)) 125 mg ONCE STAT 03/31/18 DC 03/31/18 Methylprednis IV 20:39 21:25 olone Sodium 03/31/18 20:41 Succinate (Solu-Medrol) Furosemide 20 mg ONCE ONCE 03/31/18 (Lasix) IV 22:00 03/31/18 22:01 [facility] The patient presented to the emergency department with dyspnea. My differential diagnosis included but was not limited to upper airway obstruction, CHF, pulmonary embolism, cardiac ischemia, pneumonia, pneumothorax, anemia, drug overdose, pulmonary edema, COPD or asthma. She is already on home oxygen. Patient had wheezing on auscultation with no rhonchi. I did feel this was an exacerbation of her COPD. Therefore the p atient received nebulizer treatments of albuterol and Atrovent. This did not improve her symptoms and therefore she was started on a continuous nebulizer treatment of albuterol and Atrovent. Initially I did not administer steroids as the patient has a history of diabetes and this can prevent complications of hypoglycemia. However the patient had no evidence of ketosis or hypoglycemia and therefore given that her symptoms are not improved I did feel at this time she would benefit from a dose of IV Solu-Medrol. 12 Lead EKG tracing ordered and reviewed by myself showed: Normal sinus rhythm of 85 bpm and no arrhythmia. [place] interval prolonged at 248 ms with first-degree AV block. QRS duration normal. Patient has a left bundle branch block and utilizing a scar posterior criteria there is no underlying ST segment elevation or depression No ST segment depression. No changes consistent with acute ischemia. The patient had a 1 view chest radiograph which showed no infiltrates no pneumothorax or pleural effusion The patient no leukocytosis or physical exam findings to suggest sepsis or an infectious process such as pneumonia. I did feel is necessary to obtain venous duplex ultrasounds of bilateral lower extremities in order to rule out a deep vein thrombosis. The study was negative . The patient had no signs of necrotizing fasciitis or arterial insufficiency. The patient's BNP was slightly elevated at 599. There is no pulmonary vascular congestion seen on the chest radiograph. Observation Note: Time: 4 hours Family Hx: No Hypertension Evaluation: Multiple exams showed improving symptoms and no evidence of worsening of her symptoms. Her wheezing had completely resolved. I did feel she can be safely discharged back to her assisted nursing facility. Departure Diagnosis: Primary Impression: Peripheral edema Additional Impression: COPD exacerbation Condition: VERITO Rider MD Mar 31, 2018 20:48
[2018-03-31] MEDS ORDERED: FUROSEMIDE 20 MG INJ IV ONE (22:00)
[2018-03-31 23:48] VITALS: BP 117/65; PULSE 72; RESP 16
== END 2018-04-01 00:46 | disposition home or self-care (01) ==
LOC: E/R 17:46 → EDBEDREQ 21:52 → CANBEDREQ 21:53 → E/R 04-01 00:46
DX: R60.0 Localized edema (principal); J44.1 Chronic obstructive pulmonary disease with (acute) exacerbation; I11.0 Hypertensive heart disease with heart failure; I50.9 Heart failure, unspecified; E11.9 Type 2 diabetes mellitus without complications; I25.10 Atherosclerotic heart disease of native coronary artery without angina pectoris; Z87.891 Personal history of nicotine dependence
CPT/HCPCS: 71045; 80053; 82550; 82553; 83880; 84484; 85025; 85610; 85730; 93005; 93970; 94644; 94664; 96374; 96375; 96376; 99285; J1940; J2270; J2405; J2930

== ENCOUNTER 2018-05-27 18:01 | Inpatient (IN) | payer MEDICARE, OTHER ==
[~2018-05-27] VITALS: Ht 160 cm; Wt 79.5 kg
[2018-05-27] MEDS ORDERED: SODIUM CHLORIDE 0.9% 1L BAG IV* STA (18:44)
[2018-05-27] MEDS ORDERED: ACETAMINOPHEN 325 MG TAB PO STA (18:44)
[2018-05-27] MEDS ORDERED: ALBUTEROL/IPRATROPIUM (NEB) 3 ML AMP HHN STA (19:49)
[2018-05-27] MEDS ORDERED: LEVOFLOXACIN 500MG/D5W (PMX) 100 ML IVPB ONE (20:30)
[2018-05-27] MEDS ORDERED: ACETAMINOPHEN 325 MG TAB PO PRN ×3 (20:30→23:00)
[2018-05-27] MEDS ORDERED: ONDANSETRON 4 MG INJ IV PRN ×2 (20:30→23:00)
[2018-05-27] MEDS ORDERED: FENTAnyl 50 MCG/ML VIAL IV ONE (21:00)
--- NOTE | 2018-05-27 21:35 | ERD ---
ER Documentation Chief Complaint Chief Complaint c/o BLE swelling, 4d cough+fever from [facility] HPI This is a 77-year-old female with a known history of schizoaffective disorder that [facility] from a [facility] facility. For the past 4 days she states she has had a cough and low-grade fever. She had frequency urgency and dysuria. She is has frequent urinary tract infections. She also states that she is having bilateral knee pain and swelling of her lower extremities but states this is been present for several years. She denies any recent trauma to her lower extremities. She has no shortness of breath at rest or exertion. She resides at [facility]. Her primary care physician is Dr. Lopez. ROS All systems reviewed and are negative except as per history of present illness. Medications Home Meds Active Scripts Methylprednisolone* (Medrol* DOSE PACK) 4 Mg/Dose-Pack Tab.ds.pk, 4 MG PO . DIRECTED for 6 Days, PACKET Prov:JULIAN LOPEZ MD 03/08/18 Sulfamethoxazole/Trimethoprim* (Bactrim Ds* Tablet) 1 Each Tablet, 1 TAB PO BID for 10 Days, TAB Prov:JULIAN LOPEZ MD 03/08/18 Gabapentin* (Gabapentin*) 100 Mg Capsule, 100 MG PO TID for 30 Days, CAP Prov:JULIAN LOPEZ MD 03/08/18 Reported Medications Zolpidem Tartrate* (Zolpidem Tartrate*) 10 Mg Tablet, 10 MG PO QHS PRN for INSOMNIA, #30 TAB 03/03/18 Albuterol Sulfate* (Ventolin HFA*) 18 Gm Hfa.aer.ad, 2 PUFF INHALATION Q4H, #1 INHALER 03/03/18 Balsam Soctt/[place] Oil (Venelex Ointment) 60 Gm Oint..gm., 1 APPLIC TOP NEEDED, #1 TUB 03/03/18 Fesoterodine Fumarate (Toviaz) 8 Mg Tab.sr.24h, 8 MG PO DAILY, TAB 03/03/18 Tamsulosin Hcl* (Tamsulosin Hcl*) 0.4 Mg Cap.er.24h, 0.4 MG PO QAM, CAP 03/03/18 Pantoprazole* (Pantoprazole*) 40 Mg Tablet.dr, 40 MG PO AC BREAKFAST, TAB 03/03/18 Ondansetron Hcl* (Zofran*) 4 Mg Tab, 4 MG PO Q12H PRN for NAUSEA AND OR VOMITING, TAB 03/03/18 Nystatin-Triamcinolone* (Nystatin-Triamcinolone* Cream) 15 Gm Cream.gm., 1 APPLIC TOP BID, #1 TUB 03/03/18 Nitroglycerin* (Nitroglycerin* SL) 0.4 Mg Tab.subl, 0.4 MG SL Q5MIN PRN for CHEST PAIN, BOTTLE 03/03/18 Multivitamins* (Theragran*) 1 Tab Tab, 1 TAB PO DAILY, TAB 03/03/18 Lorazepam* (Lorazepam*) 0.5 Mg Tablet, 0.5 MG PO Q8 PRN for ANXIETY, TAB 03/03/18 Loratadine* (Loratadine*) 10 Mg Tablet, 10 MG PO DAILY, #30 TAB 03/03/18 Loperamide Hcl* (Loperamide Hcl*) 2 Mg Cap, 2 MG PO Q4H PRN for NEEDED, CAP 03/03/18 Ipratropium-Albuterol (Ipratropium-Albuterol) 0.5-3 Mg/3 Ml Ampul.neb, 3 ML INHALATION Q2H, #30 VIAL 03/03/18 Hydrocodone/Acetaminophen ([place] 10-325 Tablet) 1 Each Tablet, 1 EACH PO TID, TAB 03/03/18 Cholecalciferol (Vitamin D3) (Vitamin D-3) 2,000 Unit Tablet, 2000 UNIT PO DAILY, TAB 03/03/18 Fluticasone Propionate* (Fluticasone Propionate* Nasal) 50 Mcg/[place] - 16 Gm [place].susp, 1 SPRAY NASAL DAILY, #1 BOTTLE TO EACH NOSTRIL 03/03/18 Ferrous Sulfate* (Ferrous Sulfate*) 325 Mg [place], 325 MG PO DAILY, TAB 03/03/18 Duloxetine Hcl* (Duloxetine Hcl*) 60 Mg Capsule.dr, 60 MG PO DAILY, #30 CAP 03/03/18 Docusate Sodium* (Colace*) 100 Mg Capsule, 100 MG PO BID, #60 CAP 03/03/18 Clotrimazole* (Clotrimazole* AF) 1% - 30 Gm Cream.gm., 1 APPLIC TOP BID, TUB 03/03/18 Aripiprazole* (Abilify*) 5 Mg Tab, 5 MG PO DAILY, #30 TAB 03/03/18 Acetaminophen* (Acetaminophen*) 325 Mg Tablet, 650 MG PO Q6H PRN for MILD PAIN LEVEL 1-3, #30 TAB 03/03/18 Allergies Allergies: Coded Allergies: Penicillins (Verified Allergy, Mild, ALLERGY, 03/08/18) adhesive tape (Verified Allergy, Unknown, 03/08/18) Uncoded Allergies: PAPER TAPE (Allergy, Mild, 04/24/07) PMhx/Soc History of Surgery: Yes (hysterectomy, cataract surgery, nose surgery) Anesthesia Reaction: No Hx Neurological Disorder: Yes (Dementia) Hx Respiratory Disorders: Yes (COPD) Hx Cardiac Disorders: Yes (CHF, HTN atherosclerotoc heart disease) Hx Psychiatric Problems: Yes (depression, schizoaffective disorder, anxiety) Hx Miscellaneous Medical Probl: Yes (See note) Hx Alcohol Use: No Hx Substance Use: No Hx Tobacco Use: Yes Smoking Status: Former smoker Physical Exam Vitals Vital Signs Date Temp Pulse Resp B/P (MAP) Pulse Ox O2 O2 Flow FiO2 Time Delivery Rate 05/27/18 99 2.0 20:08 05/27/18 85 18 99 2.0 20:06 05/27/18 100.4 91 20 104/56 98 Nasal 2.0 19:36 (72) Cannula 05/27/18 Nasal 2 19:05 Cannula 05/27/18 102.5 92 14 103/38 98 18:05 (59) Physical Exam Constitutional:Well-developed. Well-nourished. HEENT:Normocephalic. Atraumatic.Pupils were equal round reactive to light. Moist mucous membranes.No tonsillar exudates. Neck: No nuchal rigidity. No lymphadenopathy. No posterior cervical spine tenderness or step-offs. Respiratory: Not using accessory muscles of respiration.Lungs were clear to auscultation bilaterally. No rhonchi. No rales. No wheezing. Cardiovascular: Regular rate regular rhythm.No murmurs. No rubs were appreciated.S1, S2 normal. Distal pulses are palpable 2+ bilaterally. GI: Abdomen was soft. Nontender. Non Distended. No pulsatile abdominal masses or bruits. No rebound. No guarding. Bowel sounds were present and normal. Muscle skeletal: Full range of motion of both the upper and lower extremities bilaterally.Normal muscle tone.No assymetrical calf tenderness or swelling. No tenderness at the patellas bilaterally. No laxity on valgus or varus stress testing of the left of the right knee Skin: No petechia, no purpura. No lesions on the palms or the soles of the feet. No maculopapular rash. NEURO: Patient was alert, awake, orientated x to person place but not to.No facial droop. Gait not observed as patient was too weak to ambulate.Speech had regular rate and rhythm. No focal neurological deficits. Result Diagram: 05/27/18185205/27/181852 Results 24 hrs Laboratory Tests Test 05/27/18 18:41 05/27/18 18:53 05/27/18 19:32 POC Venous Lactate 1.5 mmol/L White Blood Count 15.5 10^3/ul Red Blood Count 3.48 10^6/ul Hemoglobin 10.2 g/dl Hematocrit 31.8 % Mean Corpuscular Volume 91.4 fl Mean Corpuscular Hemoglobin 29.3 pg Mean Corpuscular 32.1 g/dl Hemoglobin Concent Red Cell Distribution Width 13.2 % Platelet Count 149 10^3/UL Mean Platelet Volume 11.9 fl Immature Granulocytes % 0.800 % Neutrophils % 71.3 % Lymphocytes % 20.2 % Monocytes % 6.6 % Eosinophils % 0.8 % Basophils % 0.3 % Nucleated Red Blood Cells % 0.0 /100WBC Immature Granulocytes # 0.130 10^3/ul Neutrophils # 11.0 10^3/ul Lymphocytes # 3.1 10^3/ul Monocytes # 1.0 10^3/ul Eosinophils # 0.1 10^3/ul Basophils # 0.0 10^3/ul Nucleated Red Blood Cells # 0.0 10^3/ul Prothrombin Time 13.3 Sec Prothrombin Time Ratio 1.0 INR International 1.00 Normalized Ratio Activated Partial Thromboplast 33.1 Sec Time Sodium Level 140 mmol/L Potassium Level 4.2 mmol/L Chloride Level 102 mmol/L Carbon Dioxide Level 32 mmol/L Anion Gap 6 Blood Urea Nitrogen 14 mg/dl Creatinine 1.39 mg/dl Est Glomerular Filtrat mL/min Rate mL/min Glucose Level 117 mg/dl Calcium Level 8.5 mg/dl Total Bilirubin 0.6 mg/dl Direct Bilirubin 0.00 mg/dl Indirect Bilirubin 0.6 mg/dl Aspartate Amino 27 IU/L Transf (AST/SGOT) Alanine 25 IU/L Aminotransferase (ALT/SGPT) Alkaline Phosphatase 67 IU/L Troponin I < 0.012 ng/ml Total Protein 6.0 g/dl Albumin 3.4 g/dl Globulin 2.60 g/dl Albumin/Globulin Ratio 1.30 Amylase Level 32 U/L Lipase 11 U/L Urine Color YELLOW Urine Clarity CLOUDY Urine pH 8.0 Urine Specific [place] 1.014 Urine Ketones NEGATIVE mg/dL Urine Nitrite NEGATIVE mg/dL Urine Bilirubin NEGATIVE mg/dL Urine Urobilinogen NEGATIVE mg/dL Urine Leukocyte Esterase 3+ [place]/ul Urine Microscopic RBC 11 /HPF Urine Microscopic WBC > 182 /HPF Urine Bacteria FEW /HPF Urine Hemoglobin 1+ mg/dL Urine Glucose NEGATIVE mg/dL Urine Total Protein 1+ mg/dl Current Medications Medications Dose Sig/Genet Start Time Status Last (Trade) Ordered Route PRN Stop Time Admin Dose Reason Admin Sodium 2,400 ml BOLUS OVER 2 05/27/18 DC 05/27/18 Chloride HOURS STAT 18:44 18:53 (NS) IV* 05/27/18 18:48 650 mg ONCE STAT 05/27/18 DC 05/27/18 Acetaminophen PO 18:44 19:05 (Tylenol 05/27/18 18:48 Tab) Albuterol/ 3 ml ONCE RESP 05/27/18 DC 05/27/18 Ipratropium THERAPY 19:49 20:06 (Duoneb) STAT HHN 05/27/18 19:50 Procedures/MDM This is a 77-year-old female that presented to the emergency department with chest radiograph showed no evidence of pneumonia. The patient had leukocytosis and had a significant urinary tract infection. The patient was given IV Lovenox that she has an allergy to penicillin and will be admitted for observation. The patient will be admitted to her primary care physician Dr. Lopez. I did feel the patient was stable to go to the medical surgical floor. 12 Lead EKG tracing ordered and reviewed by myself showed: Normal sinus rhythm of 78 bpm and no arrhythmia. MA interval normal. QRS duration normal. No ST segment elevation No ST segment depression. No changes consistent with acute ischemia. Departure Diagnosis: Primary Impression: Urinary tract infection Urinary tract infection type: acute cystitis Hematuria presence: without hematuria Qualified Codes: N30.00 - Acute cystitis without hematuria Condition: Serious VERITO BEAVER MD May 27, 2018 21:35
[2018-05-27 21:36] VITALS: PULSE 88
[2018-05-27 21:40] VITALS: BP 92/57; PULSE 86; RESP 18
[2018-05-27] MEDS: HYDROmorphONE 1 MG/ML SYG IV PRN (22:03)
[2018-05-27 22:08] VITALS: Ht 160 cm; Wt 79.5 kg
[2018-05-27] MEDS ORDERED: DOCUSATE SODIUM 100 MG CAP PO PRN (23:00)
[2018-05-27] MEDS ORDERED: ALBUTEROL/IPRATROPIUM (NEB) 3 ML AMP HHN SCH (23:00)
[2018-05-27] MEDS ORDERED: MAGNESIUM HYDROXIDE 30ML CUP PO PRN (23:00)
[2018-05-27] MEDS ORDERED: LORAZEPAM 0.5 MG TAB PO PRN (23:00)
[2018-05-27] MEDS ORDERED: ZOLPIDEM 5 MG TAB PO PRN (23:00)
[2018-05-27] MEDS ORDERED: NACL 0.9% 3 ML SYG IV SCH (23:00)
[2018-05-27] MEDS: ALBUTEROL HFA 8 GM INHALER INH SCH (23:00)
[2018-05-27] MEDS ORDERED: VANCOMYCIN IV PER PHARMACY XX SCH (23:00)
[2018-05-27] MEDS ORDERED: NITROGLYCERIN (SL) 0.4 MG TAB SL PRN (23:00)
[2018-05-27] MEDS ORDERED: LOPERAMIDE 2 MG CAP PO PRN (23:00)
[2018-05-27] MEDS: CEFEPIME 1GM/50 ML (PMX) 50 ML IV SCH (23:11)
[2018-05-27] MEDS: SOD CHLORIDE 0.9% 1,000 ML IV SCH (23:11)
[2018-05-28] VITALS (9 sets, daily range): BP systolic 93–120; BP diastolic 48–59; PULSE 63–83; RESP 18–19
[2018-05-28] MEDS ORDERED: VANCOMYCIN HCL 1.5 GM in SOD CHLORIDE 0.9% 250 ML IVPB SCH (01:00)
[2018-05-28] MEDS: ALBUTEROL HFA 8 GM INHALER INH SCH ×3 (01:00→08:36)
[2018-05-28] MEDS: HYDROCODONE/APAP (5/325) TAB PO PRN ×2 (01:45→14:25)
[2018-05-28] MEDS: PANTOPRAZOLE (EC) 40 MG TAB PO SCH (05:39)
[2018-05-28] MEDS: FLUTICASONE 0.05% 16 GM NAS SPRAY NASAL SCH (08:33)
[2018-05-28] MEDS: CEFEPIME 1GM/50 ML (PMX) 50 ML IV SCH ×2 (08:34→21:13)
[2018-05-28] MEDS: DULOXETINE 30 MG CAP DR PO SCH (08:34)
[2018-05-28] MEDS: FERROUS SULFATE (EC) 325 MG TAB PO SCH (08:34)
[2018-05-28] MEDS: BALSAM PERU/CASTOR OIL 60 GM TUBE TOP SCH (08:34)
[2018-05-28] MEDS: CLOTRIMAZOLE 1% 30 GM CR TOP SCH ×2 (08:34→21:15)
[2018-05-28] MEDS: GABAPENTIN 100 MG CAP PO SCH ×3 (08:35→21:13)
[2018-05-28] MEDS: DOCUSATE SODIUM 100 MG CAP PO SCH ×2 (08:35→21:00)
[2018-05-28] MEDS: ARIPIPRAZOLE 5 MG TAB PO SCH (08:35)
[2018-05-28] MEDS: LORATADINE 10 MG TAB PO SCH (08:35)
[2018-05-28] MEDS: MULTIVITAMINS THERAPEUTIC TAB PO SCH (08:35)
[2018-05-28] MEDS: ENOXAPARIN 40 MG/0.4 ML SYG SC SCH (08:50)
[2018-05-28] MEDS: SOD CHLORIDE 0.9% 1,000 ML IV SCH ×2 (11:51→16:00)
[2018-05-28] MEDS: HYDROmorphONE 1 MG/ML SYG IV PRN ×2 (16:00→20:42)
[2018-05-28] MEDS ORDERED: ALBUTEROL/IPRATROPIUM (NEB) 3 ML AMP HHN PRN (17:30)
--- NOTE | 2018-05-28 17:48 | HP ---
DATE OF ADMISSION: 05/28/2018 REASON FOR ADMISSION: Urinary tract infection, cough, intermittent stridor. HISTORY OF PRESENT ILLNESS: The patient is a 77-year-old female, very well known to me. S he has history of COPD, CHF, osteoarthritis, schizoaffective disorder, borderline diabetes mellitus, history of MA, status post left obstructive ureteral stone, status post lithotripsy and stent placeme nt in 2017, overactive bladder, who resides at [facility]. The patien t states that in the past few days she noted to be more weak, difficulty to stand, also cough with so me stridor. It was decided to send her to the hospital for evaluation. In the ER, the patient was f ound to have urinary tract infection, leukocytosis with white count of 15.5. Chest x-ray showed stab le mild cardiac silhouette enlargement and cardiac pacemaker without evidence of acute intrathoracic pathology. The patient was started on antibiotics in the ER with Levaquin and was admitted to the [facility] for further care. The patient also complains that she has stridor and she needs to speak somethi ng she cannot vocalize especially when she needs to play bingo. PAST MEDICAL HISTORY: Includes CHF, diabetes mellitus, schizoaffective disorder, asthma, COPD, gout, obesity, history of uterine cancer in the past, spinal fracture, history of left nephrolithiasis, ob structive uropathy on the left. ALLERGIES: PENICILLIN. FAMILY HISTORY: Mother from bone cancer. SOCIAL HISTORY: The patient used to smoke heavily in the past, but stopped 28 years ago. IV drug ab use, she denies. PAST SURGICAL HISTORY: Status post hysterectomy secondary to uterine cancer, bladder lift surgery an d rectocele surgery, pacemaker placement, lithotripsy and stent placement in 2017. HOME MEDICATIONS: Include the followin. Sanam 180 mg daily. 2. Aspirin 81 mg daily. 3. Calcium plus D 200 mg daily. 4. Ditropan 5 mg t.i.d. 5. Protonix 20 mg b.i.d. 6. [place] 5/325 q.6 p.r.n. 7. Abilify 5 mg daily. 8. Ambien 5 mg at bedtime p.r.n. 9. Ativan 0.5 q.8 p.r.n. 10. Lexapro 5 mg daily. 11. Nitroglycerin p.r.n. 12. Robitussin p.r.n. 13. Albuterol handheld nebulizer every 4 hours p.r.n. 14. Atrovent every 4 hours p.r.n. 15. O2 support as needed. 16. Accu-Chek before meals and at bedtime with coverage. PHYSICAL EXAMINATION: VITAL SIGNS: Temperature 99.1, T-max 102.5 upon presentation to the ER, pulse 83, respirations 18, b lood pressure 120/59, saturation 99% on 2 liters. GENERAL: The patient is in no acute distress. HEENT: Normocephalic, atraumatic. Pale. Sunken eyes. Decreased dentition. CARDIOVASCULAR: S1, S2, regular rate. LUNGS: Clear. ABDOMEN: Soft, nontender. EXTREMITIES: No clubbing, cyanosis or edema. The patient is overweight. NEUROLOGIC: The patient is moving all extremities. LABORATORY DATA: White count is 10, hemoglobin 8.7, hematocrit 28, platelet count of 130, neutrophil s 58%, lymphocytes 31%. Chemistry: Sodium 141, potassium 3.6, chloride 103, bicarbonate 31, BUN is 14, creatinine 1.24 and glucose of 118. Hemoglobin A1c is 5.9. Total protein 5.4, albumin low at 2. 9. TSH 1.7. Lipase is 11. Urine analysis did show +2 leukocyte esterase, WBC greater than 182. IN R is 1.0. The patient's urine culture shows gram-negative rods. Influenza A and B is negative. ASSESSMENT AND PLAN: This is a 77-year-old female with history of chronic obstructive pulm onary disease, recurrent urinary tract infections, history of nephrolithiasis, depression, psychiatri c disorder, presented with urinary tract infection, generalized weakness, intermittent stridor. 1. Respiratory: Overall stable. Continue O2 support and breathing treatment as needed. May benefi t from ENT evaluation due to her stridor. 2. Cardiovascular: Stable. Continue Lovenox for deep venous thrombosis prophylaxis. The patient h as a pacemaker which is working appropriately as the patient was recently admitted in 02/2018. 3. Urinary tract infection with history of methicillin-resistant Staphylococcus aureus. Now, she rodriguez s gram-negative bacteria. We will follow up with cultures. The patient was placed on broad-spectrum antibiotics with cefepime and vancomycin. Change antibiotics per cultures. 4. Diabetes mellitus, controlled. Continue Accu-Cheks for now. 5. Stridor. Again, consider ENT evaluation. 6. Osteoarthritis. Physical therapy as tolerated. 7. Psychiatric disorder. Resume all psychiatric medications. 8. Anemia. On recent hospitalization, anemia workup was done. Iron levels were normal. B12 was no rmal. We will repeat that and check stool for occult blood. Transfuse p.r.n. 9. The patient will be placed on deep vein thrombosis prophylaxis and gastrointestinal prophylaxis. Monitor closely in the med/surgical floor. Dictated By: JULIAN SANCHEZ/CYNTHIA Conf#: [id number] DID#: [id number]
[2018-05-28] MEDS: ALBUTEROL/IPRATROPIUM (NEB) 3 ML AMP HHN SCH (21:57)
[2018-05-29] VITALS: BP 106/53; PULSE 77; RESP 18
[2018-05-29] MEDS ORDERED: VANCOMYCIN 750 MG (PMX) 250 ML IVPB SCH (01:00)
[2018-05-29] MEDS: ALBUTEROL/IPRATROPIUM (NEB) 3 ML AMP HHN SCH ×4 (01:41→20:44)
[2018-05-29] MEDS: HYDROCODONE/APAP (5/325) TAB PO PRN ×2 (03:16→22:38)
[2018-05-29] MEDS: HYDROmorphONE 1 MG/ML SYG IV PRN ×2 (03:29→20:47)
[2018-05-29 04:00] VITALS: BP 99/52; PULSE 79; RESP 19
[2018-05-29] MEDS: PANTOPRAZOLE (EC) 40 MG TAB PO SCH (05:57)
[2018-05-29 07:54] VITALS: BP 99/49; PULSE 73; RESP 17
[2018-05-29] MEDS: GABAPENTIN 100 MG CAP PO SCH ×3 (08:58→20:50)
[2018-05-29] MEDS: ARIPIPRAZOLE 5 MG TAB PO SCH (08:58)
[2018-05-29] MEDS: FERROUS SULFATE (EC) 325 MG TAB PO SCH (08:58)
[2018-05-29] MEDS: MULTIVITAMINS THERAPEUTIC TAB PO SCH (08:58)
[2018-05-29] MEDS: DOCUSATE SODIUM 100 MG CAP PO SCH ×2 (08:59→20:51)
[2018-05-29] MEDS: LORATADINE 10 MG TAB PO SCH (08:59)
[2018-05-29] MEDS: DULOXETINE 30 MG CAP DR PO SCH (08:59)
[2018-05-29] MEDS: ENOXAPARIN 40 MG/0.4 ML SYG SC SCH (09:01)
[2018-05-29] MEDS: BALSAM PERU/CASTOR OIL 60 GM TUBE TOP SCH (09:02)
[2018-05-29] MEDS: FLUTICASONE 0.05% 16 GM NAS SPRAY NASAL SCH (09:02)
[2018-05-29] MEDS: CLOTRIMAZOLE 1% 30 GM CR TOP SCH ×2 (09:02→20:51)
[2018-05-29] MEDS: CEFEPIME 1GM/50 ML (PMX) 50 ML IV SCH ×2 (09:03→20:51)
[2018-05-29 14:37] VITALS: BP 112/59; PULSE 80; RESP 18
--- NOTE | 2018-05-29 15:57 | PN ---
DATE: 05/29/2018 SUBJECTIVE: The patient was seen, comfortable, complaining of arthritic pain. PHYSICAL EXAMINATION: VITAL SIGNS: Temperature 98.3, pulse 70, respiration 18, blood pressure 112/59, saturation 100% on 2 liters. GENERAL: The patient is in no acute distress. HEENT: The patient is normocephalic, atraumatic. Sunken eyes. Temporal wasting. Decreased dentiti on. CARDIOVASCULAR: S1, S2. Regular rate. LUNGS: Clear. ABDOMEN: Soft, nontender. EXTREMITIES: No clubbing, cyanosis or edema. LABORATORY DATA: White count is normal at 5.4, hemoglobin 8.9, hematocrit 28, platelet count of 160, neutrophils 55%, lymphs 29%. Chemistry: Sodium 144, potassium 3.5, chloride 106, bicarbonate 30, B UN is 9, creatinine 1.01 and glucose of 105. Iron levels were low at 28, TIBC low at 218, suggestive of both iron deficiency anemia and anemia of chronic disease. B12 is 496. TSH is 1.76. The patien t's urine culture shows Proteus mirabilis sensitive to cefotaxime, gentamicin and tobramycin. MRSA s creen is negative. Influenza A and B are negative and blood cultures were negative. MEDICATIONS: Include: 1. Vancomycin dose per pharmacy. 2. DuoNeb every 6 hours. 3. Lovenox 40 mg subcutaneous daily. 4. Abilify 5 mg daily. 5. Clotrimazole cream b.i.d. 6. Colace 100 b.i.d. 7. Cymbalta 60 daily. 8. Ferrous sulfate 325 daily. 9. Flonase daily. 10. Gabapentin 100 b.i.d. 11. Claritin 10 mg daily. 12. Multivitamins daily. 13. 14. Ativan p.r.n. 15. Zofran p.r.n. 16. Milk of Magnesia p.r.n. 17. Cefepime 1 gram q.12. 18. Tylenol p.r.n. 19. Imodium p.r.n. 20. Nitroglycerin p.r.n. 21. Ambien p.r.n. 22. [place]. 23. Dilaudid p.r.n. ASSESSMENT AND PLAN: This is a 77-year-old female with history of chronic obstructive pulm onary disease, reported urinary tract infection, history of nephrolithiasis, depression, psychiatric disorder who presented with urinary tract infection, generalized weakness and intermittent stridor. 1. Respiratory: Continue O2 support. Lungs are clear. The patient does have cough and stridor. M amber recommend outpatient ENT evaluation. 2. Cardiovascular: Continue deep venous thrombosis prophylaxis. 3. Anemia. Hemoglobin and hematocrit is stable. No need for transfusion. The patient with both ir on deficiency anemia and anemia of chronic disease. No active bleeding. 4. Urinary tract infection with no evidence of methicillin-resistant Staphylococcus aureus. We will discontinue vancomycin. Continue above cefepime. 5. Diabetes mellitus. Continue Accu-Cheks for now. 6. Stridor, again follow up BNP. 7. Osteoarthritis. Continue physical therapy. 8. Psychiatric disorder. Resume all psych meds. 9. Anemia. The patient with both iron deficiency anemia and anemia of chronic disease. Clinically better. Continue SNF placement due to need for IV antibiotics. We will follow. Dictated By: JULIAN SANCHEZ/CYNTHIA Conf#: [id number] DID#: [id number]
[2018-05-29 20:00] VITALS: BP 138/65; PULSE 81; RESP 19
[2018-05-30] MEDS: ALBUTEROL/IPRATROPIUM (NEB) 3 ML AMP HHN SCH ×4 (01:49→19:57)
[2018-05-30 02:00] VITALS: BP 132/62; PULSE 79; RESP 16
[2018-05-30] MEDS: HYDROmorphONE 1 MG/ML SYG IV PRN ×3 (05:02→12:50)
[2018-05-30] MEDS: PANTOPRAZOLE (EC) 40 MG TAB PO SCH (05:05)
[2018-05-30] MEDS: HYDROCODONE/APAP (5/325) TAB PO PRN ×2 (05:06→20:56)
[2018-05-30 07:20] VITALS: BP 119/58; PULSE 78; RESP 20
[2018-05-30] MEDS: DOCUSATE SODIUM 100 MG CAP PO SCH ×3 (09:00→21:00)
[2018-05-30] MEDS: CEFEPIME 1GM/50 ML (PMX) 50 ML IV SCH (10:03)
[2018-05-30] MEDS: FLUTICASONE 0.05% 16 GM NAS SPRAY NASAL SCH (10:07)
[2018-05-30] MEDS: ARIPIPRAZOLE 5 MG TAB PO SCH (10:07)
[2018-05-30] MEDS: LORATADINE 10 MG TAB PO SCH (10:08)
[2018-05-30] MEDS: FERROUS SULFATE (EC) 325 MG TAB PO SCH (10:09)
[2018-05-30] MEDS: GABAPENTIN 100 MG CAP PO SCH ×3 (10:09→20:36)
[2018-05-30] MEDS: MULTIVITAMINS THERAPEUTIC TAB PO SCH (10:09)
[2018-05-30] MEDS: DULOXETINE 30 MG CAP DR PO SCH (10:10)
[2018-05-30] MEDS: ENOXAPARIN 40 MG/0.4 ML SYG SC SCH (10:12)
[2018-05-30] MEDS: BALSAM PERU/CASTOR OIL 60 GM TUBE TOP SCH (10:15)
[2018-05-30] MEDS: CLOTRIMAZOLE 1% 30 GM CR TOP SCH ×2 (10:15→20:36)
[2018-05-30] MEDS ORDERED: OLOPATADINE 0.1% 5 ML OPH BOTH EYES ONE (13:30)
[2018-05-30 14:15] VITALS: BP 119/56; PULSE 68; RESP 18
[2018-05-30] MEDS ORDERED: DIPHENHYDRAMINE 25 MG CAP PO ONE (16:30)
[2018-05-30] MEDS ORDERED: GENTAMICIN IV PER PHARMACY XX SCH (17:00)
[2018-05-30] MEDS: METHYLPREDNISOLONE 125 MG INJ IV SCH ×2 (17:10→23:39)
[2018-05-30 19:25] VITALS: BP 159/82; PULSE 77; RESP 20
[2018-05-30] MEDS ORDERED: GENTAMICIN 120 MG/NS (PMX) 100 ML IVPB SCH (20:00)
[2018-05-30] MEDS ORDERED: GENTAMICIN 60 MG in SOD CHLORIDE 0.9% 50 ML IVPB SCH (20:00)
--- NOTE | 2018-05-30 20:27 | PN ---
DATE: 05/30/2018 SUBJECTIVE: The patient was seen. She was noted to have some swelling below eyes, questionable an a llergic reaction. Eyedrops were given for allergies. PHYSICAL EXAMINATION: VITAL SIGNS: Temperature 98.9, pulse 68, respiration 18, blood pressure 119/56, saturation 95%. GENERAL: The patient is in no acute distress. HEENT: Sunken eyes, pale, slight swelling below the eyes, questionable an allergic reaction. CARDIOVASCULAR: S1, S2. LUNGS: Mild wheezing and stridor when she takes a deep breath. ABDOMEN: Soft, nontender. EXTREMITIES: No clubbing, cyanosis or edema. LABORATORY DATA: White count 4.8, hemoglobin 9.2, hematocrit 30, platelet count of 128, neutrophils 41%, lymphocytes 44%. Chemistry: Sodium 145, potassium 3.7, chloride 109, bicarbonate 31, BUN is 7, creatinine 0.92, glucose of 94. Urine culture shows Proteus mirabilis sensitive to cefotaxime, gent amicin and tobramycin. MEDICATIONS: 1. [place] daily. 2. Gentamicin I switched from cefepime due to possible allergic reaction. 3. Solu-Medrol just started 60 q.8. 4. Benadryl 25 once. 5. DuoNeb every 6 hours and p.r.n. 6. Lovenox 40 mg daily. 7. Abilify 5 mg daily. 8. Clotrimazole b.i.d. 9. Colace 100 b.i.d. 10. Cymbalta 60 daily. 11. Ferrous sulfate 325 daily. 11. Flonase nasal spray daily. 12. Neurontin 100 t.i.d. 13. Claritin 10 mg daily. 14. Multivitamin once daily. 15. daily. 16. Ativan p.r.n. 17. Zofran p.r.n. 18. Colace p.r.n. 19. Milk of Magnesia p.r.n. 20. Tylenol p.r.n. 21. Imodium p.r.n. 22. Nitroglycerin p.r.n. 23. Zolpidem p.r.n. 24. [place] p.r.n. 25. Dilaudid p.r.n. ASSESSMENT AND PLAN: This is a 77-year-old female with history of chronic obstructive pulm onary disease, nephrolithiasis, depression, psychiatric disorder, presented with urinary tract infect ion and mild congestive heart failure exacerbation. 1. Respiratory: The patient will be started also on IV steroids due to stridor and wheezing. Liban nue breathing treatments. Continue O2 support and antibiotics. 2. Cardiovascular: Continue deep venous thrombosis prophylaxis. 3. Anemia. Hemoglobin and hematocrit is stable. No need for transfusion. No active bleeding. 4. Urinary tract infection. Organism is noted to be Proteus mirabilis. Switch cefepime to gentamic in. This patient possibly had an allergic reaction. Benadryl x1 will be given as patient has some s welling below the eyes. 5. Diabetes mellitus. Continue Accu-Cheks for now. Likely will require more insulin as I am starti ng her on IV Solu-Medrol. 6. Stridor. See how she does with steroids and refer to outpatient ENT. 7. Osteoarthritis. Physical therapy and pain control. 8. Psychiatric disorder. Resume all psych meds. 9. Diarrhea. Stool for Clostridium difficile was sent. I discussed with nursing staff. Clinically improving. Disposition soon. We will follow. Dictated By: JULIAN SANCHEZ/CYNTHIA Conf#: [id number] DID#: [id number]
[2018-05-31] MEDS: ALBUTEROL/IPRATROPIUM (NEB) 3 ML AMP HHN SCH ×4 (01:12→19:41)
[2018-05-31 02:10] VITALS: BP 133/60; PULSE 69; RESP 20
[2018-05-31] MEDS: PANTOPRAZOLE (EC) 40 MG TAB PO SCH (05:34)
[2018-05-31] MEDS: METHYLPREDNISOLONE 125 MG INJ IV SCH ×2 (05:34→14:00)
[2018-05-31] MEDS: HYDROCODONE/APAP (5/325) TAB PO PRN ×2 (05:34→11:03)
[2018-05-31 07:30] VITALS: BP 137/60; PULSE 83; RESP 20
[2018-05-31] MEDS: DOCUSATE SODIUM 100 MG CAP PO SCH ×2 (08:56→20:45)
[2018-05-31] MEDS: BALSAM PERU/CASTOR OIL 60 GM TUBE TOP SCH (08:56)
[2018-05-31] MEDS: CLOTRIMAZOLE 1% 30 GM CR TOP SCH ×2 (08:56→20:45)
[2018-05-31] MEDS: DULOXETINE 30 MG CAP DR PO SCH (08:57)
[2018-05-31] MEDS: ARIPIPRAZOLE 5 MG TAB PO SCH (08:57)
[2018-05-31] MEDS: FLUTICASONE 0.05% 16 GM NAS SPRAY NASAL SCH (08:57)
[2018-05-31] MEDS: FERROUS SULFATE (EC) 325 MG TAB PO SCH (08:57)
[2018-05-31] MEDS: MULTIVITAMINS THERAPEUTIC TAB PO SCH (08:58)
[2018-05-31] MEDS: LORATADINE 10 MG TAB PO SCH (08:58)
[2018-05-31] MEDS: GABAPENTIN 100 MG CAP PO SCH ×3 (08:58→20:45)
[2018-05-31] MEDS ORDERED: OLOPATADINE 0.1% 5 ML OPH BOTH EYES ONE (09:00)
[2018-05-31] MEDS: ENOXAPARIN 40 MG/0.4 ML SYG SC SCH (09:03)
[2018-05-31 13:51] VITALS: BP 143/65; PULSE 77; RESP 18
[2018-05-31] MEDS ORDERED: GLUCAGON 1 MG INJ IM PRN (15:00)
[2018-05-31] MEDS ORDERED: DEXTROSE 50% 50 ML SYRINGE IV PRN ×2 (15:00)
[2018-05-31] MEDS ORDERED: GLUCOSE GEL 15 GRAM TUBE BUCCAL PRN (15:00)
[2018-05-31] MEDS ORDERED: GLUCOSE GEL 15 GRAM TUBE PO PRN ×2 (15:00)
[2018-05-31] MEDS ORDERED: LORAZEPAM 2 MG INJ IM PRN (16:30)
[2018-05-31] MEDS ORDERED: LORAZEPAM 1 MG TAB PO PRN (16:30)
--- NOTE | 2018-05-31 16:36 | PN ---
DATE: 05/31/2018 SUBJECTIVE: The patient was seen, feeling better today after initiation of IV Solu-Medrol. The parish ent's T-max is 99.2. PHYSICAL EXAMINATION: VITAL SIGNS: Temperature 99.2, pulse 72, respiration 18, blood pressure 143/65, saturation 96% on ro om air. GENERAL: In no acute distress. HEENT: Normocephalic, atraumatic. Pale. Mild swelling below the eyes, better. CARDIOVASCULAR: S1, S2. LUNGS: Faint wheezing bilaterally. ABDOMEN: Soft, nontender. EXTREMITIES: No clubbing, cyanosis or edema. LABORATORY DATA: White count 3.5, hemoglobin 10.8, hematocrit 33, platelet count of 141, neutrophils 81%, lymphocytes 17%. Chemistry: Sodium 145, potassium 3.9, chloride 105, bicarb 27, BUN is 11, cr eatinine 0.8, glucose of 254. This is due to the steroids. The patient's stool occult blood turned out negative. Urinalysis was positive. Urine culture shows Proteus mirabilis sensitive to tobramyci n, gentamicin and cefotaxime. MEDICATIONS: 1. Gentamicin IV as directed. 2. Solu-Medrol 60 IV q.8. 3. DuoNeb every 6 hours and p.r.n. 4. Lovenox 40 mg subQ daily. 5. Abilify 5 mg daily. 6. Clotrimazole cream b.i.d. 7. Colace 100 b.i.d. 8. Cymbalta 60 daily. 9. Ferrous sulfate 325 daily. 10. Flonase 1 spray daily. 11. Neurontin 100 t.i.d. 12. Claritin 10 mg daily. 13. Multivitamin 1 tablet daily. 14. Potassium daily. 15. Ativan p.r.n. 16. Zofran p.r.n. 17. Milk of Magnesia p.r.n. 18. Tylenol p.r.n. 19. Imodium. 20. Nitroglycerin. 21. Ambien. 22. [place]. 23. Dilaudid p.r.n. ASSESSMENT AND PLAN: This is a 77-year-old female with history of chronic obstructive pulm onary disease, nephrolithiasis, depression, psychiatric disorder, urinary tract infection and mild ch ronic obstructive pulmonary disease exacerbation. 1. Respiratory. Continue treatment for chronic obstructive pulmonary disease with steroids, breathi ng treatment and above antibiotics. O2 support as needed. The patient's stridor improved. 2. Stridor. Outpatient followup with ENT. 3. Cardiovascular: Continue deep venous thrombosis prophylaxis. Vitals are stable. 4. Anemia. No need for transfusion. No active bleeding. 5. Urinary tract infection. Continue treatment for Proteus mirabilis urinary tract infection with g entamicin. 6. Diabetes mellitus. Insulin for now. We will put her also on Levemir or Lantus at night due to p atient being on IV Solu-Medrol. 7. Osteoarthritis. Physical therapy and pain control as needed. 8. Psychiatric disorder. Resume all psych medications. 9. Disposition in the a.m. Clinically better. We will follow. Dictated By: JULIAN SANCHEZ/CYNTHIA Conf#: [id number] DID#: [id number]
[2018-05-31] MEDS: predniSONE 20 MG TAB PO SCH (17:00)
[2018-05-31] MEDS ORDERED: INSULIN GLARGINE [LANTus] (100 UNITS/ML) SYG SC SCH (20:00)
[2018-05-31] MEDS ORDERED: GENTAMICIN 80 MG INJ IM SCH (20:00)
[2018-06-01] MEDS: ALBUTEROL/IPRATROPIUM (NEB) 3 ML AMP HHN SCH ×3 (02:00→14:18)
[2018-06-01 02:15] VITALS: BP 138/63; PULSE 66; RESP 20
[2018-06-01] MEDS: HYDROCODONE/APAP (5/325) TAB PO PRN (05:45)
[2018-06-01] MEDS: PANTOPRAZOLE (EC) 40 MG TAB PO SCH (05:45)
[2018-06-01 07:41] VITALS: BP 144/71; PULSE 76; RESP 18
[2018-06-01] MEDS ORDERED: GENTAMICIN 120 MG/NS (PMX) 100 ML IVPB SCH (08:00)
[2018-06-01] MEDS: GABAPENTIN 100 MG CAP PO SCH ×2 (08:45→12:38)
[2018-06-01] MEDS: DOCUSATE SODIUM 100 MG CAP PO SCH (08:46)
[2018-06-01] MEDS: predniSONE 20 MG TAB PO SCH (08:46)
[2018-06-01] MEDS: DULOXETINE 30 MG CAP DR PO SCH (08:46)
[2018-06-01] MEDS: LORATADINE 10 MG TAB PO SCH (08:46)
[2018-06-01] MEDS: FERROUS SULFATE (EC) 325 MG TAB PO SCH (08:46)
[2018-06-01] MEDS: ARIPIPRAZOLE 5 MG TAB PO SCH (08:46)
[2018-06-01] MEDS: MULTIVITAMINS THERAPEUTIC TAB PO SCH (08:46)
[2018-06-01] MEDS: CLOTRIMAZOLE 1% 30 GM CR TOP SCH (08:47)
[2018-06-01] MEDS: ENOXAPARIN 40 MG/0.4 ML SYG SC SCH (08:49)
[2018-06-01] MEDS: FLUTICASONE 0.05% 16 GM NAS SPRAY NASAL SCH (12:38)
[2018-06-01] MEDS: BALSAM PERU/CASTOR OIL 60 GM TUBE TOP SCH (12:38)
--- NOTE | 2018-06-01 13:40 | PDOCDIS ---
Discharge Instructions CONDITION [id number] Patient Condition: [id number] Stable HOME CARE INSTRUCTIONS: [id number] Diet Instructions: [id number] Reduced Sodium ACTIVITY: [id number] Activity Restrictions: [id number] Slowly Increase Activity JULIAN DOMÍNGUEZ MD Jun 01, 2018 13:40
[2018-06-01] MEDS ORDERED: PRED20TA PO (13:51)
[2018-06-01] MEDS ORDERED: OXYC-279 PO (13:51)
[2018-06-01] MEDS ORDERED: CEPH500C PO (13:51)
[2018-06-01] MEDS ORDERED: ASPI-817 PO (13:54)
[2018-06-01 14:04] VITALS: BP 126/59; PULSE 66; RESP 18
--- NOTE | 2018-06-01 19:22 | DS ---
DATE OF ADMISSION: 05/28/2018 DATE OF DISCHARGE: 06/01/2018 REASON FOR ADMISSION: Urinary tract infection, cough, chronic obstructive pulmonary disease exacerba tion. HOSPITAL COURSE: The patient is a 77-year-old female with history of COPD, CHF, osteoarthr itis, schizoaffective disorder, borderline diabetes mellitus, history of myocardial infarction, histo ry of left obstructive renal stone, status post lithotripsy and stent placement in 2017. Overactive bladder. Patient resides at [facility] living [facility] with increased cough and strid or. She presented to the ER. Labs revealed elevated white count of 15.5. Urine test was positive f or urinary tract infection. Also, patient was found to have mild COPD exacerbation with stridor. Th e patient was started on antibiotics with cefepime, breathing treatment around the clock and IV stero ids. Ultimately urine culture came back as Proteus mirabilis sensitive to cefotaxime, gentamicin and tobramycin. The patient was on ____ gentamicin. The patient overall slowly improved. White count normalized. She received physical therapy and patient is doing better. She can be discharged with the following medications: 1. Claritin 10 mg daily. 2. ProAir HFA 2 puffs q.4 p.r.n. for shortness of breath. 3. Flomax 0.4 mg at bedtime. 4. Ferrous sulfate 325 mg daily. 5. Abilify 5 mg daily. 6. Aspirin 81 mg daily. 7. Prednisone 30 mg daily for 3 days, then 20 mg daily for 3 days, then 10 mg daily for 3 days. 8. Keflex 500 t.i.d. for 5 days. 9. Cymbalta 60 mg daily. 10. Neurontin 100 t.i.d. 11. Flonase 1 spray to each nostril daily. 12. Protonix 40 mg daily. 13. Toviaz 8 mg at bedtime. 14. Percocet 10/325 q.6 p.r.n. for severe pain. Continue her breathing treatment at home as well. Will add Symbicort because of her COPD 160/4.5 one puff b.i.d. Close followup with PCP if she continues to have stridor may benefit from ENT consult rose barnett. This was explained to the patient. FINAL DIAGNOSES: 1. Urinary tract infection. 2. Chronic obstructive pulmonary disease exacerbation. 3. Iron deficiency anemia. 4. Anemia of chronic disease. 5. Schizophrenia. 6. Dehydration. 7. Acute renal failure, resolved. 8. Anemia of chronic disease. 9. Iron deficiency anemia. 10. Obese state. 11. Osteoarthritis. 12. Low back pain. 13. Tendency for congestive heart failure. 14. Asthma. 15. History of gout. 16. Recurrent UTIs. Overall, prognosis is fair. Follow up with PCP. The patient was discharged with home health care fa [facility]. The patient does not want to go to a detention facility. She will go back to the [facility] with home health. DIET: Low fat, low carb diet. ACTIVITY: As tolerated. Dictated By: JULIAN SANCHEZ/CYNTHIA Conf#: [id number] DID#: [id number]
== END 2018-06-01 16:40 | disposition home health service (06) | DRG 690 ==
LOC: E/R 18:01 → 6WM 20:24 → INTOOBSV 20:24 → EDBEDREQ 20:58 → OBSVTOIN 05-28 09:41 → MS1 05-28 13:15
PROVIDERS: ADMIT Internal Medicine; ATTEND Internal Medicine
DX: N39.0 Urinary tract infection, site not specified (principal); J44.1 Chronic obstructive pulmonary disease with (acute) exacerbation; N17.9 Acute kidney failure, unspecified; D50.9 Iron deficiency anemia, unspecified; D63.8 Anemia in other chronic diseases classified elsewhere; F20.9 Schizophrenia, unspecified; E86.0 Dehydration; E66.9 Obesity, unspecified; Z68.31 Body mass index [BMI] 31.0-31.9, adult; M54.5 Low back pain; M10.9 Gout, unspecified; R19.7 Diarrhea, unspecified
CPT/HCPCS: 36415; 71045; 80048; 80053; 81001; 82150; 82270; 82607; 83036; 83540; 83605; 83690; 83735; 84100; 84443; 84484; 85025; 85610; 85730; 87040; 87070; 87081; 87086; 87400; 93005; 94640; 94664; 96360; 96361; 97110; 97161; 97530; 99217; G0378; J0692; J1170; J1580; J1650; J1815; J1956; J2405; J2930; J3010; J3370; J7030; J7050; J7512

== ENCOUNTER 2018-09-15 20:41 | Inpatient (IN) | payer MEDICARE, OTHER ==
[~2018-09-15] VITALS: Ht 160 cm; Wt 87.0 kg
[~2018-09-15 20:41] MED LIST changes: +ASPI-817 PO; +CEPH500C PO; -HYDR-3980 PO; -MED4DP PO; -ONDA4TAB13 PO; +OXYC-279 PO; +PRED20TA PO; -SULF1TAB31 PO
[2018-09-15] MEDS ORDERED: SOD CHLORIDE 0.9% 500 ML IV STA ×2 (21:02→23:45)
--- NOTE | 2018-09-15 22:26 | ERD ---
ER Documentation Chief Complaint Chief Complaint maribell alarcon from the [facility] assisted living for fall yesterday HPI 78-year-old female with a history of dementia presenting after what seems to be a ground-level fall yesterday. She does not remember falling or why she fell. She is on aspirin. She is complaining of generalized weakness. Currently denying any chest pain, shortness of breath, abdominal pain, dysuria. Does not think she has had any recent fevers or chills. Otherwise history is limited as the patient states that she does not remember when I asked her questions. ROS Limited due to dementia Medications Home Meds Active Scripts Aspirin* (Aspirin* EC) 81 Mg Tablet.dr, 81 MG PO DAILY for 30 Days, TAB Prov:JULIAN DOMÍNGUEZ MD 06/01/18 Gabapentin* (Gabapentin*) 100 Mg Capsule, 100 MG PO TID for 30 Days, CAP Prov:JULIAN DOMÍNGUEZ MD 03/08/18 Reported Medications Budesonide-Formoterol Fumarate* (Symbicort*) 160-4.5 Hfa.aer.ad, 2 PUFF INHALATION BID, #1 EACH 09/16/18 Potassium Chloride* (Potassium Chloride*) 8 Meq Capsule.er, 8 MEQ PO BID, CAP 09/16/18 Oxycodone HCl/Acetaminophen (Oxycodone-Acetaminophen 10-325) 1 Each Tablet, 1 EACH PO TID, TAB 09/16/18 Guaifenesin/Codeine Phosphate (Codeine-Guaifen 10-100 mg/5 ml) 120 Ml Liquid, 5 ML PO Q6 PRN for COUGH 09/16/18 Furosemide* (Furosemide*) 40 Mg Tablet, 40 MG PO DAILY, TAB 09/16/18 Zolpidem Tartrate* (Zolpidem Tartrate*) 10 Mg Tablet, 10 MG PO QHS PRN for INSO MNIA, #30 TAB 03/03/18 Albuterol Sulfate* (Ventolin HFA*) 18 Gm Hfa.aer.ad, 2 PUFF INHALATION Q4H, #1 INHALER 03/03/18 Balsam Ambia/Reynolds Oil (Venelex Ointment) 60 Gm Oint..gm., 1 APPLIC TOP NEEDED, #1 TUB 03/03/18 Fesoterodine Fumarate (Toviaz) 8 Mg Tab.sr.24h, 8 MG PO DAILY, TAB 03/03/18 Tamsulosin Hcl* (Tamsulosin Hcl*) 0.4 Mg Cap.er.24h, 0.4 MG PO QAM, CAP 03/03/18 Pantoprazole* (Pantoprazole*) 40 Mg Tablet.dr, 40 MG PO AC BREAKFAST, TAB 03/03/18 Nystatin-Triamcinolone* (Nystatin-Triamcinolone* Cream) 15 Gm Cream.gm., 1 APPLIC TOP BID, #1 TUB 03/03/18 Multivitamins* (Theragran*) 1 Tab Tab, 1 TAB PO DAILY, TAB 03/03/18 Loratadine* (Loratadine*) 10 Mg Tablet, 10 MG PO DAILY, #30 TAB 03/03/18 Loperamide Hcl* (Loperamide Hcl*) 2 Mg Cap, 2 MG PO Q4H PRN for NEEDED, CAP 03/03/18 Cholecalciferol (Vitamin D3) (Vitamin D-3) 2,000 Unit Tablet, 2000 UNIT PO DAILY, TAB 03/03/18 Fluticasone Propionate* (Fluticasone Propionate* Nasal) 50 Mcg/Kelliher - 16 Gm Kelliher.susp, 1 SPRAY NASAL DAILY, #1 BOTTLE TO EACH NOSTRIL 03/03/18 Ferrous Sulfate* (Ferrous Sulfate*) 325 Mg Tabec, 325 MG PO DAILY, TAB 03/03/18 Duloxetine Hcl* (Duloxetine Hcl*) 60 Mg Capsule.dr, 60 MG PO DAILY, #30 CAP 03/03/18 Docusate Sodium* (Colace*) 100 Mg Capsule, 100 MG PO BID, #60 CAP 03/03/18 Clotrimazole* (Clotrimazole* AF) 1% - 30 Gm Cream.gm., 1 APPLIC TOP BID, TUB 03/03/18 Aripiprazole* (Abilify*) 5 Mg Tab, 5 MG PO DAILY, #30 TAB 03/03/18 Acetaminophen* (Acetaminophen*) 325 Mg Tablet, 650 MG PO Q6H PRN for MILD PAIN LEVEL 1-3, #30 TAB 03/03/18 Discontinued Reported Medications Nitroglycerin* (Nitroglycerin* SL) 0.4 Mg Tab.subl, 0.4 MG SL Q5MIN PRN for CHEST PAIN, BOTTLE 03/03/18 Lorazepam* (Lorazepam*) 0.5 Mg Tablet, 0.5 MG PO Q8 PRN for ANXIETY, TAB 03/03/18 Ipratropium-Albuterol (Ipratropium-Albuterol) 0.5-3 Mg/3 Ml Ampul.neb, 3 ML INHALATION Q2H, #30 VIAL 03/03/18 Discontinued Scripts Cephalexin* (Cephalexin*) 500 Mg Capsule, 500 MG PO Q8 for 5 Days, #15 CAP Prov:JULIAN DOMÍNGUEZ MD 06/01/18 Prednisone* (Prednisone*) 20 Mg Tab, 30 MG PO DAILY for 9 Days, TAB Prov:JULIAN DOMÍNGUEZ MD 06/01/18 Oxycodone HCl/Acetaminophen (Percocet 5-325 mg Tablet) 1 Each Tablet, 1 EACH PO Q6, #30 TAB Prov:JULIAN DOMÍNGUEZ MD 06/01/18 Allergies Allergies: Coded Allergies: Penicillins (Verified Allergy, Mild, ALLERGY, 03/08/18) adhesive tape (Verified Allergy, Unknown, 03/08/18) PMhx/Soc Medical and Surgical Hx: Unable to obtain History of Surgery: Yes (pacemaker, hysterectomy, cataract sx, nose sx) Anesthesia Reaction: No Hx Neurological Disorder: Yes (dementia, schizoaffective disorder, anxiety) Hx Respiratory Disorders: Yes (COPD) Hx Cardiac Disorders: Yes (HTN, hx pacemaker, CHF) Hx Psychiatric Problems: Yes (dementia, schizoaffective disorder) Hx Miscellaneous Medical Probl: Yes (COPD, CHF, OA, schizoaffetive disorder, borderline DM, stent placement 2017) Hx Alcohol Use: No Hx Substance Use: No Hx Tobacco Use: No Smoking Status: Never smoker FmHx Patient unable to recall Physical Exam Vitals Vital Signs Date Temp Pulse Resp B/P (MAP) Pulse Ox O2 O2 Flow FiO2 Time Delivery Rate 09/15/18 81 18 158/74 93 Room Air 23:00 (102) 09/15/18 98.7 76 18 120/54 99 20:44 (76) Physical Exam Const: No acute distress Head: Contusion left forehead/taoist, no hematoma, no skull depression Eyes: Normal Conjunctiva, pupils constricted, reactive to light bilaterally. Equal bilaterally. No periorbital ecchymoses. ENT: No facial tenderness to palpation. Normal External Ears, Nose and Mouth. Neck: Full range of motion. No meningismus. Lower C-spine tenderness. No step-offs Resp: Clear to auscultation bilaterally Cardio: Regular rate and rhythm, no murmurs. 2+ distal pulses in all 4 extremities Abd: Soft, non tender, non distended. Normal bowel sounds Skin: No petechiae or rashes Back: No midline or flank tenderness Ext: Normal to inspection and palpation. No cyanosis, or edema Neur: Awake and alert, no facial asymmetry, oriented to self and place. Cranial nerves intact. Strength and sensations grossly intact in all 4 extremities. Psych: Normal Mood and Affect Result Diagram: 09/16/1843 09/16/18542 Results 24 hrs Laboratory Tests Test 09/15/18 21:17 09/15/18 22:48 White Blood Count 8.1 10^3/ul Red Blood Count 3.79 10^6/ul Hemoglobin 10.9 g/dl Hematocrit 33.8 % Mean Corpuscular Volume 89.2 fl Mean Corpuscular Hemoglobin 28.8 pg Mean Corpuscular Hemoglobin Concent 32.2 g/dl Red Cell Distribution Width 14.1 % Platelet Count 153 10^3/UL Mean Platelet Volume 10.9 fl Immature Granulocytes % 0.200 % Neutrophils % 47.2 % Lymphocytes % 36.8 % Monocytes % 8.7 % Eosinophils % 6.7 % Basophils % 0.4 % Nucleated Red Blood Cells % 0.0 /100WBC Immature Granulocytes # 0.020 10^3/ul Neutrophils # 3.8 10^3/ul Lymphocytes # 3.0 10^3/ul Monocytes # 0.7 10^3/ul Eosinophils # 0.5 10^3/ul Basophils # 0.0 10^3/ul Nucleated Red Blood Cells # 0.0 10^3/ul Prothrombin Time 13.0 Sec Prothrombin Time Ratio 1.0 INR International Normalized Ratio 0.97 Activated Partial Thromboplast Time 32.0 Sec Sodium Level 143 mmol/L Potassium Level 3.7 mmol/L Chloride Level 103 mmol/L Carbon Dioxide Level 34 mmol/L Anion Gap 6 Blood Urea Nitrogen 14 mg/dl Creatinine 1.26 mg/dl Est Glomerular Filtrat Rate mL/min mL/min Glucose Level 114 mg/dl Calcium Level 8.7 mg/dl Troponin I < 0.012 ng/ml Urine Color YELLOW Urine Clarity SLIGHTLY CLOUDY Urine pH 7.0 Urine Specific Wittmann 1.004 Urine Ketones NEGATIVE mg/dL Urine Nitrite NEGATIVE mg/dL Urine Bilirubin NEGATIVE mg/dL Urine Urobilinogen NEGATIVE mg/dL Urine Leukocyte Esterase 3+ Camacho/ul Urine Microscopic RBC 5 /HPF Urine Microscopic WBC > 182 /HPF Urine Amorphous Crystals FEW /HPF Urine Bacteria FEW /HPF Urine Hemoglobin 2+ mg/dL Urine Glucose NEGATIVE mg/dL Urine Total Protein NEGATIVE mg/dl Current Medications Medications Dose Sig/Genet Start Time Status Last (Trade) Ordered Route PRN Stop Time Admin Dose Reason Admin Sodium 500 ml @ Q1H STAT 09/15/18 DC 09/15/18 Chloride 500 mls/hr IV 21:02 09/15/18 21:58 22:01 Sodium 500 ml @ Q1H STAT 09/15/18 DC 09/16/18 Chloride 500 mls/hr IV 23:45 09/16/18 00:56 00:44 Procedures/MDM EMERGENT LABS AND DIAGNOSTIC STUDIES: Lab Results above were reviewed and interpreted by me. CBC: Mild anemia and thrombocytopenia BMP: [no e/o clinically significant electrolyte abnormality severe acidosis, alkalosis, renal failure, diabetic ketoacidosis] Troponin within normal limits, not indicative of cardiac ischemia UA: + evidence of infection Radiology Results as interpreted by Radiology below were reviewed by Marlys Ledesma MD: CT head shows no acute abnormalities CT C-spine shows no acute traumatic abnormalities CT T and L-spine: No acute traumatic abnormalities Initial Nursing notes reviewed. Previous Medical Records requested via the Electronic Health Record. EMERGENCY DEPARTMENT COURSE / MEDICAL DECISION MAKING: Patient is presenting with dizziness and head injury after a ground-level fall. Vitals are unremarkable. CTs were done and did not show any evidence of stroke, skull fracture, intracranial hemorrhage, or any spinal fractures. No evidence of other injuries on exam. Patient does have a UTI on work-up. She was treated with IV fluids and IV antibiotics. Upon reevaluation, patient still feels unsteady while walking and will be admitted for further observation and work-up. Accepting Care Team: Current data and ongoing care discussed. Time: Time of admission Primary Provider: Dr. Margarita Kong, honing machine operator semiautomatic for Dr. Jessica Alvarez Diagnosis: Primary Impression: UTI (urinary tract infection) Urinary tract infection type: site unspecified Hematuria presence: without hematuria Qualified Codes: N39.0 - Urinary tract infection, site not specified Additional Impressions: Head injury Encounter type: initial encounter Qualified Codes: S09.90XA - Unspecified injury of head, initial encounter Fall Encounter type: initial encounter Qualified Codes: W19.XXXA - Unspecified fall, initial encounter Condition: TRAM Cha MD Sep 15, 2018 22:26
[2018-09-16] MEDS ORDERED: ONDANSETRON 4 MG INJ IV PRN
[2018-09-16] MEDS ORDERED: CEFTRIAXONE 1 GM/50 ML (PMX) 50 ML IVPB ONE
[2018-09-16 02:10] VITALS: BP 113/53; PULSE 70; RESP 20
[2018-09-16] MEDS: SOD CHLORIDE 0.9% 1,000 ML IV SCH ×2 (05:09→21:41)
[2018-09-16 07:49] VITALS: BP 115/58; PULSE 75; RESP 20
[2018-09-16] MEDS ORDERED: LOPERAMIDE 2 MG CAP PO PRN (08:30)
[2018-09-16] MEDS ORDERED: ACETAMINOPHEN 325 MG TAB PO PRN ×2 (08:30)
[2018-09-16] MEDS ORDERED: FURO40TA4 PO (08:36)
[2018-09-16] MEDS ORDERED: POTA8CAP PO (08:40)
[2018-09-16] MEDS ORDERED: OXYC-431 PO (08:40)
[2018-09-16] MEDS ORDERED: GUAI120L41 PO (08:40)
[2018-09-16] MEDS ORDERED: BUDE6HFA INHALATION (08:40)
[2018-09-16] MEDS: DOCUSATE SODIUM 100 MG CAP PO SCH ×3 (09:00→19:41)
[2018-09-16] MEDS ORDERED: ALBUTEROL 18 GM INHALER INH SCH (09:00)
--- NOTE | 2018-09-16 09:11 | HP ---
DATE OF ADMISSION: 09/15/2018 CHIEF COMPLAINT: Dizziness, ground level fall, possible syncope. HISTORY OF PRESENT ILLNESS: This is a 77-year-old female with a past medical history of COPD, histor y of CHF, osteoarthritis, schizoaffective disorder, history of diabetes, history of coronary artery d isease, previous history of left obstructive ureteral stone, status post lithotripsy, history of an o gentry-active bladder who resides at [facility]. The patient was brought into [facility] after patient was found down. Accordingly, the patient does not rememb er falling or why she was on the ground but the patient hit her head. She was brought into the emerg ency room. In the emergency room, the patient had a CT scan of the brain as well as the thoracic spi ne showed no acute intracranial hemorrhage, but did show multiple evidence of multi facet degenerativ e joint disease. The patient had a urinalysis performed which showed evidence of a urinary tract inf ection. The patient was started on antibiotic therapy and admitted for Med/Surg for evaluation. Upon my evaluation of the patient at this time, she is currently stable. Denies any fevers, chills, nausea, vomiting. PAST MEDICAL HISTORY: As stated above, history of arrhythmia, history of dementia, history of schizo affective disorder, history of COPD, hypertension, history of coronary artery disease, history of bor derline diabetes. PAST SURGICAL HISTORY: Status post pacemaker, status post hysterectomy, status post cataract surgery . ALLERGIES: THE PATIENT'S ALLERGIES ARE MULTIPLE, PLEASE SEE LIST. FAMILY HISTORY: No disease. SOCIAL HISTORY: Lives in an assisted living facility. MEDICATIONS: The patient's medications have been reviewed and reconciled. REVIEW OF SYSTEMS: A 14-point review of systems is conducted and pertinent positives as stated in th e HPI, otherwise negative. PHYSICAL EXAMINATION: VITAL SIGNS: Blood pressure 115/58, respirations 20, pulse 78, temperature 98.3. HEENT: Head is normocephalic. Noted ecchymoses on the frontal lobe. Pupils react to light. NECK: Supple. HEART: Regular rate. LUNGS: Show diminished breath sounds at the base. ABDOMEN: Soft, nontender to palpation without rebound or guarding. EXTREMITIES: Negative for clubbing, cyanosis, no edema. DERMATOLOGIC: No rashes. MUSCULOSKELETAL: No joint effusions. NEUROLOGIC: No focal deficits. MEDICATIONS: The patient's medications have been reviewed. LABORATORY DATA: Has been reviewed. IMAGING STUDIES: The imaging studies have been reviewed. ASSESSMENT AND PLAN: This is a 78-year-old female who presents with: 1. Status post fall, possible syncope. Etiology is unclear. Differential includes cardiac versus v asovagal versus infectious versus mechanical. The patient had CT scan of the brain showed no acute f inding. CT scan of the spine, thoracic, lumbar spine showed no fracture. Plan at this point is to d o a full evaluation. We will place a cardiology and neurology consult for evaluation. Will monitor patient closely. Do neuro checks. 2. Urinary tract infection. The patient's urinalysis is positive for pyuria. Continue current anti biotic regimen. 3. History of coronary artery disease. Continue current medical management. 4. Nonoliguric acute kidney injury. Etiology is likely secondary to hemodynamics. The patient's re nal function improved with IV hydration. Continue to monitor and continue supportive care and renall y dose all meds. 5. Hypokalemia, replete with potassium chloride. 6. Hypernatremia. Will encourage free water intake. 7. History of chronic obstructive pulmonary disease with possible mild exacerbation. We will contin ue current medical management. We will give nebulizers as needed. 8. History of CHF, currently compensated. Continue medical management. 9. Osteoarthritis. Continue current treatment plan. 10. Anxiety disorder. Schizoaffective disorder. Continue Lexapro and Abilify. 11. History of over-active bladder. Continue Ditropan. 12. Borderline diabetes. Continue Accu-Cheks. 13. History of arrhythmia, status post pacemaker. 14. Gastrointestinal and deep venous thrombosis prophylaxis. Please note I spent an additional 30 minutes of face to face time with the patient discussing advance d directives, code status. THE PATIENT IS FULL CODE. Dictated By: BROOKE LOPEZ DO NR/NTS Conf#: [id number] DID#: [id number] CC: DUGLAS KELLY MD;*EndCC*
[2018-09-16] MEDS: MULTIVITAMINS THERAPEUTIC TAB PO SCH (09:29)
[2018-09-16] MEDS: ASPIRIN (EC) 81 MG TAB PO SCH (09:29)
[2018-09-16] MEDS: FERROUS SULFATE (EC) 325 MG TAB PO SCH (09:29)
[2018-09-16] MEDS: ALBUTEROL HFA 8 GM INHALER INH SCH ×4 (11:05→19:41)
[2018-09-16] MEDS: FLUTICASONE 0.05% 16 GM NAS SPRAY NASAL SCH (11:06)
[2018-09-16] MEDS: DULOXETINE 30 MG CAP DR PO SCH (11:07)
[2018-09-16] MEDS: LORATADINE 10 MG TAB PO SCH (11:07)
[2018-09-16] MEDS: NYSTATIN/TRIAMCINOLONE 15 GM CR TOP SCH ×2 (11:07→21:41)
[2018-09-16] MEDS: CLOTRIMAZOLE 1% 30 GM CR TOP SCH ×2 (11:07→21:41)
[2018-09-16] MEDS: ARIPIPRAZOLE 5 MG TAB PO SCH (11:07)
[2018-09-16] MEDS: BALSAM PERU/CASTOR OIL 60 GM TUBE TOP SCH (11:08)
--- NOTE | 2018-09-16 12:46 | CONS ---
DATE OF ADMISSION: 09/15/2018 DATE OF CONSULTATION: 09/16/2018 TYPE OF CONSULTATION: Infectious Disease. REASON FOR CONSULTATION: Antibiotic management. HISTORY OF PRESENT ILLNESS: Renetta Dhillon is a 78-year-old female with a history of dementia who co mes in following a ground level fall, September 14. She is on aspirin. She has generalized weakness. She has no fever or chills. Her past problems include: 1. Status post pacemaker. 2. Hysterectomy. 3. Cataract surgery. 4. Rhinoplasty. 5. Dementia. 6. Schizoaffective disorder. 7. Anxiety. 8. COPD. 9. Hypertension. 10. Congestive failure. 11. Borderline diabetes mellitus. 12. Stent placement in 2017. FAMILY HISTORY: Noncontributory. SOCIAL HISTORY: She does not smoke, drink or abuse drugs. ALLERGIES: SHE IS ALLERGIC TO: 1. PENICILLIN. 2. ADHESIVE TAPE. 3. PAPER TAPE. PHYSICAL EXAMINATION: GENERAL: She is in no acute distress. VITAL SIGNS: Stable. She is afebrile. SKIN: She has contusion on the left forehead and denominational. No hematoma, no skull depression. HEENT: No periorbital ecchymoses. NECK: Supple. LYMPH NODES: None palpable. CHEST: Decreased breath sounds at the bases. HEART: Without murmur or gallop. ABDOMEN: Soft, nontender, without organosplenomegaly or masses. EXTREMITIES: Without cyanosis, clubbing, or edema. RECTAL AND GENITAL: Deferred. NEUROLOGIC: No focal neurological abnormality. As noted, the patient has dementia. ANCILLARY LABORATORY DATA: Her white count is 8.1 with 47% neutrophils, H and H 10.9 and 33.8, plate let count 153,000. BUN and creatinine 14/1.26, glucose 114. CT scan of the head shows no acute abno rmalities. CT scan of the spine shows no acute abnormalities. A urine shows 3+ leukocyte esterase, greater than 182 white cells per high-power field. A CT scan of the cervical spine shows cervical st raightening, reversal of cervical lordosis with mild kyphotic angulation at C3-C4, a 17 mm partially visualized lesion in the right thyroid. Recommend nonemergent ultrasound correlation. IMPRESSION AND PLAN: The patient was seen by Dr. Ramirez. The patient had a previous history of a l eft obstructive ureteral stone, status post lithotripsy, history of overactive bladder. She resides at [facility]. Currently, status post fall, possibly vasovagal, urinary tract infe ction, currently on IV antibiotic therapy. She was placed on ceftriaxone. We will continue her on c urrent therapy and observe. I will dictate my findings to Dr. Ramirez. Dictated By: FILIPE LILLY MD, JD/CYNTHIA Conf#: [id number] DID#: [id number] CC: DUGLAS KELLY MD;*EndCC*
[2018-09-16] MEDS: GUAIFENESIN/CODEINE 5ML CUP PO PRN ×2 (13:26→19:42)
[2018-09-16 13:46] VITALS: BP 128/59; PULSE 80; RESP 20
[2018-09-16] MEDS: POTASSIUM CHLORIDE (SR) 8 MEQ CAP PO SCH ×2 (14:09→19:42)
--- NOTE | 2018-09-16 15:43 | CONS ---
Assessment/Plan Assessment/Plan Hospital Course (Demo Recall) Syncope History of pacemaker COPD Psych disorder Possible UTI Preserved left ventricular ejection fraction echocardiogram June 2017 Patient thinks she was sitting in bed and the next thing she remembers is waking up on the floor, with head trauma ECG not in the chart, on review of ER note, no significant abnormalities Patient with history of pacemaker I will transfer patient to telemetry to rule out any arrhythmias Check echocardiogram Carotid ultrasound 2015 with no significant abnormalities Patient has regular follow-up with Dr. Murillo, will await information from his office in regards to pacemaker type and interrogation Dr. Murillo to resume care at 09/17/2018 Consultation Date/Type/Reason Admit Date/Time Sep 15, 2018 at 23:54 Type of Consult Cardiology Reason for Consultation Syncope Date/Time of Note DATE: 09/16/18 TIME: 15:37 Hx of Present Illness This is a 78-year-old female past medical history of sick sinus syndrome status post pacemaker, hypertension who presents after loss of consciousness. Patient states she woke up in her normal state of health. Was doing her morning activities. She came back after a short walk and sat in her bed. Then she remembers waking up on the floor. She is unsure how she got there but does know that she hit her head on oxygen tank. Denies any palpitations, chest pain, shortness of breath or dizziness. She is feeling better now. Denies any nausea or vomiting or diarrhea. 12 point review of systems was performed with all pertinent positives and negatives mentioned above and all else is negative Past Medical History COPD Psych disorder Hypertension Home Meds Active Scripts Aspirin* (Aspirin* EC) 81 Mg Tablet., 81 MG PO DAILY for 30 Days, TAB Prov:JULIAN DOMÍNGUEZ MD 06/01/18 Gabapentin* (Gabapentin*) 100 Mg Capsule, 100 MG PO TID for 30 Days, CAP Prov:JULIAN DOMÍNGUEZ MD 03/08/18 Reported Medications Budesonide-Formoterol Fumarate* (Symbicort*) 160-4.5 Hfa.aer.ad, 2 PUFF INHALATION BID, #1 EACH 09/16/18 Potassium Chloride* (Potassium Chloride*) 8 Meq Capsule.er, 8 MEQ PO BID, CAP 09/16/18 Oxycodone HCl/Acetaminophen (Oxycodone-Acetaminophen 10-325) 1 Each Tablet, 1 EACH PO TID, TAB 09/16/18 Guaifenesin/Codeine Phosphate (Codeine-Guaifen 10-100 mg/5 ml) 120 Ml Liquid, 5 ML PO Q6 PRN for COUGH 09/16/18 Furosemide* (Furosemide*) 40 Mg Tablet, 40 MG PO DAILY, TAB 09/16/18 Zolpidem Tartrate* (Zolpidem Tartrate*) 10 Mg Tablet, 10 MG PO QHS PRN for INSOMNIA, #30 TAB 03/03/18 Albuterol Sulfate* (Ventolin HFA*) 18 Gm Hfa.aer.ad, 2 PUFF INHALATION Q4H, #1 INHALER 03/03/18 Balsam [place] Oil (Venelex Ointment) 60 Gm Oint..gm., 1 APPLIC TOP NEEDED, #1 TUB 03/03/18 Fesoterodine Fumarate (Toviaz) 8 Mg Tab.sr.24h, 8 MG PO DAILY, TAB 03/03/18 Tamsulosin Hcl* (Tamsulosin Hcl*) 0.4 Mg Cap.er.24h, 0.4 MG PO QAM, CAP 03/03/18 Pantoprazole* (Pantoprazole*) 40 Mg Tablet.dr, 40 MG PO AC BREAKFAST, TAB 03/03/18 Nystatin-Triamcinolone* (Nystatin-Triamcinolone* Cream) 15 Gm Cream.gm., 1 APPLIC TOP BID, #1 TUB 03/03/18 Multivitamins* (Theragran*) 1 Tab Tab, 1 TAB PO DAILY, TAB 03/03/18 Loratadine* (Loratadine*) 10 Mg Tablet, 10 MG PO DAILY, #30 TAB 03/03/18 Loperamide Hcl* (Loperamide Hcl*) 2 Mg Cap, 2 MG PO Q4H PRN for NEEDED, CAP 03/03/18 Cholecalciferol (Vitamin D3) (Vitamin D-3) 2,000 Unit Tablet, 2000 UNIT PO DAILY, TAB 03/03/18 Fluticasone Propionate* (Fluticasone Propionate* Nasal) 50 Mcg/[place] - 16 Gm [place].susp, 1 SPRAY NASAL DAILY, #1 BOTTLE TO EACH NOSTRIL 03/03/18 Ferrous Sulfate* (Ferrous Sulfate*) 325 Mg Tabec, 325 MG PO DAILY, TAB 03/03/18 Duloxetine Hcl* (Duloxetine Hcl*) 60 Mg Capsule.dr, 60 MG PO DAILY, #30 CAP 03/03/18 Docusate Sodium* (Colace*) 100 Mg Capsule, 100 MG PO BID, #60 CAP 03/03/18 Clotrimazole* (Clotrimazole* AF) 1% - 30 Gm Cream.gm., 1 APPLIC TOP BID, TUB 03/03/18 Aripiprazole* (Abilify*) 5 Mg Tab, 5 MG PO DAILY, #30 TAB 03/03/18 Acetaminophen* (Acetaminophen*) 325 Mg Tablet, 650 MG PO Q6H PRN for MILD PAIN LEVEL 1-3, #30 TAB 03/03/18 Discontinued Reported Medications Nitroglycerin* (Nitroglycerin* SL) 0.4 Mg Tab.subl, 0.4 MG SL Q5MIN PRN for CHEST PAIN, BOTTLE 03/03/18 Lorazepam* (Lorazepam*) 0.5 Mg Tablet, 0.5 MG PO Q8 PRN for ANXIETY, TAB 03/03/18 Ipratropium-Albuterol (Ipratropium-Albuterol) 0.5-3 Mg/3 Ml Ampul.neb, 3 ML INHALATION Q2H, #30 VIAL 03/03/18 Discontinued Scripts Cephalexin* (Cephalexin*) 500 Mg Capsule, 500 MG PO Q8 for 5 Days, #15 CAP Prov:JULIAN DOMÍNGUEZ MD 06/01/18 Prednisone* (Prednisone*) 20 Mg Tab, 30 MG PO DAILY for 9 Days, TAB Prov:JULIAN DOMÍNGUEZ MD 06/01/18 Oxycodone HCl/Acetaminophen (Percocet 5-325 mg Tablet) 1 Each Tablet, 1 EACH PO Q6, #30 TAB Prov:JULIAN DOMÍNGUEZ MD 06/01/18 Medications Current Medications Sodium Chloride 1,000 ml @ 50 mls/hr Q20H IV Last administered on 09/16/18at 05:09; Admin Dose 50 MLS/HR; Start 09/16/18 at 05:00 Ceftriaxone Sodium 50 ml @ 100 mls/hr Q24H IVPB ; Start 09/16/18 at 23:30 Acetaminophen (Tylenol Tab) 650 mg Q6H PRN PO MILD PAIN LEVEL 1-3; Start 09/16/18 at 08:30 Aripiprazole (Abilify) 5 mg DAILY PO Last administered on 09/16/18 11:07; Admin Dose 5 MG; Start 09/16/18 at 09:00 Aspirin (Halfprin) 81 mg DAILY PO Last administered on 09/16/18 09:29; Admin Dose 81 MG; Start 09/16/18 at 09:00 Clotrimazole (Lotrimin Cr) 1 applic BID TOP Last administered on 09/16/18 11:07; Admin Dose 1 APPLIC; Start 09/16/18 at 09:00 Docusate Sodium (Colace) 100 mg BID PO ; Start 09/16/18 at 09:00 Duloxetine HCl (Cymbalta) 60 mg DAILY PO Last administered on 09/16/18 11:07; Admin Dose 60 MG; Start 09/16/18 at 09:00 Ferrous Sulfate (Ferrous Sulfate (Ec)) 325 mg DAILY PO Last administered on 09/16/18 09:29; Admin Dose 325 MG; Start 09/16/18 at 09:00 Fluticasone Propionate (Flonase 0.05% Nasal) 1 spray DAILY NASAL Last administered on 09/16/18 11:06; Admin Dose 1 SPRAY; Start 09/16/18 at 09:00 Loperamide HCl (Imodium Cap) 2 mg Q4H PRN PO NEEDED; Start 09/16/18 at 08:30 Loratadine (Claritin) 10 mg DAILY PO Last administered on 09/16/18 11:07; Admin Dose 10 MG; Start 09/16/18 at 09:00 Multivitamins Therapeutic (Theragran) 1 tab DAILY PO Last administered on 09/16/18 09:29; Admin Dose 1 TAB; Start 09/16/18 at 09:00 Nystatin/ Triamcinolone Acetonide (Mycolog Cr) 1 applic BID TOP Last administered on 09/16/18 11:07; Admin Dose 1 APPLIC; Start 09/16/18 at 09:00 Pantoprazole (Protonix Tab) 40 mg AC BREAKFAST PO ; Start 09/17/18 at 07:00 Albuterol (Ventolin Hfa) 2 puff Q4H RESP THERAPY INH Last administered on 09/16/18 13:26; Admin Dose 2 PUFF; Start 09/16/18 at 09:00 Oxycodone/ Acetaminophen (Percocet (5/ 325)) 1 tab Q6H PRN PO MODERATE PAIN LEVEL 4-6; Start 09/16/18 at 09:30 Potassium Chloride (Micro-K) 8 meq BID PO Last administered on 09/16/18at 14:09; Admin Dose 8 MEQ; Start 09/16/18 at 10:00 Guaifenesin/ Codeine Phosphate (Robitussin Ac Liquid Cup) 5 ml Q6H PRN PO COUGH Last administered on 09/16/18at 13:26; Admin Dose 5 ML; Start 09/16/18 at 09:30 Allergies: Coded Allergies: Penicillins (Verified Allergy, Mild, ALLERGY, 03/08/18) adhesive tape (Verified Allergy, Unknown, 03/08/18) Past Surgical History Past Surgical Hx: other (Including but not limited to pacemaker) Social History Smoking Status: Former smoker Exam/Review of Systems Vital Signs Vitals Vital Signs Date Temp Pulse Resp B/P (MAP) Pulse Ox O2 O2 Flow FiO2 Time Delivery Rate 09/16/18 98.3 80 20 128/59 94 13:46 (82) 09/16/18 Nasal 2.0 02:59 Cannula Exam Constitutional: alert, oriented (No apparent distress) Head: other (Ecchymosis left side of forehead) Respiratory: other (Coarse breath sounds bilaterally, no wheezing) Cardiovascular: regular rate and rhythm (S1-S2 heard) Gastrointestinal: soft, non-tender, bowel sounds Extremities: edema (Trace) Labs Result Diagram: 09/16/18 0543 09/16/18 0543 Results 24hrs Laboratory Tests Test 09/15/18 21:17 09/15/18 22:48 09/16/18 05:43 White Blood Count 8.1 6.9 Red Blood Count 3.79 L 3.57 L Hemoglobin 10.9 L 10.5 L Hematocrit 33.8 L 31.7 L Mean Corpuscular Volume 89.2 88.8 Mean Corpuscular Hemoglobin 28.8 L 29.4 Mean Corpuscular 32.2 33.1 Hemoglobin Concent Red Cell Distribution Width 14.1 14.1 Platelet Count 153 136 L Mean Platelet Volume 10.9 H 12.4 H Immature Granulocytes % 0.200 0.300 Neutrophils % 47.2 48.1 Lymphocytes % 36.8 34.3 Monocytes % 8.7 9.4 Eosinophils % 6.7 7.2 H Basophils % 0.4 0.7 Nucleated Red Blood Cells % 0.0 0.0 Immature Granulocytes # 0.020 0.020 Neutrophils # 3.8 3.3 Lymphocytes # 3.0 H 2.4 Monocytes # 0.7 0.7 Eosinophils # 0.5 0.5 Basophils # 0.0 0.1 Nucleated Red Blood Cells # 0.0 0.0 Prothrombin Time 13.0 Prothrombin Time Ratio 1.0 INR International 0.97 Normalized Ratio Activated Partial Thromboplast 32.0 Time Sodium Level 143 145 H Potassium Level 3.7 3.4 L Chloride Level 103 108 Carbon Dioxide Level 34 H 31 Anion Gap 6 6 Blood Urea Nitrogen 14 11 Creatinine 1.26 H 1.08 H Est Glomerular Filtrat Rate mL/min Glucose Level 114 99 Calcium Level 8.7 8.3 L Troponin I < 0.012 Urine Color YELLOW Urine Clarity SLIGHTLY CLOUDY A Urine pH 7.0 Urine Specific [place] 1.004 Urine Ketones NEGATIVE Urine Nitrite NEGATIVE Urine Bilirubin NEGATIVE Urine Urobilinogen NEGATIVE Urine Leukocyte Esterase 3+ H Urine Microscopic RBC 5 Urine Microscopic WBC > 182 H Urine Amorphous Crystals FEW A Urine Bacteria FEW A Urine Hemoglobin 2+ H Urine Glucose NEGATIVE Urine Total Protein NEGATIVE Medications Medications Current Medications Sodium Chloride 1,000 ml @ 50 mls/hr Q20H IV Last administered on 09/16/18at 05:09; Admin Dose 50 MLS/HR; Start 09/16/18 at 05:00 Ceftriaxone Sodium 50 ml @ 100 mls/hr Q24H IVPB ; Start 09/16/18 at 23:30 Acetaminophen (Tylenol Tab) 650 mg Q6H PRN PO MILD PAIN LEVEL 1-3; Start 09/16/18 at 08:30 Aripiprazole (Abilify) 5 mg DAILY PO Last administered on 09/16/18at 11:07; Admin Dose 5 MG; Start 09/16/18 at 09:00 Aspirin (Halfprin) 81 mg DAILY PO Last administered on 09/16/18at 09:29; Admin Dose 81 MG; Start 09/16/18 at 09:00 Clotrimazole (Lotrimin Cr) 1 applic BID TOP Last administered on 09/16/18at 11:07; Admin Dose 1 APPLIC; Start 09/16/18 at 09:00 Docusate Sodium (Colace) 100 mg BID PO ; Start 09/16/18 at 09:00 Duloxetine HCl (Cymbalta) 60 mg DAILY PO Last administered on 09/16/18 11:07; Admin Dose 60 MG; Start 09/16/18 at 09:00 Ferrous Sulfate (Ferrous Sulfate (Ec)) 325 mg DAILY PO Last administered on 09/16/18 09:29; Admin Dose 325 MG; Start 09/16/18 at 09:00 Fluticasone Propionate (Flonase 0.05% Nasal) 1 spray DAILY NASAL Last administered on 09/16/18 11:06; Admin Dose 1 SPRAY; Start 09/16/18 at 09:00 Loperamide HCl (Imodium Cap) 2 mg Q4H PRN PO NEEDED; Start 09/16/18 at 08:30 Loratadine (Claritin) 10 mg DAILY PO Last administered on 09/16/18 11:07; Admin Dose 10 MG; Start 09/16/18 at 09:00 Multivitamins Therapeutic (Theragran) 1 tab DAILY PO Last administered on 09/16/18 09:29; Admin Dose 1 TAB; Start 09/16/18 at 09:00 Nystatin/ Triamcinolone Acetonide (Mycolog Cr) 1 applic BID TOP Last administered on 09/16/18 11:07; Admin Dose 1 APPLIC; Start 09/16/18 at 09:00 Pantoprazole (Protonix Tab) 40 mg AC BREAKFAST PO ; Start 09/17/18 at 07:00 Albuterol (Ventolin Hfa) 2 puff Q4H RESP THERAPY INH Last administered on 09/16/18 13:26; Admin Dose 2 PUFF; Start 09/16/18 at 09:00 Oxycodone/ Acetaminophen (Percocet (5/ 325)) 1 tab Q6H PRN PO MODERATE PAIN LEVEL 4-6; Start 09/16/18 at 09:30 Potassium Chloride (Micro-K) 8 meq BID PO Last administered on 09/16/18 14:09; Admin Dose 8 MEQ; Start 09/16/18 at 10:00 Guaifenesin/ Codeine Phosphate (Robitussin Ac Liquid Cup) 5 ml Q6H PRN PO COUGH Last administered on 09/16/18 13:26; Admin Dose 5 ML; Start 09/16/18 at 09:30 Daniel Heredia DO Sep 16, 2018 15:43
[2018-09-16 16:29] VITALS: BP 127/61; PULSE 71; RESP 20
[2018-09-16 16:55] VITALS: Ht 160 cm; Wt 87.0 kg
[2018-09-16] MEDS: OXYCODONE/ACETAMINOPHEN (5/325) TAB PO PRN (19:42)
[2018-09-16 20:03] VITALS: BP 111/56; PULSE 75; RESP 20
[2018-09-16] MEDS: ZOLPIDEM 5 MG TAB PO PRN ×2 (21:41→22:57)
[2018-09-16] MEDS: CEFTRIAXONE 1 GM/50 ML (PMX) 50 ML IVPB SCH (22:57)
[2018-09-17] VITALS (7 sets, daily range): BP systolic 108–129; BP diastolic 54–64; PULSE 66–80; RESP 18–20
[2018-09-17] MEDS ORDERED: CEFTRIAXONE 1 GM/50 ML (PMX) 50 ML IVPB SCH (01:00)
[2018-09-17] MEDS: ALBUTEROL HFA 8 GM INHALER INH SCH ×3 (01:00→08:42)
[2018-09-17] MEDS: GUAIFENESIN/CODEINE 5ML CUP PO PRN ×3 (05:14→20:14)
[2018-09-17] MEDS: OXYCODONE/ACETAMINOPHEN (5/325) TAB PO PRN (05:15)
--- NOTE | 2018-09-17 06:49 | CONSI ---
Assessment/Plan Assessment/Plan Assessment/Plan (Recall) 78 F c/ multiple comorbidities, who presents following an unwitnessed fall. The clinical picture is most consistent w/ syncope. Noted to have a UTI w/ JUANITO on presentation...which could certainly precipitate the above.. A focal PIECE CUTTER process is less likely, though not entirely excluded.. Head CT is without acute pathology...though notable for a temporal-lobe adjacent arachnoid cyst.. MRI brain is contraindicated 2/2 pacemaker. P: [facility] EEG to evaluate for focal abnl and/or epileptiform activity Continued infection and other medical management per primary [place] as necessary Limit psychoactive medications where possible PT/OT as necessary Will follow clinically Consultation Date/Type/Reason Admit Date/Time Sep 15, 2018 at 23:54 Type of Consult Neurology Reason for Consultation fall Requesting Provider: BROOKE LOPEZ DO Date/Time of Note DATE: 09/17/18 TIME: 06:49 Hx of Present Illness 78 F c/ COPD and other comorbidities, who presents for evaluation following a fall. She is unable to describe her fall... Notes that she hit her head on her O2 tank... Denies Hx of seizure, stroke, or other neurologic disorders.. Notes forgetfulness chronically, but denies headache, weakness, numbness, or other acute neurologic Sx. It is elsewhere noted: This is a 77-year-old female with a past medical history of COPD, history of CHF, osteoarthritis, schizoaffective disorder, history of diabetes, history of coronary artery disease, previous history of left obstructive ureteral stone, status post lithotripsy, history of an over-active bladder who resides at [facility]. The patient was brought into [facility] after patient was found down. Accordingly, the patient does not remember falling or why she was on the ground but the patient hit her head. She was brought into the emergency room. In the emergency room, the patient had a CT scan of the brain as well as the thoracic spine showed no acute intracranial hemorrhage, but did show multiple evidence of multi facet degenerative joint di sease. The patient had a urinalysis performed which showed evidence of a urinary tract infection. The patient was started on antibiotic therapy and admitted for Med/Surg for evaluation. per HPI Objective Exam Vitals Vital Signs Date Temp Pulse Resp B/P (MAP) Pulse Ox O2 O2 Flow FiO2 Time Delivery Rate 09/17/18 98.1 71 20 108/64 95 03:41 (79) 09/17/18 Room Air 00:55 09/16/18 2.0 20:20 Intake and Output 09/16/18 09/16/18 09/17/18 1515:00 23:00 07:00 IntakeIntake Total 2280 ml 790 ml 1025 ml BalanceBalance 2280 ml 790 ml 1025 ml Exam PE: Gen Appearance: No Apparent Distress HEENT: Normocephalic Cardiovascular: Regular rate Abdomen: Soft Extremities: Dry NE: The patient was alert and mildly disoriented. Language was normal. Fund of knowledge was adequate. Pupils were equal and reactive to light. There was no afferent pupillary defect. Visual javier were normal. Funduscopic examination was limited. Extra-ocular movements were full. Ptosis was absent. There was no nystagmus. Facial sensation was normal. Face was symmetric with normal strength. Hearing was intact. Palate movements were normal. Neck strength was normal. There was normal tongue bulk a nd speed of movement. Tone was normal. Muscle bulk was normal. I did not see fasciculations. Arms and legs were symmetric. Vibration sensation was normal. Temperature and pinprick sensation was normal. Rapid alternating movements were normal. There was no dysmetria. There was no intention tremor. Gait was deferred due to bedrest. Arm and leg reflexes were symmetric. Mitchell's sign was absent. Plantar responses were flexor. Results Result Diagram: 09/17/18 0539 09/17/18 0539 Results 24hrs Laboratory Tests Test 09/17/18 05:39 White Blood Count 5.8 Red Blood Count 3.78 L Hemoglobin 10.8 L Hematocrit 33.3 L Mean Corpuscular Volume 88.1 Mean Corpuscular Hemoglobin 28.6 L Mean Corpuscular Hemoglobin Concent 32.4 Red Cell Distribution Width 14.2 Platelet Count 146 Mean Platelet Volume 12.2 H Immature Granulocytes % 0.300 Neutrophils % 39.2 Lymphocytes % 45.5 Monocytes % 8.1 Eosinophils % 6.4 Basophils % 0.5 Nucleated Red Blood Cells % 0.0 Immature Granulocytes # 0.020 Neutrophils # 2.3 Lymphocytes # 2.6 Monocytes # 0.5 Eosinophils # 0.4 Basophils # 0.0 Nucleated Red Blood Cells # 0.0 Sodium Level 145 H Potassium Level 3.6 Chloride Level 110 Carbon Dioxide Level 31 Anion Gap 4 L Blood Urea Nitrogen 8 Creatinine 0.94 Est Glomerular Filtrat Rate mL/min Glucose Level 96 Calcium Level 8.5 Phosphorus Level 4.0 Magnesium Level 2.1 Past Medical History reviewed Home Meds Active Scripts Aspirin* (Aspirin* EC) 81 Mg Tablet.dr, 81 MG PO DAILY for 30 Days, TAB Prov:JULIAN DOMÍNGUEZ MD 06/01/18 Gabapentin* (Gabapentin*) 100 Mg Capsule, 100 MG PO TID for 30 Days, CAP Prov:JULIAN DOMÍNGUEZ MD 03/08/18 Reported Medications Budesonide-Formoterol Fumarate* (Symbicort*) 160-4.5 Hfa.aer.ad, 2 PUFF INHALATION BID, #1 EACH 09/16/18 Potassium Chloride* (Potassium Chloride*) 8 Meq Capsule.er, 8 MEQ PO BID, CAP 09/16/18 Oxycodone HCl/Acetaminophen (Oxycodone-Acetaminophen 10-325) 1 Each Tablet, 1 EACH PO TID, TAB 09/16/18 Guaifenesin/Codeine Phosphate (Codeine-Guaifen 10-100 mg/5 ml) 120 Ml Liquid, 5 ML PO Q6 PRN for COUGH 09/16/18 Furosemide* (Furosemide*) 40 Mg Tablet, 40 MG PO DAILY, TAB 09/16/18 Zolpidem Tartrate* (Zolpidem Tartrate*) 10 Mg Tablet, 10 MG PO QHS PRN for INSOMNIA, #30 TAB 03/03/18 Albuterol Sulfate* (Ventolin HFA*) 18 Gm Hfa.aer.ad, 2 PUFF INHALATION Q4H, #1 INHALER 03/03/18 Balsam [place] Oil (Venelex Ointment) 60 Gm Oint..gm., 1 APPLIC TOP NEEDED, #1 TUB 03/03/18 Fesoterodine Fumarate (Toviaz) 8 Mg Tab.sr.24h, 8 MG PO DAILY, TAB 03/03/18 Tamsulosin Hcl* (Tamsulosin Hcl*) 0.4 Mg Cap.er.24h, 0.4 MG PO QAM, CAP 03/03/18 Pantoprazole* (Pantoprazole*) 40 Mg Tablet.dr, 40 MG PO AC BREAKFAST, TAB 03/03/18 Nystatin-Triamcinolone* (Nystatin-Triamcinolone* Cream) 15 Gm Cream.gm., 1 APPLIC TOP BID, #1 TUB 03/03/18 Multivitamins* (Theragran*) 1 Tab Tab, 1 TAB PO DAILY, TAB 03/03/18 Loratadine* (Loratadine*) 10 Mg Tablet, 10 MG PO DAILY, #30 TAB 03/03/18 Loperamide Hcl* (Loperamide Hcl*) 2 Mg Cap, 2 MG PO Q4H PRN for NEEDED, CAP 03/03/18 Cholecalciferol (Vitamin D3) (Vitamin D-3) 2,000 Unit Tablet, 2000 UNIT PO DAILY, TAB 03/03/18 Fluticasone Propionate* (Fluticasone Propionate* Nasal) 50 Mcg/[place] - 16 Gm [place].susp, 1 SPRAY NASAL DAILY, #1 BOTTLE TO EACH NOSTRIL 03/03/18 Ferrous Sulfate* (Ferrous Sulfate*) 325 Mg Tabec, 325 MG PO DAILY, TAB 03/03/18 Duloxetine Hcl* (Duloxetine Hcl*) 60 Mg Capsule.dr, 60 MG PO DAILY, #30 CAP 03/03/18 Docusate Sodium* (Colace*) 100 Mg Capsule, 100 MG PO BID, #60 CAP 03/03/18 Clotrimazole* (Clotrimazole* AF) 1% - 30 Gm Cream.gm., 1 APPLIC TOP BID, TUB 03/03/18 Aripiprazole* (Abilify*) 5 Mg Tab, 5 MG PO DAILY, #30 TAB 03/03/18 Acetaminophen* (Acetaminophen*) 325 Mg Tablet, 650 MG PO Q6H PRN for MILD PAIN LEVEL 1-3, #30 TAB 03/03/18 Discontinued Reported Medications Nitroglycerin* (Nitroglycerin* SL) 0.4 Mg Tab.subl, 0.4 MG SL Q5MIN PRN for CHEST PAIN, BOTTLE 03/03/18 Lorazepam* (Lorazepam*) 0.5 Mg Tablet, 0.5 MG PO Q8 PRN for ANXIETY, TAB 03/03/18 Ipratropium-Albuterol (Ipratropium-Albuterol) 0.5-3 Mg/3 Ml Ampul.neb, 3 ML INHALATION Q2H, #30 VIAL 12/22/18 Discontinued Scripts Cephalexin* (Cephalexin*) 500 Mg Capsule, 500 MG PO Q8 for 5 Days, #15 CAP Prov:JULIAN DOMÍNGUEZ MD 06/01/18 Prednisone* (Prednisone*) 20 Mg Tab, 30 MG PO DAILY for 9 Days, TAB Prov:JULIAN DOMÍNGUEZ MD 06/01/18 Oxycodone HCl/Acetaminophen (Percocet 5-325 mg Tablet) 1 Each Tablet, 1 EACH PO Q6, #30 TAB Prov:JULIAN DOMÍNGUEZ MD 06/01/18 Medications Current Medications Sodium Chloride 1,000 ml @ 50 mls/hr Q20H IV Last administered on 09/16/18 21:41; Admin Dose 50 MLS/HR; Start 09/16/18 at 05:00 Ceftriaxone Sodium 50 ml @ 100 mls/hr Q24H IVPB Last administered on 09/16/18 22:57; Admin Dose 100 MLS/HR; Start 09/16/18 at 23:30 Acetaminophen (Tylenol Tab) 650 mg Q6H PRN PO MILD PAIN LEVEL 1-3; Start 9 at 08:30 Aripiprazole (Abilify) 5 mg DAILY PO Last administered on 09/16/18 11:07; Admin Dose 5 MG; Start 09/16/18 at 09:00 Aspirin (Halfprin) 81 mg DAILY PO Last administered on 09/16/18 09:29; Admin Dose 81 MG; Start 09/16/18 at 09:00 Clotrimazole (Lotrimin Cr) 1 applic BID TOP Last administered on 09/16/18 21:41; Admin Dose 1 APPLIC; Start 09/16/18 at 09:00 Docusate Sodium (Colace) 100 mg BID PO ; Start 09/16/18 at 09:00 Duloxetine HCl (Cymbalta) 60 mg DAILY PO Last administered on 09/16/18 11:07; Admin Dose 60 MG; Start 09/16/18 at 09:00 Ferrous Sulfate (Ferrous Sulfate (Ec)) 325 mg DAILY PO Last administered on 09/16/18 09:29; Admin Dose 325 MG; Start 09/16/18 at 09:00 Fluticasone Propionate (Flonase 0.05% Nasal) 1 spray DAILY NASAL Last administered on 09/16/18 11:06; Admin Dose 1 SPRAY; Start 09/16/18 at 09:00 Loperamide HCl (Imodium Cap) 2 mg Q4H PRN PO NEEDED; Start 09/16/18 at 08:30 Loratadine (Claritin) 10 mg DAILY PO Last administered on 09/16/18 11:07; Admin Dose 10 MG; Start 09/16/18 at 09:00 Multivitamins Therapeutic (Theragran) 1 tab DAILY PO Last administered on 09/16/18 09:29; Admin Dose 1 TAB; Start 09/16/18 at 09:00 Nystatin/ Triamcinolone Acetonide (Mycolog Cr) 1 applic BID TOP Last administered on 09/16/18 21:41; Admin Dose 1 APPLIC; Start 09/16/18 at 09:00 Pantoprazole (Protonix Tab) 40 mg AC BREAKFAST PO ; Start 09/17/18 at 07:00 Albuterol (Ventolin Hfa) 2 puff Q4H RESP THERAPY INH Last administered on 09/17/18 05:15; Admin Dose 2 PUFF; Start 09/16/18 at 09:00 Oxycodone/ Acetaminophen (Percocet (5/ 325)) 1 tab Q6H PRN PO MODERATE PAIN LEVEL 4-6 Last administered on 09/17/18 05:15; Admin Dose 1 TAB; Start 09/16/18 at 09:30 Potassium Chloride (Micro-K) 8 meq BID PO Last administered on 09/16/18 19:42; Admin Dose 8 MEQ; Start 09/16/18 at 10:00 Guaifenesin/ Codeine Phosphate (Robitussin Ac Liquid Cup) 5 ml Q6H PRN PO COUGH Last administered on 09/17/18 05:14; Admin Dose 5 ML; Start 09/16/18 at 09:30 Zolpidem Tartrate (Ambien) 5 mg HS MAY REPEAT X 1 PRN PO INSOMNIA Last administered on 09/16/18 22:57; Admin Dose 5 MG; Start 09/16/18 at 22:00 Allergies: Coded Allergies: Penicillins (Verified Allergy, Mild, ALLERGY, 03/08/18) adhesive tape (Verified Allergy, Unknown, 03/08/18) Past Surgical History Past Surgical Hx: other (Including but not limited to pacemaker) Social History Smoking Status: Former smoker SHINE ISIDRO Sep 17, 2018 06:49
[2018-09-17] MEDS: PANTOPRAZOLE (EC) 40 MG TAB PO SCH (07:16)
[2018-09-17] MEDS: MULTIVITAMINS THERAPEUTIC TAB PO SCH (08:40)
[2018-09-17] MEDS: DULOXETINE 30 MG CAP DR PO SCH (08:40)
[2018-09-17] MEDS: DOCUSATE SODIUM 100 MG CAP PO SCH ×2 (08:40→20:18)
[2018-09-17] MEDS: ASPIRIN (EC) 81 MG TAB PO SCH (08:41)
[2018-09-17] MEDS: FERROUS SULFATE (EC) 325 MG TAB PO SCH (08:41)
[2018-09-17] MEDS: ARIPIPRAZOLE 5 MG TAB PO SCH (08:41)
[2018-09-17] MEDS: LORATADINE 10 MG TAB PO SCH (08:41)
[2018-09-17] MEDS: POTASSIUM CHLORIDE (SR) 8 MEQ CAP PO SCH ×2 (08:41→20:14)
[2018-09-17] MEDS: CLOTRIMAZOLE 1% 30 GM CR TOP SCH ×2 (08:42→20:15)
[2018-09-17] MEDS: FLUTICASONE 0.05% 16 GM NAS SPRAY NASAL SCH (08:43)
[2018-09-17] MEDS: BALSAM PERU/CASTOR OIL 60 GM TUBE TOP SCH (08:43)
[2018-09-17] MEDS: NYSTATIN/TRIAMCINOLONE 15 GM CR TOP SCH ×2 (08:44→20:15)
--- NOTE | 2018-09-17 09:03 | PN ---
DATE: 09/17/2018 SUBJECTIVE: The patient is stable, no events overnight. No hemoptysis, hematemesis or hematochezia. OBJECTIVE: VITAL SIGNS: Blood pressure is 113/59, respirations 20, pulse 66, temperature 98.1. HEENT: Head is normocephalic. NECK: Supple. HEART: Regular rate. LUNGS: Show diminished breath sounds at the base. ABDOMEN: Soft, nontender to palpation without rebound or guarding. EXTREMITIES: Negative for clubbing, cyanosis, no edema. DERMATOLOGIC: No rashes. MUSCULOSKELETAL: No joint effusion. NEUROLOGIC: No change in exam. MEDICATIONS: The patient's medications have been reviewed. LABORATORY DATA: Has been reviewed. IMAGING STUDIES: Have been reviewed. ASSESSMENT AND PLAN: 1. Nonoliguric acute kidney injury. Etiology is secondary to hemodynamics. Renal function is impro kathleen with IV fluids. Will continue to monitor. Discontinue IV hydration. 2. Anemia. Monitor hemoglobin and hematocrit levels. 3. Mineral bone disorder, monitor calcium and phosphorus levels. 4. Hypernatremia. Will encourage the patient to increase free water intake. 5. Syncope, etiology is unclear. Workup is ongoing. Follow up with neurology and cardiology. Lisa tor the patient on telemetry. 6. Urinary tract infection. Continue antibiotic regimen. Follow up with infectious disease. 7. Coronary artery disease. Continue current treatment plan. 8. History of chronic obstructive pulmonary disease with possible mild exacerbation. Continue nebul izers, continue antibiotic therapy. 9. History of congestive heart failure, currently compensated. We will discontinue IV fluids. 10. Anxiety disorder, schizoaffective disorder. Continue Lexapro, Abilify. 11. History of overactive bladder. Continue Ditropan. 12. History of arrhythmia, status post pacemaker. Dictated By: BROOKE LOPEZ DO NR/NTS Conf#: [id number] DID#: [id number] CC: DUGLAS KELLY MD;*End*
[2018-09-17] MEDS ORDERED: ALBUTEROL HFA 8 GM INHALER INH PRN (12:30)
[2018-09-17] MEDS: FLUTICASONE/VILANTEROL 100-25 INH SCH (13:57)
[2018-09-17] MEDS: ENOXAPARIN 40 MG/0.4 ML SYG SC SCH (14:01)
--- NOTE | 2018-09-17 16:58 | CONS ---
Assessment/Plan Assessment/Plan Hospital Course (Demo Recall) ID PROGRESS NOTE CURRENT ABX: DAY # =>Cefepime 24H INTERVAL SUMMARY * Much improved w/ABX -- no fevers, VSS, she is resting without distress * CHART REVIEWED: ALOC at home, she went to bed, then woke up on the floor hit her head, doesn't remember what happened * Syncopal episode in setting GNR UTI -- probable orthostatic hypotension + generalized weakness + back neuropathy while getting out of bed. Head CT (- ) for acute change, CT spine with no acute finding; yet with multiple chronic changes see imaging results below. MICRO * 09/15/18 URINE CX(+)URINE CULTURE Preliminary Organism 1 GRAM NEGATIVE FRENCH COLONY COUNT >100,000 CFU/ml DIAGNOSTIC IMAGING * 09/15/18 CXR:IMPRESSION:1. No evident thoracic injury.2. New mild pulmonary vascular congestion, and findings may represent failure versus a degree of volume overload in the trauma patient. * 09/16/18 CT Brain: No acute intracranial pathology.Mild cerebral volume loss.Mild chronic microvascular ischemic changes. Arachnoid cyst in the left middle cranial fossa causing mild mass effect on the left temporal pole. PHYSICAL EXAMINATION: GENERAL: VSS, NAD HEENT: AT, NC, TRACH NECK: Supple, CHEST: Equal chest rise bilaterally without dyspnea on observation HEART: Pulse RRR ABDOMEN: Benign EXTREMITIES: Warm, dry SKIN: No rash, no diaphoresis ID ASSESSMENT 78 yo F admit with: 1. Syncopal episode in setting GNR UTI 2. Acute kidney insufficiency/injury 3. Hx of nonobstructive nephrolithiasis !@/[address] Segovia * Hx of report obstructive uropathy w/JJ stent ~11 years ago 4. Diabetes 6. HTN 7. Hx of CA 8. Hx of pacemaker placement 2016 9. Hx of CHF w/Preserved left ventricular ejection fraction echocardiogram June 2017 10. COPD 11. Acute on chronic back pain - 11.OSTEOPOROSIS W/SPINAL COMPRESSION FX - multilevel 12. Multilevel spinal stenosis / Cervical kyphosis / DJD * CERVICAL: Multilevel at least mild anterior spinal stenosis. Degenerative changes seen at multiple levels of the cervical spine with chronic ankylosis and the C4-5 and C6-7 levels. * THORACICOLUMBAR: Multilevel degenerative changes with spinal stenosis and bilateral intervertebral foraminal stenosis. . Multilevel posterior facet degenerative changes are seen, most severe at the bilateral L5-S1 level. 13.Psych disorder INVASIVES: PIV CURRENT ABX: DAY # Cefepime ID RECOMMENDATIONS/PLAN: 1. Continue current ABX -- Await result of GNR UTI pending 2. If possible, will change to PO so she can DC home when cleared by primary . Consultation Date/Type/Reason Admit Date/Time Sep 17, 2018 at 09:01 Initial Consult Date Requesting Provider: BROOKE LOPEZ DO Date/Time of Note DATE: 09/17/18 TIME: 16:39 Exam/Review of Systems Exam Vitals Vital Signs Date Temp Pulse Resp B/P (MAP) Pulse Ox O2 O2 Flow FiO2 Time Delivery Rate 09/17/18 97.5 71 19 114/54 95 Room Air 15:00 (74) 09/17/18 2.0 07:55 Intake and Output 09/16/18 09/16/18 09/17/18 1515:00 23:00 07:00 IntakeIntake Total 2280 ml 790 ml 1025 ml BalanceBalance 2280 ml 790 ml 1025 ml Results Result Diagram: 09/17/18 0539 09/17/18 0539 Results 24hrs Laboratory Tests Test 09/17/18 05:39 White Blood Count 5.8 Red Blood Count 3.78 L Hemoglobin 10.8 L Hematocrit 33.3 L Mean Corpuscular Volume 88.1 Mean Corpuscular Hemoglobin 28.6 L Mean Corpuscular Hemoglobin Concent 32.4 Red Cell Distribution Width 14.2 Platelet Count 146 Mean Platelet Volume 12.2 H Immature Granulocytes % 0.300 Neutrophils % 39.2 Lymphocytes % 45.5 Monocytes % 8.1 Eosinophils % 6.4 Basophils % 0.5 Nucleated Red Blood Cells % 0.0 Immature Granulocytes # 0.020 Neutrophils # 2.3 Lymphocytes # 2.6 Monocytes # 0.5 Eosinophils # 0.4 Basophils # 0.0 Nucleated Red Blood Cells # 0.0 Sodium Level 145 H Potassium Level 3.6 Chloride Level 110 Carbon Dioxide Level 31 Anion Gap 4 L Blood Urea Nitrogen 8 Creatinine 0.94 Est Glomerular Filtrat Rate mL/min Glucose Level 96 Calcium Level 8.5 Phosphorus Level 4.0 Magnesium Level 2.1 Medications Medication Current Medications Ceftriaxone Sodium 50 ml @ 100 mls/hr Q24H IVPB Last administered on 09/16/18at 22:57; Admin Dose 100 MLS/HR; Start 09/16/18 at 23:30 Acetaminophen (Tylenol Tab) 650 mg Q6H PRN PO MILD PAIN LEVEL 1-3; Start 09/16/18 at 08:30 Aripiprazole (Abilify) 5 mg DAILY PO Last administered on 09/17/18 08:41; Admin Dose 5 MG; Start 09/16/18 at 09:00 Aspirin (Halfprin) 81 mg DAILY PO Last administered on 09/17/18 08:41; Admin Dose 81 MG; Start 09/16/18 at 09:00 Clotrimazole (Lotrimin Cr) 1 applic BID TOP Last administered on 09/17/18 08:42; Admin Dose 1 APPLIC; Start 09/16/18 at 09:00 Docusate Sodium (Colace) 100 mg BID PO Last administered on 09/17/18 08:40; Admin Dose 100 MG; Start 09/16/18 at 09:00 Duloxetine HCl (Cymbalta) 60 mg DAILY PO Last administered on 09/17/18 08:40; Admin Dose 60 MG; Start 09/16/18 at 09:00 Ferrous Sulfate (Ferrous Sulfate (Ec)) 325 mg DAILY PO Last administered on 09/17/18 08:41; Admin Dose 325 MG; Start 09/16/18 at 09:00 Fluticasone Propionate (Flonase 0.05% Nasal) 1 spray DAILY NASAL Last administered on 09/17/18 08:43; Admin Dose 1 SPRAY; Start 09/16/18 at 09:00 Loperamide HCl (Imodium Cap) 2 mg Q4H PRN PO NEEDED; Start 09/16/18 at 08:30 Loratadine (Claritin) 10 mg DAILY PO Last administered on 09/17/18 08:41; Admin Dose 10 MG; Start 09/16/18 at 09:00 Multivitamins Therapeutic (Theragran) 1 tab DAILY PO Last administered on 09/17/18 08:40; Admin Dose 1 TAB; Start 09/16/18 at 09:00 Nystatin/ Triamcinolone Acetonide (Mycolog Cr) 1 applic BID TOP Last administered on 09/17/18 08:44; Admin Dose 1 APPLIC; Start 09/16/18 at 09:00 Pantoprazole (Protonix Tab) 40 mg AC BREAKFAST PO Last administered on 09/17/18 07:16; Admin Dose 40 MG; Start 09/17/18 at 07:00 Oxycodone/ Acetaminophen (Percocet (5/ 325)) 1 tab Q6H PRN PO MODERATE PAIN LEVEL 4-6 Last administered on 09/17/18 05:15; Admin Dose 1 TAB; Start 09/16/18 at 09:30 Potassium Chloride (Micro-K) 8 meq BID PO Last administered on 09/17/18 08:41; Admin Dose 8 MEQ; Start 09/16/18 at 10:00 Guaifenesin/ Codeine Phosphate (Robitussin Ac Liquid Cup) 5 ml Q6H PRN PO COUGH Last administered on 09/17/18 11:36; Admin Dose 5 ML; Start 09/16/18 at 09:30 Zolpidem Tartrate (Ambien) 5 mg HS MAY REPEAT X 1 PRN PO INSOMNIA Last administered on 09/16/18 22:57; Admin Dose 5 MG; Start 09/16/18 at 22:00 Enoxaparin Sodium (Lovenox) 40 mg DAILY SC Last administered on 09/17/18 14:01; Admin Dose 40 MG; Start 09/17/18 at 12:30 Albuterol (Ventolin Hfa) 2 puff Q4H RESP THERAPY PRN INH sob/wheezing; Start 09/17/18 at 12:30 Fluticasone/ Vilanterol (Breo Ellipta 100-25 Mcg Inh) 1 inh DAILY INH Last administered on 09/17/18 13:57; Admin Dose 1 INH; Start 09/17/18 at 13:30 MASON GARNER NP Sep 17, 2018 16:50
--- NOTE | 2018-09-17 17:33 | CONS ---
Consult Date/Type/Reason Admit Date/Time Sep 17, 2018 at 09:01 Initial Consult Date Type of Consultation: cv Requesting Provider: BROOKE LOPZE DO Date/Time of Note DATE: 09/17/18 TIME: 17:30 Subjective Interventional cardiology follow-up progress note Subjective: Discussed with staff telemetry was reviewed. Patient remains mostly in sinus rhythm with intermittent a.m. intermittent ventricular demand pacing. No evidence of pacemaker malfunction noted. Patient with no chest pain or pressure. Has mild headache at the site of head injury and fall. Objective: General: no acute distress HEENT: NC. There is small ecchymosis on the left forehead. pupils are equal. round. NECK: NO JVD. no stridor. CV: RRR. systolic murmur; no gallop or rubs. PULM: no wheezing or rhonchi. GI: SOFT, NT, ND, no rebound or guarding Extremity: trace B/L LE edema. no clubbing. neuro: awake and alert, . Psych: calm and pleasant rectal: deferred l Objective Vitals Vital Signs Date Temp Pulse Resp B/P (MAP) Pulse Ox O2 O2 Flow FiO2 Time Delivery Rate 09/17/18 97.5 71 19 114/54 95 Room Air 15:00 (74) 09/17/18 2.0 07:55 Intake and Output 09/16/18 09/16/18 09/17/18 1515:00 23:00 07:00 IntakeIntake Total 2280 ml 790 ml 1025 ml BalanceBalance 2280 ml 790 ml 1025 ml Results/Medications Result Diagram: 09/17/18 0539 09/17/18 0539 Results 24 hrs Laboratory Tests Test 09/17/18 05:39 White Blood Count 5.8 Red Blood Count 3.78 L Hemoglobin 10.8 L Hematocrit 33.3 L Mean Corpuscular Volume 88.1 Mean Corpuscular Hemoglobin 28.6 L Mean Corpuscular Hemoglobin Concent 32.4 Red Cell Distribution Width 14.2 Platelet Count 146 Mean Platelet Volume 12.2 H Immature Granulocytes % 0.300 Neutrophils % 39.2 Lymphocytes % 45.5 Monocytes % 8.1 Eosinophils % 6.4 Basophils % 0.5 Nucleated Red Blood Cells % 0.0 Immature Granulocytes # 0.020 Neutrophils # 2.3 Lymphocytes # 2.6 Monocytes # 0.5 Eosinophils # 0.4 Basophils # 0.0 Nucleated Red Blood Cells # 0.0 Sodium Level 145 H Potassium Level 3.6 Chloride Level 110 Carbon Dioxide Level 31 Anion Gap 4 L Blood Urea Nitrogen 8 Creatinine 0.94 Est Glomerular Filtrat Rate mL/min Glucose Level 96 Calcium Level 8.5 Phosphorus Level 4.0 Magnesium Level 2.1 Home Meds Active Scripts Aspirin* (Aspirin* EC) 81 Mg Tablet.dr, 81 MG PO DAILY for 30 Days, TAB Prov:JULIAN DOMÍNGUEZ MD 06/01/18 Gabapentin* (Gabapentin*) 100 Mg Capsule, 100 MG PO TID for 30 Days, CAP Prov:JULIAN DOMÍNGUEZ MD 03/08/18 Reported Medications Budesonide-Formoterol Fumarate* (Symbicort*) 160-4.5 Hfa.aer.ad, 2 PUFF INHALATION BID, #1 EACH 09/16/18 Potassium Chloride* (Potassium Chloride*) 8 Meq Capsule.er, 8 MEQ PO BID, CAP 09/16/18 Oxycodone HCl/Acetaminophen (Oxycodone-Acetaminophen 10-325) 1 Each Tablet, 1 EACH PO TID, TAB 09/16/18 Guaifenesin/Codeine Phosphate (Codeine-Guaifen 10-100 mg/5 ml) 120 Ml Liquid, 5 ML PO Q6 PRN for COUGH 09/16/18 Furosemide* (Furosemide*) 40 Mg Tablet, 40 MG PO DAILY, TAB 09/16/18 Zolpidem Tartrate* (Zolpidem Tartrate*) 10 Mg Tablet, 10 MG PO QHS PRN for INSOMNIA, #30 TAB 03/03/18 Albuterol Sulfate* (Ventolin HFA*) 18 Gm Hfa.aer.ad, 2 PUFF INHALATION Q4H, #1 INHALER 03/03/18 Balsam [place] Oil (Venelex Ointment) 60 Gm Oint..gm., 1 APPLIC TOP NEEDED, #1 TUB 03/03/18 Fesoterodine Fumarate (Toviaz) 8 Mg Tab.sr.24h, 8 MG PO DAILY, TAB 03/03/18 Tamsulosin Hcl* (Tamsulosin Hcl*) 0.4 Mg Cap.er.24h, 0.4 MG PO QAM, CAP 03/03/18 Pantoprazole* (Pantoprazole*) 40 Mg Tablet.dr, 40 MG PO AC BREAKFAST, TAB 03/03/18 Nystatin-Triamcinolone* (Nystatin-Triamcinolone* Cream) 15 Gm Cream.gm., 1 APPLIC TOP BID, #1 TUB 03/03/18 Multivitamins* (Theragran*) 1 Tab Tab, 1 TAB PO DAILY, TAB 03/03/18 Loratadine* (Loratadine*) 10 Mg Tablet, 10 MG PO DAILY, #30 TAB 03/03/18 Loperamide Hcl* (Loperamide Hcl*) 2 Mg Cap, 2 MG PO Q4H PRN for NEEDED, CAP 03/03/18 Cholecalciferol (Vitamin D3) (Vitamin D-3) 2,000 Unit Tablet, 2000 UNIT PO DAILY, TAB 03/03/18 Fluticasone Propionate* (Fluticasone Propionate* Nasal) 50 Mcg/[place] - 16 Gm [place].susp, 1 SPRAY NASAL DAILY, #1 BOTTLE TO EACH NOSTRIL 03/03/18 Ferrous Sulfate* (Ferrous Sulfate*) 325 Mg Tabec, 325 MG PO DAILY, TAB 03/03/18 Duloxetine Hcl* (Duloxetine Hcl*) 60 Mg Capsule.dr, 60 MG PO DAILY, #30 CAP 03/03/18 Docusate Sodium* (Colace*) 100 Mg Capsule, 100 MG PO BID, #60 CAP 03/03/18 Clotrimazole* (Clotrimazole* AF) 1% - 30 Gm Cream.gm., 1 APPLIC TOP BID, TUB 03/03/18 Aripiprazole* (Abilify*) 5 Mg Tab, 5 MG PO DAILY, #30 TAB 03/03/18 Acetaminophen* (Acetaminophen*) 325 Mg Tablet, 650 MG PO Q6H PRN for MILD PAIN LEVEL 1-3, #30 TAB 03/03/18 Discontinued Reported Medications Nitroglycerin* (Nitroglycerin* SL) 0.4 Mg Tab.subl, 0.4 MG SL Q5MIN PRN for CHEST PAIN, BOTTLE 03/03/18 Lorazepam* (Lorazepam*) 0.5 Mg Tablet, 0.5 MG PO Q8 PRN for ANXIETY, TAB 03/03/18 Ipratropium-Albuterol (Ipratropium-Albuterol) 0.5-3 Mg/3 Ml Ampul.neb, 3 ML INHALATION Q2H, #30 VIAL 03/03/18 Discontinued Scripts Cephalexin* (Cephalexin*) 500 Mg Capsule, 500 MG PO Q8 for 5 Days, #15 CAP Prov:JULIAN DOMÍNGUEZ MD 06/01/18 Prednisone* (Prednisone*) 20 Mg Tab, 30 MG PO DAILY for 9 Days, TAB Prov:JULIAN DOMÍNGUEZ MD 06/01/18 Oxycodone HCl/Acetaminophen (Percocet 5-325 mg Tablet) 1 Each Tablet, 1 EACH PO Q6, #30 TAB Prov:JULIAN DOMÍNGUEZ MD 06/01/18 Medications Current Medications Ceftriaxone Sodium 50 ml @ 100 mls/hr Q24H IVPB Last administered on 09/16/18 22:57; Admin Dose 100 MLS/HR; Start 09/16/18 at 23:30 Acetaminophen (Tylenol Tab) 650 mg Q6H PRN PO MILD PAIN LEVEL 1-3; Start 09/16 at 08:30 Aripiprazole (Abilify) 5 mg DAILY PO Last administered on 09/17/18 08:41; Admin Dose 5 MG; Start 09/16/18 at 09:00 Aspirin (Halfprin) 81 mg DAILY PO Last administered on 09/17/18 08:41; Admin Dose 81 MG; Start 09/16/18 at 09:00 Clotrimazole (Lotrimin Cr) 1 applic BID TOP Last administered on 09/17/18 08:42; Admin Dose 1 APPLIC; Start 09/16/18 at 09:00 Docusate Sodium (Colace) 100 mg BID PO Last administered on 09/17/18 08:40; Admin Dose 100 MG; Start 09/16/18 at 09:00 Duloxetine HCl (Cymbalta) 60 mg DAILY PO Last administered on 09/17/18 08:40; Admin Dose 60 MG; Start 09/16/18 at 09:00 Ferrous Sulfate (Ferrous Sulfate (Ec)) 325 mg DAILY PO Last administered on 09/17/18 08:41; Admin Dose 325 MG; Start 09/16/18 at 09:00 Fluticasone Propionate (Flonase 0.05% Nasal) 1 spray DAILY NASAL Last administered on 09/17/18 08:43; Admin Dose 1 SPRAY; Start 09/16/18 at 09:00 Loperamide HCl (Imodium Cap) 2 mg Q4H PRN PO NEEDED; Start 09/16/18 at 08:30 Loratadine (Claritin) 10 mg DAILY PO Last administered on 09/17/18 08:41; Admin Dose 10 MG; Start 09/16/18 at 09:00 Multivitamins Therapeutic (Theragran) 1 tab DAILY PO Last administered on 09/17/18 08:40; Admin Dose 1 TAB; Start 09/16/18 at 09:00 Nystatin/ Triamcinolone Acetonide (Mycolog Cr) 1 applic BID TOP Last administered on 09/17/18 08:44; Admin Dose 1 APPLIC; Start 09/16/18 at 09:00 Pantoprazole (Protonix Tab) 40 mg AC BREAKFAST PO Last administered on 09/17/18 07:16; Admin Dose 40 MG; Start 09/17/18 at 07:00 Oxycodone/ Acetaminophen (Percocet (5/ 325)) 1 tab Q6H PRN PO MODERATE PAIN LEVEL 4-6 Last administered on 09/17/18 05:15; Admin Dose 1 TAB; Start 09/16/18 at 09:30 Potassium Chloride (Micro-K) 8 meq BID PO Last administered on 09/17/18 08:41; Admin Dose 8 MEQ; Start 09/16/18 at 10:00 Guaifenesin/ Codeine Phosphate (Robitussin Ac Liquid Cup) 5 ml Q6H PRN PO COUGH Last administered on 09/17/18 11:36; Admin Dose 5 ML; Start 09/16/18 at 09:30 Zolpidem Tartrate (Ambien) 5 mg HS MAY REPEAT X 1 PRN PO INSOMNIA Last administered on 09/16/18 22:57; Admin Dose 5 MG; Start 09/16/18 at 22:00 Enoxaparin Sodium (Lovenox) 40 mg DAILY SC Last administered on 09/17/18 14:01; Admin Dose 40 MG; Start 09/17/18 at 12:30 Albuterol (Ventolin Hfa) 2 puff Q4H RESP THERAPY PRN INH sob/wheezing; Start 09/17/18 at 12:30 Fluticasone/ Vilanterol (Breo Ellipta 100-25 Mcg Inh) 1 inh DAILY INH Last administered on 7/8/19at 13:57; Admin Dose 1 INH; Start 09/17/18 at 13:30 Assessment/Plan Hospital Course (Demo Recall) Status post fall dizziness. Possible syncope Sick sinus syndrome status post permanent pacemaker with a [place] pacemaker with no evidence of malfunction on telemetry Hypertension History of psych disorder Urinary tract infection Anemia Recommendations: We will continue to monitor on telemetry so far no evidence of pacemaker malfunction or significant arrhythmia to cause the syncope Antibiotic management as per internal medicine Thank you for his referral. We will continue to follow along with you AMADOU GOMEZ MD [facility] AMADOU GOMEZ MD Sep 17, 2018 17:33
--- NOTE | 2018-09-17 20:02 | EEG ---
EEG NOTE Report Details DATE OF TEST: 09/17/18 HISTORY: The patient is a 78-year-old F who presents following a fall with head trauma. This EEG is requested to evaluate for an epileptic disorder. SEDATION: None. CONDITIONS OF RECORDING: This EEG was recorded digitally on the [employer] Arc[employer] machine, using the International 10-20 System of electrodes plus anterior temporals and [place]. STATES SAMPLED: Wakefulness and drowsiness. FINDINGS: The background is continuous and grossly symmetric. During wakefulness, there is a 7 Hz posterior dominant rhythm. There is a normal xxugizbw-ab-yhugzhvbz frequency-amplitude gradient. Photic stimulation does not elicit any definite driving responses or epileptiform discharges. Hyperventilation was not performed. The patient became drowsy but did not pass into sleep. No asymmetries, focal abnormalities or epileptiform discharges were seen. IMPRESSION: Abnormal electroencephalogram due to: mild diffuse slowing. COMMENT: The slowing of the background indicates mild, diffuse cortical dysfunction of nonspecific etiology. SHINE ISIDRO Sep 17, 2018 20:02
[2018-09-17] MEDS: ZOLPIDEM 5 MG TAB PO PRN (20:14)
[2018-09-17] MEDS: CEFTRIAXONE 1 GM/50 ML (PMX) 50 ML IVPB SCH (23:20)
[2018-09-18] VITALS (8 sets, daily range): BP systolic 107–134; BP diastolic 52–67; PULSE 61–71; RESP 18–22
[2018-09-18] MEDS: GUAIFENESIN/CODEINE 5ML CUP PO PRN ×2 (02:01→20:35)
--- NOTE | 2018-09-18 07:06 | PN ---
DATE: 09/17/[address] Luan Ramirez's coverage over the long weekend. Nephrology to follow due to the parish ent's renal insufficiency on presentation. The patient did present initially to the hospital due to recurrent falls, which appears to may have been a syncopal episode. The patient does not recall the event. In addition, she complains of urinary frequency which is worse. For this, she is being treat ed for UTI. I appreciate neurology consultation with Dr. Lloyd and cardiology consultation as well a s patient has a pacemaker. The patient was started on Rocephin for urinary tract infection. The pat ient also complaining that her memory is getting worse as she is concerned about her recent fall. Cu rrently, denies any chest pain or shortness of breath, denies any dysuria, but does report urinary fr equency. She has generalized body ache, most notably in her knees and back. PHYSICAL EXAMINATION: VITAL SIGNS: Temperature is 98.4, pulse 60, respiration patient is 20, orthostatic, based on that sh e is not orthostatic as blood pressure 124/58, saturation 97%. GENERAL: The patient is in no acute distress. HEENT: Normocephalic, atraumatic. The patient is with temporal wasting, pale. No dentition. CARDIOVASCULAR: S1, S2, regular rate. LUNGS: Clear. ABDOMEN: Soft, nontender. EXTREMITIES: No clubbing, cyanosis, or edema. Osteoarthritis of the knees were noted. LABORATORY DATA: White count is 5.8, hemoglobin 10.8, hematocrit 33, platelet count is 146, neutroph ils 39%, lymphs at 46%, monocytes 8%. Chemistry: Sodium 145, potassium 3.6, chloride 110, bicarbona te 31, BUN is 8, creatinine 0.94, and glucose of 96. Troponin is negative. Urinalysis on admission did show +2 leukocyte esterase, WBC greater than 182. INR was 0.97. Urine culture shows gram-negati ve rods greater than 100,000, but cultures are still pending. She underwent various diagnostic tests due to her fall including a brain scan, which shows no acute intracranial pathology, mild cerebral v olume loss, mild chronic microvascular ischemic changes, ____ in the left middle cranial fossa causin g mild mass effect on the left sabianism ____. Thoracic spine does show the demineralization likely mul tilevel mild osteoporotic fractures in the thoracic spine, otherwise, age indeterminate. Otherwise, there is no evidence of acute fracture. There is multilevel spinal stenosis in the lower lumber spin e, principally secondary to posterior disk osteophyte complexes and ligamentous level hypertrophy was followed by lumbar spine CAT scan which shows demineralization, no evidence of acute infarction, age indeterminate, likely ____ osteoporotic fracture in the lumbar vertebra, multilevel posterior facet degenerative changes are seen, most severe at the bilateral L5-S1 level. Also, multilevel degenerati ve changes with spinal stenosis and bilateral intervertebral foramina stenosis. Chest x-ray otherwis e shows mild new pulmonary vascular congestion and finding may represent failure versus a clear volum e overload in a trauma patient. No evidence of thoracic injury and cervical C-spine showed cervical straightening. There is a 17 mm partially visualized lesion in the right thyroid, recommend nonemerg ent ultrasound. This was done already back in 2015. At that time, she underwent a thyroid ultrasoun d which was recommended to repeat it within 12 months and it was 1.5 x 2 x 1.5 cm nodule. Carotid ul trasound back in 02/2016 shows no evidence of hemodynamically significant stenosis. CURRENT MEDICATIONS: Reviewed. They include the followin. Protonix 40 mg daily. 2. Rocephin 1 gram q.24 hours 3. Ambien 5 mg at bedtime p.r.n. plus repeat once if needed. 4. KCl 8 mEq b.i.d. 5. Percocet 1 tab q.6 p.r.n. 6. Robitussin p.r.n. 7. Abilify 5 mg daily. 8. Aspirin 81 daily. 9. Lotrimin cream b.i.d. 10. Colace 100 b.i.d. 11. Cymbalta 60 daily. 12. Ferrous sulfate to 25 daily. 13. Flonase as directed. 14. Claritin 10 mg daily. 15. Multivitamin 1 tab daily. 16. Nystatin. 17. Ventolin every 4 hours. 18. Tylenol. 19. Imodium as directed. 20. I fluids were hep locked. ASSESSMENT AND PLAN: This is a 78-year-old female with history of COPD, nephrolithiasis, d epression, psychiatric disorder, recurrent urinary tract infections, who presented with a fall, possi ble syncopal episode, also was found to have urinary tract infection, multilevel disk disease, thyroi d nodule. 1. Respiratory. Stable. Currently, O2 support as needed. Breathing treatment as needed. The parish ent does not appear to be in COPD exacerbation. 2. Urinary tract infection. Continue Rocephin. Follow up urine culture results. May consider repe ating urinalysis. The patient is prone for UTI, likely due to nephrolithiasis. She has been seen re cently by Dr. Segovia who just recommended antibiotic management for UTI on previous admission. 3. Questionable syncope. Will obtain a carotid ultrasound. The patient does not appear to be ortho static. Her pacemaker to be evaluated by the cardiology team and we will request physical therapy to evaluate balance. May consider meclizine. We will follow. 4. Thyroid nodule. Will obtain a thyroid ultrasound and also carotid ultrasound due to possible syn cope. 5. Osteoarthritis. Physical therapy as tolerated. 6. Psychiatric disorder. Resume all psych medications. 7. The patient will be placed on deep vein thrombosis prophylaxis and gastrointestinal prophylaxis. 8. Acute renal insufficiency on presentation. Appreciate Dr. Ramirez followup. The patient was hyd rated and kidney function normalized. 9. Monitor for fluid overload state, clinically no significant edema, observe. Lasix p.r.n. Plan t o follow up urine culture results, adjust antibiotic if needed. Follow up the above imaging tests an d neurology input. DISPOSITION: Soon back to assisted living facility. Dictated By: JULIAN SANCHEZ/CYNTHIA Conf#: [id number] DID#: [id number] CC: DUGLAS KELYL MD;*End*
[2018-09-18] MEDS: LORATADINE 10 MG TAB PO SCH (08:24)
[2018-09-18] MEDS: DULOXETINE 30 MG CAP DR PO SCH (08:24)
[2018-09-18] MEDS: MULTIVITAMINS THERAPEUTIC TAB PO SCH (08:24)
[2018-09-18] MEDS: FERROUS SULFATE (EC) 325 MG TAB PO SCH (08:24)
[2018-09-18] MEDS: DOCUSATE SODIUM 100 MG CAP PO SCH ×2 (08:24→20:35)
[2018-09-18] MEDS: PANTOPRAZOLE (EC) 40 MG TAB PO SCH (08:24)
[2018-09-18] MEDS: OXYCODONE/ACETAMINOPHEN (5/325) TAB PO PRN ×3 (08:24→20:36)
[2018-09-18] MEDS: POTASSIUM CHLORIDE (SR) 8 MEQ CAP PO SCH ×2 (08:24→20:36)
[2018-09-18] MEDS: ASPIRIN (EC) 81 MG TAB PO SCH (08:24)
[2018-09-18] MEDS: ARIPIPRAZOLE 5 MG TAB PO SCH (08:24)
[2018-09-18] MEDS: NYSTATIN/TRIAMCINOLONE 15 GM CR TOP SCH ×2 (08:25→20:36)
[2018-09-18] MEDS: FLUTICASONE/VILANTEROL 100-25 INH SCH (08:25)
[2018-09-18] MEDS: CLOTRIMAZOLE 1% 30 GM CR TOP SCH ×2 (08:25→20:36)
[2018-09-18] MEDS: FLUTICASONE 0.05% 16 GM NAS SPRAY NASAL SCH (08:25)
[2018-09-18] MEDS: BALSAM PERU/CASTOR OIL 60 GM TUBE TOP SCH (08:25)
--- NOTE | 2018-09-18 08:25 | PN ---
DATE: 09/18/2018 SUBJECTIVE: The patient is stable. No events overnight. OBJECTIVE: VITAL SIGNS: Blood pressure 133/60, pulse 65, respirations 20, temperature 98.7. HEENT: Head is normocephalic. NECK: Supple. HEART: Regular rate. LUNGS: Show diminished breath sounds at the base. ABDOMEN: Soft, nontender to palpation without rebound or guarding. EXTREMITIES: Negative for clubbing, cyanosis, no edema. DERMATOLOGIC: No rashes. MUSCULOSKELETAL: No joint effusion. NEUROLOGIC: No change in exam. MEDICATIONS: The patient's medications have been reviewed. LABORATORY DATA: Has been reviewed. ASSESSMENT AND PLAN: 1. Nonoliguric acute kidney injury on top of chronic kidney disease. Etiology is secondary to hemod ynamics. Renal function is improved. Continue to monitor. 2. Anemia. Monitor hemoglobin and hematocrit levels. 3. Mineral bone disorder. Monitor calcium and phosphorus levels. 4. Hypernatremia, mild. The patient is advised to increase free water intake. 5. Syncope, etiology is unclear. Workup ongoing. Appreciate neurology and cardiology evaluations. 6. Urinary tract infection. Continue current antibiotic regimen. 7. Coronary artery disease. Continue current treatment plan. 8. History of chronic obstructive pulmonary disease, mild exacerbation. Continue nebulizers. 9. History of congestive heart failure, currently compensated. 10. Anxiety disorder, schizoaffective disorder. Continue Lexapro, Abilify. 11. History of overactive bladder. 12. History of arrhythmia. Dictated By: BROOKE LOPEZ DO NR/NTS Conf#: [id number] DID#: [id number] CC: JULIAN DOMÍNGUEZ MD; DUGLAS KELLY MD;*EndCC*
[2018-09-18] MEDS: ENOXAPARIN 40 MG/0.4 ML SYG SC SCH (08:47)
--- NOTE | 2018-09-18 09:35 | CONS ---
Assessment/Plan Assessment/Plan Assessment/Plan (Recall) 78 F c/ multiple comorbidities, who presents following an unwitnessed fall. The clinical picture is most consistent w/ syncope. Noted to have a UTI w/ JUANITO on presentation...which could certainly precipitate the above.. A focal CREEL SELECTOR process is less likely, though not entirely excluded.. Head CT is without acute pathology...though notable for a temporal-lobe adjacent arachnoid cyst.. EEG is without epileptiform activity or focal pathology. Orthostatics neg MRI brain is contraindicated 2/2 pacemaker. P: Continued infection and other medical management per primary [place] as necessary Limit psychoactive medications where possible PT/OT as necessary Will follow clinically Consultation Date/Type/Reason Admit Date/Time Sep 17, 2018 at 09:01 Type of Consult Neurology Reason for Consultation fall Requesting Provider: BROOKE LOPEZ DO Date/Time of Note DATE: 09/18/18 TIME: 09:34 24 HR Interval Summary Free Text/Dictation s/p EEG Exam/Review of Systems Exam Vitals Vital Signs Date Temp Pulse Resp B/P (MAP) Pulse Ox O2 O2 Flow FiO2 Time Delivery Rate 09/18/18 Nasal 2.0 09:11 Cannula 09/18/18 98.7 65 20 133/60 98 07:12 (84) Intake and Output 09/17/18 09/17/18 09/18/18 1515:00 23:00 07:00 IntakeIntake Total 400 ml 900 ml 350 ml BalanceBalance 400 ml 900 ml 350 ml Results Result Diagram: 09/18/18 0511 09/18/18 0511 Results 24hrs Laboratory Tests Test 09/18/18 05:11 White Blood Count 6.8 Red Blood Count 4.37 Hemoglobin 12.5 Hematocrit 38.0 Mean Corpuscular Volume 87.0 Mean Corpuscular Hemoglobin 28.6 L Mean Corpuscular Hemoglobin Concent 32.9 Red Cell Distribution Width 14.0 Platelet Count 178 # Mean Platelet Volume 11.7 H Immature Granulocytes % 0.300 Neutrophils % 46.4 Lymphocytes % 39.9 Monocytes % 6.7 Eosinophils % 6.0 Basophils % 0.7 Nucleated Red Blood Cells % 0.0 Immature Granulocytes # 0.020 Neutrophils # 3.2 Lymphocytes # 2.7 Monocytes # 0.5 Eosinophils # 0.4 Basophils # 0.1 Nucleated Red Blood Cells # 0.0 Sodium Level 146 H Potassium Level 4.0 Chloride Level 110 Carbon Dioxide Level 29 Anion Gap 7 Blood Urea Nitrogen 8 Creatinine 1.04 H Est Glomerular Filtrat Rate mL/min Glucose Level 95 Calcium Level 9.3 Phosphorus Level 3.8 Magnesium Level 2.1 Total Bilirubin 0.4 Direct Bilirubin 0.00 Indirect Bilirubin 0.4 Aspartate Amino Transf (AST/SGOT) 19 Alanine Aminotransferase (ALT/SGPT) 18 Alkaline Phosphatase 66 Total Protein 6.8 Albumin 3.6 Globulin 3.20 Albumin/Globulin Ratio 1.12 Medications Medication Current Medications Ceftriaxone Sodium 50 ml @ 100 mls/hr Q24H IVPB Last administered on 09/17/18 23:20; Admin Dose 100 MLS/HR; Start 09/16/18 at 23:30 Acetaminophen (Tylenol Tab) 650 mg Q6H PRN PO MILD PAIN LEVEL 1-3; Start 09/16/18 at 08:30 Aripiprazole (Abilify) 5 mg DAILY PO Last administered on 09/18/18 08:24; Admin Dose 5 MG; Start 09/16/18 at 09:00 Aspirin (Halfprin) 81 mg DAILY PO Last administered on 09/18/18 08:24; Admin Dose 81 MG; Start 09/16/18 at 09:00 Clotrimazole (Lotrimin Cr) 1 applic BID TOP Last administered on 09/18/18 08:25; Admin Dose 1 APPLIC; Start 09/16/18 at 09:00 Docusate Sodium (Colace) 100 mg BID PO Last administered on 09/18/18 08:24; Admin Dose 100 MG; Start 09/16/18 at 09:00 Duloxetine HCl (Cymbalta) 60 mg DAILY PO Last administered on 09/18/18 08:24; Admin Dose 60 MG; Start 09/16/18 at 09:00 Ferrous Sulfate (Ferrous Sulfate (Ec)) 325 mg DAILY PO Last administered on 09/18/18 08:24; Admin Dose 325 MG; Start 09/16/18 at 09:00 Fluticasone Propionate (Flonase 0.05% Nasal) 1 spray DAILY NASAL Last administered on 09/18/18 08:25; Admin Dose 1 SPRAY; Start 09/16/18 at 09:00 Loperamide HCl (Imodium Cap) 2 mg Q4H PRN PO NEEDED; Start 09/16/18 at 08:30 Loratadine (Claritin) 10 mg DAILY PO Last administered on 09/18/18 08:24; Admin Dose 10 MG; Start 09/16/18 at 09:00 Multivitamins Therapeutic (Theragran) 1 tab DAILY PO Last administered on 09/18/18 08:24; Admin Dose 1 TAB; Start 09/16/18 at 09:00 Nystatin/ Triamcinolone Acetonide (Mycolog Cr) 1 applic BID TOP Last administered on 09/18/18 08:25; Admin Dose 1 APPLIC; Start 09/16/18 at 09:00 Pantoprazole (Protonix Tab) 40 mg AC BREAKFAST PO Last administered on 09/18/18 08:24; Admin Dose 40 MG; Start 09/17/18 at 07:00 Oxycodone/ Acetaminophen (Percocet (5/ 325)) 1 tab Q6H PRN PO MODERATE PAIN LEV EL 4-6 Last administered on 09/18/18 08:24; Admin Dose 1 TAB; Start 09/16/18 at 09:30 Potassium Chloride (Micro-K) 8 meq BID PO Last administered on 09/18/18 08:24; Admin Dose 8 MEQ; Start 09/16/18 at 10:00 Guaifenesin/ Codeine Phosphate (Robitussin Ac Liquid Cup) 5 ml Q6H PRN PO COUGH Last administered on 09/18/18 02:01; Admin Dose 5 ML; Start 09/16/18 at 09:30 Zolpidem Tartrate (Ambien) 5 mg HS MAY REPEAT X 1 PRN PO INSOMNIA Last administered on 09/17/18 20:14; Admin Dose 5 MG; Start 09/16/18 at 22:00 Enoxaparin Sodium (Lovenox) 40 mg DAILY SC Last administered on 09/18/18 08:47; Admin Dose 40 MG; Start 09/17/18 at 12:30 Albuterol (Ventolin Hfa) 2 puff Q4H RESP THERAPY PRN INH sob/wheezing; Start 09/17/18 at 12:30 Fluticasone/ Vilanterol (Breo Ellipta 100-25 Mcg Inh) 1 inh DAILY INH Last administered on 09/18/18 08:25; Admin Dose 1 INH; Start 09/17/18 at 13:30 SHINE ISIDRO Sep 18, 2018 09:35
--- NOTE | 2018-09-18 12:13 | PN ---
DATE: 09/18/2018 SUBJECTIVE: The patient seen, slightly feeling better. I reviewed all the tests that were done so far. I appreciate all the consultants. OBJECTIVE: VITAL SIGNS: Temperature 98.7, pulse 65, respirations 20, blood pressure 132/60, saturation 98% currently on 2 liters nasal cannula. She feels more comfortable with oxygen supplement. The patient has been afebrile. GENERAL: The patient is in no acute distress. Patient is pale, temporal wasting, decreased dentition, but now she has dentures. CARDIOVASCULAR: S1 and S2. LUNGS: Clear. ABDOMEN: Soft. EXTREMITIES: No clubbing, cyanosis, or edema. The patient is moving all extremities. LABORATORY DATA: White count 6.8, hemoglobin 12.5, hematocrit 38, platelet count 178, neutrophils 46%, lymphs at 40%. Chemistry: Sodium 146, potassium 4.0, chloride 110, bicarbonate 29, BUN is 8, creatinine 1.04, glucose of 95. LFTs are normal. Albumin 3.6. Urinalysis did show +2 leukocyte esterase, WBC greater than 182 on admission. Urine culture remains pending, shows gram- negative rods greater than 100,000. IMAGING TESTS: Carotid ultrasound did not show any evidence of significant stenosis. Thyroid ultrasound did reveal a nodule in the right lobe measuring 2.2 cm. FNA is recommended. This was explained to the patient. The patient did undergo already a C-spine, lumbar spine and thoracic spine CT which did show overall significant spinal disease. See report. Patient's current meds reviewed. MEDICATIONS: 1. Breo 1 puff daily. 2. Lovenox 40 mg subcutaneous daily. 3. Ventolin p.r.n. 4. Protonix 40 mg daily. 5. Rocephin 1 gram q.24h. 6. Ambien p.r.n. 7. KCl 8 mEq b.i.d. 8. Percocet 5/325 q.6h. p.r.n. 9. Robitussin p.r.n. 10. Abilify 5 mg daily. 11. Aspirin 81 mg daily. 12. ____ cream b.i.d. 13. Colace 100 b.i.d. 14. Cymbalta 60 daily. 15. Ferrous sulfate 325 daily. 16. Flonase daily. 17. Claritin 10 mg daily. 18. Multivitamin 1 tablet daily. 19. Triamcinolone b.i.d. topical cream. 20. Tylenol p.r.n. 21. Loperamide p.r.n. ASSESSMENT AND PLAN: This is a 78-year-old female with history of COPD, nephrolithiasis, depression, psychiatric disorder, recurrent urinary tract infections, who presented with status post fall, questionable syncopal episode, was found to have UTI, multilevel spinal disk disease and the thyroid nodule. 1. Respiratory. Stable. Continue Breo breathing treatment and O2 support. 2. Urinary tract infection, on Rocephin. Follow up urine culture results. Hopefully, will obtain the results soon. May benefit from a prolonged antibiotic suppression therapy to prevent recurrent UTIs. 3. Syncope. Workup otherwise negative. It may been caused partly due to dehydration, urinary tract infection, etc. MRI cannot be done due to patient's pacemaker. 4. Thyroid nodule concerning. We will refer to outpatient endocrine consultation for FNA. 5. Osteoarthritis. Will request physical therapy. The patient is on low dose opioid therapy, outpatient pain specialist is recommended. 6. Psychiatric disorder. Resume all above psych meds. Mood appears to be stable. 7. Continue deep vein thrombosis prophylaxis and gastrointestinal prophylaxis. 8. Renal insufficiency and mild hypernatremia. Nephrology is following. 9. Plan for physical therapy, out of bed activity. Follow up urine culture results, upgrade her diet to solids as discussed with the patient and discharge planning soon. Dictated By: JULIAN SANCHEZ/CYNTHIA Conf#: [id number] DID#: [id number] CC: DUGLAS KELLY MD;*EndCC* MTDD
--- NOTE | 2018-09-18 14:49 | CONS ---
Assessment/Plan Assessment/Plan Hospital Course (Demo Recall) Awake denies pain and looks comfortable complaining of ongoing urination, no fevers no dysuria or hematuria WBC 6.8 no shift no bands BUN 8 creatinine 1.04 Microbiology: Urine culture grew Proteus mirabilis and enterococcus species more than 100,000 Allergies penicillin Antimicrobials: Rocephin Physical examination: Well-developed well-nourished elderly woman who is alert in no distress. Head atraumatic normocephalic neck is supple chest rise symmetrical breath sounds clear heart S1-S2 abdomen soft obese bowel sounds present no tenderness on palpation extremities without cyanosis Assessment: 1. Polymicrobial UTI 2. Acute kidney injury 3. Status post syncopal episode 4. Coronary artery disease Plan: Patient is stable we are going to give a dose of fosfomycin and start her on Zyvox for enterococcal coverage Consultation Date/Type/Reason Admit Date/Time Sep 17, 2018 at 09:01 Initial Consult Date Type of Consult id Requesting Provider: BROOKE LOPEZ DO Date/Time of Note DATE: 09/18/18 TIME: 14:48 Exam/Review of Systems Exam Vitals Vital Signs Date Temp Pulse Resp B/P (MAP) Pulse Ox O2 O2 Flow FiO2 Time Delivery Rate 09/18/18 98.4 66 20 107/52 97 Nasal 11:19 (70) Cannula 09/18/18 2.0 09:11 Intake and Output 09/17/18 09/17/18 09/18/18 1515:00 23:00 07:00 IntakeIntake Total 400 ml 900 ml 350 ml BalanceBalance 400 ml 900 ml 350 ml Results Result Diagram: 09/18/18 0511 09/18/18 0511 Results 24hrs Laboratory Tests Test 09/18/18 05:11 White Blood Count 6.8 Red Blood Count 4.37 Hemoglobin 12.5 Hematocrit 38.0 Mean Corpuscular Volume 87.0 Mean Corpuscular Hemoglobin 28.6 L Mean Corpuscular Hemoglobin Concent 32.9 Red Cell Distribution Width 14.0 Platelet Count 178 # Mean Platelet Volume 11.7 H Immature Granulocytes % 0.300 Neutrophils % 46.4 Lymphocytes % 39.9 Monocytes % 6.7 Eosinophils % 6.0 Basophils % 0.7 Nucleated Red Blood Cells % 0.0 Immature Granulocytes # 0.020 Neutrophils # 3.2 Lymphocytes # 2.7 Monocytes # 0.5 Eosinophils # 0.4 Basophils # 0.1 Nucleated Red Blood Cells # 0.0 Sodium Level 146 H Potassium Level 4.0 Chloride Level 110 Carbon Dioxide Level 29 Anion Gap 7 Blood Urea Nitrogen 8 Creatinine 1.04 H Est Glomerular Filtrat Rate mL/min Glucose Level 95 Calcium Level 9.3 Phosphorus Level 3.8 Magnesium Level 2.1 Total Bilirubin 0.4 Direct Bilirubin 0.00 Indirect Bilirubin 0.4 Aspartate Amino Transf (AST/SGOT) 19 Alanine Aminotransferase (ALT/SGPT) 18 Alkaline Phosphatase 66 Total Protein 6.8 Albumin 3.6 Globulin 3.20 Albumin/Globulin Ratio 1.12 Medications Medication Current Medications Ceftriaxone Sodium 50 ml @ 100 mls/hr Q24H IVPB Last administered on 09/17/18 23:20; Admin Dose 100 MLS/HR; Start 09/16/18 at 23:30 Acetaminophen (Tylenol Tab) 650 mg Q6H PRN PO MILD PAIN LEVEL 1-3; Start 09/16/18 at 08:30 Aripiprazole (Abilify) 5 mg DAILY PO Last administered on 09/18/18 08:24; Admin Dose 5 MG; Start 09/16/18 at 09:00 Aspirin (Halfprin) 81 mg DAILY PO Last administered on 09/18/18 08:24; Admin Dose 81 MG; Start 09/16/18 at 09:00 Clotrimazole (Lotrimin Cr) 1 applic BID TOP Last administered on 09/18/18 0 8:25; Admin Dose 1 APPLIC; Start 09/16/18 at 09:00 Docusate Sodium (Colace) 100 mg BID PO Last administered on 09/18/18 08:24; Admin Dose 100 MG; Start 09/16/18 at 09:00 Duloxetine HCl (Cymbalta) 60 mg DAILY PO Last administered on 09/18/18 08:24; Admin Dose 60 MG; Start 09/16/18 at 09:00 Ferrous Sulfate (Ferrous Sulfate (Ec)) 325 mg DAILY PO Last administered on 09/18/18 08:24; Admin Dose 325 MG; Start 09/16/18 at 09:00 Fluticasone Propionate (Flonase 0.05% Nasal) 1 spray DAILY NASAL Last admin istered on 09/18/18 08:25; Admin Dose 1 SPRAY; Start 09/16/18 at 09:00 Loperamide HCl (Imodium Cap) 2 mg Q4H PRN PO NEEDED; Start 09/16/18 at 08:30 Loratadine (Claritin) 10 mg DAILY PO Last administered on 09/18/18 08:24; Admin Dose 10 MG; Start 09/16/18 at 09:00 Multivitamins Therapeutic (Theragran) 1 tab DAILY PO Last administered on 09/18/18 08:24; Admin Dose 1 TAB; Start 09/16/18 at 09:00 Nystatin/ Triamcinolone Acetonide (Mycolog Cr) 1 applic BID TOP Last administered on 09/18/18 08:25; Admin Dose 1 APPLIC; Start 09/16/18 at 09:00 Pantoprazole (Protonix Tab) 40 mg AC BREAKFAST PO Last administered on 09/18/18 08:24; Admin Dose 40 MG; Start 09/17/18 at 07:00 Oxycodone/ Acetaminophen (Percocet (5/ 325)) 1 tab Q6H PRN PO MODERATE PAIN LEVEL 4-6 Last administered on 09/18/18 14:27; Admin Dose 1 TAB; Start 09/16/18 at 09:30 Potassium Chloride (Micro-K) 8 meq BID PO Last administered on 09/18/18 08:24; Admin Dose 8 MEQ; Start 09/16/18 at 10:00 Guaifenesin/ Codeine Phosphate (Robitussin Ac Liquid Cup) 5 ml Q6H PRN PO COUGH Last administered on 09/18/18 02:01; Admin Dose 5 ML; Start 09/16/18 at 09:30 Zolpidem Tartrate (Ambien) 5 mg HS MAY REPEAT X 1 PRN PO INSOMNIA Last administered on 09/17/18 20:14; Admin Dose 5 MG; Start 09/16/18 at 22:00 Enoxaparin Sodium (Lovenox) 40 mg DAILY SC Last administered on 09/18/18 08:47; Admin Dose 40 MG; Start 09/17/18 at 12:30 Albuterol (Ventolin Hfa) 2 puff Q4H RESP THERAPY PRN INH sob/wheezing; Start 09/17/18 at 12:30 Fluticasone/ Vilanterol (Breo Ellipta 100-25 Mcg Inh) 1 inh DAILY INH Last administered on 09/18/18at 08:25; Admin Dose 1 INH; Start 09/17/18 at 13:30 ARIELLA BILLY NP Sep 18, 2018 14:49
[2018-09-18] MEDS ORDERED: FOSFOMYCIN 3 GM PACKET PO ONE (15:00)
[2018-09-18] MEDS ORDERED: VANCOMYCIN HCL 1.5 GM in SOD CHLORIDE 0.9% 250 ML IVPB SCH (16:30)
--- NOTE | 2018-09-18 16:30 | CONS ---
Consult Date/Type/Reason Admit Date/Time Sep 17, 2018 at 09:01 Initial Consult Date Type of Consultation: cv Requesting Provider: BROOKE LOPEZ DO Date/Time of Note DATE: 09/18/18 TIME: 16:29 Subjective Interventional cardiology follow-up progress note Subjective: Discussed with staff telemetry was reviewed. Patient remains mostly in sinus rhythm with intermittent demand atrial or ventricular pacing. No evidence of pacemaker malfunction noted. Patient with no chest pain or pressure. Has mild headache at the site of head injury and fall. She is still complaining of dizziness intermittently Objective: General: no acute distress HEENT: NC. There is small ecchymosis on the left forehead. pupils are equal. round. NECK: NO JVD. no stridor. CV: RRR. systolic murmur; no gallop or rubs. PULM: no wheezing or rhonchi. GI: SOFT, NT, ND, no rebound or guarding Extremity: trace B/L LE edema. no clubbing. neuro: awake and alert, . Psych: calm and pleasant rectal: deferred Objective Vitals Vital Signs Date Temp Pulse Resp B/P (MAP) Pulse Ox O2 O2 Flow FiO2 Time Delivery Rate 09/18/18 2.0 15:55 09/18/18 71 122/61 15:14 (81) 09/18/18 98.7 20 99 Nasal 15:11 Cannula Intake and Output 09/17/18 09/17/18 09/18/18 1414:59 22:59 06:59 IntakeIntake Total 400 ml 900 ml 350 ml BalanceBalance 400 ml 900 ml 350 ml Results/Medications Result Diagram: 09/18/18 0511 09/18/18 0511 Results 24 hrs Laboratory Tests Test 09/18/18 05:11 White Blood Count 6.8 Red Blood Count 4.37 Hemoglobin 12.5 Hematocrit 38.0 Mean Corpuscular Volume 87.0 Mean Corpuscular Hemoglobin 28.6 L Mean Corpuscular Hemoglobin Concent 32.9 Red Cell Distribution Width 14.0 Platelet Count 178 # Mean Platelet Volume 11.7 H Immature Granulocytes % 0.300 Neutrophils % 46.4 Lymphocytes % 39.9 Monocytes % 6.7 Eosinophils % 6.0 Basophils % 0.7 Nucleated Red Blood Cells % 0.0 Immature Granulocytes # 0.020 Neutrophils # 3.2 Lymphocytes # 2.7 Monocytes # 0.5 Eosinophils # 0.4 Basophils # 0.1 Nucleated Red Blood Cells # 0.0 Sodium Level 146 H Potassium Level 4.0 Chloride Level 110 Carbon Dioxide Level 29 Anion Gap 7 Blood Urea Nitrogen 8 Creatinine 1.04 H Est Glomerular Filtrat Rate mL/min Glucose Level 95 Calcium Level 9.3 Phosphorus Level 3.8 Magnesium Level 2.1 Total Bilirubin 0.4 Direct Bilirubin 0.00 Indirect Bilirubin 0.4 Aspartate Amino Transf (AST/SGOT) 19 Alanine Aminotransferase (ALT/SGPT) 18 Alkaline Phosphatase 66 Total Protein 6.8 Albumin 3.6 Globulin 3.20 Albumin/Globulin Ratio 1.12 Home Meds Active Scripts Aspirin* (Aspirin* EC) 81 Mg Tablet.dr, 81 MG PO DAILY for 30 Days, TAB Prov:JULIAN DOMÍNGUEZ MD 06/01/18 Gabapentin* (Gabapentin*) 100 Mg Capsule, 100 MG PO TID for 30 Days, CAP Prov:JULIAN DOMÍNGUEZ MD 03/08/18 Reported Medications Budesonide-Formoterol Fumarate* (Symbicort*) 160-4.5 Hfa.aer.ad, 2 PUFF INHALATION BID, #1 EACH 09/16/18 Potassium Chloride* (Potassium Chloride*) 8 Meq Capsule.er, 8 MEQ PO BID, CAP 09/16/18 Oxycodone HCl/Acetaminophen (Oxycodone-Acetaminophen 10-325) 1 Each Tablet, 1 EACH PO TID, TAB 09/16/18 Guaifenesin/Codeine Phosphate (Codeine-Guaifen 10-100 mg/5 ml) 120 Ml Liquid, 5 ML PO Q6 PRN for COUGH 09/16/18 Furosemide* (Furosemide*) 40 Mg Tablet, 40 MG PO DAILY, TAB 09/16/18 Zolpidem Tartrate* (Zolpidem Tartrate*) 10 Mg Tablet, 10 MG PO QHS PRN for INSOMNIA, #30 TAB 03/03/18 Albuterol Sulfate* (Ventolin HFA*) 18 Gm Hfa.aer.ad, 2 PUFF INHALATION Q4H, #1 INHALER 03/03/18 Balsam [place] Oil (Venelex Ointment) 60 Gm Oint..gm., 1 APPLIC TOP NEEDED, #1 TUB 03/03/18 Fesoterodine Fumarate (Toviaz) 8 Mg Tab.sr.24h, 8 MG PO DAILY, TAB 03/03/18 Tamsulosin Hcl* (Tamsulosin Hcl*) 0.4 Mg Cap.er.24h, 0.4 MG PO QAM, CAP 03/03/18 Pantoprazole* (Pantoprazole*) 40 Mg Tablet.dr, 40 MG PO AC BREAKFAST, TAB 03/03/18 Nystatin-Triamcinolone* (Nystatin-Triamcinolone* Cream) 15 Gm Cream.gm., 1 APPLIC TOP BID, #1 TUB 03/03/18 Multivitamins* (Theragran*) 1 Tab Tab, 1 TAB PO DAILY, TAB 03/03/18 Loratadine* (Loratadine*) 10 Mg Tablet, 10 MG PO DAILY, #30 TAB 03/03/18 Loperamide Hcl* (Loperamide Hcl*) 2 Mg Cap, 2 MG PO Q4H PRN for NEEDED, CAP 03/03/18 Cholecalciferol (Vitamin D3) (Vitamin D-3) 2,000 Unit Tablet, 2000 UNIT PO DAILY, TAB 03/03/18 Fluticasone Propionate* (Fluticasone Propionate* Nasal) 50 Mcg/[place] - 16 Gm [place].susp, 1 SPRAY NASAL DAILY, #1 BOTTLE TO EACH NOSTRIL 03/03/18 Ferrous Sulfate* (Ferrous Sulfate*) 325 Mg Tabec, 325 MG PO DAILY, TAB 03/03/18 Duloxetine Hcl* (Duloxetine Hcl*) 60 Mg Capsule.dr, 60 MG PO DAILY, #30 CAP 03/03/18 Docusate Sodium* (Colace*) 100 Mg Capsule, 100 MG PO BID, #60 CAP 03/03/18 Clotrimazole* (Clotrimazole* AF) 1% - 30 Gm Cream.gm., 1 APPLIC TOP BID, TUB 03/03/18 Aripiprazole* (Abilify*) 5 Mg Tab, 5 MG PO DAILY, #30 TAB 03/03/18 Acetaminophen* (Acetaminophen*) 325 Mg Tablet, 650 MG PO Q6H PRN for MILD PAIN LEVEL 1-3, #30 TAB 03/03/18 Discontinued Reported Medications Nitroglycerin* (Nitroglycerin* SL) 0.4 Mg Tab.subl, 0.4 MG SL Q5MIN PRN for CHEST PAIN, BOTTLE 03/03/18 Lorazepam* (Lorazepam*) 0.5 Mg Tablet, 0.5 MG PO Q8 PRN for ANXIETY, TAB 03/03/18 Ipratropium-Albuterol (Ipratropium-Albuterol) 0.5-3 Mg/3 Ml Ampul.neb, 3 ML INHALATION Q2H, #30 VIAL 03/03/18 Discontinued Scripts Cephalexin* (Cephalexin*) 500 Mg Capsule, 500 MG PO Q8 for 5 Days, #15 CAP Prov:JULIAN DOMÍNGUEZ MD 06/01/18 Prednisone* (Prednisone*) 20 Mg Tab, 30 MG PO DAILY for 9 Days, TAB Prov:JULIAN DOMÍNGUEZ MD 06/01/18 Oxycodone HCl/Acetaminophen (Percocet 5-325 mg Tablet) 1 Each Tablet, 1 EACH PO Q6, #30 TAB Prov:JULIAN DOMÍNGUEZ MD 06/01/18 Medications Current Medications Ceftriaxone Sodium 50 ml @ 100 mls/hr Q24H IVPB Last administered on 09/17/18at 23:20; Admin Dose 100 MLS/HR; Start 09/16/18 at 23:30 Acetaminophen (Tylenol Tab) 650 mg Q6H PRN PO MILD PAIN LEVEL 1-3; Start 09/16/18 at 08:30 Aripiprazole (Abilify) 5 mg DAILY PO Last administered on 09/18/18 08:24; Admin Dose 5 MG; Start 09/16/18 at 09:00 Aspirin (Halfprin) 81 mg DAILY PO Last administered on 09/18/18 08:24; Admin Dose 81 MG; Start 09/16/18 at 09:00 Clotrimazole (Lotrimin Cr) 1 applic BID TOP Last administered on 09/18/18 08:25; Admin Dose 1 APPLIC; Start 09/16/18 at 09:00 Docusate Sodium (Colace) 100 mg BID PO Last administered on 09/18/18 08:24; Admin Dose 100 MG; Start 09/16/18 at 09:00 Duloxetine HCl (Cymbalta) 60 mg DAILY PO Last administered on 09/18/18 08:24; Admin Dose 60 MG; Start 09/16/18 at 09:00 Ferrous Sulfate (Ferrous Sulfate (Ec)) 325 mg DAILY PO Last administered on 09/18/18 08:24; Admin Dose 325 MG; Start 09/16/18 at 09:00 Fluticasone Propionate (Flonase 0.05% Nasal) 1 spray DAILY NASAL Last administered on 09/18/18 08:25; Admin Dose 1 SPRAY; Start 09/16/18 at 09:00 Loperamide HCl (Imodium Cap) 2 mg Q4H PRN PO NEEDED; Start 09/16/18 at 08:30 Loratadine (Claritin) 10 mg DAILY PO Last administered on 09/18/18 08:24; Admin Dose 10 MG; Start 09/16/18 at 09:00 Multivitamins Therapeutic (Theragran) 1 tab DAILY PO Last administered on 09/18/18 08:24; Admin Dose 1 TAB; Start 09/16/18 at 09:00 Nystatin/ Triamcinolone Acetonide (Mycolog Cr) 1 applic BID TOP Last administered on 09/18/18 08:25; Admin Dose 1 APPLIC; Start 09/16/18 at 09:00 Pantoprazole (Protonix Tab) 40 mg AC BREAKFAST PO Last administered on 09/18/18 08:24; Admin Dose 40 MG; Start 09/17/18 at 07:00 Oxycodone/ Acetaminophen (Percocet (5/ 325)) 1 tab Q6H PRN PO MODERATE PAIN LEVEL 4-6 Last administered on 09/18/18 14:27; Admin Dose 1 TAB; Start 09/16/18 at 09:30 Potassium Chloride (Micro-K) 8 meq BID PO Last administered on 09/18/18 08:24; Admin Dose 8 MEQ; Start 09/16/18 at 10:00 Guaifenesin/ Codeine Phosphate (Robitussin Ac Liquid Cup) 5 ml Q6H PRN PO COUGH Last administered on 09/18/18 02:01; Admin Dose 5 ML; Start 09/16/18 at 09:30 Zolpidem Tartrate (Ambien) 5 mg HS MAY REPEAT X 1 PRN PO INSOMNIA Last administered on 09/17/18 20:14; Admin Dose 5 MG; Start 09/16/18 at 22:00 Enoxaparin Sodium (Lovenox) 40 mg DAILY SC Last administered on 09/18/18 08:47; Admin Dose 40 MG; Start 09/17/18 at 12:30 Albuterol (Ventolin Hfa) 2 puff Q4H RESP THERAPY PRN INH sob/wheezing; Start 09/17/18 at 12:30 Fluticasone/ Vilanterol (Breo Ellipta 100-25 Mcg Inh) 1 inh DAILY INH Last administered on 09/18/18at 08:25; Admin Dose 1 INH; Start 09/17/18 at 13:30 Vancomycin HCl 1.5 gm/Sodium Chloride 250 ml @ 83.333 mls/ hr NOW IVPB ; Start 09/18/18 at 16:30; Stop 09/18/18 at 20:00 Vancomycin HCl 250 ml @ 125 mls/hr Q24H IVPB ; Start 09/19/18 at 17:00 Assessment/Plan Hospital Course (Demo Recall) Status post fall dizziness. Possible syncope Sick sinus syndrome status post permanent pacemaker with a [place] pacemaker with no evidence of malfunction on telemetry Hypertension History of psych disorder Urinary tract infection Anemia Recommendations: We will continue to monitor on telemetry so far no evidence of pacemaker malfun ction or significant arrhythmia to cause the syncope. Syncopal recently interrogated in the office. Antibiotic management as per internal medicine Thank you for his referral. We will continue to follow along with you AMADOU GOMEZ MD [facility] AMADOU GOMEZ MD Sep 18, 2018 16:30
[2018-09-18] MEDS ORDERED: VANCOMYCIN IV PER PHARMACY XX SCH (17:30)
--- NOTE | 2018-09-18 19:21 | RADRPT ---
Echocardiogram Report Patient Name: NATHANAEL ESPAÑAPatient ID: [id number] : 1940 (78y 3m)Study Date: 09/17/2018 8:16:42 AM Gender: FAccession #: [id number] Tech: Ildefonso Grubbs [facility] Location: [address] Ref.Physician: DANIEL HEREDIA Height(Cm): BSA: Weight(Kg): Quality: AdequateOrder Physician: DANIEL HEREDIA Account #: Procedures: Echocardiographic Report: Transthoracic echocardiogram with complete 2D, M-Mode, and doppler examination. Indications: Syncope. Measurements: 2D/M Mode Doppler Measurement Value Normal Range Measurement Value Normal Range LVIDd 2D 4.8 [ 3.8 - 5.2 ] cm AV Peak Jean 1.4 [ 100.0 - 170.0 ] cm/sec LVIDs 2D 3.2 [ 2.2 - 3.5 ] cm AV Peak PG 8.0 [ 2.0 - 9.0 ] mmHg LVPWd 2D 1.1 [ 0.6 - 0.9 ] cm LVOT Peak Jean 0.9 [ 70.0 - 110.0 ] cm/sec IVSd 2D 1.3 [ 0.6 - 0.9 ] cm LVOT Peak PG 3.0 [ 2.0 - 6.0 ] mmHg AoR Diam 2D 2.7 [ 2.3 - 3.1 ] cm MV E Peak Jean 0.9 [ 60.0 - 130.0 ] cm/sec EDV 2D 110.0 [ 46.0 - 106.0 ] ml MV A Peak Jean 0.7 [ 100.0 - 120.0 ] cm/sec ESV 2D 39.4 [ 14.0 - 42.0 ] ml MV E/A 1.3 [ 0.8 - 1.5 ] ratio EF 2D 64.2 [ 54.0 - 74.0 ] percent MV Decel Time 225 [ 104 - 258 ] msec LA Dimen 2D 3.9 [ 2.7 - 3.8 ] cm Lat E` Jean 0.1 [ 10.0 - 15.0 ] cm/sec Lateral E/E` 7.0 [ 1.0 - 2.0 ] ratio Med E` Jean 0.1 cm/sec MV E/A 1.3 [ 0.8 - 1.5 ] ratio TR Peak Jean 2.3 [ 100.0 - 280.0 ] cm/sec TR Peak PG 21.0 mmHg RVSP 29.0 [ 10.0 - 36.0 ] mmHg Findings: Left Ventricle: Normal left ventricular systolic function. Normal left ventricular cavity size. Sigmoid septum. Ejection fraction is visually estimated at 60 %. Tissue Doppler/Mitral Doppler indices are consistent with pseudonormalization with mildly elevated left atrial pressure (Stage II diastolic dysfunction). Right Ventricle: Normal right ventricular size. Normal right ventricular systolic function. Linear artifact in right ventricle suggestive of catheter, pacer lead, or ICD lead. Left Atrium: The left atrium is normal in size. Right Atrium: The right atrium is normal in size. Mitral Valve: Mild mitral leaflet calcification. Mild mitral annular calcification. Trace mitral regurgitation. Aortic Valve: No significant aortic stenosis or insufficiency. Aortic cusps appear mildly calcified. Tricuspid Valve: Normal appearance of the tricuspid valve. The estimated Peak RVSP is 29 mmHg. There is mild tricuspid regurgitation. Pericardium: Normal pericardium with no significant pericardial effusion. Aorta: Normal aortic root. IVC: Dilated IVC with respiratory collapse consistent with elevated right atrial pressure. Conclusions: Normal left ventricular systolic function. Normal left ventricular cavity size. Sigmoid septum. Ejection fraction is visually estimated at 60 %. Tissue Doppler/Mitral Doppler indices are consistent with pseudonormalization with mildly elevated left atrial pressure (Stage II diastolic dysfunction). Normal right ventricular size. Normal right ventricular systolic function. Linear artifact in right ventricle suggestive of catheter, pacer lead, or ICD lead. The left atrium is normal in size. The right atrium is normal in size. The estimated Peak RVSP is 29 mmHg. There is mild tricuspid regurgitation. No significant valvular stenosis or regurgitation seen of remaining visualized valves. Normal pericardium with no significant pericardial effusion. Electronically Signed By: Daniel Heredia 2018-09-18 19:20:29 PDT
[2018-09-18] MEDS ORDERED: ZYVOX 600 MG TAB PO SCH (21:00)
[2018-09-18] MEDS: ZOLPIDEM 5 MG TAB PO PRN (22:34)
[2018-09-18] MEDS: CEFTRIAXONE 1 GM/50 ML (PMX) 50 ML IVPB SCH (22:34)
[2018-09-19 03:55] VITALS: BP 133/56; PULSE 60; RESP 21
[2018-09-19] MEDS: PANTOPRAZOLE (EC) 40 MG TAB PO SCH (06:40)
[2018-09-19] MEDS: OXYCODONE/ACETAMINOPHEN (5/325) TAB PO PRN ×2 (06:45→17:04)
[2018-09-19 07:29] VITALS: BP 128/59; PULSE 67; RESP 20
--- NOTE | 2018-09-19 07:58 | CONS ---
Consult Date/Type/Reason Admit Date/Time Sep 17, 2018 at 09:01 Initial Consult Date Type of Consultation: cv Requesting Provider: BROOKE LOPEZ DO Date/Time of Note DATE: 09/19/18 TIME: 07:56 Subjective Interventional cardiology follow-up progress note Subjective: Discussed with staff telemetry was reviewed. Patient remains mostly in sinus rhythm with intermittent demand atrial and ventricular pacing. No evidence of pacemaker malfunction noted. Patient with no chest pain or pressure. She is still complaining of dizziness intermittently mostly upon standing Objective: General: no acute distress HEENT: NC. There is small ecchymosis on the left forehead. pupils are equal. round. NECK: NO JVD. no stridor. CV: RRR. systolic murmur; no gallop or rubs. PULM: no wheezing or rhonchi. GI: SOFT, NT, ND, no rebound or guarding Extremity: trace B/L LE edema. no clubbing. neuro: awake and alert, . Psych: calm and pleasant rectal: deferred Objective Vitals Vital Signs Date Temp Pulse Resp B/P (MAP) Pulse Ox O2 O2 Flow FiO2 Time Delivery Rate 09/19/18 97.5 67 20 128/59 98 Nasal 07:29 (82) Cannula 09/19/18 2.0 02:36 Intake and Output 09/18/18 09/18/18 09/19/18 1515:00 23:00 07:00 IntakeIntake Total 840 ml 480 ml 700 ml BalanceBalance 840 ml 480 ml 700 ml Results/Medications Result Diagram: 09/18/18 0511 09/19/18 0515 Results 24 hrs Laboratory Tests Test 09/19/18 05:15 Sodium Level 144 Potassium Level 3.9 Chloride Level 112 H Carbon Dioxide Level 26 Anion Gap 6 Blood Urea Nitrogen 8 Creatinine 0.86 Est Glomerular Filtrat Rate mL/min Glucose Level 94 Calcium Level 8.9 Phosphorus Level 3.8 Magnesium Level 1.9 Home Meds Active Scripts Aspirin* (Aspirin* EC) 81 Mg Tablet.dr, 81 MG PO DAILY for 30 Days, TAB Prov:JULIAN DOMÍNGUEZ MD 06/01/18 Gabapentin* (Gabapentin*) 100 Mg Capsule, 100 MG PO TID for 30 Days, CAP Prov:JULIAN DOMÍNGUEZ MD 03/08/18 Reported Medications Budesonide-Formoterol Fumarate* (Symbicort*) 160-4.5 Hfa.aer.ad, 2 PUFF INHALATION BID, #1 EACH 09/16/18 Potassium Chloride* (Potassium Chloride*) 8 Meq Capsule.er, 8 MEQ PO BID, CAP 09/16/18 Oxycodone HCl/Acetaminophen (Oxycodone-Acetaminophen 10-325) 1 Each Tablet, 1 EACH PO TID, TAB 09/16/18 Guaifenesin/Codeine Phosphate (Codeine-Guaifen 10-100 mg/5 ml) 120 Ml Liquid, 5 ML PO Q6 PRN for COUGH 09/16/18 Furosemide* (Furosemide*) 40 Mg Tablet, 40 MG PO DAILY, TAB 09/16/18 Zolpidem Tartrate* (Zolpidem Tartrate*) 10 Mg Tablet, 10 MG PO QHS PRN for INSOMNIA, #30 TAB 03/03/18 Albuterol Sulfate* (Ventolin HFA*) 18 Gm Hfa.aer.ad, 2 PUFF INHALATION Q4H, #1 INHALER 03/03/18 Balsam [place] Oil (Venelex Ointment) 60 Gm Oint..gm., 1 APPLIC TOP NEEDED, #1 TUB 03/03/18 Fesoterodine Fumarate (Toviaz) 8 Mg Tab.sr.24h, 8 MG PO DAILY, TAB 03/03/18 Tamsulosin Hcl* (Tamsulosin Hcl*) 0.4 Mg Cap.er.24h, 0.4 MG PO QAM, CAP 03/03/18 Pantoprazole* (Pantoprazole*) 40 Mg Tablet.dr, 40 MG PO AC BREAKFAST, TAB 03/03/18 Nystatin-Triamcinolone* (Nystatin-Triamcinolone* Cream) 15 Gm Cream.gm., 1 APPLIC TOP BID, #1 TUB 03/03/18 Multivitamins* (Theragran*) 1 Tab Tab, 1 TAB PO DAILY, TAB 03/03/18 Loratadine* (Loratadine*) 10 Mg Tablet, 10 MG PO DAILY, #30 TAB 03/03/18 Loperamide Hcl* (Loperamide Hcl*) 2 Mg Cap, 2 MG PO Q4H PRN for NEEDED, CAP 03/03/18 Cholecalciferol (Vitamin D3) (Vitamin D-3) 2,000 Unit Tablet, 2000 UNIT PO DAILY, TAB 03/03/18 Fluticasone Propionate* (Fluticasone Propionate* Nasal) 50 Mcg/[place] - 16 Gm [place].susp, 1 SPRAY NASAL DAILY, #1 BOTTLE TO EACH NOSTRIL 03/03/18 Ferrous Sulfate* (Ferrous Sulfate*) 325 Mg Tabec, 325 MG PO DAILY, TAB 03/03/18 Duloxetine Hcl* (Duloxetine Hcl*) 60 Mg Capsule.dr, 60 MG PO DAILY, #30 CAP 03/03/18 Docusate Sodium* (Colace*) 100 Mg Capsule, 100 MG PO BID, #60 CAP 03/03/18 Clotrimazole* (Clotrimazole* AF) 1% - 30 Gm Cream.gm., 1 APPLIC TOP BID, TUB 03/03/18 Aripiprazole* (Abilify*) 5 Mg Tab, 5 MG PO DAILY, #30 TAB 03/03/18 Acetaminophen* (Acetaminophen*) 325 Mg Tablet, 650 MG PO Q6H PRN for MILD PAIN LEVEL 1-3, #30 TAB 03/03/18 Discontinued Reported Medications Nitroglycerin* (Nitroglycerin* SL) 0.4 Mg Tab.subl, 0.4 MG SL Q5MIN PRN for [place] PAIN, BOTTLE 03/03/18 Lorazepam* (Lorazepam*) 0.5 Mg Tablet, 0.5 MG PO Q8 PRN for ANXIETY, TAB 03/03/18 Ipratropium-Albuterol (Ipratropium-Albuterol) 0.5-3 Mg/3 Ml Ampul.neb, 3 ML INHALATION Q2H, #30 VIAL 03/03/18 Discontinued Scripts Cephalexin* (Cephalexin*) 500 Mg Capsule, 500 MG PO Q8 for 5 Days, #15 CAP Prov:JULIAN DOMÍNGUEZ MD 06/01/18 Prednisone* (Prednisone*) 20 Mg Tab, 30 MG PO DAILY for 9 Days, TAB Prov:JULIAN DOMÍNGUEZ MD 06/01/18 Oxycodone HCl/Acetaminophen (Percocet 5-325 mg Tablet) 1 Each Tablet, 1 EACH PO Q6, #30 TAB Prov:JULIAN DOMÍNGUEZ MD 06/01/18 Medications Current Medications Ceftriaxone Sodium 50 ml @ 100 mls/hr Q24H IVPB Last administered on 09/18/18at 22:34; Admin Dose 100 MLS/HR; Start 09/16/18 at 23:30 Acetaminophen (Tylenol Tab) 650 mg Q6H PRN PO MILD PAIN LEVEL 1-3; Start 09/16/18 at 08:30 Aripiprazole (Abilify) 5 mg DAILY PO Last administered on 09/18/18 08:24; Admin Dose 5 MG; Start 09/16/18 at 09:00 Aspirin (Halfprin) 81 mg DAILY PO Last administered on 09/18/18 08:24; Admin Dose 81 MG; Start 09/16/18 at 09:00 Clotrimazole (Lotrimin Cr) 1 applic BID TOP Last administered on 09/18/18 20:36; Admin Dose 1 APPLIC; Start 09/16/18 at 09:00 Docusate Sodium (Colace) 100 mg BID PO Last administered on 09/18/18 20:35; Admin Dose 100 MG; Start 09/16/18 at 09:00 Duloxetine HCl (Cymbalta) 60 mg DAILY PO Last administered on 09/18/18 08:24; Admin Dose 60 MG; Start 09/16/18 at 09:00 Ferrous Sulfate (Ferrous Sulfate (Ec)) 325 mg DAILY PO Last administered on 09/18/18 08:24; Admin Dose 325 MG; Start 09/16/18 at 09:00 Fluticasone Propionate (Flonase 0.05% Nasal) 1 spray DAILY NASAL Last administered on 09/18/18 08:25; Admin Dose 1 SPRAY; Start 09/16/18 at 09:00 Loperamide HCl (Imodium Cap) 2 mg Q4H PRN PO NEEDED; Start 09/16/18 at 08:30 Loratadine (Claritin) 10 mg DAILY PO Last administered on 09/18/18 08:24; Admin Dose 10 MG; Start 09/16/18 at 09:00 Multivitamins Therapeutic (Theragran) 1 tab DAILY PO Last administered on 09/18/18 08:24; Admin Dose 1 TAB; Start 09/16/18 at 09:00 Nystatin/ Triamcinolone Acetonide (Mycolog Cr) 1 applic BID TOP Last administered on 09/18/18 20:36; Admin Dose 1 APPLIC; Start 09/16/18 at 09:00 Pantoprazole (Protonix Tab) 40 mg AC BREAKFAST PO Last administered on 9at 06:40; Admin Dose 40 MG; Start 09/17/18 at 07:00 Oxycodone/ Acetaminophen (Percocet (5/ 325)) 1 tab Q6H PRN PO MODERATE PAIN LEVEL 4-6 Last administered on 09/19/18at 06:45; Admin Dose 1 TAB; Start 09/16/18 at 09:30 Potassium Chloride (Micro-K) 8 meq BID PO Last administered on 09/18/18at 20:36; Admin Dose 8 MEQ; Start 09/16/18 at 10:00 Guaifenesin/ Codeine Phosphate (Robitussin Ac Liquid Cup) 5 ml Q6H PRN PO COUGH Last administered on 09/18/18 20:35; Admin Dose 5 ML; Start 09/16/18 at 09:30 Zolpidem Tartrate (Ambien) 5 mg HS MAY REPEAT X 1 PRN PO INSOMNIA Last administered on 09/18/18 22:34; Admin Dose 5 MG; Start 09/16/18 at 22:00 Enoxaparin Sodium (Lovenox) 40 mg DAILY SC Last administered on 09/18/18at 08:47; Admin Dose 40 MG; Start 09/17/18 at 12:30 Albuterol (Ventolin Hfa) 2 puff Q4H RESP THERAPY PRN INH sob/wheezing; Start 09/17/18 at 12:30 Fluticasone/ Vilanterol (Breo Ellipta 100-25 Mcg Inh) 1 inh DAILY INH Last administered on 09/18/18at 08:25; Admin Dose 1 INH; Start 09/17/18 at 13:30 Vancomycin HCl 250 ml @ 125 mls/hr Q24H IVPB ; Start 09/19/18 at 17:00 Vancomycin HCl (Vanco Iv Per Pharmacy) PER PHARMACY DOSING NOTE XX ; Start 09/18/18 at 17:30 Assessment/Plan Hospital Course (Demo Recall) Status post fall dizziness. Possible syncope, Sick sinus syndrome status post permanent pacemaker with a [place] pacemaker with no evidence of malfunction on telemetry Hypertension History of psych disorder Urinary tract infection Anemia Recommendations: no evidence of pacemaker malfunction or significant arrhythmia to cause the syncope. pacemaker was recently interrogated in the office. Antibiotic management as per internal medicine PT as tolerated check orthostatics Thank you for his referral. We will continue to follow along with you AMADOU GOMEZ MD [facility] AMADOU GOMEZ MD Sep 19, 2018 07:58
--- NOTE | 2018-09-19 08:00 | PN ---
DATE: 09/19/2018 SUBJECTIVE: The patient is stable, no events overnight. OBJECTIVE: VITAL SIGNS: Blood pressure is 128/59, pulse 67, respirations 20, temperature 97.5. HEENT: Head is normocephalic. NECK: Supple. HEART: Regular rate. LUNGS: Show diminished breath sounds at the base. ABDOMEN: Soft, nontender to palpation without rebound or guarding. EXTREMITIES: Negative for clubbing, cyanosis, no edema. DERMATOLOGIC: No rashes. MUSCULOSKELETAL: No joint effusion. NEUROLOGIC: No change in exam. MEDICATIONS: Have been reviewed. LABORATORY DATA: Has been reviewed. IMAGING STUDIES: Have been reviewed. ASSESSMENT AND PLAN: 1. Nonoliguric acute kidney injury on top of chronic kidney disease. Etiology is secondary to hemod ynamics. Renal function is improved. Continue to monitor. 2. Anemia. Monitor hemoglobin and hematocrit levels. 3. Mineral bone disorder, monitor calcium and phosphorus levels. 4. Status post mild hyponatremia, improved. Continue to encourage free water intake. 5. Syncope, etiology is unclear. Workup has been negative to date. No evidence of seizures. Her E EG and a CT scan showed no acute pathology. Per cardiology pacemaker is working appropriately. Etio logy may have therefore been secondary to urinary tract infection. We will continue to monitor. 6. Urinary tract infection. Continue current antibiotic regimen. 7. Coronary artery disease. Continue current treatment plan. 8. History of chronic obstructive pulmonary disease exacerbation, improving. 9. History of congestive heart failure currently compensated. 10. Anxiety disorder. 11. History of overactive bladder. Dictated By: BROOKE LOPEZ DO NR/NTS Conf#: [id number] DID#: [id number] CC: DUGLAS KELLY MD;*EndCC*
[2018-09-19] MEDS: DOCUSATE SODIUM 100 MG CAP PO SCH ×3 (08:32→21:02)
[2018-09-19] MEDS: ASPIRIN (EC) 81 MG TAB PO SCH (08:33)
[2018-09-19] MEDS: LORATADINE 10 MG TAB PO SCH (08:33)
[2018-09-19] MEDS: FLUTICASONE/VILANTEROL 100-25 INH SCH (08:33)
[2018-09-19] MEDS: ARIPIPRAZOLE 5 MG TAB PO SCH (08:33)
[2018-09-19] MEDS: FERROUS SULFATE (EC) 325 MG TAB PO SCH (08:33)
[2018-09-19] MEDS: POTASSIUM CHLORIDE (SR) 8 MEQ CAP PO SCH ×2 (08:33→21:03)
[2018-09-19] MEDS: DULOXETINE 30 MG CAP DR PO SCH (08:33)
[2018-09-19] MEDS: MULTIVITAMINS THERAPEUTIC TAB PO SCH (08:33)
[2018-09-19] MEDS: BALSAM PERU/CASTOR OIL 60 GM TUBE TOP SCH (08:34)
[2018-09-19] MEDS: CLOTRIMAZOLE 1% 30 GM CR TOP SCH ×3 (08:34→21:06)
[2018-09-19] MEDS: FLUTICASONE 0.05% 16 GM NAS SPRAY NASAL SCH (08:34)
[2018-09-19] MEDS: NYSTATIN/TRIAMCINOLONE 15 GM CR TOP SCH ×3 (08:34→21:06)
[2018-09-19] MEDS: ENOXAPARIN 40 MG/0.4 ML SYG SC SCH (08:43)
[2018-09-19] MEDS ORDERED: VANCOMYCIN IV PER PHARMACY XX SCH (10:00)
[2018-09-19 11:10] VITALS: BP_SYST 111; BP_SYST 117; BP_DIAS 55; BP_DIAS 70; PULSE 70; PULSE 80; RESP 19
[2018-09-19 15:08] VITALS: BP 114/64; PULSE 66; RESP 20
--- NOTE | 2018-09-19 15:15 | CONS ---
Assessment/Plan Assessment/Plan Hospital Course (Demo Recall) No events, looks comfortable, no fevers Microbiology: Urine culture grew Proteus mirabilis and enterococcus species more than 100,000 Allergies penicillin Antimicrobials: Yaw Davis Physical examination: Well-developed well-nourished elderly woman who is alert in no distress. Head atraumatic normocephalic neck is supple chest rise symmetrical breath sounds clear heart S1-S2 abdomen soft obese bowel sounds present no tenderness on palpation extremities without cyanosis Assessment: 1. Polymicrobial UTI 2. Acute kidney injury 3. Status post syncopal episode 4. Coronary artery disease Plan: Remains stable, vancomycin added to cover enterococcus, continue on current antibiotics Consultation Date/Type/Reason Admit Date/Time Sep 17, 2018 at 09:01 Initial Consult Date Type of Consult id Requesting Provider: BROOKE LOPEZ DO Date/Time of Note DATE: 09/19/18 TIME: 15:14 Exam/Review of Systems Exam Vitals Vital Signs Date Temp Pulse Resp B/P (MAP) Pulse Ox O2 O2 Flow FiO2 Time Delivery Rate 09/19/18 97.8 66 20 114/64 97 Nasal 15:08 (81) Cannula 09/19/18 2.0 08:09 Intake and Output 09/18/18 09/18/18 09/19/18 1515:00 23:00 07:00 IntakeIntake Total 840 ml 480 ml 700 ml BalanceBalance 840 ml 480 ml 700 ml Results Result Diagram: 09/18/18 0511 09/19/18 0515 Results 24hrs Laboratory Tests Test 09/19/18 05:15 Sodium Level 144 Potassium Level 3.9 Chloride Level 112 H Carbon Dioxide Level 26 Anion Gap 6 Blood Urea Nitrogen 8 Creatinine 0.86 Est Glomerular Filtrat Rate mL/min Glucose Level 94 Calcium Level 8.9 Phosphorus Level 3.8 Magnesium Level 1.9 Medications Medication Current Medications Ceftriaxone Sodium 50 ml @ 100 mls/hr Q24H IVPB Last administered on 09/18/18at 22:34; Admin Dose 100 MLS/HR; Start 09/16/18 at 23:30 Acetaminophen (Tylenol Tab) 650 mg Q6H PRN PO MILD PAIN LEVEL 1-3; Start 09/16/18 at 08:30 Aripiprazole (Abilify) 5 mg DAILY PO Last administered on 09/19/18at 08:33; Admin Dose 5 MG; Start 09/16/18 at 09:00 Aspirin (Halfprin) 81 mg DAILY PO Last administered on 09/19/18 08:33; Admin Dose 81 MG; Start 09/16/18 at 09:00 Clotrimazole (Lotrimin Cr) 1 applic BID TOP Last administered on 09/19/18 08:34; Admin Dose 1 APPLIC; Start 09/16/18 at 09:00 Docusate Sodium (Colace) 100 mg BID PO Last administered on 09/18/18 20:35; Admin Dose 100 MG; Start 09/16/18 at 09:00 Duloxetine HCl (Cymbalta) 60 mg DAILY PO Last administered on 09/19/18 08:33; Admin Dose 60 MG; Start 09/16/18 at 09:00 Ferrous Sulfate (Ferrous Sulfate (Ec)) 325 mg DAILY PO Last administered on 09/19/18 08:33; Admin Dose 325 MG; Start 09/16/18 at 09:00 Fluticasone Propionate (Flonase 0.05% Nasal) 1 spray DAILY NASAL Last administered on 09/19/18 08:34; Admin Dose 1 SPRAY; Start 09/16/18 at 09:00 Loperamide HCl (Imodium Cap) 2 mg Q4H PRN PO NEEDED; Start 09/16/18 at 08:30 Loratadine (Claritin) 10 mg DAILY PO Last administered on 09/19/18 08:33; Admin Dose 10 MG; Start 09/16/18 at 09:00 Multivitamins Therapeutic (Theragran) 1 tab DAILY PO Last administered on 09/19/18 08:33; Admin Dose 1 TAB; Start 09/16/18 at 09:00 Nystatin/ Triamcinolone Acetonide (Mycolog Cr) 1 applic BID TOP Last administered on 09/19/18 08:34; Admin Dose 1 APPLIC; Start 09/16/18 at 09:00 Pantoprazole (Protonix Tab) 40 mg AC BREAKFAST PO Last administered on 09/19/18 06:40; Admin Dose 40 MG; Start 09/17/18 at 07:00 Oxycodone/ Acetaminophen (Percocet (5/ 325)) 1 tab Q6H PRN PO MODERATE PAIN LEVEL 4-6 Last administered on 09/19/18 06:45; Admin Dose 1 TAB; Start 09/16/18 at 09:30 Potassium Chloride (Micro-K) 8 meq BID PO Last administered on 09/19/18 08:33; Admin Dose 8 MEQ; Start 09/16/18 at 10:00 Guaifenesin/ Codeine Phosphate (Robitussin Ac Liquid Cup) 5 ml Q6H PRN PO COUGH Last administered on 09/18/18 20:35; Admin Dose 5 ML; Start 09/16/18 at 09:30 Zolpidem Tartrate (Ambien) 5 mg HS MAY REPEAT X 1 PRN PO INSOMNIA Last administered on 09/18/18 22:34; Admin Dose 5 MG; Start 09/16/18 at 22:00 Enoxaparin Sodium (Lovenox) 40 mg DAILY SC Last administered on 09/19/18at 08:43; Admin Dose 40 MG; Start 09/17/18 at 12:30 Albuterol (Ventolin Hfa) 2 puff Q4H RESP THERAPY PRN INH sob/wheezing; Start 09/17/18 at 12:30 Fluticasone/ Vilanterol (Breo Ellipta 100-25 Mcg Inh) 1 inh DAILY INH Last administered on 09/19/18 08:33; Admin Dose 1 INH; Start 09/17/18 at 13:30 Vancomycin HCl 250 ml @ 125 mls/hr Q24H IVPB ; Start 09/19/18 at 17:00 Vancomycin HCl (Vanco Iv Per Pharmacy) PER PHARMACY DOSING NOTE XX ; Start 09/18/18 at 17:30 ARIELLA BILLY NP Sep 19, 2018 15:15
--- NOTE | 2018-09-19 16:36 | RADRPT ---
Vent Rate: 65 bpm RR Interval: 924 msec [place] Interval: 176 msec QRS Duration: 90 msec QT Interval: 440 msec QTC Interval: 458 msec P-R-T [place]: 77 - 11 - 53 degrees Sinus rhythm...normal P axis, V-rate 50- 99 Low voltage, precordial leads...precordial leads <1.0mV Electronically Signed By: Oren Hughes
--- NOTE | 2018-09-19 16:38 | PN ---
DATE: 09/19/2018 SUBJECTIVE: The patient is seen. She participated with physical therapy, but that was a challenge a s patient was complaining of dizziness. The patient is concerned, so will monitor her for one more d ay. In addition, urine culture came back also as enterococcus species and I started her on vancomyci n IV as well. THIS PATIENT HAS ALLERGY TO PENICILLIN. PHYSICAL EXAMINATION: VITAL SIGNS: Temperature 98.2, pulse is 70, respiration 19, blood pressure 117/70, saturation 97%. The patient is not orthostatic. Saturation 97 on 2 liters. GENERAL: No acute distress. HEENT: Normocephalic, atraumatic. Pale, temporal wasting, decreased dentition. CARDIOVASCULAR: S1, S2, regular rate. LUNGS: Clear. ABDOMEN: Soft, nontender. EXTREMITIES: No clubbing, cyanosis, or edema. The patient is overweight. LABORATORY DATA: No new labs today. Yesterday, white count was 6.8 with hemoglobin of 12.5. Actua lly, there is basic metabolic today, sodium 140, potassium 3.9, chloride 12, bicarbonate 26, BUN 8, c reatinine 0.86 and glucose of 94. Kidney function has improved. The patient's urine culture did show Proteus mirabilis sensitive to cefotaxime and enterococcus speci es only sensitive to ampicillin, penicillin and vancomycin. THIS PATIENT IS ALLERGIC TO PENICILLIN, so I did start her on IV vancomycin. The patient's current medications were all reviewed and include: 1. Vancomycin dose per pharmacy. 2. Breo one puff daily. 3. Lovenox 40 mg subq every day. 4. Albuterol every 4 hours p.r.n. 5. ____daily. 6. Rocephin 1 gram q.24h. 7. Ambien p.r.n. 8. KCl 8 mEq b.i.d. 9. Percocet one tab q.6h. p.r.n. 10. Robitussin p.r.n. 9. Abilify 5 mg daily. 11. Aspirin 81 mg daily. 12. Lotrimin cream b.i.d. 13. Colace 100 b.i.d. 14. Cymbalta 60 mg daily. 15. Zolpidem 5 daily. 16. Fluticasone as directed daily nasal spray. 17. Claritin 10 mg daily. 18. Multivitamin daily. 19. Mycolog cream b.i.d. topically. 20. Tylenol. 21. Imodium p.r.n. ASSESSMENT AND PLAN: This is a 78-year-old female with history of chronic obstructive pulm onary disease, nephrolithiasis, depression, psychiatric disorder, and recurrent urinary tract infecti ons who presented with status post fall, questionable syncopal episode, was found to have UTI, multil evel spinal disk disease and thyroid nodule, also with ongoing dizziness. 1. Respiratory. Stable. Continue Breo treatment and O2 support. 2. Urinary tract infection with multiple positive organisms including Proteus and Enterococcus. I d id start the patient on vancomycin. I just noted that the ID did start the patient for fosfomycin. Continue above treatment plan and follow-up closely. 3. Syncope. Questionable. Workup so far is negative, possibly orthostatic hypotension versus other . Appreciate neurology and cardiology input. MRI cannot be done due to patient has a pacemaker. 4. Thyroid nodule concerning for malignancy. FNA to be arranged as an outpatient basis with an endo crine. 5. Osteoarthritis. Physical therapy to continue to follow. Pain meds are being provided. 6. Psychiatric disorder. Mood appears to be stable. Continue all psych meds. 7. Continue deep vein thrombosis prophylaxis and gastrointestinal prophylaxis. 8. Renal insufficiency, better today. Observe. Sodium is now normal. 9. Disposition soon. Follow-up closely. Discharge planning likely back to the assisted living faci lity tomorrow. Dictated By: JULIAN SANCHEZ/CYNTHIA Conf#: [id number] DID#: [id number] CC: DUGLAS KELLY MD;*EndCC*
[2018-09-19] MEDS: VANCOMYCIN 1 GM 250 ML IVPB SCH (16:50)
[2018-09-19] MEDS ORDERED: VANCOMYCIN HCL 1.25 GM in SOD CHLORIDE 0.9% 250 ML IVPB SCH (17:00)
[2018-09-19 19:56] VITALS: BP 132/62; PULSE 62; RESP 20
[2018-09-19] MEDS: ZOLPIDEM 5 MG TAB PO PRN ×2 (21:02→21:14)
[2018-09-20 00:09] VITALS: BP 138/63; PULSE 62; RESP 18
[2018-09-20] MEDS: CEFTRIAXONE 1 GM/50 ML (PMX) 50 ML IVPB SCH (00:15)
[2018-09-20 04:00] VITALS: BP 118/59; PULSE 67; RESP 18
[2018-09-20] MEDS: PANTOPRAZOLE (EC) 40 MG TAB PO SCH (06:17)
[2018-09-20 07:37] VITALS: BP 126/60; PULSE 69; RESP 20
--- NOTE | 2018-09-20 08:34 | CONS ---
Consult Date/Type/Reason Admit Date/Time Sep 17, 2018 at 09:01 Initial Consult Date Type of Consultation: cv Requesting Provider: BROOKE LOPEZ DO Date/Time of Note DATE: 09/20/18 TIME: 08:32 Subjective Interventional cardiology follow-up progress note Subjective: Discussed with staff telemetry was reviewed. Patient remains mostly in sinus rhythm with intermittent demand atrial and ventricular pacing. No evidence of pacemaker malfunction noted. Patient with no chest pain or pressure. She is still complaining of dizziness intermittently mostly upon standing PT C/O N/V this am Objective: General: no acute distress HEENT: NC. There is small ecchymosis on the left forehead. pupils are equal. round. NECK: NO JVD. no stridor. CV: RRR. systolic murmur; no gallop or rubs. PULM: no wheezing or rhonchi. GI: SOFT, NT, ND, no rebound or guarding Extremity: trace B/L LE edema. no clubbing. neuro: awake and alert, . Psych: calm and pleasant rectal: deferred Objective Vitals Vital Signs Date Temp Pulse Resp B/P (MAP) Pulse Ox O2 O2 Flow FiO2 Time Delivery Rate 09/20/18 98.0 69 20 126/60 100 Nasal 07:37 (82) Cannula 09/20/18 2.0 02:12 Intake and Output 09/19/18 09/19/18 09/20/18 1515:00 23:00 07:00 IntakeIntake Total 240 ml 120 ml 290 ml BalanceBalance 240 ml 120 ml 290 ml Results/Medications Result Diagram: 09/18/1851009/19/18 0515 Home Meds Active Scripts Aspirin* (Aspirin* EC) 81 Mg Tablet.dr, 81 MG PO DAILY for 30 Days, TAB Prov:JULIAN DOMÍNGUEZ MD 06/01/18 Gabapentin* (Gabapentin*) 100 Mg Capsule, 100 MG PO TID for 30 Days, CAP Prov:JULIAN DOMÍNGUEZ MD 03/08/18 Reported Medications Budesonide-Formoterol Fumarate* (Symbicort*) 160-4.5 Hfa.aer.ad, 2 PUFF INHALATION BID, #1 EACH 09/16/18 Potassium Chloride* (Potassium Chloride*) 8 Meq Capsule.er, 8 MEQ PO BID, CAP 09/16/18 Oxycodone HCl/Acetaminophen (Oxycodone-Acetaminophen 10-325) 1 Each Tablet, 1 EACH PO TID, TAB 09/16/18 Guaifenesin/Codeine Phosphate (Codeine-Guaifen 10-100 mg/5 ml) 120 Ml Liquid, 5 ML PO Q6 PRN for COUGH 09/16/18 Furosemide* (Furosemide*) 40 Mg Tablet, 40 MG PO DAILY, TAB 09/16/18 Zolpidem Tartrate* (Zolpidem Tartrate*) 10 Mg Tablet, 10 MG PO QHS PRN for INSOMNIA, #30 TAB 03/03/18 Albuterol Sulfate* (Ventolin HFA*) 18 Gm Hfa.aer.ad, 2 PUFF INHALATION Q4H, #1 INHALER 03/03/18 Balsam [place] Oil (Venelex Ointment) 60 Gm Oint..gm., 1 APPLIC TOP NEEDED, #1 TUB 03/03/18 Fesoterodine Fumarate (Toviaz) 8 Mg Tab.sr.24h, 8 MG PO DAILY, TAB 03/03/18 Tamsulosin Hcl* (Tamsulosin Hcl*) 0.4 Mg Cap.er.24h, 0.4 MG PO QAM, CAP 03/03/18 Pantoprazole* (Pantoprazole*) 40 Mg Tablet.dr, 40 MG PO AC BREAKFAST, TAB 03/03/18 Nystatin-Triamcinolone* (Nystatin-Triamcinolone* Cream) 15 Gm Cream.gm., 1 APPLIC TOP BID, #1 TUB 03/03/18 Multivitamins* (Theragran*) 1 Tab Tab, 1 TAB PO DAILY, TAB 03/03/18 Loratadine* (Loratadine*) 10 Mg Tablet, 10 MG PO DAILY, #30 TAB 03/03/18 Loperamide Hcl* (Loperamide Hcl*) 2 Mg Cap, 2 MG PO Q4H PRN for NEEDED, CAP 03/03/18 Cholecalciferol (Vitamin D3) (Vitamin D-3) 2,000 Unit Tablet, 2000 UNIT PO DAILY, TAB 03/03/18 Fluticasone Propionate* (Fluticasone Propionate* Nasal) 50 Mcg/[place] - 16 Gm Spr ay.susp, 1 SPRAY NASAL DAILY, #1 BOTTLE TO EACH NOSTRIL 03/03/18 Ferrous Sulfate* (Ferrous Sulfate*) 325 Mg Tabec, 325 MG PO DAILY, TAB 03/03/18 Duloxetine Hcl* (Duloxetine Hcl*) 60 Mg Capsule.dr, 60 MG PO DAILY, #30 CAP 03/03/18 Docusate Sodium* (Colace*) 100 Mg Capsule, 100 MG PO BID, #60 CAP 03/03/18 Clotrimazole* (Clotrimazole* AF) 1% - 30 Gm Cream.gm., 1 APPLIC TOP BID, TUB 03/03/18 Aripiprazole* (Abilify*) 5 Mg Tab, 5 MG PO DAILY, #30 TAB 03/03/18 Acetaminophen* (Acetaminophen*) 325 Mg Tablet, 650 MG PO Q6H PRN for MILD PAIN LEVEL 1-3, #30 TAB 03/03/18 Discontinued Reported Medications Nitroglycerin* (Nitroglycerin* SL) 0.4 Mg Tab.subl, 0.4 MG SL Q5MIN PRN for CHEST PAIN, BOTTLE 03/03/18 Lorazepam* (Lorazepam*) 0.5 Mg Tablet, 0.5 MG PO Q8 PRN for ANXIETY, TAB 03/03/18 Ipratropium-Albuterol (Ipratropium-Albuterol) 0.5-3 Mg/3 Ml Ampul.neb, 3 ML INHALATION Q2H, #30 VIAL 03/03/18 Discontinued Scripts Cephalexin* (Cephalexin*) 500 Mg Capsule, 500 MG PO Q8 for 5 Days, #15 CAP Prov:JULIAN DOMÍNGUEZ MD 06/01/18 Prednisone* (Prednisone*) 20 Mg Tab, 30 MG PO DAILY for 9 Days, TAB Prov:JULIAN DOMÍNGUEZ MD 06/01/18 Oxycodone HCl/Acetaminophen (Percocet 5-325 mg Tablet) 1 Each Tablet, 1 EACH PO Q6, #30 TAB Prov:JULIAN DOMÍNGUEZ MD 06/01/18 Medications Current Medications Ceftriaxone Sodium 50 ml @ 100 mls/hr Q24H IVPB Last administered on 09/20/18at 00:15; Admin Dose 100 MLS/HR; Start 09/16/18 at 23:30 Acetaminophen (Tylenol Tab) 650 mg Q6H PRN PO MILD PAIN LEVEL 1-3; Start 09/16/18 at 08:30 Aripiprazole (Abilify) 5 mg DAILY PO Last administered on 09/19/18 08:33; Admin Dose 5 MG; Start 09/16/18 at 09:00 Aspirin (Halfprin) 81 mg DAILY PO Last administered on 09/19/18 08:33; Admin Dose 81 MG; Start 09/16/18 at 09:00 Clotrimazole (Lotrimin Cr) 1 applic BID TOP Last administered on 09/19/18 08:34; Admin Dose 1 APPLIC; Start 09/16/18 at 09:00 Docusate Sodium (Colace) 100 mg BID PO Last administered on 09/18/18 20:35; Admin Dose 100 MG; Start 09/16/18 at 09:00 Duloxetine HCl (Cymbalta) 60 mg DAILY PO Last administered on 09/19/18 08:33; Admin Dose 60 MG; Start 09/16/18 at 09:00 Ferrous Sulfate (Ferrous Sulfate (Ec)) 325 mg DAILY PO Last administered on 09/19/18 08:33; Admin Dose 325 MG; Start 09/16/18 at 09:00 Fluticasone Propionate (Flonase 0.05% Nasal) 1 spray DAILY NASAL Last administered on 09/19/18 08:34; Admin Dose 1 SPRAY; Start 09/16/18 at 09:00 Loperamide HCl (Imodium Cap) 2 mg Q4H PRN PO NEEDED; Start 09/16/18 at 08:30 Loratadine (Claritin) 10 mg DAILY PO Last administered on 09/19/18 08:33; Admin Dose 10 MG; Start 09/16/18 at 09:00 Multivitamins Therapeutic (Theragran) 1 tab DAILY PO Last administered on 09/19/18 08:33; Admin Dose 1 TAB; Start 09/16/18 at 09:00 Nystatin/ Triamcinolone Acetonide (Mycolog Cr) 1 applic BID TOP Last administered on 09/19/18 08:34; Admin Dose 1 APPLIC; Start 09/16/18 at 09:00 Pantoprazole (Protonix Tab) 40 mg AC BREAKFAST PO Last administered on 09/20/18 06:17; Admin Dose 40 MG; Start 09/17/18 at 07:00 Oxycodone/ Acetaminophen (Percocet (5/ 325)) 1 tab Q6H PRN PO MODERATE PAIN LEVEL 4-6 Last administered on 09/19/18 17:04; Admin Dose 1 TAB; Start 09/16/18 at 09:30 Potassium Chloride (Micro-K) 8 meq BID PO Last administered on 09/19/18 21:03; Admin Dose 8 MEQ; Start 09/16/18 at 10:00 Guaifenesin/ Codeine Phosphate (Robitussin Ac Liquid Cup) 5 ml Q6H PRN PO COUGH Last administered on 09/18/18at 20:35; Admin Dose 5 ML; Start 09/16/18 at 09:30 Zolpidem Tartrate (Ambien) 5 mg HS MAY REPEAT X 1 PRN PO INSOMNIA Last administered on 09/19/18 21:14; Admin Dose 5 MG; Start 09/16/18 at 22:00 Enoxaparin Sodium (Lovenox) 40 mg DAILY SC Last administered on 09/19/18 08:43; Admin Dose 40 MG; Start 09/17/18 at 12:30 Albuterol (Ventolin Hfa) 2 puff Q4H RESP THERAPY PRN INH sob/wheezing; Start 09/17/18 at 12:30 Fluticasone/ Vilanterol (Breo Ellipta 100-25 Mcg Inh) 1 inh DAILY INH Last administered on 09/19/18at 08:33; Admin Dose 1 INH; Start 09/17/18 at 13:30 Vancomycin HCl 250 ml @ 125 mls/hr Q24H IVPB Last administered on 09/19/18at 16:50; Admin Dose 125 MLS/HR; Start 09/19/18 at 17:00 Vancomycin HCl (Vanco Iv Per Pharmacy) PER PHARMACY DOSING NOTE XX ; Start 09/18/18 at 17:30 Miscellaneous Information (*Rx Drug Level Order Reminder*) VANCO TROUGH @ 1,600 ON... 1600 ONCE XX ; Start 09/21/18 at 16:00; Stop 09/21/18 at 16:01 Assessment/Plan Hospital Course (Demo Recall) Status post fall dizziness. Possible syncope, Sick sinus syndrome status post permanent pacemaker with a [place] pacemaker with no evidence of malfunction on telemetry Hypertension History of psych disorder Urinary tract infection Anemia N/V Recommendations: no evidence of pacemaker malfunction or significant arrhythmia to cause the syncope. pacemaker was recently interrogated in the office. Antibiotic management as per internal medicine PT as tolerated check orthostatics Thank you for his referral. We will continue to follow along with you AMADOU GOMEZ MD [facility] AMADOU GOMEZ MD Sep 20, 2018 08:34
[2018-09-20] MEDS: FERROUS SULFATE (EC) 325 MG TAB PO SCH (08:43)
[2018-09-20] MEDS: DOCUSATE SODIUM 100 MG CAP PO SCH (08:43)
[2018-09-20] MEDS: DULOXETINE 30 MG CAP DR PO SCH (08:43)
[2018-09-20] MEDS: ARIPIPRAZOLE 5 MG TAB PO SCH (08:43)
[2018-09-20] MEDS: ASPIRIN (EC) 81 MG TAB PO SCH (08:43)
[2018-09-20] MEDS: POTASSIUM CHLORIDE (SR) 8 MEQ CAP PO SCH (08:43)
[2018-09-20] MEDS: MULTIVITAMINS THERAPEUTIC TAB PO SCH (08:43)
[2018-09-20] MEDS: LORATADINE 10 MG TAB PO SCH (08:43)
[2018-09-20] MEDS: BALSAM PERU/CASTOR OIL 60 GM TUBE TOP SCH (08:44)
[2018-09-20] MEDS: FLUTICASONE 0.05% 16 GM NAS SPRAY NASAL SCH (08:44)
[2018-09-20] MEDS: FLUTICASONE/VILANTEROL 100-25 INH SCH (08:44)
[2018-09-20] MEDS: CLOTRIMAZOLE 1% 30 GM CR TOP SCH (08:44)
[2018-09-20] MEDS: NYSTATIN/TRIAMCINOLONE 15 GM CR TOP SCH (08:44)
[2018-09-20] MEDS: ENOXAPARIN 40 MG/0.4 ML SYG SC SCH (08:51)
--- NOTE | 2018-09-20 08:51 | PN ---
DATE: 09/20/2018 SUBJECTIVE: The patient is stable, no events overnight. OBJECTIVE: VITAL SIGNS: Blood pressure is 126/60, pulse 69, respirations 20, temperature 98.0. HEENT: Head is normocephalic. NECK: Supple. HEART: Regular rate. LUNGS: Show diminished breath sounds at the base. ABDOMEN: Soft, nontender to palpation without rebound or guarding. EXTREMITIES: Negative for clubbing, cyanosis, no edema. DERMATOLOGIC: No rashes. MUSCULOSKELETAL: No joint effusions. NEUROLOGIC: No change in exam. MEDICATIONS: Reviewed. LABORATORY DATA: Reviewed. IMAGING STUDIES: Reviewed. ASSESSMENT AND PLAN: 1. Oliguric acute kidney injury on top of chronic kidney disease, etiology secondary to hemodynamics . Renal function is improved. Continue to monitor. 2. Anemia. Monitor hemoglobin and hematocrit levels. 3. Mineral bone disorder. Monitor calcium and phosphorus levels. 4. Mild hypernatremia. Continue to monitor. Encourage free water intake. 5. Syncope, etiology unclear. No evidence of seizure. We will continue to monitor. Follow up with neurology, cardiology. 6. Urinary tract infection. Continue current treatment plan. 7. Coronary artery disease. Continue current treatment plan. 8. History of chronic obstructive pulmonary disease. 9. History of congestive heart failure. She is currently compensated. Continue to monitor. 10. Anxiety disorder. 11. History of overactive bladder. Dictated By: BROOKE BARNES/NTS Conf#: [id number] DID#: [id number] CC: DUGLAS KELLY MD;*EndCC*
[2018-09-20 11:02] VITALS: BP 100/52; PULSE 70; RESP 18
--- NOTE | 2018-09-20 11:29 | PDOCDIS ---
Discharge Instructions CONDITION [id number] Patient Condition: [id number] Stable ACTIVITY: [id number] Activity Restrictions: [id number] Slowly Increase Activity FOLLOW UP/APPOINTMENTS Follow-up Plan discharge to [facility], see reconciliation, will need Physical Therapy and follow up with Endocrine Dr. Huff for thyroid nodule biopsy JULIAN DOMÍNGUEZ MD Sep 20, 2018 11:29
--- NOTE | 2018-09-20 12:07 | CONS ---
Assessment/Plan Assessment/Plan Hospital Course (Demo Recall) No acute events over night, looks comfortable, no fevers Microbiology: Urine culture grew Proteus mirabilis and enterococcus species more than 100,000 Allergies penicillin Antimicrobials: Yaw Davis Physical examination: Well-developed well-nourished elderly woman who is alert in no distress. Head atraumatic normocephalic neck is supple chest rise symmetrical breath sounds clear heart S1-S2 abdomen soft obese bowel sounds present no tenderness on palpation extremities without cyanosis Assessment: 1. Polymicrobial UTI 2. Acute kidney injury 3. Status post syncopal episode 4. Coronary artery disease Plan: Remains stable, vancomycin added to cover enterococcus, continue on current antibiotics to complete 7 days Consultation Date/Type/Reason Admit Date/Time Sep 17, 2018 at 09:01 Initial Consult Date Type of Consult id Requesting Provider: BROOKE LOPEZ DO Date/Time of Note DATE: 09/20/18 TIME: 12:06 Exam/Review of Systems Exam Vitals Vital Signs Date Temp Pulse Resp B/P (MAP) Pulse Ox O2 O2 Flow FiO2 Time Delivery Rate 09/20/18 98.0 70 18 100/52 100 Nasal 11:02 (68) Cannula 09/20/18 2.0 09:02 Intake and Output 09/19/18 09/19/18 09/20/18 1515:00 23:00 07:00 IntakeIntake Total 240 ml 120 ml 290 ml BalanceBalance 240 ml 120 ml 290 ml Results Result Diagram: 09/18/18 0511 09/19/18 0515 Medications Medication Current Medications Ceftriaxone Sodium 50 ml @ 100 mls/hr Q24H IVPB Last administered on 09/20/18at 00:15; Admin Dose 100 MLS/HR; Start 09/16/18 at 23:30 Acetaminophen (Tylenol Tab) 650 mg Q6H PRN PO MILD PAIN LEVEL 1-3; Start 09/16/18 at 08:30 Aripiprazole (Abilify) 5 mg DAILY PO Last administered on 09/20/18at 08:43; Admin Dose 5 MG; Start 09/16/18 at 09:00 Aspirin (Halfprin) 81 mg DAILY PO Last administered on 09/20/18at 08:43; Admin Dose 81 MG; Start 09/16/18 at 09:00 Clotrimazole (Lotrimin Cr) 1 applic BID TOP Last administered on 09/20/18 08:44; Admin Dose 1 APPLIC; Start 09/16/18 at 09:00 Docusate Sodium (Colace) 100 mg BID PO Last administered on 09/20/18 08:43; Admin Dose 100 MG; Start 09/16/18 at 09:00 Duloxetine HCl (Cymbalta) 60 mg DAILY PO Last administered on 09/20/18 08:43; Admin Dose 60 MG; Start 09/16/18 at 09:00 Ferrous Sulfate (Ferrous Sulfate (Ec)) 325 mg DAILY PO Last administered on 09/20/18 08:43; Admin Dose 325 MG; Start 09/16/18 at 09:00 Fluticasone Propionate (Flonase 0.05% Nasal) 1 spray DAILY NASAL Last administ ered on 09/20/18 08:44; Admin Dose 1 SPRAY; Start 09/16/18 at 09:00 Loperamide HCl (Imodium Cap) 2 mg Q4H PRN PO NEEDED; Start 09/16/18 at 08:30 Loratadine (Claritin) 10 mg DAILY PO Last administered on 09/20/18 08:43; Admin Dose 10 MG; Start 09/16/18 at 09:00 Multivitamins Therapeutic (Theragran) 1 tab DAILY PO Last administered on 09/20/18 08:43; Admin Dose 1 TAB; Start 09/16/18 at 09:00 Nystatin/ Triamcinolone Acetonide (Mycolog Cr) 1 applic BID TOP Last administered on 09/20/18 08:44; Admin Dose 1 APPLIC; Start 09/16/18 at 09:00 Pantoprazole (Protonix Tab) 40 mg AC BREAKFAST PO Last administered on 09/20/18 06:17; Admin Dose 40 MG; Start 09/17/18 at 07:00 Oxycodone/ Acetaminophen (Percocet (5/ 325)) 1 tab Q6H PRN PO MODERATE PAIN LEVEL 4-6 Last administered on 09/19/18 17:04; Admin Dose 1 TAB; Start 09/16/18 at 09:30 Potassium Chloride (Micro-K) 8 meq BID PO Last administered on 09/20/18 08:43; Admin Dose 8 MEQ; Start 09/16/18 at 10:00 Guaifenesin/ Codeine Phosphate (Robitussin Ac Liquid Cup) 5 ml Q6H PRN PO COUGH Last administered on 09/18/18at 20:35; Admin Dose 5 ML; Start 09/16/18 at 09:30 Zolpidem Tartrate (Ambien) 5 mg HS MAY REPEAT X 1 PRN PO INSOMNIA Last admini stered on 09/19/18at 21:14; Admin Dose 5 MG; Start 09/16/18 at 22:00 Enoxaparin Sodium (Lovenox) 40 mg DAILY SC Last administered on 09/20/18at 08:51; Admin Dose 40 MG; Start 09/17/18 at 12:30 Albuterol (Ventolin Hfa) 2 puff Q4H RESP THERAPY PRN INH sob/wheezing; Start 09/17/18 at 12:30 Fluticasone/ Vilanterol (Breo Ellipta 100-25 Mcg Inh) 1 inh DAILY INH Last administered on 09/20/18at 08:44; Admin Dose 1 INH; Start 09/17/18 at 13:30 Vancomycin HCl 250 ml @ 125 mls/hr Q24H IVPB Last administered on 09/19/18at 16:50; Admin Dose 125 MLS/HR; Start 09/19/18 at 17:00 Vancomycin HCl (Vanco Iv Per Pharmacy) PER PHARMACY DOSING NOTE XX ; Start 09/18/18 at 17:30 Miscellaneous Information (*Rx Drug Level Order Reminder*) VANCO TROUGH @ 1,600 ON... 1600 ONCE XX ; Start 09/21/18 at 16:00; Stop 09/21/18 at 16:01 ARIELLA BILLY NP Sep 20, 2018 12:07
[2018-09-20 15:06] VITALS: BP 137/56; PULSE 73; RESP 20
[2018-09-20] MEDS: OXYCODONE/ACETAMINOPHEN (5/325) TAB PO PRN (15:36)
[2018-09-20] MEDS: VANCOMYCIN 1 GM 250 ML IVPB SCH (15:36)
--- NOTE | 2018-09-21 03:27 | DS ---
DATE OF ADMISSION: 09/17/2018 DATE OF DISCHARGE: 09/20/2018 REASON FOR ADMISSION: Dizziness, rule out syncope. HOSPITAL COURSE: The patient is a 77-year-old female with history of COPD, congestive hear t failure, osteoarthritis, schizoaffective disorder, diabetes mellitus, history of coronary artery di sease, status post left obstructive ureteral stone, status post lithotripsy, overactive bladder who r esides at the [facility] assisted living facility. She was brought into [facility] after she was found down. Apparently, she may have had a syncopal episode. In the ER, she un derwent various diagnostic imaging including a CT scan of the brain which showed no acute intracrania l pathology. There is mild cerebral volume loss, mild chronic microvascular ischemic changes and ___ __ stenosis in the left middle cranial fossa causing mild mass effect on the left temporal lobe. Tho racic spine x-ray showed demineralization likely multilevel mild osteoporotic fracture in the thoraci c spine, otherwise, age indeterminate. Otherwise, there is no evidence of acute fracture, multilevel spinal stenosis in the lower lumbar spine, principally secondary to posterior iliac osteophyte compl exes and ligamentum flavum hypertrophy. Lumbar spine CT showed demineralization, multilevel degenera tive changes with spinal stenosis, bilateral intervertebral foraminal stenosis, see report. Also, un derwent a chest x-ray which showed no evidence of thoracic injury. There is new mild pulmonary vascu lar congestion. The finding may represent failure versus degree of volume overload in a trauma patie nt. C-spine x-ray also showed cervical straightening, 17 mm partially visualized lesion in the right thyroid recommend nonemergent ultrasound, so I ordered an ultrasound which showed a nodule in the ri ght lobe measuring 2.2 cm. FNA is recommended. This is stage IV, so will refer her to an endo crinologist. Carotid ultrasound was otherwise unremarkable. During her stay, she was consulted and seen by multiple physicians including Dr. Lloyd, the neurologist, Dr. Ramirez, the senior courtroom clerk, and Dr. Joya, the infectious disease specialist. Urine culture came back as Proteus mirabilis and Ente rococcus pieces, so the patient was started on Rocephin and vancomycin. The patient improved, but st ill has dizziness and slight weakness, so will send her to the [facility] facility for physical the rapy, monitor her balance. MRI could not be done due to her pacemaker. As I consulted for Dr. Nguyễn peñaloza, no recommendation was made otherwise. DISCHARGE MEDICATIONS: The patient can be discharged to [facility] facility with the following medications: 1. Tylenol 650 q.6 p.r.n. 2. Ventolin p.r.n. 3. Abilify 5 mg daily. 4. Aspirin 81 mg daily. 5. Venelex daily. 6. Ceftriaxone 1 gram q.24 hours for 3 more days. 7. Lotrimin cream b.i.d. 8. Colace 100 b.i.d. 9. Cymbalta 60 mg daily. 10. Lovenox, will discontinue the Lovenox. 11. Ferrous sulfate 325 daily. 12. Fluticasone Flonase daily. 13. Symbicort she took before 160/4.5 b.i.d. 2 puffs. 14. Imodium p.r.n. 15. Loratadine 10 mg daily. 16. Vancomycin dose per pharmacy. 17. Multivitamin 1 tab daily. 18. Mycolog cream as directed. 19. Percocet 5/325 q.6 p.r.n. 20. Protonix 40 mg daily. 21. KCl 8 mg b.i.d. 22. Vancomycin IV dose per pharmacy for 5 more days to complete a course for UTI. 23. Ambien 5 mg at bedtime p.r.n. insomnia. 24. Toviaz 8 mg daily. 25. Lasix. Will reduce dose to 20 mg daily. 26. She takes Flomax 0.4 daily and endocrine consult for evaluation of thyroid nodule for possible F NA. FINAL DIAGNOSES: 1. Status post fall, rule out syncope. 2. Urinary tract infection with multiple organisms including Proteus mirabilis, and enterococcus. 3. Dehydration. 4. Acute renal failure. 5. Spinal stenosis, spinal disk disease, including the C-spine, T-spine and L-spine. 6. Anemia. 7. Overactive bladder. 8. History of chronic obstructive pulmonary disease, compensated. 9. History of iron deficiency anemia. 10. Psychiatric disorder. 11. History of iron deficiency anemia, anemia of chronic disease. 12. Overweight state. 13. Osteoarthritis. 14. Tendency for congestive heart failure. 15. History of gout. 16. Depression. 17. Neuropathy. DISCHARGE PLAN: The patient will be discharged to [facility] facility for physical therapy, ant ibiotics management with IV and follow up with endocrine. DISCHARGE DIET: Low salt, low carbohydrate diet. DISCHARGE ACTIVITY: As tolerated. Dictated By: JULIAN SANCHEZ/NTS Conf#: [id number] DID#: [id number] CC: DUGLAS KELLY MD;*EndCC*
== END 2018-09-20 17:42 | DRG 690 ==
LOC: E/R 20:41 → 2NE 23:54 → 6WM 09-16 16:21 → OBSVTOIN 09-17 09:01
PROVIDERS: ADMIT Internal Medicine Nephrology; ATTEND Internal Medicine
DX: N39.0 Urinary tract infection, site not specified (principal); N17.9 Acute kidney failure, unspecified; E87.0 Hyperosmolality and hypernatremia; I13.0 Hypertensive heart and chronic kidney disease with heart failure and stage 1 through stage 4 chronic kidney disease, or unspecified chronic kidney disease; I50.32 Chronic diastolic (congestive) heart failure; J44.1 Chronic obstructive pulmonary disease with (acute) exacerbation; M80.08XA Age-related osteoporosis with current pathological fracture, vertebra(e), initial encounter for fracture; R42 Dizziness and giddiness; F03.90 Unspecified dementia, unspecified severity, without behavioral disturbance, psychotic disturbance, mood disturbance, and anxiety; I25.10 Atherosclerotic heart disease of native coronary artery without angina pectoris; E87.6 Hypokalemia; N32.81 Overactive bladder; I25.2 Old myocardial infarction; B96.4 Proteus (mirabilis) (morganii) as the cause of diseases classified elsewhere; B95.2 Enterococcus as the cause of diseases classified elsewhere; E04.1 Nontoxic single thyroid nodule; R55 Syncope and collapse; F41.9 Anxiety disorder, unspecified; M19.90 Unspecified osteoarthritis, unspecified site; F25.9 Schizoaffective disorder, unspecified; M48.02 Spinal stenosis, cervical region; M48.061 Spinal stenosis, lumbar region without neurogenic claudication; M48.04 Spinal stenosis, thoracic region; D50.9 Iron deficiency anemia, unspecified; D63.8 Anemia in other chronic diseases classified elsewhere; E66.3 Overweight; Z68.34 Body mass index [BMI] 34.0-34.9, adult; Z79.82 Long term (current) use of aspirin; Z95.0 Presence of cardiac pacemaker; Z91.81 History of falling; Z95.5 Presence of coronary angioplasty implant and graft; Z88.0 Allergy status to penicillin
CPT/HCPCS: 36415; 70450; 71045; 72125; 72128; 72131; 76536; 80048; 80053; 81001; 83735; 84100; 84484; 85025; 85610; 85730; 87086; 93005; 93306; 93880; 95819; 96374; 97162; 97530; 99217; G0378; J0696; J1650; J3370; J7030; J7040; J7050